=== PATIENT | female | born 1955 | race African-American/Black ===

== ENCOUNTER 2024-03-02 10:02 | Outpatient (CLI) | payer MEDICARE, SELFPAY ==
--- NOTE | 2024-03-02 11:03 | ECG_ITS ---
Test Date: 2024-03-02 11:17:52 Measurements Intervals [place] Rate: 59 P: 24 NM: 171 QRS: -28 QRSD: 90 T: 2 QT: 414 QTc: 411 Interpretive Statements SINUS BRADYCARDIA WITH SINUS ARRHYTHMIA LOW QRS VOLTAGE IN PRECORDIAL LEADS [QRS DEFLECTION < 1.0 mV IN CHEST LEADS] POSSIBLE ANTERIOR MYOCARDIAL INFARCTION [30 ms Q WAVE IN V3/V4, OR R < 0.2 mV IN V4], OF INDETERMINATE AGE LEFT AXIS DEVIATION No previous ECG available for comparison Electronically Signed On 03-02-2024 18:10:03 MRI SPECIALIST by Ana Dee M.D.
[2024-03-02 12:03] LABS: Eosinophils Absolute Auto 0.1 K/mm3 (0-0.3); Eosinophils Percent Auto 2.3 % (0-4.4); Hematocrit 36.6 % (37.0-47.0); Immature Granulocyte Absolute 0.01 K/mm3 (0.00-0.031); Immature Granulocyte Percent A 0.3 % (0-0.5); Lymphocytes Percent Auto 29.7 % (18.3-44.2); Mean Corpuscular HGB Conc 32.8 g/dl (32-36); Mean Corpuscular Hemoglobin 29.9 pg (26-34); Mean Platelet Volume 11.7 fl (7.4-10.4); Monocytes Absolute Auto 0.5 K/mm3 (0.1-0.6); Monocytes Percent Auto 16.5 % (2.6-8.5); Neutrophils Absolute Auto 1.5 K/mm3 (1.3-6.7); Neutrophils Percent Auto 50.2 % (45.5-73.1); Platelet Count Result 157 k/mm3 (150-375); Red Blood Count 4.02 M/mm3 (4.2-5.4); Red Cell Distribution Width 13.6 % (11.5-14.5)
[2024-03-02 12:14] LABS: Anion Gap 0 mmol/L (4-12); Blood Urea Nitrogen 25 mg/dL (7-17); Calcium 9.4 mg/dL (8.4-10.2); Carbon Dioxide 33 mmol/L (22-30); Chloride 103 mmol/L (98-107); Estimated Glomerular Filt Rate > 60; Glucose 75 mg/dL (65-110); Potassium 3.5 mmol/L (3.4-5.0); Sodium 136 mmol/L (137-145)
[2024-03-02 12:16] LABS: Urine Cotinine NEGATIVE
[2024-03-02 12:42] LABS: Hemoglobin A1C 5.3 % (<5.7)
[2024-03-02 13:08] LABS: MRSA (PCR) NOT DETECTED (NOT DETECTE)
== END 2024-03-02 10:03 | disposition home or self-care (01) ==
LOC: ANHSURGERY 10:07
PROVIDERS: Anesthesiology; PCP Family Medicine; Visit Provider Orthopaedic Surgery
DX: Z01.818 Encounter for other preprocedural examination (principal); M16.11 Unilateral primary osteoarthritis, right hip; I10 Essential (primary) hypertension; I44.4 Left anterior fascicular block; R00.1 Bradycardia, unspecified; I49.8 Other specified cardiac arrhythmias
CPT/HCPCS: 36415; 80048; 80307; 82040; 83036; 85025; 87641; 93005

== ENCOUNTER 2024-03-16 00:17 | Day surgery (SDC) | payer MEDICARE, SELFPAY ==
--- NOTE | 2024-03-02 09:58 | PC.NURSE ---
Report to the Outpatient Waiting Room, entrance under the green pavilion located off [facility], at time __6 am on date _03/16/24 . Planned Procedure Time: ___7:30 am .? Time changes happen often and if your time is changed the preop area will call you the afternoon before. - You and your visitor will be asked to self-screen and do not enter if you have any COVID symptoms. Please call surgeon if you need to reschedule. - A mask is optional within the hospital at this time. Patients may have clear liquids (water, carbonated beverages, clear teas, apple juice) until 3 hours prior to surgery ( 4:30 am)with a maximum of 20 ounces. - No food from midnight until time of surgery and no smoking. This includes no chewing gum, candy or mints. Take only the following medications with a SIP of water on the morning of surgery: _hydrocodone if needed for pain DO NOT STOP ANY OF YOUR OTHER PRESCRIPTION MEDICATIONS PRIOR TO SURGERY EXCEPT THE FOLLOWING Medications to discontinue per physician __hold all vitamins 3 days pre op _. last dose03/12/[address] yoon Please no make-up, nail croatian, hairspray, perfume, deodorant, or body powder the day of surgery.? No jewelry (including any body piercings) or valuables the day of surgery, leave them at home.? Please take a shower or bath the night before, or the morning of, surgery with an antibacterial soap.? Wear comfortable, loose fitting clothing.? Children are encouraged to wear pajamas. - Jewelry must be removed prior to entering the operating room.? Rings and piercings that are not removed may be cut off. - The hospital will not accept responsibility for valuables.? - Please leave all valuables, including medications, at home the day of surgery. If you are going home after surgery, a licensed boom truck driver must drive you home.? - NO public transportation without another adult if you receive anesthesia. - We recommend that an adult stay with you for 24 hours following discharge. - We also recommend that you do not drive, make important decision, drink alcoholic beverages, or take any drugs that were not prescribed by your health care provider for at least 24 hours after your discharge time. Follow any additional instructions given to you from your surgeon. VERBAL AND WRITTEN instructions given to _PATIENT and asked if any additional questions and then verbalized understanding. Patient advised to call surgeon office or pre surgery nurse liaison [phone] if any additional questions.
[2024-03-02 10:20] VITALS: BMI 32.3
[2024-03-02 11:03] VITALS: BP 132/76; PULSE 61; RESP 18; TEMP 36.9; O2SAT 99
--- NOTE | 2024-03-15 15:42 | PM.IMHP ---
H&P: HPI History of Present Illness Date/Time: 03/15/24 15:42 Chief Complaint: Patient has a painful Right hip with bone on bone arthritis. She is not responsive to conservative treatment at this time. She would like to proceed with a Total Hip Replacement. Review of Systems Musculoskeletal: Musculoskeletal: Reports arthralgias, Reports joint swelling and Reports stiffness Neurologic: Reports abnormal gait [facility] Past Medical History Medical History Hypertension GERD (gastroesophageal reflux disease) Surgical History Surgical History History of cholecystectomy H/O section Family History Family History Father Malignant neoplasm of prostate Mother Hypertension Sibling Breast cancer Thyroid cancer Grandparent Cerebrovascular accident Social History Social History Years smoked: 3 Smoking status: Former smoker Tobacco type: cigarettes Smoking end date: 03/04/89 Additional smoking assessment comments: DENIES ANY FORM OF TOBACCO USE Alcohol intake: current Drinks per week: 1 Alcohol use details: WHISKEY Substance use: never Do You Feel Safe in your Home?: Yes Lack of Transportation: No Lack of Food: Never True Current Housing: I Have Housing Concerned About Future Housing: No Difficulty Paying Gas/Electric Bills: No Difficulty Paying for Meds: No Currently Unemployed: No Education: Bachelor's Degree Difficulty w/ Childcare or Family Care: No Living arrangements: with family Spiritual care concerns: No Meds Home Medications and Allergies Home Medications ?Medication ?Instructions ?Recorded ?Confirmed ?Type celecoxib 200 mg capsule 200 mg PO DAILY 01/09/24 03/02/24 History hydrochlorothiazide 12.5 mg tablet 12.5 mg PO DAILY 01/09/24 03/02/24 History hydrocodone 5 mg-acetaminophen 325 1 tablet PO .Q12 hours PRN pain 01/09/24 03/02/24 History mg tablet losartan 50 mg tablet 50 mg PO DAILY 01/09/24 03/02/24 History omeprazole 40 mg capsule,delayed 40 mg PO DAILY 01/09/24 03/02/24 History release oxybutynin chloride 5 mg 5 mg PO DAILY 01/09/24 03/02/24 History tablet,extended release 24 hr cetirizine 10 mg tablet (Zyrtec) 10 mg PO DAILY 03/02/24 03/02/24 History fluticasone propionate 50 1 spray intranasal BID 03/02/24 03/02/24 History mcg/actuation nasal spray,suspension (Flonase Allergy Relief) glucosamine-chondroitin 500 mg-400 2 cap PO HS 03/02/24 03/02/24 History mg capsule multivitamin with minerals-folic 2 tablet PO DAILY 03/02/24 03/02/24 History acid 200 mcg chewable tablet (Women's Multivitamin Gummies) Allergies Allergy/AdvReac Type Severity Reaction Status Date / Time No Known Allergies Allergy Unverified 03/02/24 10:11 Exam Narrative: Patient has pain with motion of her hip. She has IR to 0, ER to 30. She has a positive Stinchfield test. She walks with an antalgic gait. NVI Eyes: General: appearance normal, both eyes and all related structures Neck: Neck: supple Resp: Effort & Inspection: normal respiratory effort Cardio: Rate: regular rate Rhythm: regular rhythm Assessment and Plan Assessment and plan (1) Osteoarthritis of right hip: Code(s): M16.11 - Unilateral primary osteoarthritis, right hip Status: Acute Assessment and Plan: Patient has osteoarthritis of her Right Hip. X-rays show bone on bone arthritis. She has failed conservative treatment and would like to proceed with a Total Hip Replacement. Discussed risks, benefits, limitations and alternatives in detail.
[2024-03-16] VITALS (14 sets, daily range): BP systolic 130–156; BP diastolic 65–87; PULSE 60–81; RESP 12–20; TEMP 35.9–36.9; O2SAT 95–100
--- NOTE | ~2024-03-16 | XR_ITS ---
EXAMINATION: XR surgery orthopedic DATE: 03/16/2024 09:12 INDICATION: Intraoperative evaluation during right total hip arthroplasty TECHNIQUE: Frontal view of the right hip was obtained. COMPARISON: None. FINDINGS: Intraoperative image during a right total hip arthroplasty demonstrate placement of an acetabular com ponent which is affixed with at least 2 screws and which appears in near anatomic alignment on the pr ovided frontal projections. A femoral broach is in place with the proximal tip centered over the acet abular component on the initial image. This been replaced with a noncemented femoral component on the subsequent image with the head of the femoral component projecting concentrically over the acetabula r component. Portions of the pelvis are obscured a bolster. No fractures in the visualized bones. IMPRESSION: 1. Expected appearance during right total hip arthroplasty. Reviewed, dictated and finalized at location B. [facility]
[2024-03-16] MEDS: LACTATED RINGERS 1,000 ML 30 ML IV CONT ×2 (06:30→09:40)
[2024-03-16] MEDS: ACETAMINOPHEN 500 MG TABLET 1000 MG PO (06:40)
[2024-03-16] MEDS: VANCOMYCIN 1,250 MG/NS 250 ML 1,250 MG/250 ML BAG 166.67 MG IVPB (06:40)
--- NOTE | 2024-03-16 06:56 | WPDHPUPDATE1 ---
History and Physical Update Update Date/Time: 03/16/24 06:56 History and Physical has been reviewed, including an updated exam of the patient. There are NO changes in the patient's condition. Risks, benefits, and alternatives have been discussed and questions answered. Patient agrees to proceed with procedure.
--- NOTE | 2024-03-16 06:58 | P.PNAN_ITS ---
Anes - Initial Pre Proc Eval Procedure: Operation Date: 03/16/24 07:30 Proposed Procedures p Right Total Hip Arthroplasty - Jaspreet Segura MD Date/Time: 03/16/24 06:58 Surgeon: Jaspreet Segura MD Pre Op Diagnosis: oa right hip Patient Data Age: 68 Gender: F Height: 1.68 m Weight: 90.8 kg Last Vital Signs Temp 98.5 F 03/02/24 11:03 Pulse 61 03/02/24 11:03 Resp 18 03/02/24 11:03 BP 132/76 03/02/24 11:03 Pulse Ox 99 03/02/24 11:03 O2 Del Method Room Air 03/02/24 11:03 Allergies Allergy/AdvReac Type Severity Reaction Status Date / Time No Known Allergies Allergy Unverified 03/02/24 10:11 Home Medications ?Medication ?Instructions ?Recorded ?Confirmed ?Type celecoxib 200 mg capsule 200 mg PO DAILY 01/09/24 03/02/24 History hydrochlorothiazide 12.5 mg tablet 12.5 mg PO DAILY 01/09/24 03/02/24 History hydrocodone 5 mg-acetaminophen 325 1 tablet PO .Q12 hours PRN pain 01/09/24 03/02/24 History mg tablet losartan 50 mg tablet 50 mg PO DAILY 01/09/24 03/02/24 History omeprazole 40 mg capsule,delayed 40 mg PO DAILY 01/09/24 03/02/24 History release oxybutynin chloride 5 mg 5 mg PO DAILY 01/09/24 03/02/24 History tablet,extended release 24 hr cetirizine 10 mg tablet (Zyrtec) 10 mg PO DAILY 03/02/24 03/02/24 History fluticasone propionate 50 1 spray intranasal BID 03/02/24 03/02/24 History mcg/actuation nasal spray,suspension (Flonase Allergy Relief) glucosamine-chondroitin 500 mg-400 2 cap PO HS 03/02/24 03/02/24 History mg capsule multivitamin with minerals-folic 2 tablet PO DAILY 03/02/24 03/02/24 History acid 200 mcg chewable tablet (Women's Multivitamin Gummies) Laboratory Tests 03/16/24 06:24 Blood Type Pending Antibody Screen Pending Patient hx anesthesia problems: none Family hx anesthesia problems: none Results Review: All pre-operative results and documents have been reviewed as part of the pre- operative evaluation. [facility] Past Medical History Medical History Hypertension GERD (gastroesophageal reflux disease) Surgical History Surgical History History of cholecystectomy H/O section Family History Family History Father Malignant neoplasm of prostate Mother Hypertension Sibling Breast cancer Thyroid cancer Grandparent Cerebrovascular accident Social History Social History Smoking status: Never smoker Tobacco type: cigarettes Alcohol intake: current Alcohol use details: Occasional Substance use: never Do You Feel Safe in your Home?: Yes Lack of Transportation: No Lack of Food: Never True Current Housing: I Have Housing Concerned About Future Housing: No Difficulty Paying Gas/Electric Bills: No Difficulty Paying for Meds: No Currently Unemployed: No Education: Bachelor's Degree Difficulty w/ Childcare or Family Care: No Anes - Eval Final PreProcedure Day of Procedure 03/16/24 06:58 Patient weight: obese Heart: regular rate and rhythm Lungs: clear to auscultation Airway: Mallampati scale class III Neurological: alert and oriented Last oral intake: >/= 8 hours ASA classification: II Emergent: no Anesthetic plan: proceed Anesthesia type and monitoring: general ETT and standard monitoring Results Review: All pre-operative results and documents have been reviewed as part of the pre- operative evaluation. HTN, pt can walk short distances, no cp or sob. Informed Consent: The patient's anesthetic plan and its attendant risks and benefits were discussed with the patient/family/POA. Questions were solicited and answers provided to the satisfaction of the patient/family/POA.
[2024-03-16] MEDS: TRANEXAMIC ACID 1,000MG/ISO100 1,000 MG/100 ML BAG 200 MG IVPB (07:00)
[2024-03-16] MEDS: ceFAZolin 2 GM/D5W 50 ML 2 GM/50 ML BAG IVPB ×3 (07:20→22:52)
[2024-03-16] MEDS: BUPIVACAINE/EPINEPHRINE 0.5% 30 ML VIAL INFILTRATE (07:50)
--- NOTE | 2024-03-16 09:05 | W.PM.PROC2 ---
Procedure Note - Detailed Date of Procedure 03/16/24 Pre-op Diagnosis Osteoarthritis right hip Post-op Diagnosis Same Procedure Performed RIGHT total hip arthroplasty Surgeon Jaspreet Segura MD Anesthesia General Indications Pain and Arthritis Description of Procedure Patient was brought to the operating room #7, and an anesthetic was administered. The patient was placed with the operative Hip up and sterilely prepped and draped in the usual manner. A longitudinal incision was performed. Dissection was carried down to the fascia. A Hardinge type approach was used and the femoral head was dislocated anteriorly. The Femoral head was removed a finger breath above the lesser trochanter. The acetabulum was serially reamed to accept a 52 component. This was impacted into place and secured with 2 25mm screws. A high wall liner was placed. The femur was reamed and broached to accept a #5 component which was impacted into place. A minus 3 head and neck were placed and the hip was put through full range of motion. The hip was noted to be stable. The wounds were then closed in a layered fashion using #5 ethibond, 2 vicryl, 2-0 vicryl and mazin. Patient left the operating room in satisfactory condition. Implants [employer] Taperlock Isabel Multihole cup Estimated Blood Loss 600 Drains No Packing No Pathology None sent Complications No immediate complications Condition Stable Disposition PACU [facility] Billing Surgery - Charge Forward: Surgery Billing ([id number] HUDSON)
[2024-03-16] MEDS: fentaNYL CITRATE INJ (*CRX) 100 MCG/2 ML VIAL 25 MCG IV PUSH ×6 (10:01→10:32)
--- NOTE | 2024-03-16 11:06 | ADMGEN ---
This patient, Julianna Brown, was admitted to 3 [facility] Room 319-01. Patient/family oriented to hospital policies and general routines including ID bracelet, bed and alarms, visiting hours, pain management, procedures, bathroom and other care routines, personal items, smoking policy, room service/diet, and visiting hours. Information on how to activate the Rapid Response Team has been discussed. Patient/Family are encouraged to report perceived risks to care and to ask questions if they do not understand what they are told or what they should do.
[2024-03-16] MEDS: HYDROmorphone HCL INJ (*CRX) 1 MG/ML SYR 0.5 MG IV PUSH (11:22)
--- NOTE | 2024-03-16 14:00 | P.CONIM_ITS ---
Assessment and Plan Assessment and plan (1) Osteoarthritis of right hip: Code(s): M16.11 - Unilateral primary osteoarthritis, right hip Status: Acute Assessment and Plan: Postoperative day 0 status post right total hip arthroplasty. Wound care, pain control, and DVT prophylaxis deferred to primary service. Check baseline labs in a.m. (2) Hypertension: Code(s): I10 - Essential (primary) hypertension Status: Acute Assessment and Plan: Blood pressures were reviewed and they have been in a bit elevated postoperatively, likely due to pain. Resume hydrochlorothiazide and lisinopril and continue to monitor daily. (3) Gastroesophageal reflux disease: Code(s): K21.9 - Gastro-esophageal reflux disease without esophagitis Status: Acute Assessment and Plan: Continue omeprazole. (4) Overactive bladder: Code(s): N32.81 - Overactive bladder Status: Acute Assessment and Plan: Continue oxybutynin. Plan Thank you for allowing us to participate in this patient's care. Please do not hesitate to contact us with any questions. HPI Date of Consult Consult date: 03/16/24 Requesting Physician: Jaspreet Segura MD Primary Care Provider: Marii Randle, Consult Narrative Reason for consult: medical managment Narrative: This is very pleasant a 68-year-old female with osteoarthritis, hypertension, gastroesophageal reflux disease, and overactive bladder whom the hospitalist service has been consulted for help managing her medical conditions postoperatively. She presented today for elective right total hip arthroplasty due to ongoing pain in that right hip despite conservative outpatient treatment. Her surgery was performed under general anesthesia with no immediate complications documented and an estimated blood loss of 600 mL. Pain is not currently well controlled (11/11). She is otherwise feeling okay and denies fever, chills, sweats, chest pain, shortness of breath, nausea, and vomiting. Regarding her chronic medical conditions, she believes they are well controlled on home medications. No personal or family history of venous thromboembolism. On discharge she will be going home with her spouse will help take care of her. Review of Systems Review of Systems: 12 systems were reviewed and are negativ e except for as per HPI. [facility], [facility] Past Medical History Medical History (Updated 03/16/24 @ 14:03 by Ailyn Morton PA-C) Osteoarthritis Overactive bladder Gastroesophageal reflux disease Hypertension Surgical History Surgical History (Updated 03/16/24 @ 14:02 by Ailyn Morton PA-C) History of hysterectomy History of total right hip arthroplasty (03/16/24) History of section History of cholecystectomy Family History Family History Father Malignant neoplasm of prostate Mother Hypertension Sibling Breast cancer Thyroid cancer Grandparent Cerebrovascular accident Social History Social History (Updated 03/16/24 @ 14:03 by Ailyn Morton PA-C) Social History: Surrogate medical decision maker: Dina Kevin, spouse. Code status: Full code. Years smoked: 3 Smoking status: Former smoker Tobacco type: cigarettes Smoking end date: 03/04/89 Alcohol intake: never Drinks per week: 1 Alcohol use details: Occasional Substance use: never Substance use type: does not use Do You Feel Safe in your Home?: Yes Lack of Transportation: No Lack of Food: Never True Current Housing: I Have Housing Concerned About Future Housing: No Difficulty Paying Gas/Electric Bills: No Difficulty Paying for Meds: No Currently Unemployed: No Education: Don't Know Difficulty w/ Childcare or Family Care: No Spiritual care concerns: No Meds Home Medications and Allergies Home Medications ?Medication ?Instructions ?Recorded ?Confirmed ?Type celecoxib 200 mg capsule 200 mg PO DAILY 01/09/24 03/16/24 History hydrochlorothiazide 12.5 mg tablet 12.5 mg PO DAILY 01/09/24 03/16/24 History hydrocodone 5 mg-acetaminophen 325 1 tablet PO .Q12 hours PRN pain 01/09/24 03/02/24 History mg tablet losartan 50 mg tablet 50 mg PO DAILY 01/09/24 03/16/24 History omeprazole 40 mg capsule,delayed 40 mg PO DAILY 01/09/24 03/16/24 History release oxybutynin chloride 5 mg 5 mg PO DAILY 01/09/24 03/16/24 History tablet,extended release 24 hr cetirizine 10 mg tablet (Zyrtec) 10 mg PO DAILY 03/02/24 03/16/24 History fluticasone propionate 50 1 spray intranasal BID 03/02/24 03/16/24 History mcg/actuation nasal spray,suspension (Flonase Allergy Relief) glucosamine-chondroitin 500 mg-400 2 cap PO HS 03/02/24 03/16/24 History mg capsule multivitamin with minerals-folic 2 tablet PO DAILY 03/02/24 03/16/24 History acid 200 mcg chewable tablet (Women's Multivitamin Gummies) Allergies Allergy/AdvReac Type Severity Reaction Status Date / Time No Known Allergies Allergy Verified 03/16/24 07:25 Vital Signs Vital Signs - 24 hr 03/16/24 06:15 03/16/24 09:40 03/16/24 09:55 Temperature 97.4 F L 97 F L Pulse Rate 63 73 66 Respiratory Rate 16 17 14 Blood Pressure 136/85 133/68 146/77 H Pulse Oximetry 99 100 100 Oxygen Delivery Room Air Simple Face Mask Simple Face Mask Oxygen Flow Rate 8 8 03/16/24 10:05 03/16/24 10:10 03/16/24 10:25 Temperature Pulse Rate 76 73 Respiratory Rate 18 12 Blood Pressure 149/80 H 142/83 H Pulse Oximetry 98 99 Oxygen Delivery Room Air Room Air Nasal Cannula Oxygen Flow Rate 2 03/16/24 10:40 03/16/24 10:45 03/16/24 11:10 Temperature 97.2 F L 96.7 F L Pulse Rate 60 63 73 Respiratory Rate 14 16 14 Blood Pressure 156/71 H 146/71 H 141/87 H Pulse Oximetry 100 100 95 Oxygen Delivery Nasal Cannula Nasal Cannula Oxygen Flow Rate 2 2 03/16/24 11:25 03/16/24 12:39 03/16/24 12:54 Temperature 96.9 F L 97.2 F L Pulse Rate 61 62 Respiratory Rate 14 14 Blood Pressure 149/65 H 155/73 H Pulse Oximetry 100 100 Oxygen Delivery Room Air Oxygen Flow Rate Exam Narrative: General: Well-developed, nontoxic-appearing female sitting up in bed in moderate pain weight: 80.1 kg. BMI: 31.3. HEENT: PERRL, EOMI. Sclera anicteric. Oral mucosa moist. Neck: Supple. Respiratory: Lungs are clear to auscultation bilaterally. Cardiovascular: Regular rate and rhythm with S1-S2. Gastrointestinal: Abdomen is soft, nontender, and nondistended with positive bowel sounds. Skin: Warm and dry. No rash or lesions on limited exam. Extremities: No cyanosis, clubbing, or edema. Radial and pedal pulses intact. Musculoskeletal: Right hip dressing is clean, dry, and intact. She is neurovascularly intact distal to the surgical site. Neurological: Alert. Cranial nerves 2-12 grossly intact. No gross focal deficits to casual conversation. Psychiatric: Pleasant and cooperative with normal mood and affect. Judgment and insight intact. Hospitalist MIPS Advance Care Plan I have confirmed that the patient's Advanced Care Plan is present, code status is documented, or surrogate decision maker is listed in patient medical record.: Yes Medication Reconciliation I have utilized all available resources to obtain, update and review the patients current medications (includes all prescriptions, OTC, herbals, cannabis, and nutritional supplements).: Yes
[2024-03-16] MEDS: HYDROcodone/acetaminophen (*CRX) 7.5-325 MG TABLET 1 TAB PO ×2 (14:35→19:33)
[2024-03-16] MEDS: SENNA/DOCUSATE SODIUM TABLET 2 TAB PO (16:10)
[2024-03-16] MEDS: RIVAROXABAN 10 MG TABLET PO (16:10)
[2024-03-16] MEDS: FLUTICASONE PROPIONATE 0.05% NA SPR 16 GM BTL (*BKC) 1 SPRAY NASAL (16:10)
[2024-03-16] MEDS: oxyBUTYnin CHLORIDE XL 5 MG TAB.ER.24 PO (19:32)
[2024-03-16] MEDS: LORATADINE 10 MG TABLET PO (19:32)
[2024-03-16] MEDS: PANTOPRAZOLE 40 MG TABLET PO (19:33)
[2024-03-16] MEDS: IBUPROFEN IV 800 MG/200 ML 800 MG/200 ML BAG 400 MG IVPB (19:34)
[2024-03-16] MEDS: HYDROmorphone HCL INJ (*CRX) 1 MG/ML SYR IV PUSH (21:32)
[2024-03-17 03:00] VITALS: BP 154/74; PULSE 71; RESP 18; TEMP 36.6; O2SAT 100
[2024-03-17 03:32] VITALS: BP 154/74; PULSE 71; RESP 18; TEMP 36.6; O2SAT 100
[2024-03-17] MEDS: IBUPROFEN IV 800 MG/200 ML 800 MG/200 ML BAG 400 MG IVPB (03:43)
[2024-03-17] MEDS: HYDROcodone/acetaminophen (*CRX) 7.5-325 MG TABLET 1 TAB PO ×2 (06:22→11:51)
[2024-03-17] MEDS: ceFAZolin 2 GM/D5W 50 ML 2 GM/50 ML BAG IVPB (06:22)
[2024-03-17 07:06] LABS: Basophils Percent Auto 0.5 % (0.2-1.2); Eosinophils Percent Auto 0.1 % (0-4.4); Hematocrit 32.8 % (37.0-47.0); Hemoglobin 10.6 g/dL (12.0-15.0); Immature Granulocyte Absolute 0.02 K/mm3 (0.00-0.031); Immature Granulocyte Percent A 0.3 % (0-0.5); Lymphocytes Absolute Auto 1.17 K/mm3 (0.9-3.2); Lymphocytes Percent Auto 15.4 % (18.3-44.2); Mean Corpuscular HGB Conc 32.3 g/dl (32-36); Mean Corpuscular Hemoglobin 28.8 pg (26-34); Mean Corpuscular Volume 89.1 fl (80-100); Monocytes Absolute Auto 0.8 K/mm3 (0.1-0.6); Monocytes Percent Auto 10.6 % (2.6-8.5); Neutrophils Absolute Auto 5.6 K/mm3 (1.3-6.7); Neutrophils Percent Auto 73.1 % (45.5-73.1); Platelet Count Result 148 k/mm3 (150-375); Red Blood Count 3.68 M/mm3 (4.2-5.4); Red Cell Distribution Width 13.6 % (11.5-14.5); White Blood Count 7.6 K/mm3 (4.5-10.0)
[2024-03-17 07:37] LABS: Magnesium 1.6 mg/dL (1.6-2.3)
[2024-03-17 07:39] LABS: Anion Gap 4 mmol/L (4-12); Blood Urea Nitrogen 15 mg/dL (7-17); Calcium 8.6 mg/dL (8.4-10.2); Carbon Dioxide 31 mmol/L (22-30); Chloride 99 mmol/L (98-107); Estimated CRCL calculation 85 ml/min; Estimated Glomerular Filt Rate > 60; Glucose 100 mg/dL (65-110); Potassium 3.4 mmol/L (3.4-5.0); Sodium 134 mmol/L (137-145)
--- NOTE | 2024-03-17 08:23 | P.PNOP_ITS ---
Progress Note: A&P Assessment and Plan (1) History of partial replacement of left hip joint using bipolar prosthesis: Code(s): Z96.642 - Presence of left artificial hip joint Status: Acute Assessment and Plan: Patient underwent total hip arthroplasty left. She is following a typical course. I think she can be dismissed today. If she has any changes or problems he is instructed call. Follow-up 10-14 days for sutures out. She should be touch weight-bearing on her hip. Subjective Subjective Date/Time Seen: 03/17/24 08:23 Post Op day: 1 Principal diagnosis: LEFT Total hip arthroplasty for left hip osteoarthritis. Review of Systems Review of Systems: 12 systems were reviewed and are negativ e except for as per HPI. Exam Narrative: On exam the neurologically she is intact. The dressing is intact and dry. She is up ambulating with a walker. Pain is tolerable. Objective Data Vital Signs Vital Signs: Vital Signs - 24 hr 03/16/24 09:40 03/16/24 09:55 03/16/24 10:05 Temperature 97 F L Pulse Rate 73 66 Respiratory Rate 17 14 Blood Pressure 133/68 146/77 H Pulse Oximetry 100 100 Oxygen Delivery Simple Face Mask Simple Face Mask Room Air Oxygen Flow Rate 8 8 03/16/24 10:10 03/16/24 10:25 03/16/24 10:40 Temperature Pulse Rate 76 73 60 Respiratory Rate 18 12 14 Blood Pressure 149/80 H 142/83 H 156/71 H Pulse Oximetry 98 99 100 Oxygen Delivery Room Air Nasal Cannula Nasal Cannula Oxygen Flow Rate 2 2 03/16/24 10:45 03/16/24 11:10 03/16/24 11:25 Temperature 97.2 F L 96.7 F L 96.9 F L Pulse Rate 63 73 61 Respiratory Rate 16 14 14 Blood Pressure 146/71 H 141/87 H 149/65 H Pulse Oximetry 100 95 100 Oxygen Delivery Nasal Cannula Oxygen Flow Rate 2 03/16/24 12:39 03/16/24 12:54 03/16/24 12:55 Temperature 97.2 F L 97.2 F L Pulse Rate 62 71 Respiratory Rate 14 16 Blood Pressure 155/73 H 130/69 Pulse Oximetry 100 99 Oxygen Delivery Room Air Oxygen Flow Rate 03/16/24 13:35 03/16/24 19:00 03/16/24 19:40 Temperature 98.5 F Pulse Rate 81 Respiratory Rate 20 Blood Pressure 151/83 H Pulse Oximetry 98 Oxygen Delivery Room Air Room Air Oxygen Flow Rate 03/16/24 20:36 03/16/24 23:00 03/17/24 03:00 Temperature 98.5 F 97.7 F 97.9 F Pulse Rate 81 68 71 Respiratory Rate 20 20 18 Blood Pressure 151/83 H 148/70 H 154/74 H Pulse Oximetry 98 96 100 Oxygen Delivery Oxygen Flow Rate 03/17/24 03:32 Temperature 97.9 F Pulse Rate 71 Respiratory Rate 18 Blood Pressure 154/74 H Pulse Oximetry 100 Oxygen Delivery Oxygen Flow Rate Intake/Output Intake/Output: Intake & Output 03/14/24 03/15/24 03/16/24 03/17/24 23:59 23:59 23:59 23:59 Intake Total 690 490 Balance 690 490 Meds/Results Medications: Active Medications Generic Name Dose Route Start Last Admin Trade Name Freq PRN Reason Stop Dose Admin Hydrocodone Bitart/Acetaminophen 1 tab 03/16/24 09:15 Hydrocodone/Acetaminophen (*Crx) 5-325 Mg Tablet PO Q4H PRN Pain Rated 4-6 Hydrocodone Bitart/Acetaminophen 1 tab 03/16/24 09:15 03/17/24 06:22 Hydrocodone/Acetaminophen (*Crx) 7.5-325 Mg Tablet PO 1 tab Q4H PRN Administration Pain Rated 7-10 Celecoxib 200 mg 03/17/24 09:00 Celecoxib 200 Mg Capsule PO DAILY KG Cyclobenzaprine HCl 10 mg 03/16/24 09:15 Cyclobenzaprine Hcl 10 Mg Tablet PO Q8H PRN Muscle Spasm Fentanyl Citrate 25 mcg 03/13/24 14:44 03/16/24 10:32 Fentanyl Citrate Inj (*Crx) 100 Mcg/2 Ml Vial IV PUSH 25 mcg Q2M PRN Administration Pain Fluticasone Propionate 1 spray 03/16/24 17:00 03/16/24 16:10 Fluticasone Propionate 0.05% Na Spr 16 Gm Btl (*Bkc) NASAL 1 spray BID KG Administration Hydrochlorothiazide 12.5 mg 03/17/24 21:00 Hydrochlorothiazide 12.5 Mg Capsule PO HS KG Hydromorphone HCl 1 mg 03/16/24 09:15 03/16/24 21:32 Hydromorphone Hcl Inj (*Crx) 1 Mg/Ml Syr IV PUSH 1 mg Q2H PRN Administration Breakthrough Pain Rated 7-10 or NPO Hydromorphone HCl 0.5 mg 03/16/24 09:15 03/16/24 11:22 Hydromorphone Hcl Inj (*Crx) 1 Mg/Ml Syr IV PUSH 0.5 mg Q2H PRN Administration Breakthrough Pain Rated 4-6 or NPO Ibuprofen 800 mg in 200 mls @ 400 mls/hr 03/16/24 09:15 03/17/24 04:13 Caldolor 800 Mg/200 Ml IVPB Infused Q6H PRN Infusion Breakthrough Pain Rated 1-3 or NPO Loratadine 10 mg 03/16/24 21:00 03/16/24 19:32 Loratadine 10 Mg Tablet PO 10 mg HS KG Administration Losartan Potassium 50 mg 03/17/24 21:00 Losartan Potassium 50 Mg Tablet PO HS KG Naloxone HCl 0.1 mg 03/16/24 09:15 Naloxone Hcl 0.4 Mg/Ml Vial IV PUSH Q2M PRN Opiate Reversal Ondansetron HCl 4 mg 03/13/24 14:44 Ondansetron Inj 4 Mg/2 Ml Vial IV PUSH ONCE PRN Nausea Ondansetron HCl 4 mg 03/16/24 09:15 Ondansetron Inj 4 Mg/2 Ml Vial IV PUSH Q4H PRN Nausea And Vomiting Oxybutynin Chloride 5 mg 03/16/24 21:00 03/16/24 19:32 Oxybutynin Chloride Xl 5 Mg Tab.Er.24 PO 5 mg HS KG Administration Pantoprazole Sodium 40 mg 03/16/24 21:00 03/16/24 19:33 Pantoprazole 40 Mg Tablet PO 40 mg HS KG Administration Polyethylene Glycol 17 gm 03/17/24 09:00 Polyethylene Glycol 3350 17 Gm Powd.Pack PO QAM KG Rivaroxaban 10 mg 03/16/24 17:00 03/16/24 16:10 Rivaroxaban 10 Mg Tablet PO 10 mg DAILY@1700 KG Administration Senna/Docusate Sodium 2 tab 03/16/24 17:00 03/16/24 16:10 Senna/Docusate Sodium Tablet PO 2 tab BID KG Administration Tramadol HCl 50 mg 03/16/24 09:15 Tramadol Hcl (*Crx) 50 Mg Tablet PO Q4H PRN Pain Rated 1-3 Radiology Results: ITS Impressions Intraoperative X-Ray 03/16/24 09:50 IMPRESSION: 1. Expected appearance during right total hip arthroplasty. Labs Labs: Laboratory Results - last 24 hr 03/17/24 06:51 WBC 7.6 RBC 3.68 L Hgb 10.6 L Hct 32.8 L MCV 89.1 MCH 28.8 MCHC 32.3 RDW 13.6 Plt Count 148 L MPV 11.0 H Immature Gran % (Auto) 0.3 Neut % (Auto) 73.1 Lymph % (Auto) 15.4 L [place] % (Auto) 10.6 H Eos % (Auto) 0.1 Baso % (Auto) 0.5 Lymph # (Auto) 1.17 [place] # (Auto) 0.8 H Eos # (Auto) 0.0 Baso # (Auto) 0.0 Abs Immat Gran (auto) 0.02 Absolute Neuts (auto) 5.6 Absolute Nucleated RBC 0.000 Nucleated RBC % 0.0 Sodium 134 L Potassium 3.4 Chloride 99 Carbon Dioxide 31 H Anion Gap 4 BUN 15 D Creatinine 0.63 L Estim Creat Clear Calc 85 Estimated GFR > 60 Glucose 100 Calcium 8.6 Magnesium 1.6
--- NOTE | 2024-03-17 08:25 | PM.DS ---
DS: Admitting Diagnosis Discharge Date 03/17/2024 Admitting Diagnosis Osteoarthritis RIGHT hip. DS: Discharge Diagnosis Discharge Diagnosis (1) History of partial replacement of right hip joint using bipolar prosthesis: Code(s): Z96.641 - Presence of right artificial hip joint Status: Acute Assessment and Plan: Patient underwent total hip arthroplasty and right for osteoarthritis. She has done well postoperatively and can be dismissed home. She should be touch weight-bearing. She has any changes or problems I have asked her to call. DS: Summary Hospital Course Hospital Course: Patient underwent total hip arthroplasty for osteoarthritis in the right hip. She has done well postoperatively and is dismissed home. Dismissal medications include Drums and Xarelto. She should be touch weight-bearing on her hip. She has any changes or problems she is instructed to call. Overall she is following a normal course. Status at Discharge Functional status at discharge: uses cane/walker Time Spent with Patient Time attestation: Total time spent providing and/or coordinating discharge services: Exam Narrative: Neurologically patient is intact. Incision is clean the dressing is dry. She is able to ambulate with a walker. DS: Data Data Completed and Pending Labs on day of discharge: Labs from last 24 hours 03/17/24 06:51 WBC 7.6 RBC 3.68 L Hgb 10.6 L Hct 32.8 L MCV 89.1 MCH 28.8 MCHC 32.3 RDW 13.6 Plt Count 148 L MPV 11.0 H Immature Gran % (Auto) 0.3 Neut % (Auto) 73.1 Lymph % (Auto) 15.4 L [place] % (Auto) 10.6 H Eos % (Auto) 0.1 Baso % (Auto) 0.5 Lymph # (Auto) 1.17 [place] # (Auto) 0.8 H Eos # (Auto) 0.0 Baso # (Auto) 0.0 Abs Immat Gran (auto) 0.02 Absolute Neuts (auto) 5.6 Absolute Nucleated RBC 0.000 Nucleated RBC % 0.0 Sodium 134 L Potassium 3.4 Chloride 99 Carbon Dioxide 31 H Anion Gap 4 BUN 15 D Creatinine 0.63 L Estim Creat Clear Calc 85 Estimated GFR > 60 Glucose 100 Calcium 8.6 Magnesium 1.6 Discharge Plan Discharge Patient Disposition: Home, Self-Care Discharge Instructions: Dr. Jaspreet Segura M.D [address] [place] [id number] POST-OPERATIVE DISCHARGE INSTRUCTIONS TOTAL HIP ARTHROPLASTY 1. Move toes/feet up and down every hour while awake. 2. Be up walking every hour while awake. 3. Use walker multimedia teacher if instructed to use walker multimedia teacher.When you are allowed to use the cane, use the cane in the opposite hand. 4. When resting, do not rest in the chair. Rather, lie on your back, with back flat, and the leg elevated above heart to minimize swelling. You may put a pillow under your head. Do not rest in a chair. Resting in the chair results in swelling in the leg. Significant swelling could indicate a blood clot and if this occurs, call the office (or go to the ER) to have a venous ultrasound performed. Its ok to sit in the chair to eat and use the toilet and to receive a guest but sitting in a chair will cause your leg to swell. so try to minimize sitting in a chair. 5. Wound Care: Apply a folded 4x4 sponge to incision and hold with crossing strips of 1 inch Transpore tape. 6. Follow weight bearing status as instructed: 7. May shower. Remove dressing before shower and reapply dressing after shower. Patient Language: Greek Stand Alone Forms: General Discharge Instructions Follow-up/Referrals: Jaspreet Segura MD [Physician] - Discharge Medications: New doxycycline hyclate 100 mg tablet 100 mg PO DAILY Qty: 10 0RF hydrocodone-acetaminophen 7.5-325 mg tablet 1 tablet PO Q4H PRN (Reason: pain) Qty: 40 0RF Xarelto 10 mg tablet 10 mg PO DAILY Qty: 20 0RF Rx Instructions: for 35 days Continued celecoxib 200 mg capsule 200 mg PO DAILY Patient Comments: takes at hs hydrochlorothiazide 12.5 mg tablet 12.5 mg PO DAILY Patient Comments: takes at hs losartan 50 mg tablet 50 mg PO DAILY Patient Comments: takes at hs omeprazole 40 mg capsule,delayed release(DR/EC) 40 mg PO DAILY Patient Comments: takes at hs oxybutynin chloride 5 mg tablet extended release 24hr 5 mg PO DAILY Patient Comments: takes at hs hydrocodone-acetaminophen 5-325 mg tablet 1 tablet PO .Q12 hours PRN (Reason: pain) multivit with min-folic acid [Women's Multivitamin Gummies] 200 mcg tablet,chewable 2 tablet PO DAILY cetirizine [Zyrtec] 10 mg tablet 10 mg PO DAILY Patient Comments: takes at hs fluticasone propionate [Flonase Allergy Relief] 50 mcg/actuation spray,suspension 1 spray intranasal BID Rx Instructions: administer into each nostril glucosamine-chondroitin 500-400 mg capsule 2 cap PO HS Rx Instructions: give with meal/snack
[2024-03-17] MEDS: SENNA/DOCUSATE SODIUM TABLET 2 TAB PO (09:07)
[2024-03-17] MEDS: CELECOXIB 200 MG CAPSULE PO (09:07)
[2024-03-17] MEDS: polyethylene glycoL 3350 17 GM POWD.PACK PO (09:07)
[2024-03-17 11:00] VITALS: BP 118/55; PULSE 70; RESP 16; TEMP 36.7; O2SAT 96
--- NOTE | 2024-03-17 12:32 | P.PNIM_ITS ---
Progress Note: A&P Assessment and Plan (1) Osteoarthritis of right hip: Code(s): M16.11 - Unilateral primary osteoarthritis, right hip Status: Acute Assessment and Plan: Postoperative day 1 status post right total hip arthroplasty. Wound care, pain control, and DVT prophylaxis deferred to primary service. On Xarelto Mild postoperative anemia noted. (2) Hypertension: Code(s): I10 - Essential (primary) hypertension Status: Acute Assessment and Plan: Blood pressure stable Resume hydrochlorothiazide and lisinopril and continue to monitor daily. (3) Gastroesophageal reflux disease: Code(s): K21.9 - Gastro-esophageal reflux disease without esophagitis Status: Acute Assessment and Plan: Continue omeprazole. (4) Overactive bladder: Code(s): N32.81 - Overactive bladder Status: Acute Assessment and Plan: Continue oxybutynin. Plan Okay to discharge from medical standpoint on her usual medications. Subjective Date/time seen: 03/17/24 12:32 Interval history: Working with therapy. Denies any chest pain Or shortness of breath. Pain Is controlled plan to discharge home today Review of Systems Review of Systems: All systems reviewed & are unremarkable except as noted in HPI and below Exam Narrative: General: Well-developed, nontoxic-appearing female sitting up in bed in moderate pain HEENT: PERRL, EOMI. Sclera anicteric. Oral mucosa moist. Neck: Supple. Respiratory: Lungs are clear to auscultation bilaterally. Cardiovascular: Regular rate and rhythm with S1-S2. Gastrointestinal: Abdomen is soft, nontender, and nondistended with positive bowel sounds. Skin: Warm and dry. No rash or lesions on limited exam. Extremities: No cyanosis, clubbing, or edema. Radial and pedal pulses intact. Musculoskeletal: Right hip dressing is clean, dry, and intact. She is neur ovascularly intact distal to the surgical site. Neurological: Alert. Cranial nerves 2-12 grossly intact. No gross focal deficits to casual conversation. Psychiatric: Pleasant and cooperative with normal mood and affect. Judgment and insight intact. Objective Data Vital Signs Vital Signs: Vital Signs - 24 hr 03/16/24 12:39 03/16/24 12:54 03/16/24 12:55 Temperature 97.2 F L 97.2 F L Pulse Rate 62 71 Respiratory Rate 14 16 Blood Pressure 155/73 H 130/69 Pulse Oximetry 100 99 Oxygen Delivery Room Air 03/16/24 13:35 03/16/24 19:00 03/16/24 19:40 Temperature 98.5 F Pulse Rate 81 Respiratory Rate 20 Blood Pressure 151/83 H Pulse Oximetry 98 Oxygen Delivery Room Air Room Air 03/16/24 20:36 03/16/24 23:00 03/17/24 03:00 Temperature 98.5 F 97.7 F 97.9 F Pulse Rate 81 68 71 Respiratory Rate 20 20 18 Blood Pressure 151/83 H 148/70 H 154/74 H Pulse Oximetry 98 96 100 Oxygen Delivery 03/17/24 03:32 03/17/24 09:15 03/17/24 11:00 Temperature 97.9 F 98.0 F Pulse Rate 71 70 Respiratory Rate 18 16 Blood Pressure 154/74 H 118/55 L Pulse Oximetry 100 96 Oxygen Delivery Room Air Intake/Output Intake/Output: Intake & Output 03/14/24 03/15/24 03/16/24 03/17/24 23:59 23:59 23:59 23:59 Intake Total 690 608 Balance 690 608 Meds/Results Medications: Active Medications Generic Name Dose Route Start Last Admin Trade Name Freq PRN Reason Stop Dose Admin Hydrocodone Bitart/Acetaminophen 1 tab 03/16/24 09:15 Hydrocodone/Acetaminophen (*Crx) 5-325 Mg Tablet PO Q4H PRN Pain Rated 4-6 Hydrocodone Bitart/Acetaminophen 1 tab 03/16/24 09:15 03/17/24 11:51 Hydrocodone/Acetaminophen (*Crx) 7.5-325 Mg Tablet PO 1 tab Q4H PRN Administration Pain Rated 7-10 Celecoxib 200 mg 03/17/24 09:00 03/17/24 09:07 Celecoxib 200 Mg Capsule PO 200 mg DAILY KG Administration Cyclobenzaprine HCl 10 mg 03/16/24 09:15 Cyclobenzaprine Hcl 10 Mg Tablet PO Q8H PRN Muscle Spasm Fentanyl Citrate 25 mcg 03/13/24 14:44 03/16/24 10:32 Fentanyl Citrate Inj (*Crx) 100 Mcg/2 Ml Vial IV PUSH 25 mcg Q2M PRN Administration Pain Fluticasone Propionate 1 spray 03/16/24 17:00 03/17/24 09:11 Fluticasone Propionate 0.05% Na Spr 16 Gm Btl (*Bkc) NASAL Not Given BID KG Hydrochlorothiazide 12.5 mg 03/17/24 21:00 Hydrochlorothiazide 12.5 Mg Capsule PO HS KG Hydromorphone HCl 1 mg 03/16/24 09:15 03/16/24 21:32 Hydromorphone Hcl Inj (*Crx) 1 Mg/Ml Syr IV PUSH 1 mg Q2H PRN Administration Breakthrough Pain Rated 7-10 or NPO Hydromorphone HCl 0.5 mg 03/16/24 09:15 03/16/24 11:22 Hydromorphone Hcl Inj (*Crx) 1 Mg/Ml Syr IV PUSH 0.5 mg Q2H PRN Administration Breakthrough Pain Rated 4-6 or NPO Ibuprofen 800 mg in 200 mls @ 400 mls/hr 03/16/24 09:15 03/17/24 04:13 Caldolor 800 Mg/200 Ml IVPB Infused Q6H PRN Infusion Breakthrough Pain Rated 1-3 or NPO Loratadine 10 mg 03/16/24 21:00 03/16/24 19:32 Loratadine 10 Mg Tablet PO 10 mg HS KG Administration Losartan Potassium 50 mg 03/17/24 21:00 Losartan Potassium 50 Mg Tablet PO HS KG Naloxone HCl 0.1 mg 03/16/24 09:15 Naloxone Hcl 0.4 Mg/Ml Vial IV PUSH Q2M PRN Opiate Reversal Ondansetron HCl 4 mg 03/13/24 14:44 Ondansetron Inj 4 Mg/2 Ml Vial IV PUSH ONCE PRN Nausea Ondansetron HCl 4 mg 03/16/24 09:15 Ondansetron Inj 4 Mg/2 Ml Vial IV PUSH Q4H PRN Nausea And Vomiting Oxybutynin Chloride 5 mg 03/16/24 21:00 03/16/24 19:32 Oxybutynin Chloride Xl 5 Mg Tab.Er.24 PO 5 mg HS KG Administration Pantoprazole Sodium 40 mg 03/16/24 21:00 03/16/24 19:33 Pantoprazole 40 Mg Tablet PO 40 mg HS KG Administration Polyethylene Glycol 17 gm 03/17/24 09:00 03/17/24 09:07 Polyethylene Glycol 3350 17 Gm Powd.Pack PO 17 gm QAM KG Administration Rivaroxaban 10 mg 03/16/24 17:00 03/16/24 16:10 Rivaroxaban 10 Mg Tablet PO 10 mg DAILY@1700 KG Administration Senna/Docusate Sodium 2 tab 03/16/24 17:00 03/17/24 09:07 Senna/Docusate Sodium Tablet PO 2 tab BID KG Administration Tramadol HCl 50 mg 03/16/24 09:15 Tramadol Hcl (*Crx) 50 Mg Tablet PO Q4H PRN Pain Rated 1-3 Radiology Results: ITS Impressions Intraoperative X-Ray 03/16/24 09:50 IMPRESSION: 1. Expected appearance during right total hip arthroplasty. Labs Labs: Laboratory Results - last 24 hr 03/17/24 06:51 WBC 7.6 RBC 3.68 L Hgb 10.6 L Hct 32.8 L MCV 89.1 MCH 28.8 MCHC 32.3 RDW 13.6 Plt Count 148 L MPV 11.0 H Immature Gran % (Auto) 0.3 Neut % (Auto) 73.1 Lymph % (Auto) 15.4 L [place] % (Auto) 10.6 H Eos % (Auto) 0.1 Baso % (Auto) 0.5 Lymph # (Auto) 1.17 [place] # (Auto) 0.8 H Eos # (Auto) 0.0 Baso # (Auto) 0.0 Abs Immat Gran (auto) 0.02 Absolute Neuts (auto) 5.6 Absolute Nucleated RBC 0.000 Nucleated RBC % 0.0 Sodium 134 L Potassium 3.4 Chloride 99 Carbon Dioxide 31 H Anion Gap 4 BUN 15 D Creatinine 0.63 L Estim Creat Clear Calc 85 Estimated GFR > 60 Glucose 100 Calcium 8.6 Magnesium 1.6
--- OUTSIDE RECORDS SUMMARY | 2024-03-23 01:31 | XMS_ITS | Referral Summary ---
Author Organization [facility] Address [address] [place] [address] Care Team Providers Care Roast Master Name Role Phone Unavailable Primary Care Provider Unavailabl e Source Comments [facility],non-owned Affiliates and Associated Physician Practices is amultiple site organization consisting of ambulatory clinics and hospital sitesin [place], [place], [place] and [place]. This disclosure is being madepursuant to the Care Everywhere program and may not contain all information available regarding this patient. Last updated 17.[facility] Encounters Date Type Department Care Team Description 01/08/2024 Transcribe Orders [facility] - Centralized Scheduling [address] [place] [address] Marii Randle MD Primary osteoarthritis of right hip from Last 3 Months Social History Tobacco Use Types Packs/Day Years Used Date Smoking Tobacco: Never Assessed Sex and Gender Information Value Date Recorded Sex Assigned at Not on file Gender Identity Not on file Sexual Orientation Not on file Plan of Treatment Not on file Julianna Brown Personal/Family Self 1955
--- OUTSIDE RECORDS SUMMARY | 2024-03-23 01:31 | XMS_ITS | Encounter Summary ---
Author Organization [facility] Address [address] [place] [address] Care Team Providers Care Teaching Dietitian Name Role Phone Unavailable Primary Care Provider Unavailabl e Reason for Referral * Consultation (Routine) - Closed Specialty Diagnoses / Procedures Referred By Herberth amor Referred To Contact Orthopedics Diagnoses Primary osteoarthritis of right hip Marii Randle MD [address] [address] [place] [address] [facility] [address] [address] Referral ID Status Reason Start Date Expiration Date V isits Requested Visits Authorized [id number] Closed Specialty Services Required 01/08/2024 01/07/2025 1 1 ARCHITECT Encounter Details Date Type Department Care Team (Latest Contact Info) Description 01/08/2024 Transcribe Orders [facility] - Centralized Scheduling [facility] [place] [id number] Marii Randle MD [address] [facility] [address] [place] [address] Primary osteoarthritis of right hip Social History Tobacco Use Types Packs/Day Years Used Date Smoking Tobacco: Never Assessed Sex and Gender Information Value Date Recorded Sex Assigned at Not on file Gender Identity Not on file Sexual Orientation Not on file documented as of this encounter Plan of Treatment Scheduled Referrals Name Type Priority Associated Diagnoses Orde r Schedule AMB REFERRAL TO ORTHOPEDICS Outpatient Referral Routine Primary osteoarthritis of right hip 1 Occurrences starting 01/08/2024 until 01/07/2025 documented as of this encounter Visit Diagnoses Diagnosis Primary osteoarthritis of right hip- Primary Primary localized osteoarthrosis, pelvic region and thigh documented in this encounter
--- OUTSIDE RECORDS SUMMARY | 2024-03-23 01:31 | XMS_ITS | Patient Health Summary ---
Author Organization [facility] Address [address] [place] [address] Care Team Providers Care Putaway Driver Name Role Phone Unavailable Primary Care Provider Unavailabl e Note from Formerly named [facility],non-owned Affiliates and Associated Physician Practices is amultiple site organization consisting of ambulatory clinics and hospital sitesin [place], [place], [place] and [place]. This disclosure is being madepursuant to the Care Everywhere program and may not contain all information available regarding this patient. Last updated 17.[facility] [place] Social History Tobacco Use Types Packs/Day Years Used Date Smoking Tobacco: Never Assessed Sex and Gender Information Value Date Recorded Sex Assigned at Not on file Gender Identity Not on file Sexual Orientation Not on file
--- OUTSIDE RECORDS SUMMARY | 2024-03-23 01:31 | XMS_ITS | Clinical Summary ---
Author Organization [facility] Address [address] [place] [address] Care Team Providers Care Department Chair Name Role Phone Unavailable Primary Care Provider Unavailabl e Source Comments [facility],non-owned Affiliates and Associated Physician Practices is amultiple site organization consisting of ambulatory clinics and hospital sitesin [place], [place], [place] and [place]. This disclosure is being madepursuant to the Care Everywhere program and may not contain all information available regarding this patient. Last updated 17.[facility] Encounters Date Type Department Care Team Description 01/08/2024 Transcribe Orders [facility] - Centralized Scheduling [address] [place] [address] Marii Randle MD Primary osteoarthritis of right hip from Last 3 Months Social History Tobacco Use Types Packs/Day Years Used Date Smoking Tobacco: Never Assessed Sex and Gender Information Value Date Recorded Sex Assigned at Not on file Gender Identity Not on file Sexual Orientation Not on file Plan of Treatment Health Maintenance Due Date Last Done Comments COLOGUARD (AGES 45-75) - COLON CA SCREENING [address] COLONOGRAPHY - COLON CA SCREENING 1955 FIT - COLON CA SCREENING 1955 FLEX SIG - COLON CA SCREENING 1955 LIPID TESTING 1955 HEPATITIS C SCREENING 04/29/1974 DTAP/TDAP/TD VACCINES (1 - Tdap) 05/04/1975 PNEUMOCOCCAL VACCINE 50+ (1 of 1 - PCV) 2006 ZOSTER VACCINE (1 of 2) 2006 COVID-19 VACCINE (3 - season) 2023 06/17/2021, 01/18/2021 DEPRESSION SCREENING 03/04/2024 MEDICARE AWV ? CALENDAR YEAR 2024 MAMMOGRAM 12/31/2025 01/01/2024, 01/01/2024 COLONOSCOPY - COLON CA SCREENING 07/13/2030 07/13/2020 Colorectal Cancer Screening 07/13/2030 Respiratory Syncytial Virus (RSV) Vaccine Pt: or over 60 yrs (1 - 1-dose 75+ series) 05/04/2031 BONE DENSITY TESTING Completed 05/09/2022 INFLUENZA VACCINE Completed 11/06/2023, , 02/10/2021, Additional history exists HEPATITIS B VACCINE Aged Out No longe r eligible based on patient's age to complete this topic HIB VACCINE Aged Out No longer eligi ble based on patient's age to complete this topic HPV VACCINE Aged Out No longer eligi ble based on patient's age to complete this topic MENINGOCOCCAL (Group B) VACCINE Aged Out No longer eligible based on patient's age to complete this topic MENINGOCOCCAL VACCINE Aged Out No jarrod sayra eligible based on patient's age to complete this topic Julianna Brown Personal/Family Self 1955
--- OUTSIDE RECORDS SUMMARY | 2024-03-23 01:32 | XMS_ITS | Encounter Summary ---
Author Organization [facility] Address [address] [place] [address]. [place], [place] [id number] [place] [address] Care Team Providers Care Technical Manager Name Role Phone Marii Espinal MD Primary Care Provider + [phone] Reason for Referral * Consultation (Routine) - Authorized Specialty Diagnoses / Procedures Referred By Herberth amor Referred To Contact ORTHOPAEDICS Diagnoses Primary osteoarthritis of right hip Procedures OFFICE/OUTPATIENT NEW LOW MDM 30-44 MINUTES OFFICE/OUTPT VISIT,NEW,LEVL IV OFFICE/OUTPT VISIT,NEW,LEVL V OFFICE/OUTPT VISIT,EST,LEVL III OFFICE/OUTPT VISIT,EST,LEVL IV OFFICE/OUTPT VISIT,EST,LEVL V Marii Espinal MD [facility] [address] [address] Phone: tel: fax: [facility] CENTRALIZED REFERRALS [facility] [place] [address] Phone: tel: fax: Referral ID Status Reason Start Date Expiration Date Visits Requested Visits Authorized [id number] Authorized Specialty Services 12/31/2024 99 99 Scheduling Instructions Patient would like to see if she can get into somewhere sooner for surgery. [facility] is telling her she would not have the surgery until 04/2024 Reason for Visit * Reason Comments Follow Up Discuss ortho appt a nd discuss pain medication. [facility] lab. Encounter Details Date Type Department Care Team (Late st Contact Info) Description 01/01/2024 1:40 PM CDT Office Visit [facility] - [place] [address] [place] [phone] Marii Espinal MD [address] [place] [phone] Follow Up (Discuss ortho appt and discuss pain medication. [facility] lab.) Social History Tobacco Use Types Packs/Day Years Used Date Smoking Tobacco: Never Passive Smoke Exposure: Past Smokeless Tobacco: Never Tobacco Cessation:Counseling Given: No Comments:na Alcohol Use Standard Drinks/Week Comments Yes 0 (1 standard drink = 0.6 oz pur e alcohol) 1 or 2 drinks per week PHQ-2 Answer Date Recorded Patient Health Questionnaire-2 Score 0 11/06/2023 Comments No Sex and Gender Information Value Date Recorded Sex Assigned at Not on file Legal Sex Female 6:40 PM CDT Gender Identity Not on file Sexual Orientation Not on file documented as of this encounter Last Filed Vital Signs Vital Sign Reading Time Taken Comments Blood Pressure 138/92 01/01/2024 2:14 PM CDT 2nd bp taken Pulse 67 01/01/2024 1:43 PM CDT Temperature 36.2 ??C (97.2 ??F) 01/01/2024 1 :43 PM CDT Respiratory Rate 16 01/01/2024 1:43 PM CDT Oxygen Saturation 98% 01/01/2024 1:4 3 PM CDT Inhaled Oxygen Concentration - - Weight 87.5 kg (192 lb 12.8 oz) 01/01/2024 1:43 PM CDT Height 167.6 cm (5' 6 ) 01/01/2024 1:43 PM CDT Body Mass Index 31.12 01/01/2024 1:43 PM CDT documented in this encounter Progress Notes * Marii Espinal MD - 01/01/2024 1:40 PM CDT Images from the original note were not included. OFFICE VISIT Encounter Date: 01/01/2024 Chief Complaint: 68-year-old female presents for Follow Up (Discuss ortho appt and discuss pain medication. [facility] lab.) . Assessment: Encounter Diagnose(s) ICD-10-CM SNOMED CT(R) 1. Primary osteoarthritis of right hip M16.11 OSTEOARTHRITIS OF RIGHT HIP JOINT HYDROcodone-acetaminophen (NORCO) 5-325 MG tablet Ambulatory referral to Orthopedics Plan: Osteoarthritis of right hip: Patient is needing a hip replacement, referral placed to see if we canget her somewhere sooner as it [facility] they will be able to do the surgery until about April 2024 Discussed pain management patient is already on Celebrex every day and she is taking up to her max dose of allowable Tylenol day which is about 4000 mg a day Patient has tried Cymbalta in the past without relief We did discuss gabapentin We did discuss opioids Discussed with patient that probably her best bet in pain management to help control her pain, we will not be able to take 100% of her pain away but the goal should be to use the medications and situations where it could help her quality of life Discussed the risk of opioids which can include but not limited to constipation, mental status change, drowsiness, addiction, dependency, nausea and vomiting Discussed benefits to include can help control pain for short-term use, discussed with patient thatthis would not be for chronic use has not been shown that chronic use of opioids are beneficial Patient does not have a history of addiction she does have a brother who did have a drug use disorder Discussed with patient that the way I would see using this medicine is to get her to her surgery, then her surgeon would manage her postop pain Did discuss hydrocodone/acetaminophen, patient is to decrease her dosing of Tylenol to stay within the 4000 mg a day CSA form completed Discussed with patient to keep this medication all medications locked up away from others especially in children Order Summary Normal Orders This Visit Ambulatory referral to Orthopedics [[email or web address] Custom] Order #: [id number] Orders Placed This Encounter Ambulatory referral to Orthopedics Referral Priority: Routine Referral Type: Consultation Referral Reason: Specialty Services Requested Specialty: ORTHOPAEDICS Number of Visits Requested: 1 Expiration Date: 12/31/2024 HYDROcodone-acetaminophen (NORCO) 5-325 MG tablet Sig: Take 1 tablet by mouth 2 (two) times daily. Indications: Chronic Pain Dispense: 30 tablet Refill: 0 Per [place] law, C-II Rx's must include written & numerical notation of quantity. Quantity (inwords) thirty Order Specific Question: Did you search for a pain agreement? Answer: Yes, found and incorporated Return in about 4 weeks (around 01/29/2024). HPI Julianna Brown is a 68-year-old female History Smoking Status Never Smokeless Tobacco Never No LMP recorded. Patient is postmenopausal. Patient is here to discuss pain management Patient has severe osteoarthritis of her right hip and she is awaiting right hip replacement Patient has been taking Tylenol and is on Celebrex and this is not helping her pain She is doing water aerobics for exercise and try to stay as physically active as possible, her condition is affecting her sleep at night she states even just having the covers over her hip hurts her Patient Active Problem List Diagnosis Allergic rhinitis Atherosclerosis of aorta (CMS/HCC) Hyperactivity of bladder Hypertension Chronic right-sided low back pain without sciatica NUD (nonulcer dyspepsia) Vaccination refused by patient History of vertebral compression fracture Hemorrhoidal skin tags Class 1 obesity due to excess calories with serious comorbidity and body mass index (BMI) of 32.0 to 32.9 in adult Hip pain Estrogen deficiency Lightheadedness Vitamin D insufficiency Weight gain Impacted cerumen of left ear Dysfunction of both eustachian tubes 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 Radicular pain of right lower extremity Gastroesophageal reflux disease, unspecified whether esophagitis present Primary osteoarthritis of right hip Past Medical History: Diagnosis Date Adhesive capsulitis of left shoulder GERD (gastroesophageal reflux disease) Hypertension Past Surgical History: Procedure Laterality Date BREAST SURGERY 1984 Clogged milk duct SECTION CHOLECYSTECTOMY LAPAROSCOPIC COLONOSCOPY N/A 07/13/2020 COLONOSCOPY performed by Scotty Ruiz MD at [facility] GI COLONOSCOPY STOMA DX INCLUDING COLLJ SPEC SPX 2010 WNL, 02/2012 POLYP, 02/2017 POLYP MOI HC LAP TOTAL HYSTERECTOMY REMOVAL BOTH TUBES AND OVARIES--BLEEDING HYSTERECTOMY Family History Problem Relation Name Age of Onset Breast Cancer Sister 63 Prostate Cancer Father Edgabo Marcus Cancer Father Edgabo Marcus Diabetes Other Osteoporosis Other Hypertension Mother Lupe Marcus Social History Tobacco Use Smoking status: Never Passive exposure: Past Smokeless tobacco: Never Tobacco comments: na Vaping Use Vaping status: Never Used Substance Use Topics Alcohol use: Yes Comment: 1 or 2 drinks per week Drug use: No Immunization History Administered Date(s) Administered Flublok (Quadrivalent) 02/10/2021 Fluzone High Dose (IIV, trivalent, 0.5mL) 11/06/2023 Fluzone High Dose - >Age 65 (Prefilled Syringe) 12/18/2021 Influenza Adult (Generic) 12/22/2019, 12/24/2022 PFIZER COVID-19 (12+) MRNA, LNP-S, PF, MADISON-SUCROSE, 30 MCG/0.3 ML (COMIRNATY) 12/24/2022, 11/13/2023 PFIZER COVID-19 (ZAMBRANO CAP), MRNA, LNP-S, PF, 30 MCG/0.3 ML MADISON-SUCROSE, IM 06/17/2021 PFIZER COVID-19 (ORIGINAL FORMULATION, PURPLE CAP) mRNA, LNP-S, PF, 30 MCG/0.3 ML DOSE 04/30/2020, 05/22/2020, 01/18/2021, 06/17/2021 PFIZER COVID-19 BIVALENT (12+) mRNA, LNP-S, PF, 30 MCG/0.3 ML DOSE 12/18/2021 Pneumococcal (Prevnar 20) 12/24/2022 Shingrix 12/22/2019, 08/23/2020 Tdap (Generic) 08/20/2017 Zoster (Zostavax) 63679 Unt/0.65Ml 12/22/2019 Outpatient Medications Marked as Taking for the 01/01/24 encounter (Office Visit) with Marii Espinal MD Medication Sig Dispense Refill acetaminophen CR (TYLENOL) 650 MG Tab CR 8 hr tablet celecoxib (CELEBREX) 200 MG capsule Take 1 capsule (200 mg total) by mouth daily. 90 capsule 0 cetirizine 10 MG chewable tablet Chew 1 tablet (10 mg total) by mouth daily. FLUTICASONE PROPIONATE 50 MCG/ACT nasal spray SPRAY 2 SPRAYS INTO EACH NOSTRIL EVERY DAY 48 mL 0 hydroCHLOROthiazide (MICROZIDE) 12.5 MG tablet take 1 tablet every day 90 tablet 1 HYDROcodone-acetaminophen (NORCO) 5-325 MG tablet Take 1 tablet by mouth 2 (two) times daily. Indications: Chronic Pain 30 tablet 0 losartan (COZAAR) 50 MG tablet take 1 tablet every day 90 tablet 1 omeprazole (PRILOSEC) 40 MG capsule TAKE 1 CAPSULE EVERY DAY 90 capsule 1 Review of patient's allergies indicates: No Known Allergies Objective: Filed Vitals: 01/01/24 1343 01/01/24 1414 BP: (!) 158/82 (!) 138/92 Pulse: 67 Resp: 16 Temp: 97.2 ??F (36.2 ??C) SpO2: 98% Weight: 87.5 kg (192 lb 12.8 oz) Height: 1.676 m (5' 6 ) Body mass index is 31.12 kg/m??. Physical Exam Vitals reviewed. Constitutional: General: She is not in acute distress. Appearance: Normal appearance. She is not ill-appearing. HENT: Head: Normocephalic. Eyes: Conjunctiva/sclera: Conjunctivae normal. Neck: Thyroid: No thyromegaly. Comments: No thyromegaly or thyroid nodules appreciated Cardiovascular: Rate and Rhythm: Normal rate and regular rhythm. Heart sounds: Normal heart sounds. No murmur heard. Pulmonary: Effort: Pulmonary effort is normal. No respiratory distress. Breath sounds: Normal breath sounds. Musculoskeletal: Cervical back: Normal range of motion and neck supple. Right lower leg: No edema. Left lower leg: No edema. Lymphadenopathy: Cervical: No cervical adenopathy. Psychiatric: Mood and Affect: Mood and affect normal. Behavior: Behavior normal. Thought Content: Thought content normal. Cognition and Memory: Memory normal. Judgment: Judgment normal. No results found for this or any previous visit (from the past 6 weeks). MARII ESPINAL MD Number and Complexity of Problems Addressed 1 acute, uncomplicated illness or injury 1 or more chronic illness with exacerbation, progression, or side effects of treatment Risk of Complications and/or Morbidity or Mortality of Patient Management Moderate Time I spent a total of 30 minutes on the day of the visit. I personally spent a total of 30 minutes on the day of the encounter. This includes chpr-ls-brpy and jwb-nnlw-xy-face time I provided on the day of the encounter & excludes time spent performing separately reportable services. This note was dictated with [employer] medical dictation software; occasional wrong word or sound-alike substitutions , misspellings, punctuation errors, omitted words or dictation variances may occur. Please read the chart carefully and recognize, using context, where the substitutions may have occurred. documented in this encounter Plan of Treatment Upcoming Encounters Date Type Department Care Team (Late st Contact Info) Description 05/01/2024 8:00 AM SR. MANAGER MARKETING Appointment [place] [address] [facility] [place] [address] Edgard Washington MD Three [facility] [address] [place] [address] 06/02/2024 10:15 AM CDT Office Visit [facility] THREE [facility], [address] [place] [address] Edgard Washington MD Three [facility] [address] [place] [address] Scheduled Referrals Name Type Priority Associated Diagnoses Orde r Schedule Ambulatory referral to Orthopedics Referral Routine Primary osteoarthritis of right hip Ordered: 01/01/2024 documented as of this encounter Visit Diagnoses Diagnosis Primary osteoarthritis of right hip- Primary Primary localized osteoarthrosis, pelvic region and thigh documented in this encounter Additional Health Concerns Assessment Noted Time PHQ-9 Depression Total Score: 0 11/06/19 9:30 AM CDT documented as of this encounter Care Teams Technical Manager Relationship Specialty Start Date End Date Marii Espinal MD [address] [facility] [address] [place] [address] PCP - General FAMILY PRACTICE 06/05/23 documented as of this encounter
--- OUTSIDE RECORDS SUMMARY | 2024-03-23 01:32 | XMS_ITS | Encounter Summary ---
Author Organization [facility] Address [address] [place] [address]. [place], [place] [address] [place] [address] Care Team Providers Care Radiology Equipment Servicer Name Role Phone Marii Randle MD Primary Care Provider + [phone] Encounter Details Date Type Department Care Team (Latest Contact Info) Description 06/08/2023 Travel Social History Tobacco Use Types Packs/Day Years Used Date Smoking Tobacco: Never Passive Smoke Exposure: Past Smokeless Tobacco: Never Alcohol Use Standard Drinks/Week Comments Yes 0 (1 standard drink = 0.6 oz pur e alcohol) 1 or 2 drinks per week PHQ-2 Answer Date Recorded Patient Health Questionnaire-2 Score 0 03/21/2022 Comments No Sex and Gender Information Value Date Recorded Sex Assigned at Not on file Legal Sex Female 6:40 PM CDT Gender Identity Not on file Sexual Orientation Not on file documented as of this encounter Plan of Treatment Upcoming Encounters Date Type Department Care Team (Late st Contact Info) Description 05/01/2024 8:00 AM SUPERVISOR FEED MILL Appointment [place] [address] [facility] [place], [place] [address] Edgard Washington MD Three [facility] [address] [place] [address] 06/02/2024 10:15 AM CDT Office Visit [facility] THREE [facility], [address] [place] [address] Edgard Washington MD Three [facility] [address] [place] [address] documented as of this encounter Visit Diagnoses Not on filedocumented in this encounter Additional Health Concerns Assessment Noted Time PHQ-9 Depression Total Score: 0 02/11/20 21 1:25 PM SUPERVISOR FEED MILL documented as of this encounter Care Teams Radiology Equipment Servicer Relationship Specialty Start Date End Date Marii Randle MD [address] [facility] [address] [place] [address] PCP - General FAMILY PRACTICE 06/05/23 documented as of this encounter
--- OUTSIDE RECORDS SUMMARY | 2024-03-23 01:32 | XMS_ITS | Encounter Summary ---
Author Organization [facility] Address [address] [place] [address]. [place], [place] [address] [place] [address] Care Team Providers Care Landfill Gas Plant Field Technician Name Role Phone Marii Randle MD Primary Care Provider [phone] Reason for Visit * Reason Onset Date Comments Question 10/28/2023 Encounter Details Date Type Department Care Team (Late st Contact Info) Description 10/28/2023 Telephone [facility] Family Medicine - [place] [address] [facility], [address] [place] [address] Mraii Randle MD [address] [facility] [address] [place] [phone] Question Social History Tobacco Use Types Packs/Day Years [...] on file documented as of this encounter Progress Notes * Teresa Phillips MA - 10/28/2023 12:29 PM CDT Called patient to discuss. Patient states she has had thigh pain for years and is now concerned it may be a hair line fracture or stress fracture. Patient denies any recent injury. Patient scheduled for appointment on 11/06/2023 @ 9:20 * Cheryle Thao Sandyjunaid - 10/28/2023 10:59 AM CDT Patient is calling to ask Dr. Randle if she has ever received an x-ray or MRI of her right thigh. She thinks she may need one. CB# is [phone] documented in this encounter Plan of Treatment Upcoming Encounters Date Type Department Care Team (Late st Contact Info) Description 05/01/2024 8:00 AM HERPETOLOGY TEACHER Appointment [facility] [place] [address] Edgard Washington MD Three [place] [place], [place] [address] 06/02/2024 10:15 AM CDT Office Visit [facility] THREE [facility], [facility] [address] [place] [address] Edgard Washington MD [address] [place] [place] [address] documented as of this encounter Visit Diagnoses Not on filedocumented in this encounter Additional Health Concerns Assessment Noted Time PHQ-9 Depression Total Score: 0 02/11/20 21 1:25 PM HERPETOLOGY TEACHER documented as of this encounter Care Teams Landfill [employer] Plant Field Technician Relationship Specialty Start Date End Date Marii Randle MD [address] [facility] [address] [place] [phone] PCP - General FAMILY PRACTICE 06/05/23 documented as of this encounter
--- OUTSIDE RECORDS SUMMARY | 2024-03-23 01:32 | XMS_ITS | Encounter Summary ---
Author Organization [facility] Address [address] [place] [address]. [place] [address] [place] [address] Care Team Providers Care Lean Engineer Name Role Phone Marii Randle MD Primary Care Provider + [phone] Reason for Visit * Reason Onset Date Comments Question 01/02/2024 Encounter Details Date Type Department Care Team (Late st Contact Info) Description 01/02/2024 Telephone [facility] Orthopedic & Sports Medicine - [place] [address] [place] [address] Renny Milian MD [address] [place] [address] Question Social History Tobacco Use Types Packs/Day Years Used Date Smoking Tobacco: Never Passive Smoke Exposure: Past Smokeless Tobacco: Never Comments:na Alcohol Use Standard Drinks/Week Comments Yes [...] as of this encounter Progress Notes * Celia Esquivel RN - 01/03/2024 2:03 PM CDT Spoke to patient. Explained that Dr Milian is scheduling out to Apr/May for surgeries with the option of adding more dates before then. Patient verbalized understanding. * Brittani Isabel - 01/02/2024 2:59 PM CDT Patient called in the office and she has a new patient appointment with Dr Milian and she was referred by Dr Larson and she is wanting to know where Dr Milian is scheduling his hip surgeries at, documented in this encounter Plan of Treatment Upcoming Encounters Date Type Department Care Team (Late st Contact Info) Description 05/01/2024 8:00 AM INDUSTRIAL MAINTENANCE TECH Appointment [facility] Non Invasive Cardiology ONE [facility] [place] [address] Edgard Washington MD Three [facility], [address] [place] [address] 06/02/2024 10:15 AM CDT Office Visit [facility] THREE [facility] [address] [place] [address] Edgard Washington MD Three [facility], [address] [place] [address] documented as of this encounter Visit Diagnoses Not on filedocumented in this encounter Additional Health Concerns Assessment Noted Time PHQ-9 Depression Total Score: 0 11/06/19 9:30 AM CDT documented as of this encounter Care Teams Lean Engineer Relationship Specialty Start Date End Date Marii Randle MD [address] [facility] [address] [place] [phone] PCP - General FAMILY PRACTICE 06/05/23 documented as of this encounter
--- OUTSIDE RECORDS SUMMARY | 2024-03-23 01:32 | XMS_ITS | Encounter Summary ---
Author Organization [facility] Address [address] [place] [address]. [place], [place] [address] [place] [address] Care Team Providers Care Animal Anatomist Name Role Phone Mariana Ruiz DO Primary Care Provider + [phone] Encounter Details Date Type Department Care Team (Latest Contact Info) Description 05/10/2023 Travel Social History Tobacco Use Types Packs/Day Years Used Date Smoking Tobacco: Never Smokeless Tobacco: Never Alcohol Use Standard Drinks/Week Comments Yes 0 (1 standard drink = 0.6 oz pur e alcohol) SOCIAL PHQ-2 Answer Date Recorded Patient Health Questionnaire-2 [...] st Contact Info) Description 05/01/2024 8:00 AM COMMUNITY LIVING COACH Appointment [place] [place] [place] [address] Edgard Washington MD Three [facility] [address] [place], [place] [id number] 06/02/2024 10:15 AM CDT Office Visit [facility] THREE [facility], [address] [place], [place] [address] Edgard Washington MD Three [facility], [address] [place] [address] documented as of this encounter Visit Diagnoses Not on filedocumented in this encounter Additional Health Concerns Assessment Noted Time PHQ-9 Depression Total Score: 0 02/11/20 21 1:25 PM COMMUNITY LIVING COACH documented as of this encounter Care Teams Animal Anatomist Relationship Specialty Start Date End Date Mariana Ruiz DO [address] [place] [address] PCP - General FAMILY PRACTICE 09/27/17 06/04/23 documented as of this encounter
--- OUTSIDE RECORDS SUMMARY | 2024-03-23 01:32 | XMS_ITS | Encounter Summary ---
Author Organization [facility] Address [address] [place] [address]. [place] [address] [place] [address] Care Team Providers Care Produce Runner Name Role Phone Fran Espinal MD Primary Care Provider + [phone] Reason for Referral * Consultation (Routine) - Authorized Specialty Diagnoses / Procedures Referred By Herberth amor Referred To Contact SPORTS MEDICINE / ORTHOPAEDICS Diagnoses Right thigh pain Procedures OFFICE/OUTPATIENT NEW LOW MDM 30-44 MINUTES OFFICE/OUTPT VISIT,NEW,LEVL IV OFFICE/OUTPT VISIT,NEW,LEVL V OFFICE/OUTPT VISIT,EST,LEVL III OFFICE/OUTPT VISIT,EST,LEVL IV OFFICE/OUTPT VISIT,[place] [address] [place] [phone] Phone: tel: fax: Gianfranco Larson MD [address] [place] [address] Phone: tel: fax: Referral ID Status Reason Start Date Expiration Date Visits Requested Visits Authorized [id number] Authorized Specialty Services 11/06/2023 12/06/2024 100 3 Reason for Visit * Reason Comments Follow Up Discuss right thigh pain for the past two years. [facility] lab. Encounter Details Date Type Department Care Team (Late st Contact Info) Description 11/06/2023 9:20 AM CDT Office Visit [facility] Family Medicine - [place] [address], [address] [place] [address] Fran Espinal MD [address] [place] [address] Follow Up (Discuss right thigh pain for the past two years. [facility] lab. ) Social History Tobacco Use Types Packs/Day Years Used Date Smoking Tobacco: Never Passive Smoke Exposure: Past Smokeless Tobacco: Never Tobacco Cessation:Counseling Given: No Alcohol Use Standard Drinks/Week Comments Yes 0 [...] Sign Reading Time Taken Comments Blood Pressure 158/98 11/06/2023 9:37 AM CDT 2nd bp Pulse 72 11/06/2023 9:28 AM CDT Temperature 36.1 ??C (97 ??F) 11/06/2023 9:28 AM CDT Respiratory Rate 16 11/06/2023 9:28 AM CDT Oxygen Saturation 99% 11/06/2023 9:28 AM CDT Inhaled Oxygen Concentration - - Weight 87.1 kg (192 lb) 11/06/2023 9:28 AM CDT Height 167.6 cm (5' 6 ) 11/06/2023 9:28 AM CDT Body Mass Index 30.99 11/06/2023 9:28 AM CDT documented in this encounter Progress Notes * Nita Yepez MA - 11/06/2023 9:20 AM CDT 1. Are you allergic to eggs, chicken or chicken feathers? No 2. Do you currently have an illness or fever? No 3. Have you ever had an allergic reaction to the influenza vaccine? No 4. Do you have Guillain-[place] Syndrome? No Flu vaccine administered in Left Deltoid. No flashback seen and no adverse reactions were observed while the patient was in the clinic. Pt left clinic in no acute distress. Verified by: PARRIS. * Fran Espinal MD - 11/06/2023 9:20 AM CDT Images from the original note were not included. OFFICE VISIT Encounter Date: 11/06/2023 Chief Complaint: 68-year-old female presents for Follow Up (Discuss right thigh pain for the past two years. [facility] lab. ) . 9:54 10:32 Assessment: Encounter Diagnose(s) ICD-10-CM SNOMED CT(R) 1. Right thigh pain M79.651 PAIN OF RIGHT THIGH XR PELVIS+RT HIP 2V XR FEMUR RT 2V Ambulatory Referral to Sports Medicine 2. Need for immunization against influenza Z23 NEEDS INFLUENZA IMMUNIZATION [56504] Flu Vaccine, Split Virus, High Dose 3. Arthritis/arthropathy of multiple joints M12.9 ARTHROPATHY OF MULTIPLE JOINTS BASIC METABOLIC PANEL RHEUMATOID FACTOR, QUANT CYCLIC CITRULLINATED PEPTIDE (CCP)ANTIBODY(IGG) SED RATE, ERYTHROCYTE (ESR) C-REACTIVE PROTEIN 4. Primary hypertension I10 ESSENTIAL HYPERTENSION Plan: Right thigh pain: I am really wondering if her right thigh pain is not referred pain from her righthip, x-ray last year showed mild arthritis worse on the right versus left side, her symptoms are very much aggravated with movement, she has seen neurosurgery who does not think that her symptoms aredue to her back and she has had pain management injections with her back and has not helped, she is also going through rounds of physical therapy in the last couple years for her symptoms Last year she saw orthopedics at [facility] and they did trochanter injection and some trigger point injections on the buttocks And I am wondering if that right hip needs to be looked at Arthritis: Patient has been on Celebrex in the past due to pain in her hands and what she calls just muscle aches, she feels like the Celebrex does help she restarted just a single 200 mg, her blood pressure is elevated today and I told her to start following that at home as nonsteroidals can elevate blood pressure they interfere with medications and can affect the kidneys, patient also understands the risk of GI ulcers her proton pump inhibitor can help protect her stomach but she still at risk for duodenal ulcers Just like with anything in medicines is about risk and benefit, she does see a benefit from Tylenolthough it does not take the pain away I do recommend that she not take 2 arthritis Tylenol's but switch to Exer strength which is 500 mg she can take at thousand those every 8 hours if needed along with the Celebrex Hypertension: Patient will follow blood pressures at home and let me know if they are still runninghigh Order Summary Normal Orders This Visit Ambulatory Referral to Sports Medicine [[id number] Custom] Order #: [id number] [[id number]] Flu Vaccine, Split Virus, High Dose [19716 CPT(R)] Order #: [id number] Future Labs/Procedures Expected by Expires BASIC METABOLIC PANEL [49666 CPT(R)] Order #: [id number] 11/06/2023 02/05/2024 C-REACTIVE PROTEIN [84564 CPT(R)] Order #: [id number] 11/06/2023 02/05/2024 CYCLIC CITRULLINATED PEPTIDE (CCP)ANTIBODY(IGG) [65578 CPT(R)] Order #: [id number] 11/06/2023 02/05/2024 RHEUMATOID FACTOR, QUANT [57697 CPT(R)] Order #: [id number] 11/06/2023 02/05/2024 SED RATE, ERYTHROCYTE (ESR) [03707 CPT(R)] Order #: [id number] 11/06/2023 02/05/2024 XR FEMUR RT 2V [36607 Custom] Order #: [id number] 11/06/2023 11/05/2024 XR PELVIS+RT HIP 2V [95496 Custom] Order #: [id number] 11/06/2023 11/05/2024 Orders Placed This Encounter XR PELVIS+RT HIP 2V Standing Status: Future Standing Expiration Date: 11/05/2024 Order Specific Question: Reason for Exam Answer: right inguinal pain Order Specific Question: Release to patient Answer: System release XR FEMUR RT 2V Standing Status: Future Standing Expiration Date: 11/05/2024 Order Specific Question: Reason for Exam Answer: right thigh pain Order Specific Question: Release to patient Answer: System release BASIC METABOLIC PANEL Standing Status: Future Standing Expiration Date: 02/05/2024 Order Specific Question: Release to patient Answer: System release RHEUMATOID FACTOR, QUANT Standing Status: Future Standing Expiration Date: 02/05/2024 Order Specific Question: Release to patient Answer: System release CYCLIC CITRULLINATED PEPTIDE (CCP)ANTIBODY(IGG) Standing Status: Future Standing Expiration Date: 02/05/2024 Order Specific Question: Release to patient Answer: System release SED RATE, ERYTHROCYTE (ESR) Standing Status: Future Standing Expiration Date: 02/05/2024 Order Specific Question: Release to patient Answer: System release C-REACTIVE PROTEIN Standing Status: Future Standing Expiration Date: 02/05/2024 Order Specific Question: Release to patient Answer: System release Ambulatory Referral to Sports Medicine Referral Priority: Routine Referral Type: Consultation Referral Reason: Specialty Services Requested Specialty: SPORTS MEDICINE Number of Visits Requested: 1 Expiration Date: 12/06/2024 [[id number]] Flu Vaccine, Split Virus, High Dose No follow-ups on file. HPI Julianna Brown is a 68-year-old female History Smoking Status Never Smokeless Tobacco Never No LMP recorded. Patient is postmenopausal. Patient is here to follow-up with her right thigh pain She has gone to physical therapy over the years she is seeing pain management she is seeing Ortho she is to see neurosurgery Latest she saw neurosurgery who does not think that her symptoms currently is from her back Patient points to right inguinal area and she states that it starts there and goes down her thigh, worse with going up stairs or just any movement in general Tylenol has helped she has been on Celebrex in the past because she is generalized arthritis pain, she states she has never been checked for rheumatoid arthritis though she does not complain of swollen joints or AM stiffness Neurosurgeon question PMR but patient again has not felt achy she denies any bilateral shoulder pain or bilateral hip pain Patient Active Problem List Diagnosis Allergic rhinitis [...] Gastroesophageal reflux disease, unspecified whether esophagitis present Past Medical History: Diagnosis Date Adhesive capsulitis of left shoulder GERD (gastroesophageal reflux disease) Hypertension Past Surgical History: Procedure Laterality Date BREAST SURGERY 1984 Clogged milk duct SECTION CHOLECYSTECTOMY LAPAROSCOPIC COLONOSCOPY N/A 07/13/2020 COLONOSCOPY performed by Scotty Ruiz MD at [facility] GI COLONOSCOPY STOMA DX INCLUDING COLLJ SPEC SPX 2010 WNL, 02/2012 POLYP, 02/2017 POLYP MOI HC LAP TOTAL HYSTERECTOMY REMOVAL BOTH TUBES AND OVARIES--BLEEDING HYSTERECTOMY Family History Problem Relation Name Age of Onset Breast Cancer Sister 63 Prostate Cancer Father Lewis Velazquez Cancer Father Lewis Velazquez Diabetes Other Osteoporosis Other Hypertension Mother Chenega Cole Social History Tobacco Use Smoking status: Never Passive exposure: Past Smokeless tobacco: Never Vaping Use Vaping status: Never Used Substance Use Topics Alcohol use: Yes Comment: 1 or 2 drinks per week Drug use: No Immunization History Administered Date(s) Administered Flublok (Quadrivalent) 02/10/2021 Fluzone High Dose (IIV, trivalent, 0.5mL) 11/06/2023 Fluzone High Dose - >Age 65 (Prefilled Syringe) 12/18/2021 Influenza Adult (Generic) 12/22/2019, 12/24/2022 PFIZER COVID-19 (12+) MRNA, LNP-S, PF, [place]-SUCROSE, 30 MCG/0.3 ML (COMIRNATY 2022) 12/24/2022 PFIZER COVID-19 (ZAMBRANO CAP), MRNA, LNP-S, PF, 30 MCG/0.3 ML [place]ADISON-SUCROSE, IM 06/17/2021 PFIZER COVID-19 (ORIGINAL FORMULATION, PURPLE CAP) mRNA, LNP-S, PF, 30 MCG/0.3 ML DOSE 04/30/2020, 05/22/2020, 01/18/2021, 06/17/2021 PFIZER COVID-19 BIVALENT (12+) mRNA, LNP-S, PF, 30 MCG/0.3 ML DOSE 12/18/2021 Pneumococcal (Prevnar 20) 12/24/2022 Shingrix 12/22/2019, 08/23/2020 Tdap (Generic) 08/20/2017 Zoster (Zostavax) 72061 Unt/0.65Ml 12/22/2019 Outpatient Medications Marked as Taking for the 11/06/23 encounter (Office Visit) with Fran Espinal MD Medication Sig Dispense Refill cetirizine 10 MG chewable tablet Chew 1 tablet (10 mg total) by mouth daily. FLUTICASONE PROPIONATE 50 MCG/ACT nasal spray SPRAY 2 SPRAYS INTO EACH NOSTRIL EVERY DAY 48 mL 0 hydroCHLOROthiazide (MICROZIDE) 12.5 MG tablet take 1 tablet every day 90 tablet 1 losartan (COZAAR) 50 MG tablet take 1 tablet every day 90 tablet 1 omeprazole (PRILOSEC) 40 MG capsule TAKE 1 CAPSULE EVERY DAY 90 capsule 1 oxybutynin XL (DITROPAN-XL) 10 MG 24 hr tablet Take 1 tablet (10 mg total) by mouth daily. 90 tablet 1 Review of patient's allergies indicates: No Known Allergies Objective: Filed Vitals: 11/06/23 0928 11/06/23 0937 BP: (!) 162/102 (!) 158/98 Pulse: 72 Resp: 16 Temp: 97 ??F (36.1 ??C) SpO2: 99% Weight: 87.1 kg (192 lb) Height: 1.676 m (5' 6 ) Body mass index is 30.99 kg/m??. Physical Exam Vitals reviewed. Constitutional: General: She is not in acute distress. Appearance: She is not ill-appearing. Pulmonary: Effort: Pulmonary effort is normal. No respiratory distress. Neurological: Mental Status: She is alert. Comments: awake Psychiatric: Mood and Affect: Mood and affect normal. Behavior: Behavior normal. Thought Content: Thought content normal. Cognition and Memory: Memory normal. Judgment: Judgment normal. No results found for this or any previous visit (from the past 1008 hour(s)). FRAN ESPINAL MD Number and Complexity of Problems Addressed 1 acute, uncomplicated illness or injury Amount and/or Complexity of Data to be Reviewed and Analyzed 3+ unique tests ordered Risk of Complications and/or Morbidity or Mortality of Patient Management Moderate Time I spent a total of 38 minutes on the day of the visit. I personally spent a total of 38 minutes on the day of the encounter. This includes vyhl-cx-phqj and lqf-wmbh-xi-face time I provided on the day of the encounter & excludes time spent performing separately reportable services. This note was dictated with [employer] medical dictation software; occasional wrong word or sound-alike substitutions , misspellings, punctuation errors, omitted words or dictation variances may occur. Please read the chart carefully and recognize, using context, where the substitutions may have occurred. documented in this encounter Plan of Treatment Upcoming Encounters Date Type Department Care Team (Late st Contact Info) Description 05/01/2024 8:00 AM PICKER MACHINE OPERATOR Appointment [facility] [place] [address] Edgard Washington MD Three [facility], [address] [facility] [place] [address] 06/02/2024 10:15 AM CDT Office Visit [facility] THREE [facility] [place] [address] [place] [address] Edgard Washington MD Three [facility], [address] [facility] [place] [address] Scheduled Referrals Name Type Priority Associated Diagnoses Orde r Schedule Ambulatory Referral to Sports Medicine Referral Routine Right thigh pain Ordered: 11/06/2023 documented as of this encounter Results * XR FEMUR RT 2V (11/06/2023 11:37 AM CDT) Anatomical Region Laterality Modality Femur Radiographic Breann ging 11/06/2023 5:15 PM CDT Impressions 11/06/2023 5:16 PM CDT =====IMPRESSION:===== No acute bony abnormalities or malalignment. Degenerative changes in the right hip and the right knee joint. Ordered By: FRAN ESPINAL Interpreted By: Al Freitas MD, 11/06/2023 5:15 PM Narrative 11/06/2023 5:16 PM CDT [place] [address] Examination: 2 views right femur Exam date/time: 11/06/2023 11:10 AM Reason For Exam: ??right thigh pain ? Comparison: No previous. Technique: AP and lateral radiographs of the right femur were obtained Findings: There is no malalignment. There are no acute bony abnormalities. There are degenerative changes of mild to moderate degree in the knee joint and the hip joint. Surrounding soft tissues are unremarkable. Please correlate clinically. If the symptoms still persist and further indicated cross-sectional imaging with MRI covering the area of interest can BE considered. Procedure Note Al Freitas MD - 11/06/2023 [place] [address] Examination: 2 views right femur Exam date/time: 11/06/2023 11:10 AM Reason For Exam: right thigh pain Comparison: No previous. Technique: AP and lateral radiographs of the right femur were obtained Findings: There is no malalignment. There are no acute bony abnormalities.There are degenerative changes of mild to moderate degree in the kneejoint and the hip joint. Surrounding soft tissues are unremarkable. Please correlate clinically. If the symptoms still persist and furtherindicated cross-sectional imaging with MRI covering the area of interestcan BE considered. =====IMPRESSION:===== No acute bony abnormalities or malalignment. Degenerative changes in the right hip and the right knee joint. Ordered By: FRAN ESPINAL Interpreted By: Al Freitas MD, 11/06/2023 5:15 PM us Fran Espinal MD GENERAL IMAGING Final Result * XR PELVIS+RT HIP 2V (11/06/2023 11:37 AM CDT) Anatomical Region Laterality Modality Hip, Pelvis Radiographic Breann ging 11/06/2023 5:16 PM CDT Impressions 11/06/2023 5:18 PM CDT =====IMPRESSION:===== No malalignment or acute bony abnormalities. Degenerative changes worse in the right hip of mecw-ae-sttdkjes degree which appear progressed than in 2021. Ordered By: FRAN ESPINAL Interpreted By: Al Freitas MD, 11/06/2023 5:16 PM Narrative 11/06/2023 5:18 PM CDT [place] [address] Examination: Right hip 2 views and pelvis Exam date/time: 11/06/2023 11:10 AM Reason For Exam: ??right inguinal pain ? Comparison: Prior radiographs right hip are from 2021. Technique: AP and frog views of the right hip and pelvis were obtained. Findings: Pelvic radiograph shows no malalignment. There are no acute bony abnormalities. Degenerative changes are noted of mild degree in the hip joints worse on the right. Mild progression of degenerative changes since 2021. Small pelvic phleboliths. Zcbz-ys-gwpuulqk degenerative changes in the lower lumbar levels. Procedure Note Al Freitas MD - 11/06/2023 [place] [id number] Examination: Right hip 2 views and pelvis Exam date/time: 11/06/2023 11:10 AM Reason For Exam: right inguinal pain Comparison: Prior radiographs right hip are from 2021. Technique: AP and frog views of the right hip and pelvis were obtained. Findings: Pelvic radiograph shows no malalignment. There are no acute bonyabnormalities. Degenerative changes are noted of mild degree in the hipjoints worse on the right. Mild progression of degenerative changes [id number]. Small pelvic phleboliths. Orum-fd-munatgme degenerative changes inthe lower lumbar levels. =====IMPRESSION:===== No malalignment or acute bony abnormalities. Degenerative changes worse in the right hip of kfqt-et-wrnhttmd degreewhich appear progressed than in 2021. Ordered By: FRAN ESPINAL Interpreted By: Al Freitas MD, 11/06/2023 5:16 PM Fran Espinal MD GENERAL IMAGING Final Result * C-REACTIVE PROTEIN (11/06/2023 11:06 AM CDT) C-REACTIVE PROTEIN <0.29 <0.29 mg/dL 11/06/2023 11:36 AM CDT [facility] 11/06/2023 11:0 6 AM CDT Fran Espinal MD LABORATORY Final Result [facility] [address] [place] [address], [place] [phone] * SED RATE, ERYTHROCYTE (ESR) (11/06/2023 11:06 AM CDT) ESR 6 <30 MM/HR 11/06/2023 12:27 PM CDT [facility] Comment:Testing performed on Bryanna iSED. 11/06/2023 11:0 6 AM CDT Fran Espinla MD LABORATORY Final Result Performing Organization Address City/[facility]/ZIP Co de Phone Number [facility] [address] [place] [address], [place] [phone] * CYCLIC CITRULLINATED PEPTIDE (CCP)ANTIBODY(IGG) (11/06/2023 11:06 AM CDT) CITRULLINE PEPTIDE ANTIBODY <16 <20 Units 11/10/2023 1:29 PM CDT [facility] Comment: Negative: ? <20 Weak Positive: ?20 - 39 Moderate Positive: ?40 - 59 Strong Positive: ?>59 Test Performed by [facility], [facility], [address] [place] [address] Jose Jim M.D., Ph.D., Director of Laboratories , [facility] [id number] 11/06/2023 11:0 6 AM CDT Fran Espinal MD LABORATORY Final Result [facility] [address] [place] [address], * RHEUMATOID FACTOR, QUANT (11/06/2023 11:06 AM CDT) RHEUMATOID FACTOR <10 <15 IU/ML 11/06/2023 11:36 AM CDT [facility] 11/06/2023 11:0 6 AM CDT us Fran Espinal MD LABORATORY Final Result [facility] [address] [place] [address], [place] [phone] * BASIC METABOLIC PANEL (11/06/2023 11:06 AM CDT) [facility] GLUCOSE 92 70 - 99 MG/DL 11/06/2023 11:36 AM CDT [facility] BUN 16 7 - 18 MG/DL 11/06/2023 11:36 AM CDT [facility] CREATININE S/P/B 0.73 0.55 - 1.02 MG/DL 11/06/2023 11:36 AM CDT [facility] SODIUM S/P/B 140 136 - 145 MMOL/L 11/06/2023 11:36 AM CDT [facility] POTASSIUM S/P/B 4.1 3.5 - 5.1 MMOL/L 11/06/2023 11:36 AM CDT [facility] CHLORIDE S/P/B 105 97 - 115 MMOL/L 11/06/2023 11:36 AM CDT [facility] CO2 30.9 21 - 32 MMOL/L 11/06/2023 11:36 AM CDT [facility] CALCIUM S/P/B 9.6 8.5 - 10.1 MG/DL 11/06/2023 11:36 AM CDT [facility] ANION GAP 4.1 2 - 10 MMOL/L 11/06/2023 11:36 AM CDT [facility] BUN CREATININE RATIO 22.0 6 - 26 11/06/2023 11:36 AM CDT [facility] GFR ESTIMATE >90 >90 ML/MIN/1.7 3 M2 11/06/2023 11:36 AM CDT [facility] Comment: NOTE: eGFR is not calculated for patients <18 years of age or gender unknown. This is an estimated GFR calculation using the new CKD EPI creatinine equation without race and so does not require a correction factor for race. This estimated GFR should not be used for calculating drug doses. 11/06/2023 11:0 6 AM CDT Fran Espinal MD LABORATORY Final Result [facility] [address] [place] [address], documented in this encounter Visit Diagnoses Diagnosis Right thigh pain- Primary Pain in limb Need for immunization against influenza Need for prophylactic vaccination and inoculation against influenza Arthritis/arthropathy of multiple joints Unspecified arthropathy, multiple sites Primary hypertension Unspecified essential hypertension Right thigh pain Pain in limb documented in this encounter Additional Health Concerns Assessment Noted Time PHQ-9 Depression Total Score: 0 11/06/19 24 9:30 AM CDT documented as of this encounter Care Teams Produce Runner Relationship Specialty Start Date End Date Fran Espinal MD [address] [facility] [address] [place] [phone] PCP - General FAMILY PRACTICE 06/05/23 documented as of this encounter
--- OUTSIDE RECORDS SUMMARY | 2024-03-23 01:32 | XMS_ITS | Encounter Summary ---
Author Organization [facility] Address [address] [place] [address]. [place] [address] [place] [address] Care Team Providers Care Radiator Tester Name Role Phone Mariana Ruiz DO Primary Care Provider [phone] Reason for Visit * Reason Onset Date Comments Pre-visit Gap Closure 05/29/2023 Encounter Details Date Type Department Care Team (Late st Contact Info) Description 05/29/2023 Patient Outreach [facility] Family Medicine - [place] [address] [facility] [place] [address] Marii Randle MD [address] [facility] [address] [place] [phone] Pre-visit Gap Closure Social History Tobacco Use Types Packs/Day Years [...] as of this encounter Progress Notes * Nori Aj - 05/29/2023 10:54 AM CDT I am a patient quality advocate calling this patient on behalf of the virtual [employer] work team to assess the below quality gaps. If you need to contact me directly- my number is [phone]. Preventive Screenings: Breast Cancer Screening: Up to Date Notes: 05/09/2022 Colorectal Cancer Screening: Up to Date Notes: 07/13/2020 Diabetic Eye Exam: N/A Notes: Falls Risk Screening: Needs Follow Up Notes: Tobacco Cessation: N/A Notes: Labs: BMP/CMP: N/A Notes: Hemoglobin A1c: N/A Notes: Lipid: N/A Notes: Urine Albumin-Creatinine Ratio: N/A Notes: Immunizations: Pneumococcal: Up to Date Notes: Shingles: Up to Date Notes: documented in this encounter Plan of Treatment Upcoming Encounters Date Type Department Care Team (Late st Contact Info) Description 05/01/2024 8:00 AM SACK LIFTER Appointment [facility] [place] [address] Edgard Washington MD Three [facility] [place] [address] 06/02/2024 10:15 AM CDT Office Visit [facility] THREE [facility], [address] [place] [address] Edgard Washington MD Three [facility] [address] [place] [address] documented as of this encounter Visit Diagnoses Not on filedocumented in this encounter Additional Health Concerns Assessment Noted Time PHQ-9 Depression Total Score: 0 02/11/20 21 1:25 PM SACK LIFTER documented as of this encounter Care Teams Radiator Tester Relationship Specialty Start Date End Date Mariana Ruiz DO [address] [place] [address] PCP - General FAMILY PRACTICE 09/27/17 06/04/23 documented as of this encounter
--- OUTSIDE RECORDS SUMMARY | 2024-03-23 01:32 | XMS_ITS | Encounter Summary ---
Author Organization [facility] Address [address] [place] [address]. [place], [place] [id number] [place] [address] Care Team Providers Care Civil Draftsman Name Role Phone Marii Randle MD Primary Care Provider + [phone] Encounter Details Date Type Department Care Team (Latest Contact Info) Description 06/05/2023 Travel Social History Tobacco Use Types Packs/Day [...] st Contact Info) Description 05/01/2024 8:00 AM ADOPTION AGENT Appointment [facility] [place] [address] Edgard Washington MD Three [facility] [address] [place] [address] 06/02/2024 10:15 AM CDT Office Visit Betsey Dimas-O'Charleeo n THREE [facility], [address] [place] [address] Edgard Washington MD Three [facility] [address] [place] [address] documented as of this encounter Visit Diagnoses Not on filedocumented in this encounter Additional Health Concerns Assessment Noted Time PHQ-9 Depression Total Score: 0 02/11/20 21 1:25 PM ADOPTION AGENT documented as of this encounter Care Teams Civil Draftsman Relationship Specialty Start Date End Date Marii Randle MD [address] [facility] [address] [place] [address] PCP - General FAMILY PRACTICE 06/05/23 documented as of this encounter
--- OUTSIDE RECORDS SUMMARY | 2024-03-23 01:32 | XMS_ITS | Encounter Summary ---
Author Organization [facility] Address [address] [place] [address]. [place], [place] [id number] [place] [address] Care Team Providers Care Water Fabricator Operator Name Role Phone Marii Randle MD Primary Care Provider + [phone] Encounter Details Date Type Department Care Team (Latest Contact Info) Description 10/18/2023 Travel Social History Tobacco Use Types Packs/Day [...] st Contact Info) Description 05/01/2024 8:00 AM STOVE FITTER Appointment [place] In[facility] ONE [facility] [place], [place] [address] Edgard Washington MD Three [facility] [address] [place] [address] 06/02/2024 10:15 AM CDT Office Visit Betsey Dmias-O'Charleeo n THREE [facility] [place] [address] [place] [address] Edgard Washington MD Three [facility] [address] [place] [address] documented as of this encounter Visit Diagnoses Not on filedocumented in this encounter Additional Health Concerns Assessment Noted Time PHQ-9 Depression Total Score: 0 02/11/20 21 1:25 PM STOVE FITTER documented as of this encounter Care Teams Water Fabricator Operator Relationship Specialty Start Date End Date Marii Radnle MD [address] [facility] [address] [place] [address] PCP - General FAMILY PRACTICE 06/05/23 documented as of this encounter
--- OUTSIDE RECORDS SUMMARY | 2024-03-23 01:32 | XMS_ITS | Encounter Summary ---
Author Organization [facility] Address [address] [place] [address]. [place], [place] [address] [place] [address] Care Team Providers Care Material Handling Technician Name Role Phone Marii Randle MD Primary Care Provider + [phone] Encounter Details Date Type Department Care Team (Latest Contact Info) Description 11/30/2023 Travel Social History Tobacco Use Types Packs/Day [...] st Contact Info) Description 05/01/2024 8:00 AM DERRICK CAR OPERATOR Appointment [place] ONE [facility] [place], [place] [address] Edgard Washington MD Three [facility] [address] [place] [address] 06/02/2024 10:15 AM CDT Office Visit Betsey Dimas-O'Charleeo n THREE [facility], ED [address] [place] [address] Edgard Washington MD Three [facility] [address] [place] [address] documented as of this encounter Visit Diagnoses Not on filedocumented in this encounter Additional Health Concerns Assessment Noted Time PHQ-9 Depression Total Score: 0 11/06/19 9:30 AM CDT documented as of this encounter Care Teams Material Handling Technician Relationship Specialty Start Date End Date Marii Randle MD [address] [facility] [address] [place] [address] PCP - General FAMILY PRACTICE 06/05/23 documented as of this encounter
--- OUTSIDE RECORDS SUMMARY | 2024-03-23 01:32 | XMS_ITS | Encounter Summary ---
Author Organization [facility] Address [address] [place] [address]. [place], [place] [phone] [place] [address] Care Team Providers Care Atg Java Developer Name Role Phone Marii Randle MD Primary Care Provider + [phone] Encounter Details Date Type Department Care Team (Latest Contact Info) Description 07/31/2023 Scan HEALTH INFO [facility] Scanned, Doc Med Group Social History Tobacco Use Types Packs/Day Years [...] st Contact Info) Description 05/01/2024 8:00 AM AGRISCIENCE TECHNOLOGY INSTRUCTOR Appointment [facility] [place] [place] [address] Edgard Washington MD Three [facility] [address] [place] [address] 06/02/2024 10:15 AM CDT Office Visit Betsey Dimas-O'Fallo n THREE [facility], [address] [place] [address] Edgard Washington MD Three [facility] [address] [place] [address] documented as of this encounter Visit Diagnoses Not on filedocumented in this encounter Additional Health Concerns Assessment Noted Time PHQ-9 Depression Total Score: 0 02/11/20 21 1:25 PM AGRISCIENCE TECHNOLOGY INSTRUCTOR documented as of this encounter Care Teams Atg Java Developer Relationship Specialty Start Date End Date Marii Randle MD [address] [facility] [address] [place] [address] PCP - General FAMILY PRACTICE 06/05/23 documented as of this encounter
--- OUTSIDE RECORDS SUMMARY | 2024-03-23 01:32 | XMS_ITS | Encounter Summary ---
Author Organization [facility] Address [address] [place] [address]. [place], [place] [address] [place] [address] Care Team Providers Care Chipper Feeder Name Role Phone Marii Randle MD Primary Care Provider + [phone] Encounter Details Date Type Department Care Team (Latest Contact Info) Description 03/10/2024 Travel Social History Tobacco Use Types Packs/Day [...] st Contact Info) Description 05/01/2024 8:00 AM ELECTRONICS INSTALLER Appointment [place] ONE [facility] [place], [place] [address] Edgard Washington MD Three [facility] [address] [place] [address] 06/02/2024 10:15 AM CDT Office Visit Betsey Dimas-O'Fallo n THREE [facility], ED [address] [place] [address] Edgard Washington MD [address] [place] [address] documented as of this encounter Visit Diagnoses Not on filedocumented in this encounter Additional Health Concerns Assessment Noted Time PHQ-9 Depression Total Score: 0 11/06/19 9:30 AM CDT documented as of this encounter Care Teams Chipper Feeder Relationship Specialty Start Date End Date Marii Randle MD [address] [facility] [address] [place] [id number] PCP - General FAMILY PRACTICE 06/05/23 documented as of this encounter
--- OUTSIDE RECORDS SUMMARY | 2024-03-23 01:32 | XMS_ITS | Clinical Summary ---
Author Organization [facility] Address Formerly [facility] [place] [address] [place] [address] Care Team Providers Care Industrial Electrical Technician Name Role Phone Fran Espinal MD Primary Care Provider [phone] Allergies No known active allergies Medications FLUTICASONE PROPIONATE 50 MCG/ACT nasal sprayIndications: Allergic rhinitis, unspecified seasonality, unspecified trigger SPRAY 2 SPRAYS INTO EACH NOSTRIL EVERY DAY 48 mL 0 Active cetirizine 10 MG chewable tablet Chew 1 tablet (10 mg total) by mouth daily. Active acetaminophen CR (TYLENOL) 650 MG Tab CR 8 hr tablet Active celecoxib (CELEBREX) 200 MG capsuleIndication s:History of vertebral compression fracture TAKE 1 CAPSULE BY MOUTH EVERY DAY 90 capsule 4 Active oxybutynin XL (DITROPAN-XL) 10 MG 24 hr tabletIndications :Hyperactivity of bladder TAKE 1 TABLET EVERY DAY 90 tablet 3 4 Active HYDROcodone-aceta minophen (NORCO) 5-325 MG tabletIndications :Chronic Pain Take 1 tablet by mouth 2 (two) times daily. Indications: Chronic Pain 60 tablet 4 Active losartan (COZAAR) 50 MG tabletIndications :Primary hypertension TAKE 1 TABLET EVERY DAY 90 tablet 3 4 Active omeprazole (PRILOSEC) 40 MG capsuleIndication s:Essential hypertension TAKE 1 CAPSULE EVERY DAY 90 capsule 3 4 Active hydroCHLOROthiazi de (MICROZIDE) 12.5 MG tabletIndications :Essential hypertension TAKE 1 TABLET EVERY DAY 90 tablet 3 Active Active Problems Problem Noted Date Diagnosed Date Primary osteoarthritis of right hip 12/30/2023 Radicular pain of right lower extremity 06/05/19 Gastroesophageal reflux dise ase, unspecified whether esophagitis present 06/05/2023 Impacted cerumen of left ear 02/28/2023 Dysfunction of both eustachian tubes 02/28/2023 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 02/28/2023 Estrogen deficiency 03/21/2022 Lightheadedness 03/21/2022 Vitamin D insufficiency 03/21/2022 Weight gain 03/21/2022 Class 1 obesity due to exces s calories with serious comorbidity and body mass index (BMI) of 32.0 to 32.9 in adult 09/28/2021 Hip pain 09/28/2021 Hemorrhoidal skin tags 01/23/2021 Chronic right-sided low back pain without sciati ca 03/17/2013 NUD (nonulcer dyspepsia) 06/05/2012 Allergic rhinitis 06/03/2012 Hyperactivity of bladder 06/03/2012 Hypertension 06/03/2012 Overview (09/15/2018): Description: diagnosed 2003 Resolved Problems Problem Noted Date Diagnosed Date Resolved Date Preventative health care 03/21/2022 Encounter for screening mamm ogram for malignant neoplasm of breast 02/10/2021 02/13/2021 Preventative health care 02/10/2021 Encounter for screening mamm ogram for malignant neoplasm of breast 01/20/2020 01/25/2020 Preventative health care 01/20/2020 History of vertebral compression fracture 09/18/2018 03/10/2024 Overview (09/18/2018): Thoracic spine Screening for breast cancer 09/18/2018 11/13/2019 Urinary tract infection 01/06/201809/01 Vaccination refused by patient 08/26/2017 03/10/2024 Atherosclerosis of aorta 08/20/201709/2024 Overview (09/15/2018): Description: CXR Compression fracture of thor acic vertebra (CMS/[facility]) 06/03/2012 09/18/2018 Encounter for preventive health examination 06/03/2012 11/13/2019 Encounters Date Type Department Care Team Description 03/11/2024 Telephone [facility] [address] [place] [address] Edgard Hinds MD Surgical Clearance 03/10/2024 11:15 AM SHEET METAL ASSEMBLER Office Visit [facility] [address] [place] [address] Edgard Hinds MD New Patient (New patient consult with repeat EKG from 03/02) 03/10/2024 Travel 03/03/2024 MyChart Message Enc [facility] [place] [address], [address] [place] [phone] Fran Espinal MD Urgent Need For Stress Test and Cardiology Read Before 03/16 Surgery 02/10/2024 MyChart Message Enc [facility] [place] [address], [address] [place] [address] Fran Espinal MD Hydrocodone Refill 02/07/2024 MyChart Message Enc [facility] [place] [address] [place] [address] [facility] cancelled appt 01/02/2024 Telephone [facility] [place] [address] [place] [address] Renny Castellon MD Question 01/02/2024 Telephone [facility] [place] [address], [address] [place] [phone] Fran Espinal MD Referral 01/01/2024 1:40 PM CDT Office Visit [facility] [place] [address], [address] [place] [phone] Fran Espinal MD Follow Up (Discuss ortho appt and discuss pain medication. [facility] lab.) 01/01/2024 8:09 AM CDT - 01/01/2024 11:59 PM CDT Hospital Encounter [facility] [address] [place] [address] Fran Espinal MD Discharge Disposition: Home or Self Care (Routine Discharge) 01/01/2024 Travel 12/30/2023 11:00 AM CDT Office Visit [facility] [address] [place] [address] Gianfranco Larson MD New Patient (Rt hip pain ) 12/30/2023 Travel from Last 3 Months Immunizations Name Administration Dates Next Due Flublok (Quadrivalent) 02/10/2021 Fluzone High Dose (IIV, trivalent, 0.5mL) 2023 Fluzone High Dose - >Age 65 (Prefilled Syringe) 12/18/2021 Influenza Adult (Generic) 12/24/2022,12/22/2019 PFIZER COVID-19 (ZAMBRANO CAP), MRNA, LNP-S, PF, 30 MCG/0.3 ML MADISON-SUCROSE, IM 06/17/2021 PFIZER COVID-19 (ORIGINAL FO RMULATION, PURPLE CAP) mRNA, LNP-S, PF, 30 MCG/0.3 ML DOSE 06/17/2021,01/18/2021 Pneumococcal (Prevnar 20) 12/24/2022 Shingrix 08/23/2020,12/22/2019 Tdap (Generic) 08/20/2017 Zoster (Zostavax) [id number] Unt/0.65Ml 12/22/2019 Family History Medical History Relation Comments Cancer Father Prostate Cancer Father Hypertension Mother Diabetes Other Osteoporosis Other Stroke Paternal Grandfather Breast Cancer Sister 1 Relation Status Comments Brother Alive Father (Age 91) Maternal Grandfather Maternal Grandmother Mother (Age 76) Other Paternal Grandfather Paternal Grandmother Sister 1 Alive Sister 2 Alive Social History Tobacco Use Types Packs/Day Years [...] on file Sexual Orientation Not on file Last Filed Vital Signs Vital Sign Reading Time Taken Comments Blood Pressure 142/78 03/10/2024 10:51 AM SHEET METAL ASSEMBLER Pulse 64 03/10/2024 10:51 AM SHEET METAL ASSEMBLER Temperature 36.2 ??C (97.2 ??F) 01/01/2024 1:43 PM CD T Respiratory Rate 16 01/01/2024 1:43 PM CDT Oxygen Saturation 98% 03/10/2024 10:51 AM SHEET METAL ASSEMBLER Inhaled Oxygen Concentration - - Weight 89.8 kg (198 lb) 03/10/2024 10:51 AM SHEET METAL ASSEMBLER Height 167.6 cm (5' 6 ) 03/10/2024 10:51 AM SHEET METAL ASSEMBLER Body Mass Index 31.96 03/10/2024 10:51 AM SHEET METAL ASSEMBLER Plan of Treatment Upcoming Encounters Date Type Department Care Team (Late st Contact Info) Description 05/01/2024 8:00 AM SHEET METAL ASSEMBLER Appointment [facility] [place] [id number] Edgard Hinds MD [facility], [address] [place], [place] [id number] 06/02/2024 10:15 AM CDT Office Visit [facility], ED [address] [place], [place] [phone] Edgard Hinds MD [facility], [address] [place] [address] Health Maintenance Due Date Last Done Comments Hepatitis C 1973 Annual Medicare Wellness Visit 2021 PHQ-2 (Physician [place]) 11/05/2024 11/06/2023 Colorectal Cancer Screening Colonoscopy (10 Years) 07/13/2025 07/13/2020, 07/13/2020, 02/01/2017 Mammogram Screening 12/31/2025 01/01/2024, 05/09/2022, 03/07/2021, Additional history exists DTaP, Tdap and Td Vaccines (2 - Td or Tdap) 08/21/2027 08/20/2017 RSV Immunization or 60+ Years (1 - 1-dose 75+ series) 05/04/2031 Zoster Vaccines Completed 08/23/2020, 12/03, 12/22/2019 Dexa Scan (General) Completed 05/09/2022 Pneumococcal Vaccine: 65+ Years Completed 12/24/2022 Influenza Adult Completed 11/06/2023, 12/03, 12/18/2021, Additional history exists COVID-19 Vaccine Completed 11/13/2023, , 12/18/2021, Additional history exists Meningococcal Vaccine Aged Out No jarrod sayra eligible based on patient's age to complete this topic RSV Immunizations Under 20 Months Aged Out No longer eligible based on patient's age to complete this topic Procedures Procedure Name Priority Date/Time Associated Diagnosis Comments ELECTROCARDIOGRAM (NON MIDMARK ACQUIRED) Routine 03/10/2024 11:02 AM SHEET METAL ASSEMBLER Abnormal EKG MG SCREENING W CHANO BRANDY DIGI Routine 01/01/2024 8:55 AM CDT Visit for screening mammogram BONE DENSITY/DEXA Routine 05/09/2022 9:2 7 AM SHEET METAL ASSEMBLER Estrogen deficiency COLONOSCOPY Routine 07/13/2020 10:01 AM CDT from Last 3 Months or Most Recently Relevant to Health Maintenance Results * ELECTROCARDIOGRAM (03/10/2024 11:02 AM SHEET METAL ASSEMBLER) 03/10/2024 11:0 2 AM SHEET METAL ASSEMBLER Narrative [facility] - 03/17/2024 7:44 PM SHEET METAL ASSEMBLER ?[facility]? [place] ? Test Date: ?2024-03-10 Pat Name: ? NANCY ZELAYABARD ? Department: ?? 112 ? Room: ? Gender: ? Female ? Medical Insurance Biller: ?? : ?1955 ? Requested By: EDGARD HINDS Order Number: [id number] ?Reading MD: ?? Mono Menard ? Measurements Intervals ?[place] ? Rate: ? 54 ? P: ?57 MD: ? 166 ?QRS: ?-23 QRSD: ? 80 ? T: ?29 QT: ? 404 ? QTc: ?386 ? Interpretive Statements SINUS BRADYCARDIA SEPTAL MYOCARDIAL INFARCTION, PROBABLY OLD T METAL ASSEMBLER Procedure Note Mono Menard MD - 03/17/2024 [facility]? [facility] Test Date: 2024-03-10 Pat Name: NANCY BROWN Department: 112 Room: Gender: Female Medical Insurance Biller: : 1955 Requested By: EDGARD HINDS Order Number: [id number] Sheila MD: Mono Menard Measurements Intervals [place] Rate: 54 P: 57 MD: 166 QRS: -23 QRSD: 80 T: 29 QT: 404 QTc: 386 Interpretive Statements SINUS BRADYCARDIA SEPTAL MYOCARDIAL INFARCTION, PROBABLY OLD T METAL ASSEMBLER us Edgard Hinds MD PROCEDURES-ORDERABLE NO C HARKIAN Final Result [facility] * MG SCREENING W CHANO BRANDY DIGI (01/01/2024 8:55 AM CDT) Anatomical Region Laterality Modality Breast Bilateral Mammography 01/01/2024 12:4 2 PM CDT Impressions 01/01/2024 12:46 PM CDT ===== IMPRESSION: ===== 1. ??Stable mammographic appearance with no new findings to suggest malignancy in either breast. Assessment: ACR BI-RADS 2 - BENIGN FINDING(S) Recommendation: 1:Routine Screening Bilateral Comments: Ordered By: FRAN ESPINAL Interpreted By: Russ Santana, 01/01/2024 12:42 PM Narrative 01/01/2024 12:46 PM CDT [facility] [address] [place] [address] EXAMINATION: Digital bilateral screening mammogram with 3-D tomosynthesis EXAM DATE/TIME: 01/01/2024 8:19 AM REASON FOR EXAM: ??YEARLY EXAM ? Benign left breast biopsy.. Breast carcinoma in sister at age 63 COMPARISON: 03/07/2021. 05/09/2022 Technique: Digital screening mammography of both breasts was performed in addition to 3-D Tomosynthesis technique. This study was read with the assistance of a computer-aided detection system. Tissue density: There are scattered areas of fibroglandular density. Findings: There is no new focal asymmetry, dominant mass lesion, area of skin thickening, or cluster of suspicious appearing calcifications in either breast to suggest malignancy. Patient with large keloid on her chest that visualizes along the medial aspects of both breasts. us Fran Espinal MD MAMMO Final Result * BONE DENSITY/DEXA (05/09/2022 9:27 AM SHEET METAL ASSEMBLER) Anatomical Region Laterality Modality Bone Mammography 05/09/2022 9:39 AM SHEET METAL ASSEMBLER Impressions 05/09/2022 9:41 AM SHEET METAL ASSEMBLER IMPRESSION: WHO Classification: Normal RECOMMENDATIONS: All patients should ensure an adequate intake of dietary calcium and vitamin D. The NOF recommend adults under the age of 50 need 1000 mg of calcium and 400-800 IU of vitamin D daily. Effective therapy for the prevention and treatment of osteoporosis include bisphosphonates. Follow-up: People with diagnosed cases of osteoporosis or at high risk for fracture should have regular bone mineral density test. For patients eligible for Medicare, routine testing is allowed once every 2 years. Testing frequency can be increased to one year for patients who have rapidly progressing disease, those who are receiving or discontinuing medical therapy to restore bone mass, or have additional risk factors. Referred By: YAMILET RUIZ Interpreted By: Teo Daugherty MD, 05/09/2022 9:39 AM Narrative 05/09/2022 9:41 AM SHEET METAL ASSEMBLER EXAMINATION: BONE DENSITY/DEXA INDICATIONS: estrogen deficiency; Postmenopausal COMPARISON: None TECHNIQUE: DEXA bone minimal density evaluation was performed in the AP projection over the lumbar spine and both hips utilizing standard imaging techniques. ASSESSMENT: The BMD measured at the AP spine L1-L4 is 1.170 g/cm? with a T-score of 1.1. ?? The BMD measured at the left femoral neck is 0.945 g/cm? with a T-score of 0.9. The BMD measured at the left hip is 1.269 g/cm? with a T-score of 2.7. ?? The BMD measured at the right femoral neck is 0.905 g/cm? with a T-score of 0.5. ?? The BMD measured at the right hip is 1.199 g/cm? with a T-score of 2.1. ?? FRAX 10-year fracture risk: Major Osteoporotic Fracture: 2.6% Hip Fracture: 0.1% Procedure Note Teo Daugherty MD - 05/09/2022 EXAMINATION: BONE DENSITY/DEXA INDICATIONS: estrogen deficiency; Postmenopausal COMPARISON: None TECHNIQUE: DEXA bone minimal density evaluation was performed in the APprojection over the lumbar spine and both hips utilizing standard imagingtechniques. ASSESSMENT: The BMD measured at the AP spine L1-L4 is 1.170 g/cm? with a T-score of1.1. The BMD measured at the left femoral neck is 0.945 g/cm? with a T-score of0.9. The BMD measured at the left hip is 1.269 g/cm? with a T-score of 2.7. The BMD measured at the right femoral neck is 0.905 g/cm? with a T-scoreof 0.5. The BMD measured at the right hip is 1.199 g/cm? with a T-score of 2.1. FRAX 10-year fracture risk: Major Osteoporotic Fracture: 2.6% Hip Fracture: 0.1% IMPRESSION: WHO Classification: Normal RECOMMENDATIONS: All patients should ensure an adequate intake of dietary calcium andvitamin D. The NOF recommend adults under the age of 50 need 1000 mg ofcalcium and 400-800 IU of vitamin D daily. Effective therapy for theprevention and treatment of osteoporosis include bisphosphonates. Follow-up: People with diagnosed cases of osteoporosis or at high risk for fractureshould have regular bone mineral density test. For patients eligible forMedicare, routine testing is allowed once every 2 years. Testing frequencycan be increased to one year for patients who have rapidly progressingdisease, those who are receiving or discontinuing medical therapy torestore bone mass, or have additional risk factors. Referred By: YAMILET RUIZ Interpreted By: Teo Daugherty MD, 05/09/2022 9:39 AM Yamilet Ruiz DO DEXA Final Result * Colonoscopy (07/13/2020 10:01 AM CDT) Narrative Virginia Ruiz MD - 07/13/2020 10:01 AM CDT Virginia Ruiz MD ? 07/13/2020 10:24 AM VIRGINIA RUIZ MD, FACG, FACP COLONOSCOPY 07/13/2020 This is a ??65-year-old female with history of GERD, HTN, OA, CCx, Hysterectomy and CSx x 2 who now presents for colonoscopy for personal history of adenomatous colon polyps. ?? GI review of systems is otherwise negative. No endocarditis risk factors. No Known Allergies Medications: see list. Family history: negative for colon cancer. VITALS: Stable. LUNGS: Clear. HEART: RRR. S1/S2 normal. ABDOMEN: NABS/NT. The procedure of colonoscopy, ??its indications, ??alternatives of barium studies and risks including perforation, bleeding, infection, reaction to medication as well as the possible need for blood or surgery were discussed with the patient prior to the procedure. The patient voices understanding, agrees to proceed and provides informed consent. COLONOSCOPY INDICATION: Personal history of colon polyps. ?? POST-OP: Normal. SEDATION: Per Anesthesia PREP: Good. With the patient in the left lateral decubitus position, the Olympus [id number] ??colonoscope was introduced into the rectum and advanced easily to the Terminal Ileum. Careful inspection of the mucosa was made upon insertion and withdrawal of the endoscope. FINDINGS: Terminal ileum: distal 5 cm normal. Cecum, Ascending colon, Transverse colon, Descending colon, Sigmoid colon and Rectum including retroflexion normal. No masses, polyps, AVMs or colitis ??seen. No complications, blood loss or implants. ASSESSMENT AND PLAN: Personal history of colon polyps: - Colonoscopy 02-21-2017 with 2 cm SC adenoma - Colonoscopy 07-13-2020 normal - Due to high risk findings in 2017 repeat colonoscopy in five years Thank you for allowing me to care for your patient. She will follow-up with Dr. Mikael Ruiz as needed. Virginia Ruiz M.D. Cc: Dr. Mikael Ruiz Virginia Ruiz MD GI PROCEDURE ORDERABLES Fin al Result from Last 3 Months or Most Recently Relevant to Health Maintenance Insurance [facility] [employer] Care Teams Industrial Electrical Technician Relationship Specialty Start Date End Date Fran Espinal MD [address] [facility] [address] [place] [address] PCP - General FAMILY PRACTICE 06/05/23
--- OUTSIDE RECORDS SUMMARY | 2024-03-23 01:32 | XMS_ITS | Encounter Summary ---
Author Organization [facility] Address [address] [place] [address]. [place], [place] [address] [place] [address] Care Team Providers Care Financial Planning Analyst Name Role Phone Marii Espinal MD Primary Care Provider [phone] Reason for Referral * Imaging (Routine) - Closed Specialty Diagnoses / Procedures Referred By Herberth amor Referred To Contact RADIOLOGY Diagnoses Right hip pain Procedures MRI HIP RT WO CON Marii Espinal MD [address] [address] Phone: tel: fax: Referral ID Status Reason Start Date Expiration Date Visits Re quested Visits Authorized [id number] Closed 11/13/2023 12/12/2024 1 1 Reason for Visit * Reason Onset Date Comments Information 11/07/2023 Encounter Details Date Type Department Care Team (Late st Contact Info) Description 11/07/2023 MyChart Message Enc [facility] Medical Group Family Medicine - [place] [address] [facility], [address] [place], [place] [phone] Marii Espinal MD [address] [facility] ED [address] [place] [address] X-Ray Results Social History Tobacco Use Types Packs/Day Years [...] as of this encounter Progress Notes * Nita Yepez MA - 11/14/2023 9:08 AM CDT Calling patient to advise of the information below. She stated she was given the medication at painmanagement after she was referred by neurosurgeon to discuss pain. She has tried spinal injections that did not work with PM and then they suggested spinal stimuation, they told her it required a oneweek psych evaluation which she completed, but has not heard back from them nor has she followed upsince this was completed last month. She is sure they have the results back from the evaluation andwants to pursue her pain in her thigh first before addressing this. She advised that the duloxetinedid nothing for her and she will reach out to the pharmacy to let them know to stop requesting the m edication. She honestly wants to know what pcp thinks she should do moving forward and has scheduled her MRI already. She honestly wants to put that off for now. I explained to her I would let Dr. Espinal know and get back to her once I hear back from her on next steps. * Marii Espinal MD - 11/13/2023 4:23 PM CDT MRI of right hip ordered. Please let the patient know that we have not had any record of her being on duloxetine. Can she please tell me how long she has been on the medication please confirm the dosage and why she was placed on the medication. documented in this encounter Plan of Treatment Upcoming Encounters Date Type Department Care Team (Late st Contact Info) Description 05/01/2024 8:00 AM BRANCH OPERATIONS COORDINATOR Appointment [facility] Non Invasive Cardiology [address] [facility] [place] [address] Edgard [place] MD Three [facility] [address] [place] [address] 06/02/2024 10:15 AM CDT Office Visit [facility] THREE [facility], [address] [place] [address] Edgard [place] MD Three [facility], [address] [place] [address] documented as of this encounter Results * MRI HIP RT WO CON (11/30/2023 4:22 PM CDT) Anatomical Region Laterality Modality Hip Magnetic Resonan ce 12/01/2023 8:34 PM CDT Impressions 12/01/2023 8:39 PM CDT IMPRESSION: 1. ?? The dominant finding is asymmetric severe right hip osteoarthritis. ??Given the degree of subcortical cyst formation, CPPD deposition arthropathy is a consideration as well. 2. ??Posterior labral tear suspected. 3. ??No evidence of fracture or suspicious bone lesion. 4. ??Mild right hip effusion. 5. ??Mild gluteus medius and minimus atrophy. Referred By: MARII ESPINAL Interpreted By: Sanju Lombardi MD, 12/01/2023 8:34 PM Narrative 12/01/2023 8:39 PM CDT [facility] [address] [place], [place] [address] EXAMINATION: MRI RIGHT HIP WITHOUT CONTRAST EXAM DATE: 11/30/2023 3:53 PM REASON FOR EXAM: ??right hip pain ?? COMPARISON: None TECHNIQUE: Multiplanar multisequence imaging of the hip without intravenous contrast. FINDINGS: Limited evaluation of the lower lumbar spine demonstrates degenerative disease. ??Limited evaluation of the sacroiliac joints demonstrates osteoarthritis. Hamstring origins within normal limits. Evaluation with a straw demonstrates no abnormal fluid collection or mass. Limited imaging of the left hip demonstrates early osteoarthritis. Dedicated images of the right hip: Mild gluteus medius and minimus atrophy. Mild joint effusion. Severe osteoarthritis of the subchondral cyst formation superior femoral head and acetabular roof. ??Posterior labral tear is suspected. No evidence of avascular necrosis or fracture. Gluteus medius and minimus insertions intact. ??No suspicious bone lesion. Procedure Note Sanju Lombardi MD - 12/01/[address] [address] EXAMINATION: MRI RIGHT HIP WITHOUT CONTRAST EXAM DATE: 11/30/2023 3:53 PM REASON FOR EXAM: right hip pain COMPARISON: None TECHNIQUE: Multiplanar multisequence imaging of the hip withoutintravenous contrast. FINDINGS: Limited evaluation of the lower lumbar spine demonstrates degenerativedisease. Limited evaluation of the sacroiliac joints demonstratesosteoarthritis. Hamstring origins within normal limits. Evaluation with a straw demonstrates no abnormal fluid collection ormass. Limited imaging of the left hip demonstrates early osteoarthritis. Dedicated images of the right hip: Mild gluteus medius and minimus atrophy. Mild joint effusion. Severe osteoarthritis of the subchondral cyst formation superior femoralhead and acetabular roof. Posterior labral tear is suspected. No evidence of avascular necrosis or fracture. Gluteus medius and minimus insertions intact. No suspicious bonelesion. IMPRESSION: 1. The dominant finding is asymmetric severe right hip osteoarthritis.Given the degree of subcortical cyst formation, CPPD depositionarthropathy is a consideration as well. 2. Posterior labral tear suspected. 3. No evidence of fracture or suspicious bone lesion. 4. Mild right hip effusion. 5. Mild gluteus medius and minimus atrophy. Referred By: MAIRI ESPINAL Interpreted By: Sanju Lombardi MD, 12/01/2023 8:34 PM us Marii Espinal MD MRI Final Result documented in this encounter Visit Diagnoses Diagnosis Right hip pain- Primary Pain in joint, pelvic region and thigh Right hip pain Pain in joint, pelvic region and thigh documented in this encounter Additional Health Concerns Assessment Noted Time PHQ-9 Depression Total Score: 0 11/06/19 9:30 AM CDT documented as of this encounter Care Teams Financial Planning Analyst Relationship Specialty Start Date End Date Marii Espinal MD [address] [facility] [address] [place] [address] PCP - General FAMILY PRACTICE 06/05/23 documented as of this encounter
--- OUTSIDE RECORDS SUMMARY | 2024-03-23 01:32 | XMS_ITS | Encounter Summary ---
Author Organization [facility] Address [address] [place] [address]. [place] [address] [place] [address] Care Team Providers Care Block Greaser Name Role Phone Marii Randle MD Primary Care Provider [phone] Reason for Visit * Reason Comments EMG Testing BLE*RADICULAR PAIN O F RT LOWER EXTREMITIES * Procedure (Routine) - Closed Specialty Diagnoses / Procedures Referred By Herberth amor Referred To Contact Diagnoses Radicular pain of right lower extremity Procedures NCVS\EMG (Hosp Performed) Marii Randle MD [address] [facility] [address] [place] [address] Phone: tel: fax: Felipe Schreiber MD [address] [place] [address] Phone: tel: fax: Referral ID Status Reason Start Date Expiration Date V isits Requested Visits Authorized [id number] Closed Office Procedure 06/05/2023 06/04/2024 1 1 Encounter Details Date Type Department Care Team (Latest Contact Info) Description 07/09/2023 9:00 AM CDT Office Visit [facility] Medical Group Multispecialty Care - [facility] [address] [facility], [address] [place] [address] Marii Randle MD [address] [facility] [address] [place] [address] Felipe Schreiber MD [address] [place] [address] EMG Testing (BLE*RADICULAR PAIN OF RT LOWER EXTREMITIES) Social History Tobacco Use Types Packs/Day Years [...] as of this encounter Progress Notes * Felipe Schreiber MD - 07/09/2023 9:00 AM CDT EMG * Marii Randle MD - 07/09/2023 9:00 AM CDT The nerve conduction study reads as her thigh pain is coming from her back. Has she seen neurosurgery or have an upcoming apt. This study just helps confirm her symptoms are from her back and not herhip documented in this encounter Procedure Notes * Felipe Schreiber MD - 07/09/2023 9:00 AM CDTAssociated Order(s): EMG For sensory nerve conduction studies, the amplitude is measured [id number], the latency reported is the distal peak latency, and the conduction velocity, if measured, is determined from onset latencies and is over the limb. For motor nerve conduction studies, the amplitude is measured [id number], the latency reported is the distal onset latency, the conduction velocity is calculated over the limb , and the F wave latency is the minimum latency. Unless otherwise noted, the limb temperature was monitored continuously and remained between 32??C and 36??C during the performance of the NCSs.The study was performed with a concentric needle electrode. Fibrillation and fasciculation activity is graded from none (0) to continuous (4+). The configuration and recruitment pattern of motor unit action potentials under voluntary control, if not normal, are described below. Abbreviations: NCS= nerve conduction study SNAP= sensory nerve action potential CMAP= compound muscle action potential MUP= motor unit potential EMG= electromyogram F IBS= fibrillations PS W's= positive sharp waves Summary of findings Bilateral peroneal motor NCS is absent Left tibial motor NCS shows small CMAP amplitude Right tibial motor NCS is absent Bilateral sural and superficial peroneal sensory NCS is absent Needle EMG of the right lower limb shows chronic neurogenic motor unit potentials in the illiopsoasand vastus medialis Conclusion This study shows evidence of a chronic L4 radiculopathy on the right. 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 documented in this encounter Plan of Treatment Upcoming Encounters Date Type Department Care Team (Late st Contact Info) Description 05/01/2024 8:00 AM W[address] TESTER Appoint[address] [facility] [place] [address] Edgard [place] MD Three [facility], [address] [place] [address] 06/02/2024 10:15 AM CDT Office Visit [facility] THREE [facility], [address] [place] [address] Edgard [place] MD Three [facility], [address] [place] [address] Scheduled Orders Name Type Priority Associated Diagnoses Orde r Schedule NERVE CONDUCTION, STUDIES 7-8 Procedures Routine Radicular pain of right lower extremity Ordered: 07/09/2023 COMPLETE FIVE OR MORE MUSCLES STUDIED INNERVATED Procedures Routine Radicular pain of right lower extremity Ordered: 07/09/2023 documented as of this encounter Procedures Procedure Name Priority Date/Time Associated Diagnosis Comments EMG Routine 07/09/2023 9:00 AM CDT Radicular pain of right lower extremity documented in this encounter Results * NCVS\EMG (Hosp Performed) (07/09/2023 9:00 AM CDT) Narrative Felipe Schreiber MD - 07/09/2023 9:00 AM CDT Felipe Schreiber MD ? 07/09/2023 11:15 AM For sensory nerve conduction studies, the amplitude is measured [id number], the latency reported is the distal peak latency, and the conduction velocity, if measured, is determined from onset latencies and is over the limb. For motor nerve conduction studies, the amplitude is measured plssuqzr-jx-hmom, the latency reported is the distal onset latency, the conduction velocity is calculated over the limb , and the F wave latency is the minimum latency. Unless otherwise noted, the limb temperature was monitored continuously and remained between 32??C and 36??C during the performance of the NCSs.The study was performed with a concentric needle electrode. Fibrillation and fasciculation activity is graded from none (0) to continuous (4+). The configuration and recruitment pattern of motor unit action potentials under voluntary control, if not normal, are described below. Abbreviations: NCS= nerve conduction study SNAP= sensory nerve action potential CMAP= compound muscle action potential MUP= motor unit potential EMG= electromyogram F IBS= fibrillations PS W's= positive sharp waves Summary of findings Bilateral peroneal motor NCS is absent Left tibial motor NCS shows small CMAP amplitude Right tibial motor NCS is absent Bilateral sural and superficial peroneal sensory NCS is absent Needle EMG of the right lower limb shows chronic neurogenic motor unit potentials in the illiopsoas and vastus medialis Conclusion This study shows evidence of a chronic L4 radiculopathy on the right. 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 us Marii Randle MD NEUROLOGY ORDERABLES Final R esult documented in this encounter Visit Diagnoses Diagnosis Radicular pain of right lower extremity Thoracic or lumbosacral neuritis or radiculitis, unspecified documented in this encounter Additional Health Concerns Assessment Noted Time PHQ-9 Depression Total Score: 0 02/11/20 21 1:25 PM WATER TESTER documented as of this encounter Care Teams Block Greaser Relationship Specialty Start Date End Date Marii Randle MD [address] [facility] [address] [place] [phone] PCP - General FAMILY PRACTICE 06/05/23 documented as of this encounter
--- OUTSIDE RECORDS SUMMARY | 2024-03-23 01:32 | XMS_ITS | Encounter Summary ---
Author Organization [facility] Address [address] [place] [address]. [place] [address] [place] [address] Care Team Providers Care Cloth Printer Helper Name Role Phone Marii Espinal MD Primary Care Provider Encounter Details Date Type Department Care Team (Latest Contact Info) Description 11/06/2023 10:45 AM CDT - 11/06/2023 10:56 AM CDT Hospital Encounter [facility] [address] [facility] [address] [place], [place] [id number] Marii Espinal MD [facility] [address] [place] [address] Discharge Disposition: Home or Self Care (Routine Discharge) Social History Tobacco Use Types Packs/Day Years [...] on file documented as of this encounter Medications at Time of Discharge cetirizine 10 MG chewable tablet Chew 1 tablet (10 mg total) by mouth daily. FLUTICASONE PROPIONATE 50 MCG/ACT nasal sprayIndications:A llergic rhinitis, unspecified seasonality, unspecified trigger SPRAY 2 SPRAYS INTO EACH NOSTRIL EVERY DAY 48 mL 01/05/2020 hydroCHLOROthiazid e (MICROZIDE) 12.5 MG tabletIndications: Essential hypertension take 1 tablet every day 90 tablet 1 09/23/2023 4 losartan (COZAAR) 50 MG tabletIndications: Primary hypertension take 1 tablet every day 90 tablet 1 09/23/2023 4 omeprazole (PRILOSEC) 40 MG capsuleIndications :Essential hypertension TAKE 1 CAPSULE EVERY DAY 90 capsule 1 09/23/2023 4 oxybutynin XL (DITROPAN-XL) 10 MG 24 hr tabletIndications: Hyperactivity of bladder Take 1 tablet (10 mg total) by mouth daily. 90 tablet 1 07/11/2023 4 documented as of this encounter Plan of Treatment Upcoming Encounters Date Type Department Care Team (Late st Contact Info) Description 05/01/2024 8:00 AM AIRPLANE INSPECTOR Appointment [facility] [place] [address] Edgard [place] MD [facility], [address] [place] [address] 06/02/2024 10:15 AM CDT Office Visit [facility] THREE [facility], [address] [place] [address] Edgard [place] MD Three [facility], [address] [place] [address] documented as of this encounter Procedures Procedure Name Priority Date/Time Associated Diagnosis Comments XR FEMUR RT 2V Routine 11/06/2023 11:37 AM CDT Right thigh pain XR PELVIS+RT HIP 2V Routine 11/06/2023 1 1:37 AM CDT Right thigh pain documented in this encounter Results * XR FEMUR RT 2V (11/06/2023 11:37 AM CDT) Anatomical Region Laterality Modality Femur Radiographic Berann ging 11/06/2023 5:15 PM CDT Impressions 11/06/2023 5:16 PM CDT =====IMPRESSION:===== No acute bony abnormalities or malalignment. Degenerative changes in the right hip and the right knee joint. Ordered By: MARII ESPINAL Interpreted By: Al Freitas MD, 11/06/2023 5:15 PM Narrative 11/06/2023 5:16 PM CDT [place] [address] Examination: 2 views right femur Exam date/time: [...] Procedure Note Al Freitas MD - 11/06/2023 [place] [address] Examination: 2 views right femur Exam date/time: [...] and the right knee joint. Ordered By: MARII ESPINAL Interpreted By: Al Freitas MD, 11/06/2023 5:15 PM us Marii Espinal MD GENERAL IMAGING Final Result * XR PELVIS+RT HIP 2V (11/06/2023 11:37 AM CDT) Anatomical Region Laterality Modality Hip, Pelvis Radiographic Breann ging 11/06/2023 5:16 PM CDT Impressions 11/06/2023 5:18 PM CDT =====IMPRESSION:===== No malalignment or acute bony abnormalities. Degenerative changes worse in the right hip of [id number] degree which appear progressed than in 2021. Ordered By: MARII ESPINAL Interpreted By: Al Freitas MD, 11/06/2023 5:16 PM Narrative 11/06/2023 5:18 PM CDT [address] [address] Examination: Right hip 2 views and pelvis [...] degenerative changes since 2021. Small pelvic phleboliths. Yzlb-ts-[id number] degenerative changes in the lower lumbar levels. Procedure Note Al Freitas MD - 11/06/[address] [address] Examination: Right hip 2 views and pelvis [...] the right. Mild progression of degenerative changes [id number]. Small pelvic phleboliths. Emkc-wj-lwdfysuw degenerative changes inthe lower lumbar levels. =====IMPRESSION:===== No malalignment or acute bony abnormalities. Degenerative changes worse in the right hip of [id number] degreewhich appear progressed than in 2021. Ordered By: MARII ESPINAL Interpreted By: Al Freitas MD, 11/06/2023 5:16 PM us Marii Espinal MD GENERAL IMAGING Final Result documented in this encounter Visit Diagnoses Diagnosis Right thigh pain Pain in limb documented in this encounter Additional Health Concerns Assessment Noted Time PHQ-9 Depression Total Score: 0 11/06/19 24 9:30 AM CDT documented as of this encounter Care Teams Cloth Printer Helper Relationship Specialty Start Date End Date Marii Espinal MD [address] [facility] [address] [place] [address] PCP - General FAMILY PRACTICE 06/05/23 documented as of this encounter
--- OUTSIDE RECORDS SUMMARY | 2024-03-23 01:32 | XMS_ITS | Encounter Summary ---
Author Organization [facility] Address [address] [place] [address]. [place], [place] [address] [place] [address] Care Team Providers Care Realtime Court Reporter Name Role Phone Marii Espinal MD Primary Care Provider [phone] Reason for Visit * Reason Onset Date Comments Medication Request 02/10/2024 Encounter Details Date Type Department Care Team (Late st Contact Info) Description 02/10/2024 MyChart Message Enc [facility] Medical Group Family Medicine - [place] [address] [facility], [address] [place] [address] Marii Espinal MD [address] [facility] [address] [place] [phone] Hydrocodone Refill Social History Tobacco Use Types Packs/Day Years [...] Progress Notes * Nita Yepez MA - 02/11/2024 11:15 AM CST Last office visit at this office: Last visit with MARII ESPINAL in FAMILY PRACTICE was on: 01/01/2024 in [facility] Future appointment scheduled: No future appointments. TH AND GARLAND MAKER HAND documented in this encounter Plan of Treatment Upcoming Encounters Date Type Department Care Team (Late st Contact Info) Description 05/01/2024 8:00 AM WREATH AND GARLAND MAKER HAND Appointment [facility] Invasive Cardiology [address] [place] [address] Edgard [place] MD Three [facility] [address] [place] [address] 06/02/2024 10:15 AM CDT Office Visit [facility] [address], [address] [place] [address] Edgard [place] MD Three [facility] [address] [place] [address] documented as of this encounter Visit Diagnoses Diagnosis Primary osteoarthritis of right hip Primary localized osteoarthrosis, pelvic region and thigh documented in this encounter Additional Health Concerns Assessment Noted Time PHQ-9 Depression Total Score: 0 11/06/19 9:30 AM CDT documented as of this encounter Care Teams Realtime Court Reporter Relationship Specialty Start Date End Date Marii Espinal MD [address] [facility] [address] [place] [address] PCP - General FAMILY PRACTICE 06/05/23 documented as of this encounter
--- OUTSIDE RECORDS SUMMARY | 2024-03-23 01:32 | XMS_ITS | Encounter Summary ---
Author Organization [facility] Address [address] [place] [address]. [place], [place] [address] [place] [address] Care Team Providers Care Marketing Services Coordinator Name Role Phone Marii Randle MD Primary Care Provider [phone] Reason for Referral * Consultation (Urgent) - Authorized Specialty Diagnoses / Procedures Referred By Contact Referred To Contact CARDIOLOGY / Cardiology Diagnoses Abnormal EKG Preoperative clearance Procedures OFFICE/OUTPATIENT NEW LOW MDM 30-44 MINUTES OFFICE/OUTPT VISIT,NEW,LEVL IV OFFICE/OUTPT VISIT,NEW,LEVL V OFFICE/OUTPT VISIT,EST,LEVL III OFFICE/OUTPT VISIT,EST,LEVL IV OFFICE/OUTPT VISIT,EST,LEVL V Marii Randle MD [facility] [facility] [address] [place] [address] Phone: tel: fax: [facility] [address] [place] [address] Phone: tel: fax: Referral ID Status Reason Start Date Expiration Date Visits Requested Visits Authorized [id number] Authorized Specialty Services 03/06/2024 04/06/2025 99 99 Scheduling Instructions Eval & Treat DULE PLANNING MANAGER Reason for Visit * Reason Onset Date Comments Lab Order 03/03/2024 Problem 03/03/2024 Encounter Details Date Type Department Care Team (Late st Contact Info) Description 03/03/2024 MyChart Message Enc [facility] - [place] [address], [address] [place] [address] Marii Randle MD [address] [place] [address] Urgent Need For Stress Test and Cardiology Read Before 03/16 Surgery Social History Tobacco Use Types Packs/Day Years [...] as of this encounter Progress Notes * Marii Randle MD - 03/06/2024 5:42 PM CST Please change referral to KAMI DULE PLANNING MANAGER * Nita Yepez MA - 03/05/2024 1:21 PM CST Spoke to pcp and was advised to place a urgent referral to single fold machine operator use dx- abnormal EKG and preoperative clearance. Called Dr. Segura's office to advise them of the next steps. I was able to speak with Melina who advised she will let Dr. Segura's team know. Calling pt to advise and update her on next steps. She vu and asked if I can send her the phone number to [facility]. I advised I will send her a [employer] message with the phone number. Mychart message sent. DULE PLANNING MANAGER * Griselda Wooten MA - 03/05/2024 11:06 AM CST Doctor's office returning call regarding a referral to Dr. Segura. He is no longer at that practice. Dr. Segura's new phone number is [phone] - re: appt stress test. DULE PLANNING MANAGER * Ntia Yepez MA - 03/05/2024 10:10 AM CST Calling pt to discuss stress test request for pre surgical clearance. Pt stated that she was told to contact us to order a stress test due to a abnormal EKG pre-surgical clearance requirement. She stated that she was told that this needs to be ordered by pcp and a single fold machine operator needs to review this and clear her for surgery. She stated she does not have a single fold machine operator. She would prefer this be done before the 13. I explained to her I am not sure what I am to order and she asked if I can reach out to Dr. Segura's office to find out what is needed. I advised I would contact their office and get back in touch with her. Called over to Dr. Jaspreet Segura's office and was unable to reach anyone by phone. I left a m for someone to contact me back. I will update patient once I hear back from Dr. Segura's office. DULE PLANNING MANAGER documented in this encounter Plan of Treatment Upcoming Encounters Date Type Department Care Team (Late st Contact Info) Description 05/01/2024 8:00 AM SCHEDULE PLANNING MANAGER Appointment [facility] ONE [facility] [place] [address] Edgard Washington MD Three [facility] [address] [place] [address] 06/02/2024 10:15 AM CDT Office Visit [facility] THREE [facility], ED [address] [place] [address] Edgard Washington MD Three [facility], [address] [place] [address] Scheduled Referrals Name Type Priority Associated Diagnoses Orde r Schedule Ambulatory referral to Cardiology, Adult ([facility] [place]) Referral Routine Abnormal EKG Preoperative clearance Ordered: 03/05/2024 documented as of this encounter Visit Diagnoses Diagnosis Abnormal EKG- Primary Nonspecific abnormal electrocardiogram (ECG) (EKG) Preoperative clearance Preoperative examination, unspecified documented in this encounter Additional Health Concerns Assessment Noted Time PHQ-9 Depression Total Score: 0 11/06/19 24 9:30 AM CDT documented as of this encounter Care Teams Marketing Services Coordinator Relationship Specialty Start Date End Date Marii Randle MD [address] [place] [phone] PCP - General FAMILY PRACTICE 06/05/23 documented as of this encounter
--- OUTSIDE RECORDS SUMMARY | 2024-03-23 01:32 | XMS_ITS | Encounter Summary ---
Author Organization [facility] Address [address] [place] [address]. [place], [place] [address] [place] [address] Care Team Providers Care Electric Meter Tester Shop Name Role Phone Marii Espinal MD Primary Care Provider [phone] Reason for Referral * Imaging (Routine) - Closed Specialty Diagnoses / Procedures Referred By Herberth amor Referred To Contact RADIOLOGY Diagnoses Right hip pain Procedures MRI HIP RT WO CON Marii Espinal MD [address] [address] Phone: tel: fax: Referral ID Status Reason Start Date Expiration Date Visits Re quested Visits Authorized [id number] Closed 11/13/2023 12/12/2024 1 1 Reason for Visit * Imaging (Routine) - Closed Specialty Diagnoses / Procedures Referred By Herberth amor Referred To Contact RADIOLOGY Diagnoses Right hip pain Procedures MRI HIP RT WO CON Marii Espinal MD [address] [facility] [address] [place] [address] Phone: tel: fax: Referral ID Status Reason Start Date Expiration Date Visits Re quested Visits Authorized [id number] Closed 11/13/2023 12/12/2024 1 1 Encounter Details Date Type Department Care Team (Latest Contact Info) Description 11/30/2023 3:30 PM CDT - 11/30/2023 11:59 PM CDT Hospital Encounter [facility] [address] [place] [address] Marii Espinal MD [address] [facility] ED [address] [place] [address] Discharge Disposition: Home or Self [...] EACH NOSTRIL EVERY DAY 48 mL 01/05/2020 celecoxib (CELEBREX) 200 MG capsuleIndications :History of vertebral compression fracture Take 1 capsule (200 mg total) by mouth daily. 90 capsule 11/06/2023 4 hydroCHLOROthiazid e (MICROZIDE) 12.5 MG tabletIndications: Essential [...] by mouth daily. 90 tablet 1 07/11/2023 documented as of this encounter Progress Notes * Marii Espinal MD - 11/30/2023 3:30 PM CDT Please let the patient know she has severe arthritis and possible labrum tear ( which surrounds thejoint). I think her arthritis is causing her symptoms. She has apt with ortho end of the month documented in this encounter Plan of Treatment Upcoming Encounters Date Type Department Care Team (Late st Contact Info) Description 05/01/2024 8:00 AM FRENCH WEAVER Appointment [facility] [place] [address] Edgard Washington MD Three [facility], [address] [place] [address] 06/02/2024 10:15 AM CDT Office Visit [facility] THREE [facility], [place] [address] [place] [address] Edgard Washington MD Three [facility], [place] [address] [place] [address] documented as of this encounter Procedures Procedure Name Priority Date/Time Associated Diagnosis Comments MRI HIP RT WO CON Routine 11/30/2023 4:2 2 PM CDT Right hip pain documented in this encounter Results * MRI HIP RT [...] 8:34 PM Narrative 12/01/2023 8:39 PM CDT [place] [address] EXAMINATION: MRI RIGHT HIP WITHOUT CONTRAST EXAM [...] Procedure Note Sanju Lombardi MD - 12/01/[address] [address] EXAMINATION: MRI RIGHT HIP WITHOUT CONTRAST EXAM [...] this encounter Visit Diagnoses Diagnosis Right hip pain Pain in joint, pelvic region and thigh documented in this encounter Additional Health Concerns Assessment Noted Time PHQ-9 Depression Total Score: 0 11/06/19 9:30 AM CDT documented as of this encounter Care Teams Electric Meter Tester Shop Relationship Specialty Start Date End Date Marii Espinal MD [address] [facility] [address] [place] [phone] PCP - General FAMILY PRACTICE 06/05/23 documented as of this encounter
--- OUTSIDE RECORDS SUMMARY | 2024-03-23 01:32 | XMS_ITS | Encounter Summary ---
Author Organization [facility] Address [address] [place] [address]. [place] [address] [place] [address] Care Team Providers Care Meat Press Operator Name Role Phone Marii Randle MD Primary Care Provider + [phone] Reason for Visit * Reason Onset Date Comments Surgical Clearance 03/11/2024 Encounter Details Date Type Department Care Team (Late st Contact Info) Description 03/11/2024 Telephone [facility], ED [address] [place] [id number] Edgard Douglass MD [facility]., [address] [place], [place] [phone] Surgical Clearance Social History Tobacco Use Types Packs/Day Years [...] as of this encounter Progress Notes * Shi Montiel RN - 03/11/2024 1:16 PM CST Patients surgeons team called in looking to get a stress test. Confirmed with dr douglass that the patient does NOT need a stress test prior to surgery. Shi RN OMER SUPPORT ANALYST documented in this encounter Plan of Treatment Upcoming Encounters Date Type Department Care Team (Late st Contact Info) Description 05/01/2024 8:00 AM CUSTOMER SUPPORT ANALYST Appointment [facility] [place] [address] Edgard Douglass MD [address] [place] [address] 06/02/2024 10:15 AM CDT Office Visit [facility] [address] [place] [address] Edgard Douglass MD [address] [place] [address] documented as of this encounter Visit Diagnoses Not on filedocumented in this encounter Additional Health Concerns Assessment Noted Time PHQ-9 Depression Total Score: 0 11/06/19 9:30 AM CDT documented as of this encounter Care Teams Meat Press Operator Relationship Specialty Start Date End Date Marii Randle MD [address] [facility] [address] [place] [phone] PCP - General FAMILY PRACTICE 06/05/23 documented as of this encounter
--- OUTSIDE RECORDS SUMMARY | 2024-03-23 01:32 | XMS_ITS | Encounter Summary ---
Author Organization [facility] Address [address] [place] [address]. [place], [place] [address] [place] [address] Care Team Providers Care Economic Development Specialist Name Role Phone Marii Randle MD Primary Care Provider [phone] Reason for Visit * Reason Onset Date Comments Lab Results 12/05/2023 Encounter Details Date Type Department Care Team (Late st Contact Info) Description 12/05/2023 Telephone [facility] Family Medicine - [place] [address] [facility], [address] [place] [address] Marii Randle MD [address] [facility] ED [address] [place] [phone] Lab Results Social History Tobacco Use Types Packs/Day [...] Progress Notes * Nita Yepez MA - 12/06/2023 2:07 PM CDT Called patient to advise per Dr. Randle: Besides [id number] Tylenol and her Celebrex that she is on the neck step would be to discuss opioid medication which I could prescribe it on a short term basis. But it would really require an appointment to discuss the risk of these medicines. Pt stated she would like to wait until after her visit with ortho and would like to see what is said and discussed at that visit. Patient was scheduled for 01/01/24 @ 140pm. She had no other concerns at this time. * Nita Yepez MA - 12/05/2023 8:05 AM CDT ----- Message from Dr. Marii Randle sent at 12/03/2023 3:46 PM CDT ----- Please let the patient know she has severe arthritis and possible labrum tear ( which surrounds thejoint). I think her arthritis is causing her symptoms. She has apt with ortho end of the month Calling patient to advise of the above. She vu and stated she wanted to know if there is anything that can be done to help with some relief. I explained that ortho may have something they can do as I am not sure what all can be done, but I can send pcp a message to ask if there is anything that can be done until she gets to see ortho and get back to her on that. She had no other concerns at this time. documented in this encounter Plan of Treatment Upcoming Encounters Date Type Department Care Team (Late st Contact Info) Description 05/01/2024 8:00 AM RECREATION ENGINEER Appointment [facility] [place] [address] Edgard Washington MD Three [facility]., [address] [place] [address] 06/02/2024 10:15 AM CDT Office Visit [facility] THREE [facility], ED [address] [place] [address] Edgard Washington MD Three [facility] [address] [place], [place] [phone] documented as of this encounter Visit Diagnoses Not on filedocumented in this encounter Additional Health Concerns Assessment Noted Time PHQ-9 Depression Total Score: 0 11/06/19 9:30 AM CDT documented as of this encounter Care Teams Economic Development Specialist Relationship Specialty Start Date End Date Marii Randle MD [address] [facility] [address] [place] [phone] PCP - General FAMILY PRACTICE 06/05/23 documented as of this encounter
--- OUTSIDE RECORDS SUMMARY | 2024-03-23 01:32 | XMS_ITS | Encounter Summary ---
Author Organization [facility] Address [address] [place] [address]. [place], [place] [address] [place] [address] Care Team Providers Care Echo Vascular Tech Name Role Phone Marii Randle MD Primary Care Provider + [phone] Encounter Details Date Type Department Care Team (Latest Contact Info) Description 10/29/2023 Scan HEALTH INFO SRVCS Scanned, Doc Med [...] st Contact Info) Description 05/01/2024 8:00 AM ASSOCIATE PROFESSOR OF MEDIA ARTS Appointment [facility] [place] [address] Edgard Washington MD Three [facility]., [address] [place] [address] 06/02/2024 10:15 AM CDT Office Visit [facility] THREE [facility], [address] [place] [address] Edgard Washington MD Three [facility] [address] [place] [address] documented as of this encounter Visit Diagnoses Not on filedocumented in this encounter Additional Health Concerns Assessment Noted Time PHQ-9 Depression Total Score: 0 02/11/20 21 1:25 PM ASSOCIATE PROFESSOR OF MEDIA ARTS documented as of this encounter Care Teams Echo Vascular Tech Relationship Specialty Start Date End Date Marii Randle MD [address] [facility] [address] [place] [address] PCP - General FAMILY PRACTICE 06/05/23 documented as of this encounter
--- OUTSIDE RECORDS SUMMARY | 2024-03-23 01:32 | XMS_ITS | Encounter Summary ---
Author Organization [facility] Address [address] [place] [address]. [place], [place] [address] [place] [address] Care Team Providers Care Genetic Coordinator Name Role Phone Marii Espinal MD Primary Care Provider [phone] Reason for Visit * Reason Onset Date Comments Refill Request 07/11/2023 Results 07/11/2023 Encounter Details Date Type Department Care Team (Late st Contact Info) Description 07/11/2023 Telephone [facility] Family Medicine - [place] [address] [facility], [address] [place] [address] Marii Espinal MD [address] [facility] ED [address] [place] [phone] Refill Request; Results Social History Tobacco Use Types Packs/Day [...] as of this encounter Progress Notes * Carol Day - 07/11/2023 12:59 PM CDT Pt would also like a call back with Nerve Conduction Study results. Medication and strength: Losartan Hydrochlorothiazide Oxybutynin XL Omeprazole 40 mg Pharmacy: [facility] Call back #: [phone] Last office visit at this office: Last visit with MARII ESPINAL in FAMILY PRACTICE was on: 06/05/2023 in [facility] Future appointment scheduled: No future appointments. documented in this encounter Plan of Treatment Upcoming Encounters Date Type Department Care Team (Late st Contact Info) Description 05/01/2024 8:00 AM AIRLINE MANAGER Appointment [facility] ONE [facility] [place] [address] Edgard Washington MD Three [facility] [address] [place] [address] 06/02/2024 10:15 AM CDT Office [facility] THREE [facility], ED [address] [place] [address] Edgard Washington MD Three [facility] [address] [place] [address] documented as of this encounter Visit Diagnoses Diagnosis Primary hypertension Unspecified essential hypertension Essential hypertension Unspecified essential hypertension Hyperactivity of bladder Hypertonicity of bladder documented in this encounter Additional Health Concerns Assessment Noted Time PHQ-9 Depression Total Score: 0 02/11/20 21 1:25 PM AIRLINE MANAGER documented as of this encounter Care Teams Genetic Coordinator Relationship Specialty Start Date End Date Marii Espinal MD [address] [facility] [address] [place] [phone] PCP - General FAMILY PRACTICE 06/05/23 documented as of this encounter
--- OUTSIDE RECORDS SUMMARY | 2024-03-23 01:32 | XMS_ITS | Encounter Summary ---
Author Organization [facility] Address [address] [place] [address]. [place] [address] [place] [address] Care Team Providers Care Desk Monitor Name Role Phone Marii Randle MD Primary Care Provider + [phone] Encounter Details Date Type Department Care Team (Late Contact Info) Description 07/17/2023 MyChart Message Enc [facility] Family Medicine - [place] [address] [facility], [address] [place] [address] Marii Randle MD [address] [facility] ED [address] [place] [phone] Chronic Pain Altering Daily Activities Social History Tobacco Use Types Packs/Day Years [...] Encounters Date Type Department Care Team (Late Contact Info) Description 05/01/2024 8:00 AM MERRY GO ROUND OPERATOR Appointment [facility] [place] [place] [address] Edgard Washington MD Three [facility] [address] [place] [address] 06/02/2024 10:15 AM CDT Office Visit [facility] THREE [facility] [address] [place] [address] Edgard Washington MD Three [facility] [address] [place] [address] documented as of this encounter Visit Diagnoses Not on filedocumented in this encounter Additional Health Concerns Assessment Noted Time PHQ-9 Depression Total Score: 0 02/11/20 21 1:25 PM MERRY GO ROUND OPERATOR documented as of this encounter Care Teams Desk Monitor Relationship Specialty Start Date End Date Marii Randle MD [address] [facility] [address] [place] [phone] PCP - General FAMILY PRACTICE 06/05/23 documented as of this encounter
--- OUTSIDE RECORDS SUMMARY | 2024-03-23 01:32 | XMS_ITS | Encounter Summary ---
Author Organization [facility] Address [address] [place] [address]. [place], [place] [id number] [place] [id number] Care Team Providers Care Seasonal Package Handler Name Role Phone Fran Espinal MD Primary Care Provider + [phone] Reason for Referral * Imaging (Routine) - New Request Specialty Diagnoses / Procedures Referred By Herberth amor Referred To Contact RADIOLOGY Diagnoses Abnormal EKG Procedures USE ECHOCARDIOGRAM Edgard Hinds MD [facility], [address] [place] [address] Phone: tel: fax: Referral ID Status Reason Start Date Expiration Date V isits Requested Visits Authorized [id number] New Request 03/10/2024 04/10/2025 1 1 ERY HANGER Reason for Visit * Reason Comments New Patient New patient consult with repeat EKG from 03/02 * Consultation (Urgent) - Authorized Specialty Diagnoses / Procedures Referred By Contact Referred To Contact CARDIOLOGY / Cardiology Diagnoses Abnormal EKG Preoperative clearance Procedures OFFICE/OUTPATIENT NEW LOW MDM 30-44 MINUTES OFFICE/OUTPT VISIT,NEW,LEVL IV OFFICE/OUTPT VISIT,NEW,LEVL V OFFICE/OUTPT VISIT,EST,LEVL III OFFICE/OUTPT VISIT,EST,LEVL IV OFFICE/OUTPT VISIT,EST,LEVL V Fran Espinal MD [address] [place] [address] [address] [place] [address] Phone: tel: fax: [facility] [place] [address] Phone: tel: fax: Referral ID Status Reason Start Date Expiration Date Visits Requested Visits Authorized [id number] Authorized Specialty Services 03/06/2024 04/06/2025 99 99 Encounter Details Date Type Department Care Team (Late st Contact Info) Description 03/10/2024 11:15 AM DRAPERY HANGER Office Visit [facility], [address] [place] [address] Edgard Hinds MD Three [facility] [address] [place] [address] New Patient (New patient consult with repeat EKG from 03/02) Social History Tobacco Use Types Packs/Day Years [...] Comments Blood Pressure 142/78 03/10/2024 10:51 AM DRAPERY HANGER Pulse 64 03/10/2024 10:51 AM DRAPERY HANGER Temperature - - Respiratory Rate - - Oxygen Saturation 98% 03/10/2024 10:51 AM DRAPERY HANGER Inhaled Oxygen Concentration - - Weight 89.8 kg (198 lb) 03/10/2024 10:51 AM DRAPERY HANGER Height 167.6 cm (5' 6 ) 03/10/2024 10:51 AM DRAPERY HANGER Body Mass Index 31.96 03/10/2024 10:51 AM DRAPERY HANGER documented in this encounter Progress Notes * Edgard Hinds MD - 03/10/2024 11:15 AM CST Reason for Visit: New Patient (New patient consult with repeat EKG from 03/02) History of Present Illness: Ms. Salgado is a 68 year old female with a PMH significant for HTN, obesity class I, GERD who presents for an initial visit. She is scheduled to have a right hip replacement on Saturday. She was noted to have an abnormal ECG, advised to see cardiology. She does water aerobics 3-4 times/week. She can go up a flight of stairs 3-4 times/day, albeit slowly. She denies any chest discomfort, dyspnea on exertion. No edema, orthopnea or PND. No family history of early CAD or stroke. Recommendations and Plan: Abnormal ECG 03/10/23 with normal sinus, septal infarct, age undetermined. She denies chest discomfort or shortness of breath, check an echo (can bed done after surgery) for structural assessment. We reviewed that should she have any concerning symptoms, would get a stress test for risk stratification. Preoperative cardiovascular risk stratification: She can achieve > 4 METs about 3-4 times/day, can proceed with the upcoming right hip surgery. HTN: HCTZ 12.5mg qd and losartan 50mg qd, goal <130/80, continue lifestyle modification. She watches her salt intake. Obesity class I: Continue lifestyle modification. Follow up in 2 months. Medications: Current Outpatient Medications: acetaminophen CR (TYLENOL) 650 MG Tab CR 8 hr tablet, , Disp: , Rfl: celecoxib (CELEBREX) 200 MG capsule, TAKE 1 CAPSULE BY MOUTH EVERY DAY, Disp: 90 capsule, Rfl: 0 cetirizine 10 MG chewable tablet, Chew 1 tablet (10 mg total) by mouth daily., Disp: , Rfl: FLUTICASONE PROPIONATE 50 MCG/ACT nasal spray, SPRAY 2 SPRAYS INTO EACH NOSTRIL EVERY DAY, Disp: 48mL, Rfl: 0 hydroCHLOROthiazide (MICROZIDE) 12.5 MG tablet, TAKE 1 TABLET EVERY DAY, Disp: 90 tablet, Rfl: 3 HYDROcodone-acetaminophen (NORCO) 5-325 MG tablet, Take 1 tablet by mouth 2 (two) times daily. Indications: Chronic Pain, Disp: 60 tablet, Rfl: 0 losartan (COZAAR) 50 MG tablet, TAKE 1 TABLET EVERY DAY, Disp: 90 tablet, Rfl: 3 omeprazole (PRILOSEC) 40 MG capsule, TAKE 1 CAPSULE EVERY DAY, Disp: 90 capsule, Rfl: 3 oxybutynin XL (DITROPAN-XL) 10 MG 24 hr tablet, TAKE 1 TABLET EVERY DAY, Disp: 90 tablet, Rfl: 3 Review of patient's allergies indicates: No Known Allergies Past Medical History: Diagnosis Date Adhesive capsulitis of left shoulder GERD (gastroesophageal reflux disease) Hypertension Past Surgical History: Procedure Laterality Date BREAST SURGERY 1984 Clogged milk duct SECTION CHOLECYSTECTOMY LAPAROSCOPIC COLONOSCOPY N/A 07/13/2020 COLONOSCOPY performed by Scotty Ruiz MD at [facility] GI COLONOSCOPY FLX DX W/COLLJ SPEC WHEN PFRMD 2010 WNL, 02/2012 POLYP, 02/2017 POLYP MOI HC LAP TOTAL HYSTERECTOMY REMOVAL BOTH TUBES AND OVARIES--BLEEDING HYSTERECTOMY Social History Tobacco Use Smoking status: Never Passive exposure: Past Smokeless tobacco: Never Tobacco comments: na Vaping Use Vaping status: Never Used Substance Use Topics Alcohol use: Yes Comment: 1 or 2 drinks per week Drug use: No Family History Problem Relation Name Age of Onset Breast Cancer Sister 63 Prostate Cancer Father Lewis Velazquez Cancer Father Lewis Velazquez Diabetes Other Osteoporosis Other Hypertension Mother Lupe Velazquez Family Status Relation Name Status Sister (Not Specified) Father Lewis Velazquez (Not Specified) Other (Not Specified) Mother Lupe Velazquez (Not Specified) No partnership data on file Review of Systems Constitutional: Negative for recent unintentional weight gain, recent unintentional weight loss andnew or significant fatigue. HENT: Negative for new or significant hearing loss. Eyes: Negative for blurred vision and double vision. Respiratory: Negative for cough, new or significant shortness of breath and snoring. Cardiovascular: See HPI. Negative for chest pain, palpitations, leg swelling and PND. Gastrointestinal: Negative for heartburn, nausea, vomiting, blood in stool and melena. Genitourinary: Negative for dysuria. Musculoskeletal: Positive for myalgias and joint stiffness/pain. Skin: Negative for rash. Neurological: Negative for tingling/numbness and focal weakness. Endo/Heme/Allergies: Negative for new or significant bruising/bleeding and polydipsia. Psychiatric/Behavioral: Negative for depression and new or significant memory loss. Vitals: 03/10/24 1051 BP: (!) 142/78 Pulse: 64 Weight: 89.8 kg (198 lb) Height: 1.676 m (5' 6 ) Body mass index is 31.96 kg/m??. Cardiac Exam Rate/Rhythm: Normal rate and regular rhythm. PMI: PMI is not displaced. Pulses: Carotid pulses are 2+ on the right side and 2+ on the left side. Radial pulses are 2+ on the right side and 2+ on the left side. Dorsalis pedis pulses are 2+ on the right side and 2+ on the left side. Posterior tibial pulses are 2+ on the right side and 2+ on the left side. Heart Sounds: Normal heart sounds. Normal S1 sounds. Normal S2 sounds. No gallop present. No S3. NoS4. Murmurs: No murmur present Negative for edema. Physical Exam Constitutional: No distress. Healthy Appearance. HENT: Oropharynx clear. Eyes: Conjunctivae normal. Neck: Neck supple. No JVD. Abdomen: Abdomen soft. Bowel sounds normal. No tenderness. No mass. Pulmonary: Effort normal. Breath sounds normal. No wheezes. Skin: Warm. No rash. No cyanosis. No clubbing. No xanthoma. Musculoskeletal: No kyphosis. Normal ROM. Neurological: Alert. Oriented x 3. Appropriate mood and affect. Normal motor skills. Normal gait. Comments: Diagnoses/Impression: 1. Abnormal EKG ELECTROCARDIOGRAM USE ECHOCARDIOGRAM 2. Preoperative cardiovascular examination 3. Primary hypertension 4. Obesity, Class I, BMI 30-34.9 Referring Provider: Fran Espinal MD PCP: FRAN ESPINAL MD ERY HANGER documented in this encounter Plan of Treatment Upcoming Encounters Date Type Department Care Team (Late st Contact Info) Description 05/01/2024 8:00 AM DRAPERY HANGER Appointment [facility] [place] [address] Edgard Hinds MD Three [facility]., [address] [place] [address] 06/02/2024 10:15 AM CDT Office Visit [facility], [address] [place] [address] Edgard Hinds MD Three [facility] [address] [place] [address] Scheduled Orders Name Type Priority Associated Diagnoses Orde r Schedule USE ECHOCARDIOGRAM ECHO Routine Abnormal EKG Expected: 03/10/2024 (Approximate), Expires: 03/10/2025 documented as of this encounter Procedures Procedure Name Priority Date/Time Associated Diagnosis Comments ELECTROCARDIOGRAM (NON MIDMARK ACQUIRED) Routine 03/10/2024 11:02 AM DRAPERY HANGER Abnormal EKG documented in this encounter Results * ELECTROCARDIOGRAM (03/10/2024 11:02 AM DRAPERY HANGER) 03/10/2024 11:0 2 AM DRAPERY HANGER Narrative [facility] - 03/17/2024 7:44 PM DRAPERY HANGER ?[facility], O? [facility] ? Test Date: ?2024-03-10 Pat Name: ? NANCY ZELAYABARD ? Department: ?? 112 ? Room: ? Gender: ? Female ? Undercoat Sprayer: ?? : ?1955 ? Requested By: EDGARD HINDS Order Number: [id number] ?Reading MD: ?? Mono Menard ? Measurements Intervals ?[place] ? Rate: ? 54 ? P: ?57 CO: ? 166 ?QRS: ?-23 QRSD: ? 80 ? T: ?29 QT: ? 404 ? QTc: ?386 ? Interpretive Statements SINUS BRADYCARDIA SEPTAL MYOCARDIAL INFARCTION, PROBABLY OLD ERY HANGER Procedure Note Mono Menard MD - 03/17/2024 [facility], O? [facility] Test Date: 2024-03-10 Pat Name: NANCY GREGORYD Department: 112 Room: Gender: Female Undercoat Sprayer: : 1955 Requested By: EDGARD HINDS Order Number: [id number] Reading MD: Mono Menard Measurements Intervals [place] Rate: 54 P: 57 CO: 166 QRS: -23 QRSD: 80 T: 29 QT: 404 QTc: 386 Interpretive Statements SINUS BRADYCARDIA SEPTAL MYOCARDIAL INFARCTION, PROBABLY OLD ERY HANGER us Edgard Hinds MD PROCEDURES-ORDERABLE NO C HARGE Final Result [facility] documented in this encounter Visit Diagnoses Diagnosis Abnormal EKG- Primary Nonspecific abnormal electrocardiogram (ECG) (EKG) Preoperative cardiovascular examination Pre-operative cardiovascular examination Primary hypertension Unspecified essential hypertension Obesity, Class I, BMI 30-34.9 Obesity, unspecified documented in this encounter Additional Health Concerns Assessment Noted Time PHQ-9 Depression Total Score: 0 11/06/19 24 9:30 AM CDT documented as of this encounter Care Teams Seasonal Package Handler Relationship Specialty Start Date End Date Fran Espinal MD [address] [facility] [address] [place] [address] PCP - General FAMILY PRACTICE 06/05/23 documented as of this encounter
--- OUTSIDE RECORDS SUMMARY | 2024-03-23 01:32 | XMS_ITS | Encounter Summary ---
Author Organization [facility] Address [address] [place] [address]. [place] [address] [place] [address] Care Team Providers Care Crimping Machine Operator For Metal Name Role Phone Marii Randle MD Primary Care Provider + [phone] Encounter Details Date Type Department Care Team (Late st Contact Info) Description 02/07/2024 [employer] Message Enc [facility] [address] [id number] [employer], [facility] Provider cancelled appt Social History Tobacco Use Types Packs/Day Years [...] (Late Contact Info) Description 05/01/2024 8:00 AM LOGISTICS VICE PRESIDENT Appointment [facility] [address] [place], [place] [phone] Edgard Washington MD Three [facility]., [address] [place] [address] 06/02/2024 10:15 AM CDT Office Visit [facility], [address] [place] [address] Edgard Washington MD Three [facility] [address] [place] [address] documented as of this encounter Visit Diagnoses Not on filedocumented in this encounter Additional Health Concerns Assessment Noted Time PHQ-9 Depression Total Score: 0 11/06/19 9:30 AM CDT documented as of this encounter Care Teams Crimping Machine Operator For Metal Relationship Specialty Start Date End Date Marii Randle MD [address] [facility] [address] [place] [phone] PCP - General FAMILY PRACTICE 06/05/23 documented as of this encounter
--- OUTSIDE RECORDS SUMMARY | 2024-03-23 01:32 | XMS_ITS | Encounter Summary ---
Author Organization [facility] Address [address] [place] [address]. [place], [place] [address] [place] [address] Care Team Providers Care Insurance Healthcare Representative Name Role Phone Marii Randle MD Primary Care Provider + [phone] Encounter Details Date Type Department Care Team (Latest Contact Info) Description 12/30/2023 Travel Social History Tobacco Use Types Packs/Day [...] st Contact Info) Description 05/01/2024 8:00 AM PUBLICITY DIRECTOR Appointment [facility] [place], [place] [address] Edgard Washington MD Three [facility] [address] [place] [address] 06/02/2024 10:15 AM CDT Office Visit [facility], [address] [place] [address] Edgard Washington MD [address] [place] [address] documented as of this encounter Visit Diagnoses Not on filedocumented in this encounter Additional Health Concerns Assessment Noted Time PHQ-9 Depression Total Score: 0 11/06/19 9:30 AM CDT documented as of this encounter Care Teams Insurance Healthcare Representative Relationship Specialty Start Date End Date Marii Randle MD [address] [facility] [address] [place] [phone] PCP - General FAMILY PRACTICE 06/05/23 documented as of this encounter
--- OUTSIDE RECORDS SUMMARY | 2024-03-23 01:32 | XMS_ITS | Encounter Summary ---
Author Organization [facility] Address [address] [place] [address]. [place], [place] [id number] [place] [address] Care Team Providers Care Business Development Representative Name Role Phone Marii Espinal MD Primary Care Provider [phone] Reason for Referral * Procedure (Routine) - Closed Specialty Diagnoses / Procedures Referred By Herberth amor Referred To Contact Diagnoses Radicular pain of right lower extremity Procedures NCVS\EMG (Hosp Performed) Marii Espinal MD [facility] [address] Phone: tel: fax: Felipe Schreiber MD [address] [place] [address] Phone: tel: fax: Referral ID Status Reason Start Date Expiration Date V isits Requested Visits Authorized [id number] Closed Office Procedure 06/05/2023 06/04/2024 1 1 * Surgical (Routine) - Authorized Specialty Diagnoses / Procedures Referred By Herberth amor Referred To Contact NEUROLOGICAL SURGERY Diagnoses Chronic right-sided low back pain without sciatica Procedures OFFICE/OUTPATIENT NEW LOW MDM 30-44 MINUTES OFFICE/OUTPT VISIT,NEW,LEVL IV OFFICE/OUTPT VISIT,NEW,LEVL V OFFICE/OUTPT VISIT,EST,LEVL III OFFICE/OUTPT VISIT,EST,LEVL IV OFFICE/OUTPT VISIT,EST,LEVL V Marii Espinal MD [address] [address] Phone: tel: fax: Daniel Bravo MD [id number] [place] [address] Phone: tel: fax: Referral ID Status Reason Start Date Expiration Date Visits Requested Visits Authorized [id number] Authorized Specialty Services 06/05/2023 06/04/2024 99 99 Scheduling Instructions With Neurosurgery [facility] Reason for Visit * Reason Comments Physical Establish care. [facility] lab. Encounter Details Date Type Department Care Team (Late st Contact Info) Description 06/05/2023 10:20 AM CDT Office Visit [facility] - [place] [address] [facility], [address] [phone] Marii Espinal MD [address] [phone] Physical (Establish care. [facility] lab. ) Social History Tobacco Use Types [...] Sign Reading Time Taken Comments Blood Pressure 136/84 06/05/2023 10:25 AM CDT Pulse 77 06/05/2023 10:25 AM CDT Temperature 36.6 ??C (97.8 ??F) 06/05/2023 10:25 AM C DT Respiratory Rate 16 06/05/2023 10:25 AM CDT Oxygen Saturation 100% 06/05/2023 10:25 AM CDT Inhaled Oxygen Concentration - - Weight 90.7 kg (200 lb) 06/05/2023 10:25 AM CDT Height 167.6 cm (5' 6 ) 06/05/2023 10:25 AM CDT Body Mass Index 32.28 06/05/2023 10:25 AM CDT documented in this encounter Patient Instructions * Patient Instructions* Marii Espinal MD - 06/05/2023 10:20 AM CDT can try #2 500 mg Tylenol/acetaminophen every 8 hours for symptoms Start with 2 tabs twice a day documented in this encounter Progress Notes * Nita Carrera MA - 06/05/2023 10:20 AM CDT Right leg possible injury she might have gotten at the gym. She wants you to take a look at it. Shereports no pain to the area. * Marii Espinal MD - 06/05/2023 10:20 AM CDT Images from the original note were not included. OFFICE VISIT Encounter Date: 06/05/2023 Chief Complaint: 68-year-old female presents for Physical (Establish care. [facility] lab. ) . 10:38 11:28 Assessment: Encounter Diagnose(s) ICD-10-CM SNOMED CT(R) 1. Chronic right-sided low back pain without sciatica M54.50 CHRONIC LOW BACK PAIN Ambulatory referral to Neurosurgery (OTHER) G89.29 2. Radicular pain of right lower extremity M54.10 RADICULAR PAIN NCVS\EMG (Hosp Performed) 3. Allergic rhinitis, unspecified seasonality, unspecified trigger J30.9 ALLERGIC RHINITIS 4. Hyperactivity of bladder N31.8 OVERACTIVE URINARY BLADDER 5. Primary hypertension I10 ESSENTIAL HYPERTENSION COMPREHENSIVE METABOLIC PANEL CBC W/DIFF AUTOMATED 6. Screening cholesterol level Z13.220 PATIENT ENCOUNTER STATUS LIPID PANEL 7. Therapeutic drug monitoring Z51.81 PATIENT ENCOUNTER STATUS CBC W/DIFF AUTOMATED 8. Elevated TSH R79.89 THYROID STIMULATING HORMONE LEVEL ABOVE REFERENCE RANGE 9. History of vertebral compression fracture Z87.81 H/O: VERTEBRAL FRACTURE celecoxib (CELEBREX) 200 MG capsule 10. Gastroesophageal reflux disease, unspecified whether esophagitis present K21.9 GASTROESOPHAGEALREFLUX DISEASE Plan: Chronic low back pain: Patient has been seeing pain management for injections and was told that shemay need to see neurosurgery for evaluation, I went ahead and put in a referral, patient does have an up-to-date MRI available in the chart Radicular pain in the right lower extremity: This is on her thigh, which would be suggestive of L4 nerve root, will also order nerve conduction studies, also consider possibility that this is coming from her right hip but she does have osteoarthritis in that hip from an x-ray done in 2021 Allergic rhinitis: Continue allergy medications Hyperactive bladder: Patient states oxybutynin works well for her, consider pelvic floor physical therapy Hypertension: Chronic, goal blood pressure less than 140/90, discussed with patient that her chronic nonsteroidal use can cause kidney disease and can affect how her medications are working to lower her blood pressure Screening for cholesterol Therapeutic drug monitoring: CBC ordered, patient has noticed easier bruising likely due to Celebrex, discussed that chronic nonsteroidal use can cause chronic kidney disease and also peptic ulcer disease, recommend she decrease her Celebrex from 400 to 200-day, add Tylenol 500 mg 2 tabs twice a day, can delay decreasing the Celebrex after 1 week being on the Tylenol also Patient is aware now that she cannot take any other medications on top of the Celebrex besides Tylenol Previous physician prescribe the Celebrex under the history of vertebral compression fracture, thisshould not be causing her pain she states she uses the Celebrex more for just general arthritis pain she does have arthritis in her right hip based on x-ray from 2021 GERD patient has tried to stop the omeprazole without success, her symptoms returned within a day,,omeprazole can protect her stomach from ulcers from the nonsteroidals but not her small intestine she is still at risk for ulceration there Obesity: Congratulations on 40 pound weight loss over the last year, patient has been going to the gym and working really hard Order Summary Normal Orders This Visit Ambulatory referral to Neurosurgery (OTHER) [REF40 Custom] Order #: [id number] Future Labs/Procedures Expected by Expires CBC W/DIFF AUTOMATED [71808 CPT(R)] Order #: [id number] 06/05/2023 09/04/2023 COMPREHENSIVE METABOLIC PANEL [95876 CPT(R)] Order #: [id number] 06/05/2023 09/04/2023 LIPID PANEL [30683 CPT(R)] Order #: [id number] 06/05/2023 09/04/2023 NCVS\EMG (Hosp Performed) [19505 CPT(R)] Order #: [id number] 06/05/2023 06/04/2024 Orders Placed This Encounter COMPREHENSIVE METABOLIC PANEL Standing Status: Future Standing Expiration Date: 09/04/2023 Order Specific Question: Release to patient Answer: System release LIPID PANEL Standing Status: Future Standing Expiration Date: 09/04/2023 Order Specific Question: Release to patient Answer: System release CBC W/DIFF AUTOMATED Standing Status: Future Standing Expiration Date: 09/04/2023 Order Specific Question: Release to patient Answer: System release Ambulatory referral to Neurosurgery (OTHER) Referral Priority: Routine Referral Type: Surgical Referral Reason: Specialty Services Requested Specialty: NEUROSURGERY Number of Visits Requested: 1 Expiration Date: 06/04/2024 NCVS\EMG (Hosp Performed) Standing Status: Future Standing Expiration Date: 06/04/2024 Order Specific Question: What Hospital Division or Clinic will the patient go to for their test Answer: [facility] Order Specific Question: EXTREMITY OR EXTREMITIES TO BE TESTED Answer: Unilateral Lower Right with Contralateral side if indicated Order Specific Question: Release to patient Answer: System release celecoxib (CELEBREX) 200 MG capsule Sig: Take 1 capsule (200 mg total) by mouth daily. Dispense: 90 capsule Refill: 0 Return in about 6 months (around 12/05/2023). HPI Julianna Brown is a 68-year-old female History Smoking Status Never Smokeless Tobacco Never No LMP recorded. Patient is postmenopausal. Patient is here to get established as Dr. Ruiz has retired Below note was reviewed with patient, she is due for mammogram she will get this scheduled Medications were reconciled Patient has had long standing issues of chronic back pain has been seen pain management without results from injections and will was recommend she see neurosurgery, had MRI done recently Patient has been on high-dose nonsteroidals plus she has been taking added ibuprofen this past weekfor her right leg pain that she describes as sharp on the anterior aspect of her right thigh, patient does have arthritis in the right hip ROS Patient Active Problem List Diagnosis Allergic rhinitis [...] Clogged milk duct SECTION CHOLECYSTECTOMY LAPAROSCOPIC COLONOSCOPY 2010 WNL, 02/2012 POLYP, 02/2017 POLYP MOI COLONOSCOPY N/A 07/13/2020 COLONOSCOPY performed by Scotty Ruiz MD at [facility] LAP TOTAL HYSTERECTOMY REMOVAL BOTH TUBES AND OVARIES--BLEEDING HYSTERECTOMY Family History Problem Relation Name Age of Onset Breast Cancer Sister 63 Prostate Cancer Father Lewis Marcus Cancer Father Lewis Velazquez Diabetes Other Osteoporosis Other Hypertension Mother Gilberton Marcus Social History Tobacco Use Smoking status: Never Passive exposure: Past Smokeless tobacco: Never Vaping Use Vaping Use: Never used Substance Use Topics Alcohol use: Yes Comment: 1 or 2 drinks per week Drug use: No Immunization History Administered Date(s) Administered Flublok (Quadrivalent) 02/10/2021 Fluzone High Dose - >Age 65 (Prefilled [...] 12/22/2019, 08/23/2020 Tdap (Generic) 08/20/2017 Zoster (Zostavax) 36762 Unt/0.65Ml 12/22/2019 Outpatient Medications Marked as Taking for the 06/05/23 encounter (Office Visit) with Marii Espinal MD Medication Sig Dispense Refill celecoxib (CELEBREX) 200 MG capsule Take 1 capsule (200 mg total) by mouth daily. 90 capsule 0 cetirizine 10 MG chewable tablet Chew 1 tablet (10 mg total) by mouth daily. FLUTICASONE PROPIONATE 50 MCG/ACT nasal spray SPRAY 2 SPRAYS INTO EACH NOSTRIL EVERY DAY 48 mL 0 hydroCHLOROthiazide (MICROZIDE) 12.5 MG tablet TAKE 1 TABLET EVERY DAY 90 tablet 0 losartan (COZAAR) 50 MG tablet Take 1 tablet (50 mg total) by mouth daily. 90 tablet 0 omeprazole (PRILOSEC) 40 MG capsule TAKE 1 CAPSULE EVERY DAY 90 capsule 0 oxybutynin XL (DITROPAN-XL) 10 MG 24 hr tablet TAKE 1 TABLET EVERY DAY 90 tablet 1 Review of patient's allergies indicates: No Known Allergies Objective: Filed Vitals: 06/05/23 1025 BP: 136/84 Pulse: 77 Resp: 16 Temp: 97.8 ??F (36.6 ??C) SpO2: 100% Weight: 90.7 kg (200 lb) Height: 1.676 m (5' 6 ) Body mass index is 32.28 kg/m??. Physical Exam Vitals reviewed. Constitutional: Appearance: Normal appearance. She is not ill-appearing. HENT: Head: Normocephalic. Eyes: Conjunctiva/sclera: Conjunctivae normal. Pupils: Pupils are equal, round, and reactive to light. Neck: Thyroid: No thyromegaly. Cardiovascular: Rate and Rhythm: Normal rate and regular rhythm. Heart sounds: Normal heart sounds. No murmur heard. Pulmonary: Effort: Pulmonary effort is normal. No respiratory distress. Breath sounds: Normal breath sounds. Abdominal: General: Bowel sounds are normal. There is no distension. Palpations: Abdomen is soft. There is no mass. Tenderness: There is no abdominal tenderness. There is no guarding. Musculoskeletal: General: Normal range of motion. Cervical back: Normal range of motion and neck supple. Right lower leg: No edema. Left lower leg: No edema. Lymphadenopathy: Cervical: No cervical adenopathy. Neurological: Mental Status: She is alert. Psychiatric: Mood and Affect: Mood and affect normal. Behavior: Behavior normal. Thought Content: Thought content normal. Cognition and Memory: Memory normal. Judgment: Judgment normal. No results found for this or any previous visit (from the past 1008 hour(s)). MARII ESPINAL MD Number and Complexity of Problems Addressed 2 or more stable chronic illnesses 1 acute, uncomplicated illness or injury Amount and/or Complexity of Data to be Reviewed and Analyzed 3+ unique tests ordered Risk of Complications and/or Morbidity or Mortality of Patient Management Moderate Time I spent a total of 50 minutes on the day of the visit. I personally spent a total of 50 minutes on the day of the encounter. This includes wydj-kw-igid and pky-tmlk-fl-face time I provided on the day of the encounter & excludes time spent performing separately reportable services. This note was dictated with [employer] medical dictation software; occasional wrong word or sound-alike substitutions , misspellings, punctuation errors, omitted words or dictation variances may occur. Please read the chart carefully and recognize, using context, where the substitutions may have occurred. documented in this encounter Plan of Treatment Upcoming Encounters Date Type Department Care Team (Late st Contact Info) Description 05/01/2024 8:[address] [facility] [place] [address] Edgard Washington MD [facility] [place] [address] 06/02/2024 10:15 AM CDT Office Visit [facility], ED [address] [place] [address] Edgard Washington MD [facility] [place] [address] Scheduled Referrals Name Type Priority Associated Diagnoses Orde r Schedule Ambulatory referral to Neurosurgery (OTHER) Referral Routine Chronic right-sided low back pain without sciatica Ordered: 06/05/2023 documented as of this encounter Results * NCVS\EMG (Hosp Performed) (07/09/2023 9:00 AM CDT) Narrative Felipe Schreiber MD - 07/09/2023 9:00 AM CDT Felipe Schreiber MD ? 07/09/2023 11:15 AM For sensory nerve conduction studies, the amplitude is measured [id number], the latency reported is the distal peak latency, and the conduction velocity, if measured, is determined from onset latencies and is over the limb. For motor nerve conduction studies, the amplitude is measured [id number], the latency reported is the distal onset [...] a underlying sensorimotor axonal polyneuropathy. us Marii Espinal MD NEUROLOGY ORDERABLES Final R esult * (ABNORMAL) CBC W/DIFF AUTOMATED (06/08/2023 12:05 PM CDT) Pathologist [facility] WBC 4.50 4.5 - 11.0 x10'3/uL 06/08/2023 12:27 PM CDT [facility] RBC 4.40 4.20 - 5.40 x10'6/uL 06/08/2023 12:27 PM CDT [facility] HGB 13.1 12.0 - 16.0 G/DL 06/08/2023 12:27 PM CDT [facility] HCT 40.5 38.0 - 48.0 % 06/08/2023 12:27 PM CDT [facility] MCV 92.0 81.0 - 99.0 FL 06/08/2023 12:27 PM CDT [facility] MCH 29.8 27.0 - 31.0 PG 06/08/2023 12:27 PM CDT [facility] MCHC 32.3 32.0 - 36.0 G/DL 06/08/2023 12:27 PM CDT [facility] RDW 14.7(H) 11.5 - 14.5 % 06/08/2023 12:27 PM CDT [facility] PLT 209 130 - 400 x10'3/uL 06/08/2023 12:27 PM CDT [facility] MPV 10.3 9.3 - 12.2 FL 06/08/2023 12:27 PM CDT [facility] DIFFERENTIAL TYPE AUTOMATED DIFFERENTIAL 06/08/2023 12:27 PM CDT [facility] NEUTROPHILS % 57.4 % 06/08/2023 12:27 PM CDT [facility] LYMPHOCYTES % 22.0 % 06/08/2023 12:27 PM CDT [facility] MONOCYTES % 17.3 % 06/08/2023 12:27 PM CDT [facility] EOSINOPHILS 1.8 % 06/08/2023 12:27 PM CDT [facility] BASOPHILS 1.3 % 06/08/2023 12:27 PM CDT [facility] IMMATURE GRANS % 0.2 % 06/08/19 12:27 PM CDT [facility] ABS. NEUTROPHILS 2.58 1.80 - 7.70 x10'3/uL 06/08/2023 12:27 PM CDT [facility] ABS. LYMPHOCYTES 0.99(L) 1.00 - 4.80 x10'3/uL 06/08/2023 12:27 PM CDT [facility] ABS. MONOCYTES 0.78 0.24 - 0.86 x10'3/uL 06/08/2023 12:27 PM CDT [facility] ABS. EOSINOPHILS 0.08 0.04 - 0.36 x10'3/uL 06/08/2023 12:27 PM CDT [facility] ABS. BASOPHILS 0.06 0.01 - 0.08 x10'3/uL 06/08/2023 12:27 PM CDT [facility] ABS. IMMATURE GRANULOCYTES 0.01 0.00 - 0.49 x10'3/uL 06/08/2023 12:27 PM CDT [facility] 06/08/2023 12:0 5 PM CDT Marii Espinal MD LABORATORY Final Result [facility] [address] [place] [address], * (ABNORMAL) LIPID PANEL (06/08/2023 12:05 PM CDT) CHOLESTEROL 191 <200 MG/DL 06/08/2023 12:49 PM CDT [facility] TRIGLYCERIDES 22 <150 MG/DL 06/08/2023 12:49 PM CDT [facility] HDL 114 >40.0 MG/DL 06/08/2023 12:49 PM CDT [facility] LDL (CALCULATED) 73 <100 MG/DL 06/08/19 12:49 PM CDT [facility] NON HDL CHOLESTEROL 77 <130 MG/DL 06/07 12:49 PM CDT [facility] CHOL/HDL RATIO 1.7 0.0 - 4.5 06/08/2023 12:49 PM CDT [facility] VLDL CALCULATION 4(L) 5 - 55 MG/DL 06/08/2023 12:49 PM CDT [facility] LIPID INTERPRETATION 06/08/2023 12:49 PM CDT [facility] Comment: NIH CONCENSUS REPORT RECOMMENDATIONS: ?ADULT ?CHILD ??LOW RISK: ?CHOLESTEROL ? <200 ? <170 ?TRIGLYCERIDE ?<150 ?--- ?HDL ? >=60 ?--- ?LDL ? <100 ? <110 ??BORDERLINE: ?CHOLESTEROL ? 200-239 ?? 170-199 ?TRIGLYCERIDE ?150-199 ? --- ?HDL ?40-59 ?--- ?LDL ? 100-159 ?? 110-129 ??HIGH RISK: ?CHOLESTEROL ? >=240 ?>=200 ?TRIGLYCERIDE ?>=200 ? --- ?HDL ?<40 ?--- ?LDL ? >=160 ?>=130 06/08/2023 12:0 5 PM CDT us Marii Espinal MD LABORATORY Final Result [facility] [address] [place] [address], * (ABNORMAL) COMPREHENSIVE METABOLIC PANEL (06/08/2023 12:05 PM CDT) GLUCOSE 83 70 - 99 MG/DL 06/08/2023 12:49 PM CDT [facility] BUN 17 7 - 18 MG/DL 06/08/2023 12:49 PM CDT [facility] CREATININE S/P/B 0.89 0.55 - 1.02 MG/DL 06/08/2023 12:49 PM CDT [facility] SODIUM S/P/B 139 136 - 145 MMOL/L 06/08/2023 12:49 PM CDT [facility] POTASSIUM S/P/B 3.8 3.5 - 5.1 MMOL/L 06/08/2023 12:49 PM CDT [facility] CHLORIDE S/P/B 105 100 - 108 MMOL/L 06/08/2023 12:49 PM CDT [facility] CO2 30.2 21 - 32 MMOL/L 06/08/2023 12:49 PM CDT [facility] CALCIUM S/P/B 9.6 8.5 - 10.1 MG/DL 06/08/2023 12:49 PM CDT [facility] BILIRUBIN TOTAL S/P/B 0.7 0.2 - 1.2 MG/DL 06/08/2023 12:49 PM T [facility] Comment: THIS ASSAY IS NOT RECOMMENDED FOR PATIENTS UNDERGOING TREATMENT WITH ELTROMBOPAG DUE TO THE POTENTIAL FOR FALSELY ELEVATED RESULTS. TOTAL PROTEIN S/P/B 7.0 6.4 - 8.2 G/DL 06/08/2023 12:49 PM T [facility] ALBUMIN S/P/B 3.4 3.4 - 5.0 G/DL 06/08/2023 12:49 PM CDT [facility] AST 23 15 - 37 U/L 06/08/2023 12:49 PM CDT [facility] ALT 23 14 - 55 U/L 06/08/2023 12:49 PM CDT [facility] ALKALINE PHOSPHATASE S/P/B 45(L) 50 - 136 U/L 06/08/2023 12:49 PM CDT [facility] ANION GAP 3.8(L) 5 - 15 MMOL/L 06/08/2023 12:49 PM CDT [facility] BUN CREATININE RATIO 19.1 6 - 26 06/08/2023 12:49 PM CDT [facility] A/G RATIO 0.9(L) 1.0 - 2.0 RATIO 06/08/2023 12:49 PM CDT [facility] GFR ESTIMATE 71(L) >90 ML/MIN/1.7 3 M2 06/08/2023 12:49 PM CDT [facility] Comment: NOTE: eGFR is not calculated for patients <18 years of age. This is an estimated GFR calculation using the new CKD EPI creatinine equation without race and so does not require a correction factor for race. This estimated GFR should not be used for calculating drug doses. 06/08/2023 12:0 5 PM CDT us Marii Espinal MD LABORATORY Final Result [facility] [address] [place] [address], [place] [phone] documented in this encounter Visit Diagnoses Diagnosis Chronic right-sided low back pain without sciatica- Primary Radicular pain of right lower extremity Thoracic or lumbosacral neuritis or radiculitis, unspecified Allergic rhinitis, unspecified seasonality, unspecified trigger Hyperactivity of bladder Hypertonicity of bladder Primary hypertension Unspecified essential hypertension Screening cholesterol level Screening for lipoid disorders Therapeutic drug monitoring Encounter for therapeutic drug monitoring History of vertebral compression fracture Gastroesophageal reflux disease, unspecified whether esophagitis present Class 1 obesity due to excess calories with serious comorbidity and body mass index (BMI) of 32.0 to 32.9 in adult Radicular pain of right lower extremity Thoracic or lumbosacral neuritis or radiculitis, unspecified documented in this encounter Additional Health Concerns Assessment Noted Time PHQ-9 Depression Total Score: 0 12/10/20 21 1:25 PM CLAMPER documented as of this encounter Care Teams Business Development Representative Relationship Specialty Start Date End Date Marii Espinal MD [address] [facility] [address] [place] [phone] PCP - General FAMILY PRACTICE 06/05/23 documented as of this encounter
--- OUTSIDE RECORDS SUMMARY | 2024-03-23 01:32 | XMS_ITS | Encounter Summary ---
Author Organization [facility] Address [address] [place] [address]. [place], [place] [id number] [place] [address] Care Team Providers Care Airplane Patrol Pilot Name Role Phone Marii Randle MD Primary Care Provider + [phone] Encounter Details Date Type Department Care Team (Latest Contact Info) Description 01/01/2024 Travel Social History Tobacco Use Types Packs/Day [...] Contact Info) Description 05/01/2024 8:00 AM COMMUNITY OUTREACH MANAGER Appointment [facility] [place], [place] [address] Edgard Washington MD [facility] [address] [place] [address] 06/02/2024 10:15 AM CDT Office Visit [facility], [address] [place] [address] Edgard Washington MD [address] [place] [address] documented as of this encounter Visit Diagnoses Not on filedocumented in this encounter Additional Health Concerns Assessment Noted Time PHQ-9 Depression Total Score: 0 11/06/19 9:30 AM CDT documented as of this encounter Care Teams Airplane Patrol Pilot Relationship Specialty Start Date End Date Marii Randle MD [address] [facility] [address] [place] [phone] PCP - General FAMILY PRACTICE 06/05/23 documented as of this encounter
--- OUTSIDE RECORDS SUMMARY | 2024-03-23 01:32 | XMS_ITS | Encounter Summary ---
Author Organization [facility] Address [address] [place] [address]. [place], [place] [id number] [place] [address] Care Team Providers Care Corporate Accounting Manager Name Role Phone Marii Randle MD Primary Care Provider + [phone] Encounter Details Date Type Department Care Team (Latest Contact Info) Description 11/06/2023 Travel Social History Tobacco Use Types Packs/Day [...] st Contact Info) Description 05/01/2024 8:00 AM ELECTRICAL ELECTRONICS TECHNICIAN Appointment [facility] [place], [place] [address] Edgard Washington MD [facility] [address] [place] [address] 06/02/2024 10:15 AM CDT Office Visit [facility] THREE [facility], ED [address] [place] [address] Edgard Washington MD [facility] [address] [place] [address] documented as of this encounter Visit Diagnoses Not on filedocumented in this encounter Additional Health Concerns Assessment Noted Time PHQ-9 Depression Total Score: 0 11/06/19 9:30 AM CDT documented as of this encounter Care Teams Corporate Accounting Manager Relationship Specialty Start Date End Date Marii Randle MD [address] [facility] [address] [place] [address] PCP - General FAMILY PRACTICE 06/05/23 documented as of this encounter
--- OUTSIDE RECORDS SUMMARY | 2024-03-23 01:32 | XMS_ITS | Encounter Summary ---
Author Organization [facility] Address [address] [place] [address]. [place], [place] [address] [place] [address] Care Team Providers Care Newspaper Distributor Supervisor Name Role Phone Marii Espinal MD Primary Care Provider [phone] Reason for Visit * Reason Onset Date Comments Referral 01/02/2024 Encounter Details Date Type Department Care Team (Late st Contact Info) Description 01/02/2024 Telephone [facility] Family [facility] - [place] [address] [facility], [address] [place] [address] Marii Espinal MD [address] [facility] ED [address] [place] [phone] Referral Social History Tobacco Use Types Packs/Day Years [...] Progress Notes * Marii Espinal MD - 01/16/2024 9:47 AM CSTAddended by: MARII ESPINAL on: 01/16/2024 09:47 AM Modules accepted: Orders NOLOGY ASSISTANT * Marii Espinal MD - 01/16/2024 9:46 AM CST Script sent in ,glaadriel she has surgery scheduled NOLOGY ASSISTANT * Nita Yepez MA - 01/09/2024 12:15 PM CST Called over to referrals to find out if they needed to re-route the referral to Dr. Segura. Trudyadvised she will add the appt and the information was already sent to the correct place. No auth was needed. I will update pcp and patient. NOLOGY ASSISTANT * Nita Yepez MA - 01/02/2024 2:21 PM CDT Sending pt a AdverseEvents message to advise per pcp: I believe it is Dr. Segura * Carol Day - 01/02/2024 11:54 AM CDT Pt is calling, she scheduled an appt with bebe Rawls but she was hoping to get in sooner. Dr Espinal talked to her about a dr in [place] that could possible get her in sooner. She is wanting to know the name of that dr. Cb# [phone] documented in this encounter Plan of Treatment Upcoming Encounters Date Type Department Care Team (Late st Contact Info) Description 05/01/2024 8:00 AM TECHNOLOGY ASSISTANT Appointment [facility] [place] [address] Edgard Washington MD [facility], [address] [place] [address] 06/02/2024 10:15 AM CDT Office Visit [facility] THREE [facility] [address] [place] [address] Edgard Washington MD [facility], [address] [place] [address] documented as of this encounter Visit Diagnoses Diagnosis Primary osteoarthritis of right hip Primary localized osteoarthrosis, pelvic region and thigh documented in this encounter Additional Health Concerns Assessment Noted Time PHQ-9 Depression Total Score: 0 11/06/19 9:30 AM CDT documented as of this encounter Care Teams Newspaper Distributor Supervisor Relationship Specialty Start Date End Date Marii Espinal MD [address] [facility] [address] [place] [phone] PCP - General FAMILY PRACTICE 06/05/23 documented as of this encounter
--- OUTSIDE RECORDS SUMMARY | 2024-03-23 01:32 | XMS_ITS | Encounter Summary ---
Author Organization [facility] Address [address] [place] [address]. [place] [address] [place] [address] Care Team Providers Care Pet Resort Concierge Name Role Phone Marii Randle MD Primary Care Provider [phone] Encounter Details Date Type Department Care Team (Latest Contact Info) Description 06/08/2023 10:47 AM CDT - 06/08/2023 11:59 PM CDT Hospital Encounter [facility] [place], [place] [id number] Marii Randle MD [facility] [address] [place] [address] Discharge Disposition: Home or Self [...] mg total) by mouth daily. 90 capsule 06/05/2023 4 hydroCHLOROthiazid e (MICROZIDE) 12.5 MG tabletIndications: Essential hypertension TAKE 1 TABLET EVERY DAY 90 tablet 12/03/2022 4 losartan (COZAAR) 50 MG tabletIndications: Primary hypertension Take 1 tablet (50 mg total) by mouth daily. 90 tablet 05/08/2023 4 omeprazole (PRILOSEC) 40 MG capsuleIndications :Essential hypertension TAKE 1 CAPSULE EVERY DAY 90 capsule 12/03/2022 4 oxybutynin XL (DITROPAN-XL) 10 MG 24 hr tabletIndications: Hyperactivity of bladder TAKE 1 TABLET EVERY DAY 90 tablet 1 08/14/2022 4 documented as of this encounter Progress Notes * Marii Randle MD - 06/08/2023 10:50 AM CDT Your labs are all OK documented in this encounter Plan of Treatment Upcoming Encounters Date Type Department Care Team (Late st Contact Info) Description 05/01/2024 8:00 AM BULB SORTER Appointment [facility] [place] [address] Edgard Washington MD Three [facility] [address] [place] [address] 06/02/2024 10:15 AM CDT Office Visit [facility] THREE [facility], ED [address] [place] [address] Edgard Washington MD Three [facility], [address] [place] [address] documented as of this encounter Procedures Procedure Name Priority Date/Time Associated Diagnosis Comments COMPREHENSIVE METABOLIC PANEL Routine 06/08/2023 12:05 PM CDT Primary hypertension LIPID PANEL Routine 06/08/2023 12:05 PM CDT Screening cholesterol level CBC W/DIFF AUTOMATED Routine 06/08/2023 12:05 PM CDT Primary hypertension Therapeutic drug monitoring documented in this encounter Results * (ABNORMAL) CBC W/DIFF AUTOMATED (06/08/2023 12:05 PM CDT) WBC 4.50 4.5 - 11.0 x10'3/uL 06/08/2023 12:27 PM CDT [facility] RBC 4.40 4.20 - 5.40 x10'6/uL 06/08/2023 12:27 PM CDT [facility] HGB 13.1 12.0 - 16.0 G/DL 06/08/2023 12:27 PM CDT [facility] HCT 40.5 38.0 - 48.0 % 06/08/2023 12:27 PM CDT [facility] MCV 92.0 81.0 - 99.0 FL 06/08/2023 12:27 PM CDT [facility] MCH 29.8 27.0 - 31.0 PG 06/08/2023 12:27 PM CDT [facility] MCHC 32.3 32.0 - 36.0 G/DL 06/08/2023 12:27 PM CDT [facility] RDW 14.7(H) 11.5 - 14.5 % 06/08/2023 12:27 PM CDT [facility] PLT 209 130 - 400 x10'3/uL 06/08/2023 12:27 PM CDT [facility] MPV 10.3 9.3 - 12.2 FL 06/08/2023 12:27 PM CDT [facility] DIFFERENTIAL TYPE AUTOMATED DIFFERENTIAL 06/08/2023 12:27 PM CDT [facility] NEUTROPHILS % 57.4 % 06/08/2023 12:27 PM CDT [facility] LYMPHOCYTES % 22.0 % 06/08/2023 12:27 PM CDT [facility] MONOCYTES % 17.3 % 06/08/2023 12:27 PM CDT [facility] EOSINOPHILS 1.8 % 06/08/2023 12:27 PM CDT [facility] BASOPHILS 1.3 % 06/08/2023 12:27 PM CDT [facility] IMMATURE GRANS % 0.2 % 06/08/19 12:27 PM CDT [facility] ABS. NEUTROPHILS 2.58 1.80 - 7.70 x10'3/uL 06/08/2023 12:27 PM CDT [facility] ABS. LYMPHOCYTES 0.99(L) 1.00 - 4.80 x10'3/uL 06/08/2023 12:27 PM CDT [facility] ABS. MONOCYTES 0.78 0.24 - 0.86 x10'3/uL 06/08/2023 12:27 PM CDT [facility] ABS. EOSINOPHILS 0.08 0.04 - 0.36 x10'3/uL 06/08/2023 12:27 PM CDT [facility] ABS. BASOPHILS 0.06 0.01 - 0.08 x10'3/uL 06/08/2023 12:27 PM CDT [facility] ABS. IMMATURE GRANULOCYTES 0.01 0.00 - 0.49 x10'3/uL 06/08/2023 12:27 PM CDT [facility] 06/08/2023 12:0 5 PM CDT Marii Randle MD LABORATORY Final Result [facility] [address] [place] [address], * (ABNORMAL) LIPID PANEL (06/08/2023 12:05 PM CDT) CHOLESTEROL 191 <200 MG/DL 06/08/2023 12:49 PM CDT [facility] TRIGLYCERIDES 22 <150 MG/DL 06/08/2023 12:49 PM CDT [facility] HDL 114 >40.0 MG/DL 06/08/2023 12:49 PM CDT [facility] LDL (CALCULATED) 73 <100 MG/DL 06/08/19 12:49 PM CDT [facility] NON HDL CHOLESTEROL 77 <130 MG/DL 06/07 12:49 PM CDT [facility] CHOL/HDL RATIO 1.7 0.0 - 4.5 06/08/2023 12:49 PM CDT [facility] VLDL CALCULATION 4(L) 5 - 55 MG/DL 06/08/2023 12:49 PM CDT [facility] LIPID INTERPRETATION 06/08/2023 12:49 PM CDT [facility] Comment: NIH CONCENSUS REPORT [...] 06/08/2023 12:0 5 PM CDT us Marii Randle MD LABORATORY Final Result [facility] [address] [place] [address], [place] [phone] * (ABNORMAL) COMPREHENSIVE METABOLIC PANEL (06/08/2023 12:05 PM CDT) GLUCOSE 83 70 - 99 MG/DL 06/08/2023 12:49 PM CDT [facility] BUN 17 7 - 18 MG/DL 06/08/2023 12:49 PM CDT [facility] CREATININE S/P/B 0.89 0.55 - 1.02 MG/DL 06/08/2023 12:49 PM CDT [facility] SODIUM S/P/B 139 136 - 145 MMOL/L 06/08/2023 12:49 PM CDT [facility] POTASSIUM S/P/B 3.8 3.5 - 5.1 MMOL/L 06/08/2023 12:49 PM CDT [facility] CHLORIDE S/P/B 105 100 - 108 MMOL/L 06/08/2023 12:49 PM CDT [facility] CO2 30.2 21 - 32 MMOL/L 06/08/2023 12:49 PM CDT [facility] CALCIUM S/P/B 9.6 8.5 - 10.1 MG/DL 06/08/2023 12:49 PM CDT [facility] BILIRUBIN TOTAL S/P/B 0.7 0.2 - 1.2 MG/DL 06/08/2023 12:49 PM CDT [facility] Comment: THIS ASSAY IS NOT RECOMMENDED FOR PATIENTS UNDERGOING TREATMENT WITH ELTROMBOPAG DUE TO THE POTENTIAL FOR FALSELY ELEVATED RESULTS. TOTAL PROTEIN S/P/B 7.0 6.4 - 8.2 G/DL 06/08/2023 12:49 PM CDT [facility] ALBUMIN S/P/B 3.4 3.4 - 5.0 G/DL 06/08/2023 12:49 PM CDT [facility] AST 23 15 - 37 U/L 06/08/2023 12:49 PM CDT [facility] ALT 23 14 - 55 U/L 06/08/2023 12:49 PM CDT [facility] ALKALINE PHOSPHATASE S/P/B 45(L) 50 - 136 U/L 06/08/2023 12:49 PM CDT [facility] ANION GAP 3.8(L) 5 - 15 MMOL/L 06/08/2023 12:49 PM CDT [facility] BUN CREATININE RATIO 19.1 6 - 26 06/08/2023 12:49 PM CDT [facility] A/G RATIO 0.9(L) 1.0 - 2.0 RATIO 06/08/2023 12:49 PM CDT [facility] GFR ESTIMATE 71(L) >90 ML/MIN/1.7 3 M2 06/08/2023 12:49 PM CDT [facility] Comment: NOTE: eGFR is not calculated for patients <18 years of age. This is an estimated GFR calculation using the new CKD EPI creatinine equation without race and so does not require a correction factor for race. This estimated GFR should not be used for calculating drug doses. 06/08/2023 12:0 5 PM CDT us Marii Randle MD LABORATORY Final Result [facility] [address] [place] [address], documented in this encounter Visit Diagnoses Diagnosis Primary hypertension Unspecified essential hypertension Screening cholesterol level Screening for lipoid disorders Therapeutic drug monitoring Encounter for therapeutic drug monitoring documented in this encounter Additional Health Concerns Assessment Noted Time PHQ-9 Depression Total Score: 0 02/11/20 21 1:25 PM BULB SORTER documented as of this encounter Care Teams Pet Resort Concierge Relationship Specialty Start Date End Date Marii Randle MD [address] [facility] [address] [place] [address] PCP - General FAMILY PRACTICE 06/05/23 documented as of this encounter
--- OUTSIDE RECORDS SUMMARY | 2024-03-23 01:32 | XMS_ITS | Encounter Summary ---
Author Organization [facility] Address [address] [place] [address]. [place] [address] [place] [address] Care Team Providers Care Doctor Naturopathic Name Role Phone Marii Randle MD Primary Care Provider [phone] Encounter Details Date Type Department Care Team (Latest Contact Info) Description 11/06/2023 10:57 AM CDT - 11/06/2023 11:59 PM CDT Hospital Encounter [facility] Laboratory [facility] [place], [place] [id number] Marii Randle MD [facility] [address] [place] [address] Discharge Disposition: Home or Self [...] 07/11/2023 4 documented as of this encounter Progress Notes * Marii Randle MD - 11/06/2023 11:40 AM CDT Ursula Levine, so far your labs are all negative. There is no inflammatory markers. I am really suspicious your symptoms are from your right hip. Awaiting 1 more test results but likely it is going to be negative also. documented in this encounter Plan of Treatment Upcoming Encounters Date Type Department Care Team (Late st Contact Info) Description 05/01/2024 8:00 AM DIVISION TOLL WIRE CHIEF Appointment [facility] [place] [address] Edgard Washington MD Three [facility]., [address] [place] [address] 06/02/2024 10:15 AM CDT Office Visit [facility] THREE [facility], ED [address] [place] [address] Edgard Washington MD Three [facility] [address] [place] [address] documented as of this encounter Procedures Procedure Name Priority Date/Time Associated Diagnosis Comments RHEUMATOID FACTOR, QUANT Routine 11/06/2023 11:06 AM CDT Arthritis/arthropa thy of multiple joints CYCLIC CITRULLINATED PEPTIDE (CCP)ANTIBODY(IGG) Routine 11/06/2023 11:06 AM CDT Arthritis/arthropa thy of multiple joints SED RATE, ERYTHROCYTE (ESR) Routine 11/06/2023 11:06 AM CDT Arthritis/arthropa thy of multiple joints BASIC METABOLIC PANEL Routine 11/06/2023 11:06 AM CDT Arthritis/arthropa thy of multiple joints C-REACTIVE PROTEIN Routine 11/06/2023 11 :06 AM CDT Arthritis/arthropa thy of multiple joints documented in this encounter Results * C-REACTIVE PROTEIN (11/06/2023 11:06 AM CDT) C-REACTIVE PROTEIN <0.29 <0.29 mg/dL 11/06/2023 11:36 AM CDT [facility] 11/06/2023 11:0 6 AM CDT us Marii Randle MD LABORATORY Final Result [facility] 3 [facility] [place] [address], [place] [phone] * SED RATE, ERYTHROCYTE (ESR) (11/06/2023 11:06 AM CDT) ESR 6 <30 MM/HR 11/06/2023 12:27 PM CDT [facility] Comment:Testing performed on [employer] iSED. 11/06/2023 11:0 6 AM CDT Marii Randle MD LABORATORY Final Result [facility] [address] [place] [address], [place] [phone] * CYCLIC CITRULLINATED PEPTIDE (CCP)ANTIBODY(IGG) (11/06/2023 11:06 AM CDT) Pathologist [facility] CITRULLINE PEPTIDE ANTIBODY <16 <20 Units 11/10/2023 1:29 PM CDT [facility] Comment: Negative: ? <20 Weak Positive: ?20 - 39 Moderate Positive: ?40 - 59 Strong Positive: ?>59 Test Performed by Martina Bacon, Immunetics Tim [facility], [address] [place] [address] Jose Jim M.D., Ph.D., Director of Laboratories , [facility] [id number] 11/06/2023 11:0 6 AM CDT Marii Randle MD LABORATORY Final Result [employer] [facility] LILLIAMMARTINA [address] [place] [id number], [place] [phone] * RHEUMATOID FACTOR, QUANT (11/06/2023 11:06 AM CDT) Pathologist [facility] RHEUMATOID FACTOR <10 <15 IU/ML 11/06/2023 11:36 AM CDT [facility] 11/06/2023 11:0 6 AM CDT us Marii Randle MD LABORATORY Final Result [facility] [address] [place] [address], * BASIC METABOLIC PANEL (11/06/2023 11:06 AM CDT) GLUCOSE 92 70 - 99 MG/DL 11/06/2023 11:36 AM CDT [facility] BUN 16 7 - 18 MG/DL 11/06/2023 11:36 AM CDT [facility] CREATININE S/P/B 0.73 0.55 - 1.02 MG/DL 11/06/2023 11:36 AM CDT [facility] SODIUM S/P/B 140 136 - 145 MMOL/L 11/06/2023 11:36 AM CDT [facility] POTASSIUM S/P/B 4.1 3.5 - 5.1 MMOL/L 11/06/2023 11:36 AM CDT [facility] CHLORIDE S/P/B 105 97 - 115 MMOL/L 11/06/2023 11:36 AM CDT [facility] CO2 30.9 21 - 32 MMOL/L 11/06/2023 11:36 AM CDT [facility] CALCIUM S/P/B 9.6 8.5 - 10.1 MG/DL 11/06/2023 11:36 AM CDT [facility] ANION GAP 4.1 2 - 10 MMOL/L 11/06/2023 11:36 AM CDT [facility] BUN CREATININE RATIO 22.0 6 - 26 11/06/2023 11:36 AM CDT [facility] GFR ESTIMATE >90 >90 ML/MIN/1.7 3 M2 11/06/2023 11:36 AM CDT [facility] Comment: NOTE: eGFR is not calculated for patients <18 years of age or gender unknown. This is an estimated GFR calculation using the new CKD EPI creatinine equation without race and so does not require a correction factor for race. This estimated GFR should not be used for calculating drug doses. 11/06/2023 11:0 6 AM CDT us Marii Randle MD LABORATORY Final Result [facility] [address] [place] [address], documented in this encounter Visit Diagnoses Diagnosis Arthritis/arthropathy of multiple joints Unspecified arthropathy, multiple sites documented in this encounter Additional Health Concerns Assessment Noted Time PHQ-9 Depression Total Score: 0 11/06/19 9:30 AM CDT documented as of this encounter Care Teams Doctor Naturopathic Relationship Specialty Start Date End Date Marii Randle MD [address] [facility] [address] [place] [address] PCP - General FAMILY PRACTICE 06/05/23 documented as of this encounter
--- OUTSIDE RECORDS SUMMARY | 2024-03-23 01:32 | XMS_ITS | Encounter Summary ---
Author Organization [facility] Address [facility] [place] [address] [place] [address] Care Team Providers Care Wire Wrapping Machine Operator Name Role Phone Marii Randle MD Primary Care Provider [phone] Reason for Referral * Imaging (Routine) - Closed Specialty Diagnoses / Procedures Referred By Herberth amor Referred To Contact RADIOLOGY Diagnoses Lumbar radiculopathy Procedures MRI THOR SPINE WO Samara Corrales MD [facility] [address] [place] [address] Phone: tel: fax: Referral ID Status Reason Start Date Expiration Date Visits Re quested Visits Authorized [id number] Closed MRI 09/26/2023 11/25/2023 1 1 Reason for Visit * Imaging (Routine) - Closed Specialty Diagnoses / Procedures Referred By Herberth amor Referred To Contact RADIOLOGY Diagnoses Lumbar radiculopathy Procedures MRI THOR SPINE WO Samara Corrales MD [facility] [address] [place] [address] Phone: tel: fax: Referral ID Status Reason Start Date Expiration Date Visits Re quested Visits Authorized [id number] Closed MRI 09/26/2023 11/25/2023 1 1 Encounter Details Date Type Department Care Team (Latest Contact Info) Description 10/18/2023 2:47 PM CDT - 10/18/2023 11:59 PM CDT Hospital Encounter [facility] [address] [place] [address] Samara Anna MD [facility] [address] [address] Discharge Disposition: Home or Self Care (Routine [...] 1 07/11/2023 documented as of this encounter Plan of Treatment Upcoming Encounters Date Type Department Care Team (Late st Contact Info) Description 05/01/2024 8:00 AM BOILER OPERATORS SUPERVISOR Appointment [facility] Non Invasive Cardiology ONE [facility] [place] [address] Edgard [place] MD Three [facility] [address] [place] [address] 06/02/2024 10:15 AM CDT Office Visit [facility] THREE [facility], [address] [place] [address] Edgard [place] MD Three [facility] [address] [place] [address] documented as of this encounter Procedures Procedure Name Priority Date/Time Associated Diagnosis Comments MRI THOR SPINE WO CON Routine 10/18/2023 3:43 PM CDT Lumbar radiculopathy documented in this encounter Results * MRI THOR SPINE WO CON (10/18/2023 3:43 PM CDT) Anatomical Region Laterality Modality Spine Magnetic Resonan ce 10/22/2023 2:36 PM CDT Impressions 10/22/2023 2:43 PM CDT IMPRESSION:===== 1. No thoracic spine acute or chronic compression fracture. Normal alignment. 2. Diffuse abnormal patchy marrow signal throughout the vertebral bodies of uncertain etiology. This may represent a marrow replacement, infiltrative process with few residual islands of fatty marrow hemangiomas. No definite concerning focal finding within noncontrast limits. 3. Multilevel moderate disc degenerative desiccation narrowing with tiny circumferential disc bulges without spinal or foraminal stenosis at any level. 4. No spinal canal abnormality. Ordered By: SAMARA ANNA Interpreted By: Alex Brar MD, 10/22/2023 2:36 PM Narrative 10/22/2023 2:43 PM CDT Examination: MR thoracic spine without contrast Exam date/time: 10/18/2023 3:05 PM ?? Reason For Exam: ??68 female. Chronic two-year history of pain in the right thigh. Low back pain Comparison: Reference MR lumbar spine 05/10/2023 Technique: MR imaging of the thoracic spine performed without contrast Findings: Slight exaggeration of normal thoracic kyphosis. Otherwise normal thoracic vertebral body alignment and curvature. There is no listhesis. Medial body heights are normal. No acute or chronic compression deformity identified. Diffusely heterogeneous patchy partly replaced marrow signal throughout the imaged vertebral body. Images of residual marrow fat and/or small hemangiomas may be present. No definitive focal finding. Normal course caliber and signal of the thoracic spinal cord. There is no cord expansion, edema or atrophy. No spinal canal lesion identified. Multilevel degenerative spondylosis. There is multilevel moderate disc degeneration primarily with desiccation narrowing and the small circumferential disc bulges throughout the thoracic spine indenting the ventral thecal sac without spinal canal or foraminal stenosis. Paraspinal paravertebral soft tissues are grossly unremarkable. Imaged lung corona are clear. Procedure Note Alex Brar MD - 10/22/2023 Examination: MR thoracic spine without contrast Exam date/time: 10/18/2023 3:05 PM Reason For Exam: 68 female. Chronic two-year history of pain in the rightthigh. Low back pain Comparison: Reference MR lumbar spine 05/10/2023 Technique: MR imaging of the thoracic spine performed without contrast Findings: Slight exaggeration of normal thoracic kyphosis. Otherwise normal thoracicvertebral body alignment and curvature. There is no listhesis. Medial body heights are normal. No acute or chronic compression deformityidentified. Diffusely heterogeneous patchy partly replaced marrow signal throughoutthe imaged vertebral body. Images of residual marrow fat and/or smallhemangiomas may be present. No definitive focal finding. Normal course caliber and signal of the thoracic spinal cord. There is nocord expansion, edema or atrophy. No spinal canal lesion identified. Multilevel degenerative spondylosis. There is multilevel moderate discdegeneration primarily with desiccation narrowing and the smallcircumferential disc bulges throughout the thoracic spine indenting theventral thecal sac without spinal canal or foraminal stenosis. Paraspinal paravertebral soft tissues are grossly unremarkable. Imaged lung corona are clear. IMPRESSION:===== 1. No thoracic spine acute or chronic compression fracture. Normalalignment. 2. Diffuse abnormal patchy marrow signal throughout the vertebral bodiesof uncertain etiology. This may represent a marrow replacement,infiltrative process with few residual islands of fatty marrowhemangiomas. No definite concerning focal finding within noncontrastlimits. 3. Multilevel moderate disc degenerative desiccation narrowing with tinycircumferential disc bulges without spinal or foraminal stenosis at anylevel. 4. No spinal canal abnormality. Ordered By: SAMARA ANNA Interpreted By: Alex Brar MD, 10/22/2023 2:36 PM us Samara Anna MD MRI Final Resul t documented in this encounter Visit Diagnoses Diagnosis Lumbar radiculopathy Thoracic or lumbosacral neuritis or radiculitis, unspecified documented in this encounter Additional Health Concerns Assessment Noted Time PHQ-9 Depression Total Score: 0 02/11/20 21 1:25 PM BOILER OPERATORS SUPERVISOR documented as of this encounter Care Teams Wire Wrapping Machine Operator Relationship Specialty Start Date End Date Marii Randle MD [address] [phone] PCP - General FAMILY PRACTICE 06/05/23 documented as of this encounter
--- OUTSIDE RECORDS SUMMARY | 2024-03-23 01:32 | XMS_ITS | Encounter Summary ---
Author Organization [facility] Address [address] [place] [address]. [place], [place] [address] [place] [address] Care Team Providers Care Transmission Worker Name Role Phone Marii Espinal MD Primary Care Provider [phone] Reason for Referral * - New Request Specialty Diagnoses / Procedures Referred By Herberth amor Referred To Contact Diagnoses Visit for screening mammogram Procedures MG SCREENING W Marii Mckeon MD [address] [address] Phone: tel: fax: Referral ID Status Reason Start Date Expiration Date V isits Requested Visits Authorized [id number] New Request 12/23/2023 1 1 Reason for Visit * - New Request Specialty Diagnoses / Procedures Referred By Herberth amor Referred To Contact Diagnoses Visit for screening mammogram Procedures MG SCREENING W Marii Mckeon MD [address] [address] Phone: tel: fax: Referral ID Status Reason Start Date Expiration Date V isits Requested Visits Authorized [id number] New Request 12/23/2023 1 1 Encounter Details Date Type Department Care Team (Latest Contact Info) Description 01/01/2024 8:09 AM CDT - 01/01/2024 11:59 PM CDT Hospital Encounter [facility] [place] [address] Marii Espinal MD [address] [facility] [address] [place] [address] Discharge Disposition: Home or Self [...] this encounter Medications at Time of Discharge acetaminophen CR (TYLENOL) 650 MG Tab CR 8 hr tablet cetirizine 10 MG chewable tablet Chew 1 [...] every day 90 tablet 1 09/23/2023 4 HYDROcodone-acetam inophen (NORCO) 5-325 MG tabletIndications: Chronic Pain Take 1 tablet by mouth 2 (two) times daily. 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 [place] [address] Edgard [place] MD Three [facility] [address] [place] [address] 06/02/2024 10:15 AM CDT Office Visit [facility] THREE [facility], [address] [place] [address] Edgard [place] MD Three [facility] [address] [place] [address] documented as of this encounter Procedures Procedure Name Priority Date/Time Associated Diagnosis Comments MG SCREENING W CHANO BRANDY DIGI Routine 01/01/2024 8:55 AM CDT Visit for screening mammogram documented in this encounter Results * MG SCREENING W CHANO BRANDY DIGI (01/01/2024 8:55 AM CDT) Anatomical Region Laterality Modality Breast Bilateral Mammography 01/01/2024 12:4 2 PM CDT Impressions 01/01/2024 12:46 PM CDT ===== IMPRESSION: ===== 1. ??Stable mammographic appearance with no new findings to suggest malignancy in either breast. Assessment: ACR BI-RADS 2 - BENIGN FINDING(S) Recommendation: 1:Routine Screening Bilateral Comments: Ordered By: MARII ESPINAL Interpreted By: Russ Santana, 01/01/2024 12:42 PM Narrative 01/01/2024 12:46 PM CDT [facility] [address] [place] [address] EXAMINATION: Digital bilateral screening mammogram with 3-D [...] the medial aspects of both breasts. us Marii Espinal MD MAMMO Final Result documented in this encounter Visit Diagnoses Diagnosis Visit for screening mammogram Other screening mammogram documented in this encounter Additional Health Concerns Assessment Noted Time PHQ-9 Depression Total Score: 0 11/06/19 9:30 AM CDT documented as of this encounter Care Teams Transmission Worker Relationship Specialty Start Date End Date Marii Espinal MD [address] [phone] PCP - General FAMILY PRACTICE 06/05/23 documented as of this encounter
--- OUTSIDE RECORDS SUMMARY | 2024-03-23 01:32 | XMS_ITS | Encounter Summary ---
Author Organization [facility] Address [address] [place] [address]. [place], [place] [address] [place] [address] Care Team Providers Care Column Precaster Name Role Phone Marii Espinal MD Primary Care Provider [phone] Reason for Visit * Reason Onset Date Comments Refill Request 11/13/2023 Encounter Details Date Type Department Care Team (Late st Contact Info) Description 11/13/2023 Telephone [facility] - [place] [address] [facility], [address] [place] [address] Marii Espinal MD [address] [facility] [address] [place] [phone] Refill Request Social History Tobacco Use Types Packs/Day Years [...] Notes * Nita Yepez MA - 11/14/2023 10:00 AM CDT Patient declined medicine see encounter documented on 11/07/23 * Carol Day - 11/13/2023 10:26 AM CDT Medication and strength: Duloxetine 30 me Pharmacy: [facility] [place] Call back #: [phone] Last office visit at this office: Last visit with MARII ESPINAL in FAMILY PRACTICE was on: 11/06/2023 in [facility] Future appointment scheduled: Future Appointments Date Time Provider Department Center 12/30/2023 11:00 AM MD JANUARY [facility] documented in this encounter Plan of Treatment Upcoming Encounters Date Type Department Care Team (Late st Contact Info) Description 05/01/2024 8:00 AM WRAPPER SHEETER Appointment [facility] [place] [address] Edgard [place] MD Three [facility] [address] [place] [id number] 06/02/2024 10:15 AM CDT Office Visit [facility] THREE [facility] [address] [place], [place] [address] Edgard [place] MD Three [facility] [address] [place] [address] documented as of this encounter Visit Diagnoses Not on filedocumented in this encounter Additional Health Concerns Assessment Noted Time PHQ-9 Depression Total Score: 0 11/06/19 9:30 AM CDT documented as of this encounter Care Teams Column Precaster Relationship Specialty Start Date End Date Marii Espinal MD [address] [facility] [address] [place] [address] PCP - General FAMILY PRACTICE 06/05/23 documented as of this encounter
--- OUTSIDE RECORDS SUMMARY | 2024-03-23 01:32 | XMS_ITS | Encounter Summary ---
Author Organization [facility] Address [address] [place] [address]. [place] [address] [place] [address] Care Team Providers Care Hide Examiner Name Role Phone Fran Espinal MD Primary Care Provider + [phone] Reason for Visit * Reason Comments New Patient Rt hip pain * Consultation (Routine) - Authorized Specialty Diagnoses / Procedures Referred By Herberth amor Referred To Contact SPORTS MEDICINE / ORTHOPAEDICS Diagnoses Right thigh pain Procedures OFFICE/OUTPATIENT NEW LOW MDM 30-44 MINUTES OFFICE/OUTPT VISIT,NEW,LEVL IV OFFICE/OUTPT VISIT,NEW,LEVL V OFFICE/OUTPT VISIT,EST,LEVL III OFFICE/OUTPT VISIT,EST,LEVL IV OFFICE/OUTPT VISIT,EST,LEVL V Fran Espinal MD [address] [address] Phone: tel: fax: Gianfranco Knowles MD [address] [place] [address] Phone: tel: fax: Referral ID Status Reason Start Date Expiration Date Visits Requested Visits Authorized [id number] Authorized Specialty Services 11/06/2023 12/06/2024 100 3 Encounter Details Date Type Department Care Team (Late st Contact Info) Description 12/30/2023 11:00 AM CDT Office Visit [facility] Orthopedic & Sports Medicine - [place] [address] [place] [address] Gianfranco Knowles MD [address] [place] [address] New Patient (Rt hip pain ) Social History Tobacco Use Types Packs/Day [...] Sign Reading Time Taken Comments Blood Pressure 111/63 12/30/2023 10:48 AM CDT Pulse 68 12/30/2023 10:48 AM CDT Temperature - - Respiratory Rate - - Oxygen Saturation - - Inhaled Oxygen Concentration - - Weight 88 kg (194 lb) 12/30/2023 10:48 AM CDT Height 167.6 cm (5' 6 ) 12/30/2023 10:48 AM CDT Body Mass Index 31.31 12/30/2023 10:48 AM CDT documented in this encounter Progress Notes * Gianfranco Knowles MD - 12/30/2023 11:00 AM CDT Office Progress Note Reason for Visit: New Patient (Rt hip pain ) History of Present Illness: Patient referred for evaluation of right anterior hip groin pain symptoms that been present for thelast 2 years. Pain symptoms radiate down the anterior thigh. Worse with weightbearing walking turning activities. Bothersome both with activity and at rest. Currently on Celebrex medication and taking Tylenol help with pain symptoms. Has been seeing an alternate clinics for management of pain symptoms over the last 2 years. Patient reports seeing chiropractor and alternate pain management clinic.Has received injections to the lateral trochanteric region and lumbar spine region per her report Steven not have the other clinic notes for review. Has not received an intra-articular hip injection that she knows of. Recently visited with her primary care physician. X-ray of the hip and pelvis and MRI obtained. X-ray and MRI confirmed severe hip osteoarthritis with subchondral cyst formation/marrow edema both in the femoral head and acetabulum. Patient most interested in treatment options to address her hip/groin pain symptoms to include surgery if needed. Patient has been more active in the last few years with exercise activities in the gym to include water aerobics walking and some resistance work activities. Patient has achieved some good weight loss over the last few years but pain symptoms in the hip have accelerated. Patient denies previous significant injury to the hip no prior history of surgery in the hip. She does not have diabetes does not smoke. ROS: Musculoskeletal: See HPI. Constitutional: Negative. Skin: Negative. Neurological: Negative. Respiratory: Negative. Cardiovascular: Negative Endo/Heme/Allergies: Negative. Medications: Current Outpatient Medications: acetaminophen CR (TYLENOL) 650 MG Tab CR 8 hr tablet, , Disp: , Rfl: celecoxib (CELEBREX) 200 MG capsule, Take 1 capsule (200 mg total) by mouth daily., Disp: 90 capsule, Rfl: 0 cetirizine 10 MG chewable tablet, Chew 1 tablet (10 mg total) by mouth daily., Disp: , Rfl: FLUTICASONE PROPIONATE 50 MCG/ACT nasal spray, SPRAY 2 SPRAYS INTO EACH NOSTRIL EVERY DAY, Disp: 48mL, Rfl: 0 hydroCHLOROthiazide (MICROZIDE) 12.5 MG tablet, take 1 tablet every day, Disp: 90 tablet, Rfl: 1 losartan (COZAAR) 50 MG tablet, take 1 tablet every day, Disp: 90 tablet, Rfl: 1 omeprazole (PRILOSEC) 40 MG capsule, TAKE 1 CAPSULE EVERY DAY, Disp: 90 capsule, Rfl: 1 oxybutynin XL (DITROPAN-XL) 10 MG 24 hr tablet, Take 1 tablet (10 mg total) by mouth daily., Disp: 90 tablet, Rfl: 1 Allergies: Review of patient's allergies indicates: No Known Allergies Medical History: Past Medical History: Diagnosis Date Adhesive capsulitis of left shoulder GERD (gastroesophageal reflux disease) Hypertension Surgical History: Past Surgical History: Procedure Laterality Date BREAST SURGERY 1984 Clogged milk duct SECTION CHOLECYSTECTOMY LAPAROSCOPIC COLONOSCOPY N/A 07/13/2020 COLONOSCOPY performed by Scotty Ruiz MD at [facility] GI COLONOSCOPY STOMA DX INCLUDING COLLJ SPEC SPX 2010 WNL, 02/2012 POLYP, 02/2017 POLYP MOI HC LAP TOTAL HYSTERECTOMY REMOVAL BOTH TUBES AND OVARIES--BLEEDING HYSTERECTOMY Social History: Social History Socioeconomic History Marital status: Number of children: 2 Tobacco Use Smoking status: Never Passive exposure: Past Smokeless tobacco: Never Tobacco comments: na Vaping Use Vaping status: Never Used Substance and Sexual Activity Alcohol use: Yes Comment: 1 or 2 drinks per week Drug use: No Sexual activity: Not Currently control/protection: Post-menopausal Family History: Family History Problem Relation Name Age of Onset Breast Cancer Sister 63 Prostate Cancer Father Lewis Velazquez Cancer Father Lewis Velazquez Diabetes Other Osteoporosis Other Hypertension Mother Lupe Velazquez VITALS: Filed Vitals: 12/30/23 1048 BP: 111/63 Pulse: 68 Weight: 88 kg (194 lb) Height: 1.676 m (5' 6 ) PE: Physical exam: General: Patient's appearance is normal, well-nourished, well-developed, no apparent distress Neuro psych: Alert and oriented x4, normal voice/speech/tone, normal judgment and mood Skin: No significant rash or erythematous eruption, swelling or evidence of skin infection Neuromuscular: General strength and tone throughout normal gait is antalgic Musculoskeletal: Right hip/pelvis: Mild tenderness to palpation lateral trochanteric region. No mid gluteal tenderness. Anterior hip tender to palpation. Mild over the AIIS. Range of motion flexion to 90 with pain symptoms to the groin external rotation 40-50 pain symptoms to the groin. Internal rotation 5-10. Abduction 45. Hip thrust mildly positive logroll mildly positive. FADIR positive. Normal strength. Left hip: Range of motion 110 degrees flexion external rotation 70-80 internal rotation 20 abduction 50-60. Negative logroll negative hip thrust. Negative FADIR. Procedures MRI HIP RT WO CON Result Date: 12/01/[address] [address] EXAMINATION: MRI RIGHT HIP WITHOUT CONTRAST EXAM DATE: 11/30/2023 3:53 PM REASON FOR EXAM: right hip pain COMPARISON: None TECHNIQUE: Multiplanar multisequence imaging of the hip without intravenous contrast. FINDINGS: Limited evaluation of the lower lumbar spine demonstrates degenerative disease. Limited evaluation of the sacroiliac joints demonstrates osteoarthritis. Hamstring origins within normal limits. Evaluation with a straw demonstrates no abnormal fluid collection or mass. Limited imaging of the left hip demonstrates early osteoarthritis. Dedicated images of the right hip: Mild gluteus medius and minimus atrophy. Mild joint effusion. Severe osteoarthritis of the subchondral cyst formation superior femoral head and acetabular roof. Posterior labral tear is suspected.No evidence of avascular necrosis or fracture. Gluteus medius and minimus insertions intact. No susp icious bone lesion. IMPRESSION: 1. The dominant finding is asymmetric severe right hip osteoarthritis. Given the degreeof subcortical cyst formation, CPPD deposition arthropathy is a consideration as well. 2. Posteriorlabral tear suspected. 3. No evidence of fracture or suspicious bone lesion. 4. Mild right hip effusion. 5. Mild gluteus medius and minimus atrophy. Referred By: FRAN ESPINAL Interpreted By: Sanju Lombardi MD, 12/01/2023 8:34 PM Diagnoses/Impression: 1. Primary osteoarthritis of right hip Recommendations and Plan: Right hip osteoarthritis: Reviewed underlying diagnosis with patient today. This is in all likelihood the cause of her anterior hip groin pain symptoms going down the thigh into the knee. Continue with conservative treatment with medication activity modification to avoid excessive impact exercise activities manipulation of the hip. May consider cortisone injection treatment for management of painsymptoms but this may accelerate her arthritis even further. Certainly would qualify for primary hip replacement as well for management of pain symptoms. Patient where she did in definitive treatment/hip replacement. Will refer her over to Dr. Castellon for discussion of this and hopefully surgery in the new year. All questions answered patient agrees with plan routine postinjection precautions. Handouts provided to patient regarding condition and treatment options I personally spent _30____ minutes spent total on patient encounter today. This includes [id number] and non ryrw-tu-fiia time with review of chart and studies, interval history and physical exam, decision making process, ordering of diagnositic/therapeutic tests or procedures, educational and prevention counseling and excludes time spent performing separately reportable services I personally spent additional ____ minutes during encounter today performing therapeutic or diagnostic procedure(s). GIANFRANCO KNOWLES MD 12/30/2023 Portions of this note were dictated using AppTap speech recognition software. Occasional wrong wordor sound-alike substitutions may have occurred due to the inherent limitations of voice recognition software. Please read the chart carefully and recognize, using context, where the substitutions may have occurred. documented in this encounter Plan of Treatment Upcoming Encounters Date Type Department Care Team (Late st Contact Info) Description 05/01/2024 8:00 AM PRINCIPAL JAVA SOFTWARE ENGINEER Appointment [facility] ONE [facility] [place] [address] Edgard Washington MD Three [facility] [address] [place] [address] 06/02/2024 10:15 AM CDT Office Visit [facility] THREE [facility], [address] [place] [address] Edgard Washington MD Three [facility] [address] [place] [address] documented as of this encounter Visit Diagnoses Diagnosis Primary osteoarthritis of right hip- Primary Primary localized osteoarthrosis, pelvic region and thigh documented in this encounter Additional Health Concerns Assessment Noted Time PHQ-9 Depression Total Score: 0 11/06/19 9:30 AM CDT documented as of this encounter Care Teams Hide Examiner Relationship Specialty Start Date End Date Fran Espinal MD [address] [facility] [address] [place] [phone] PCP - General FAMILY PRACTICE 06/05/23 documented as of this encounter
--- OUTSIDE RECORDS SUMMARY | 2024-03-23 01:32 | XMS_ITS | Encounter Summary ---
Author Organization [facility] Address [address] [place] [address]. 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/NAVIGATOR Appointment [facility] ONE [facility] [place], [place] [address] Edgard Washington MD Three [facility] [address] [place] [address] 06/02/2024 10:15 AM CDT Office Visit [facility] THREE [facility], ED [address] [place] [address] Edgard Washington MD Three [facility] [address] [place] [address] documented as of this encounter Visit Diagnoses Not on filedocumented in this encounter Additional Health Concerns Assessment Noted Time PHQ-9 Depression Total Score: 0 02/11/20 21 1:25 PM LCAC RADAR OPERATOR/NAVIGATOR documented as of this encounter Care Teams Technical Services Analyst Relationship Specialty Start Date End Date Marii Randle MD [address] [facility] [address] [place] [address] PCP - General FAMILY PRACTICE 06/05/23 documented as of this encounter
--- OUTSIDE RECORDS SUMMARY | 2024-03-23 01:32 | XMS_ITS | Encounter Summary ---
Author Organization [facility] Address [address] [place] [address]. [place], [place] [address] [place] [address] Care Team Providers Care Rail Layer Name Role Phone Marii Randle MD Primary Care Provider [phone] Reason for Visit * Reason Onset Date Comments Results 07/09/2023 NCS/EMG Encounter Details Date Type Department Care Team (Late st Contact Info) Description 07/09/2023 Telephone [facility] Family Medicine - [place] [address] [facility], [address] [place] [address] Marii Randle MD [address] [facility] ED [address] [place] [phone] Results (NCS/EMG) Social History Tobacco Use Types Packs/Day Years [...] as of this encounter Progress Notes * Selina Marks RN - 07/09/2023 2:52 PM CDT Spoke with patient and informed her of her NCVS/EMG results and recommendations as noted per Dr. Randle. Patient verbalized understanding of results and agrees to recommendations. She states she recalls being contacted by referrals with info but no further contact to schedule the appt. Patient requests the information to be sent to her via message and she will contact their office for an appt. Opportunity given for all questions to be answered, no further needs voiced at this time. * Selina Marks RN - 07/09/2023 2:48 PM CDT ----- Message from Marii Randle MD sent at 07/09/2023 2:45 PM CDT ----- The nerve conduction study reads as her thigh pain is coming from her back. Has she seen neurosurgery or have an upcoming apt. 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 Appointment [facility] [place] [address] Edgard Washington MD Three [facility], [address] [place] [address] 06/02/2024 10:15 AM CDT Office Visit [facility] THREE [facility], ED [address] [place] [address] Edgard Washington MD Three [facility], [address] [place] [address] documented as of this encounter Visit Diagnoses Not on filedocumented in this encounter Additional Health Concerns Assessment Noted Time PHQ-9 Depression Total Score: 0 02/11/20 21 1:25 PM FURNITURE SHAMPOOER documented as of this encounter Care Teams Rail Layer Relationship Specialty Start Date End Date Marii Randle MD [address] [facility] [address] [place] [phone] PCP - General FAMILY PRACTICE 06/05/23 documented as of this encounter
--- OUTSIDE RECORDS SUMMARY | 2024-03-23 01:33 | XMS_ITS | Encounter Summary ---
Author Organization [facility] Address [address] [place] [address]. [place] [address] [place] [address] Care Team Providers Care Wire Wrapper Machine Operator Name Role Phone Mariana Ruiz DO Primary Care Provider Reason for Visit * Reason Onset Date Comments Medication 01/22/2023 Encounter Details Date Type Department Care Team (Late st Contact Info) Description 01/22/2023 Telephone [facility] [address] [facility] [address] [place] [address] Mariana Ruiz DO [address] [place] [address] Medication Social History Tobacco Use Types Packs/Day Years [...] as of this encounter Progress Notes * China Reyes - 01/22/2023 4:46 PM CST Pt aware. Rx sent AL MOBILITY SPECIALIST * Mariana Ruiz DO - 01/22/2023 3:11 PM CST Ok to change [id number] to bid #[phone] AL MOBILITY SPECIALIST * Milagros Husain CMA - 01/22/2023 2:58 PM CST Pt asking if she can increase her Celebrex from 200 mg daily to 400 mg daily for pain. She had a steroid injection to her back and hip. She was referred to someone by her chiropractor. AL MOBILITY SPECIALIST documented in this encounter Plan of Treatment Upcoming Encounters Date Type Department Care Team (Late st Contact Info) Description 05/01/2024 8:00 AM GLOBAL MOBILITY SPECIALIST Appointment [facility] [place] [address] Edgard Washington MD Three [facility], [address] [place] [address] 06/02/2024 10:15 AM CDT Office Visit [facility] THREE [facility], ED [address] [place] [address] Edgard Washington MD Three [facility], [address] [place] [address] documented as of this encounter Visit Diagnoses Diagnosis History of vertebral compression fracture documented in this encounter Additional Health Concerns Assessment Noted Time PHQ-9 Depression Total Score: 0 02/11/20 21 1:25 PM GLOBAL MOBILITY SPECIALIST documented as of this encounter Care Teams Wire Wrapper Machine Operator Relationship Specialty Start Date End Date Mariana Ruiz DO [address] [place] [address] PCP - General FAMILY PRACTICE 09/27/17 06/04/23 documented as of this encounter
--- OUTSIDE RECORDS SUMMARY | 2024-03-23 01:33 | XMS_ITS | Encounter Summary ---
Author Organization [facility] Address [address] [place] [address]. [place] [address] [place] [address] Care Team Providers Care Drawer In Dobby Loom Name Role Phone Mariana Ruiz Primary Care Provider [phone] Encounter Details Date Type Department Care Team (Latest Contact Info) Description 07/11/2020 12:40 PM CDT - 07/11/2020 11:59 PM CDT Hospital Encounter [facility] [place] [address] Scotty Ruiz MD [address] [address] Discharge Disposition: Home or Self Care (Routine Discharge) Social History Tobacco Use Types Packs/Day Years Used Date Smoking Tobacco: Never Smokeless Tobacco: Never Alcohol Use Standard Drinks/Week Comments Yes 0 (1 standard drink = 0.6 oz pur e alcohol) SOCIAL PHQ-2 Answer Date Recorded PHQ-2 Score - If the patient scores above 3, please move on to questions 3-9 0 01/20/2020 Comments Unknown Sex and Gender Information Value Date Recorded Sex Assigned at Not on file Legal Sex Female 6:40 PM CDT Gender Identity Not on file Sexual Orientation Not on file COVID-19 Exposure Response Date Recorded In the last month, have you been in contact with someone who was confirmed or suspected to have Coronavirus / COVID-19? No / Unsure 07/08/2020 9:59 AM CDT documented as of this encounter Medications at Time of Discharge cetirizine 10 MG chewable tablet Chew 1 tablet (10 mg total) by mouth daily. FLUTICASONE PROPIONATE 50 MCG/ACT nasal sprayIndications:A llergic rhinitis, unspecified seasonality, unspecified trigger SPRAY 2 SPRAYS INTO EACH NOSTRIL EVERY DAY 48 mL 01/05/2020 aspirin EC 81 MG tablet Take 1 tablet by mouth daily. 2 CELECOXIB 200 MG capsuleIndications :History of vertebral compression fracture TAKE 1 CAPSULE BY MOUTH EVERY DAY 90 capsule 2 04/05/2020 1 HYDROCHLOROTHIAZID E 12.5 MG tabletIndications: Essential hypertension TAKE 1 TABLET BY MOUTH EVERY DAY 90 tablet 2 04/05/2020 1 LOSARTAN 100 MG tabletIndications: Essential hypertension TAKE 1/2 TABLET BY MOUTH EVERY DAY 45 tablet 2 04/05/2020 1 OMEPRAZOLE 40 MG capsuleIndications :Essential hypertension TAKE 1 CAPSULE BY MOUTH EVERY DAY 90 capsule 2 04/05/2020 1 OXYBUTYNIN XL 5 MG 24 hr tabletIndications: Hyperactivity of bladder TAKE 1 TABLET BY MOUTH EVERY DAY 90 tablet 2 04/05/2020 1 vitamin C 500 MG tablet Take 1 tablet by mouth 2 (two) times daily. 3 vitamin D3, cholecalciferol, 10 MCG (400 UNIT) tablet Take 400 Units by mouth daily. 3 documented as of this encounter Plan of Treatment Upcoming Encounters Date Type Department Care Team (Late st Contact Info) Description 05/01/2024 8:00 AM SEARCH ENGINE OPTIMIZATION SPECIALIST Appointment [facility] [place] [address] Edgard Washington MD Three [facility] [address] [place] [address] 06/02/2024 10:15 AM CDT Office Visit [facility] THREE [facility], [address] [place] [address] Edgard Washington MD Three [facility] [address] [place] [address] documented as of this encounter Procedures Procedure Name Priority Date/Time Associated Diagnosis Comments CORONAVIRUS (COVID 19) PCR Routine 07/11/2020 11:20 AM CDT documented in this encounter Results * CORONAVIRUS (COVID 19) PCR (07/11/2020 11:20 AM CDT) CORONAVIRUS SARS COV 2 PCR (RESP) NEGATIVE NEGATIVE 07/11/2020 8:50 PM CDT [facility] Comment: NEGATIVE RESULTS DO NOT PRECLUDE SARS-CoV-2 INFECTION AND SHOULD NOT BE USED THE SOLE BASIS FOR PATIENT MANAGEMENT DECISIONS. NEGATIVE RESULTS MUST BE COMBINED WITH CLINICAL OBSERVATIONS, PATIENT HISTORY, AND EPIDEMIOLOGICAL INFORMATION. THE SARS-CoV-2 TEST HAS BEEN AUTHORIZED BY THE FDA UNDER AN EUA FOR USE BY AUTHORIZED LABORATORIES. FIRST TEST =FASTING UNKNOWN 07/11/2020 1:09 PM CDT [facility] EMPLOYED IN HEALTHCARE =FASTING UNKNOWN 07/11/2020 1:09 PM CDT [facility] SYMPTOMATIC DEFINED BY CDC =FASTING UNKNOWN 07/11/2020 1:09 PM CDT [facility] HOSPITALIZATION STATUS =FASTING UNKNOWN 07/11/2020 1:09 PM CDT [facility] PATIENT IN ICU =FASTING UNKNOWN 07/11/2020 1:09 PM CDT [facility] RESIDENT OF [facility] =FASTING UNKNOWN 07/11/2020 1:09 PM CDT [facility] 07/11/2020 11:2 0 AM CDT Scotty Ruiz MD MICROBIOLOGY - GENERAL IGLESIA TOBAR Final Result [facility] [address] [place] [address], [facility] [address] [place] [address], [id number] documented in this encounter Visit Diagnoses Diagnosis History of colon polyps Personal history of colonic polyps documented in this encounter Additional Health Concerns Infection Onset Date Last Indicated Resolved Time COVID-19 Rule Out 07/11/2020 07/11/2020 07/11/2020 8:50 PM CDT documented as of this encounter Care Teams Drawer In Dobby Loom Relationship Specialty Start Date End Date Mariana Ruiz DO [address] [place] [address] PCP - General FAMILY PRACTICE 09/27/17 06/04/23 documented as of this encounter
--- OUTSIDE RECORDS SUMMARY | 2024-03-23 01:33 | XMS_ITS | Encounter Summary ---
Author Organization [facility] Address [address] [place] [address]. [place], [place] [id number] [place] [address] Care Team Providers Care Striper Machine Name Role Phone Mariana Ruiz DO Primary Care Provider + [phone] Encounter Details Date Type Department Care Team (Latest Contact Info) Description 05/09/2022 Travel Social History Tobacco Use Types Packs/Day [...] Exposure Response Date Recorded In the last 10 days, have yo u been in contact with someone who was confirmed or suspected to have Coronavirus/COVID-19? No / Unsure 05/09/2022 8:45 AM PHARMACY INTAKE COORDINATOR documented as of this encounter Plan of Treatment Upcoming Encounters Date Type Department Care Team (Late st Contact Info) Description 05/01/2024 8:00 AM PHARMACY INTAKE COORDINATOR Appointment [facility] [place] [address] Edgard Washington MD Three [facility] [address] [place], [place] [id number] 06/02/2024 10:15 AM CDT Office Visit [facility] THREE [facility], [address] [place] [address] Edgard Washington MD Three [facility] [address] [place] [address] documented as of this encounter Visit Diagnoses Not on filedocumented in this encounter Additional Health Concerns Assessment Noted Time PHQ-9 Depression Total Score: 0 02/11/20 21 1:25 PM PHARMACY INTAKE COORDINATOR documented as of this encounter Care Teams Striper Machine Relationship Specialty Start Date End Date Mariana Ruiz DO [address] [place] [address] PCP - General FAMILY PRACTICE 09/27/17 06/04/23 documented as of this encounter
--- OUTSIDE RECORDS SUMMARY | 2024-03-23 01:33 | XMS_ITS | Encounter Summary ---
Author Organization [facility] Address [address] [place] [address]. [place], [place] [id number] [place] [address] Care Team Providers Care Pest Control Service Sales Agent Name Role Phone Mariana Ruiz Primary Care Provider [phone] Encounter Details Date Type Department Care Team (Late st Contact Info) Description 02/10/2021 1:50 PM CASE PACKER Laboratory Only [facility] [address] [facility] [address] [place] [phone] Social History Tobacco Use Types Packs/Day Years Used Date Smoking Tobacco: Never Smokeless Tobacco: Never Alcohol Use Standard Drinks/Week Comments Yes 0 (1 standard drink = 0.6 oz pur e alcohol) SOCIAL PHQ-2 Answer Date Recorded PHQ-2 Score - If the patient scores above 3, please move on to questions 3-9 0 02/10/2021 Comments No Sex and Gender Information Value Date Recorded Sex Assigned at Not on file Legal Sex Female 6:40 PM CDT Gender Identity Not on file Sexual Orientation Not on file documented as of this encounter Plan of Treatment Upcoming Encounters Date Type Department Care Team (Late st Contact Info) Description 05/01/2024 8:00 AM CASE PACKER Appointment [facility] [place] [place] [address] Edgard Washington MD Three [facility] [address] [place] [address] 06/02/2024 10:15 AM CDT Office Visit [facility] THREE [facility], [address] [place], [place] [address] Edgard Washington MD Three [facility] [address] [place], [place] [id number] Scheduled Orders Name Type Priority Associated Diagnoses Orde r Schedule SPECIMEN HANDLING, OFF->LAB Procedures Routine Urgency of urination Ordered: 02/10/2021 documented as of this encounter Procedures Procedure Name Priority Date/Time Associated Diagnosis Comments URINE BACTERIA CULTURE Routine 02/10/2021 1:57 PM CASE PACKER Urgency of urination documented in this encounter Results * (ABNORMAL) CULTURE URINE (02/10/2021 1:57 PM CASE PACKER) COMMENT (U) SEE RESULTS BELOW(A) [employer] [facility] Comment: ?? TEST: ? CULTURE: URINE ? SPECIMEN SOURCE: ?URINE - CLEAN CATCH ? SPECIMEN TYPE: ?URINE ? SPECIMEN DATE: ?02/10/2021 ??1:57 PM ? RESULT DATE: ?02/13/2021 ??6:32 AM ? RESULT STATUS: ?FINAL RESULT ? ABNORMAL: ? YES ? RESULTING LAB: ?[facility] ? [address] [place] [address] ? [place] [address] ? TEL: [phone] ? CULTURE ? >100,000 CFU/ML KLEBSIELLA PNEUMONIAE (ABNORMAL) ? SUSCEPTIBILITY ? KLEBSIELLA PNEUMONIAE ? METHOD ?FADIA ? AMIKACIN ?<=16 UG/ML ??SUSCEPTIBLE ? AMPICILLIN ?>16 UG/ML ?? RESISTANT ? AMPICILLIN/SULBACTAM ?<=8 UG/ML ?? SUSCEPTIBLE ? AZTREONAM ? <=4 UG/ML ?? SUSCEPTIBLE ? CEFAZOLIN ? <=8 UG/ML ?? SUSCEPTIBLE ? CEFEPIME ?<=4 UG/ML ?? SUSCEPTIBLE ? CEFOXITIN ? <=8 UG/ML ?? SUSCEPTIBLE ? CEFTAZIDIME ? <=1 UG/ML ?? SUSCEPTIBLE ? CEFTRIAXONE ? <=1 UG/ML ?? SUSCEPTIBLE ? CIPROFLOXACIN ? <=1 UG/ML ?? SUSCEPTIBLE ? GENTAMICIN ?<=4 UG/ML ?? SUSCEPTIBLE ? LEVOFLOXACIN ?<=2 UG/ML ?? SUSCEPTIBLE ? MEROPENEM ? <=1 UG/ML ?? SUSCEPTIBLE ? NITROFURANTOIN ?<=32 UG/ML ??SUSCEPTIBLE ? PIPERACILLIN/TAZOBACTAM ? <=16 UG/ML ??SUSCEPTIBLE ? TOBRAMYCIN ?<=4 UG/ML ?? SUSCEPTIBLE ? TRIMETHOPRIM/SULFAMETHOXAZOLE ?? <=2 UG/ML ?? SUSCEPTIBLE ? SUSCEPTIBILITY COMMENTS ? KLEBSIELLA PNEUMONIAE ? 02/13/2021 6:32 AM: P INDICATES RESULT IS SUBJECT TO ?CHANGE DEPENDING UPON ? FURTHER TESTING. ? 02/13/2021 6:32 AM: THIS RESULT HAS BEEN FINAL ?VERIFIED. NO ADDITIONAL OR ?CHANGED RESULTS ARE EXPECTED. ?? URINE SPECIMEN OBTAINED BY CLEAN CATCH PROCEDURE / Unknown 02/10/2021 1:57 PM CASE PACKER 02/11/2021 5:07 AM CASE PACKER us Mariana Ruiz DO MICROBIOLOGY - GENERAL ORDER WILLIAM Final Result [employer] [address] [place] [address], documented in this encounter Visit Diagnoses Diagnosis Urgency of urination- Primary documented in this encounter Additional Health Concerns Assessment Noted Time PHQ-9 Depression Total Score: 0 02/11/20 21 1:25 PM CASE PACKER documented as of this encounter Care Teams Pest Control Service Sales Agent Relationship Specialty Start Date End Date Mariana Ruiz DO [address] [place] [address] PCP - General FAMILY PRACTICE 09/27/17 06/04/23 documented as of this encounter
--- OUTSIDE RECORDS SUMMARY | 2024-03-23 01:33 | XMS_ITS | Encounter Summary ---
Author Organization [facility] Address [address] [place] [address]. [place] [address] [place] [address] Care Team Providers Care Rip Sawyer Name Role Phone Mariana Ruiz DO Primary Care Provider [phone] Reason for Visit * Reason Onset Date Comments Follow Up Call 02/10/2021 Encounter Details Date Type Department Care Team (Late st Contact Info) Description 02/10/2021 Telephone [facility] [address] [facility] [address] [place] [address] Mariana Ruiz DO [address] [place] [address] Follow Up Call Social History Tobacco Use Types Packs/Day Years [...] as of this encounter Progress Notes * Lázaro Carson RN - 02/10/2021 2:51 PM CST Pt called again, it was phenazopyridine and macrobid not cipro. T CRIER * Lázaro Carson RN - 02/10/2021 2:26 PM CST Pt called back and said the 2 previous meds for UTI were cipro and macrobid? Ncb: pt if further instructions T CRIER documented in this encounter Plan of Treatment Upcoming Encounters Date Type Department Care Team (Late st Contact Info) Description 05/01/2024 8:[address] CRIER Appointment [place] [facility] ONE [facility] [place] [address] Edgard Washington MD Three [facility] [address] [place] [address] 06/02/2024 10:15 AM CDT Office Visit [facility] THREE [facility], [address] [place] [address] Edgard Washington MD Three [facility] [address] [place] [address] documented as of this encounter Visit Diagnoses Not on filedocumented in this encounter Additional Health Concerns Assessment Noted Time PHQ-9 Depression Total Score: 0 02/11/20 21 1:[address] CRIER documented as of this encounter Care Teams Rip Sawyer Relationship Specialty Start Date End Date Mariana Ruiz DO [address] [place], [place] [address] PCP - General FAMILY PRACTICE 09/27/17 06/04/23 documented as of this encounter
--- OUTSIDE RECORDS SUMMARY | 2024-03-23 01:33 | XMS_ITS | Encounter Summary ---
Author Organization [facility] Address [address] [place] [address]. [place] [address] [place] [address] Care Team Providers Care Fire Boss Name Role Phone Yamilet Mckeon DO Primary Care Provider [phone] Reason for Visit * Reason Comments Acute Note Rash on arms & breas t Encounter Details Date Type Department Care Team (Late st Contact Info) Description 08/23/2021 2:15 PM CDT [facility] [address] [place] [address] Yamilet Mckeon DO [address] [place], [place] [address] Acute Note (Rash on arms & breast) Social History Tobacco Use Types Packs/Day Years [...] Sign Reading Time Taken Comments Blood Pressure 144/88 08/23/2021 2:00 PM CDT Pulse - - Temperature - - Respiratory Rate - - Oxygen Saturation - - Inhaled Oxygen Concentration - - Weight 99.3 kg (219 lb) 08/23/2021 2:00 PM CDT Height - - Body Mass Index 35.35 02/10/2021 12:59 PM STAGE DIRECTOR documented in this encounter Progress Notes * Yamilet Mckeon, DO - 08/23/2021 2:15 PM CDT Reason for Visit: Acute Note (Rash on arms & breast) History of Present Illness: Here with rash both forearms and left breast, has had about 2wks and terrible itching, has had someweeping but that stopped No longer spreading, does work out in her yard a lot Using cortisone cream and takes zyrtec daily Did have covid over last mth but over all of that ROS: Review of Systems Constitutional: As per HPI Medications: Current Outpatient Medications: ??? celecoxib 200 MG capsule, Take 1 capsule (200 mg total) by mouth daily., Disp: 90 capsule, Rfl:1 ??? cetirizine 10 MG chewable tablet, Chew 10 mg by mouth daily., Disp: , Rfl: ??? FLUTICASONE PROPIONATE 50 MCG/ACT nasal spray, SPRAY 2 SPRAYS INTO EACH NOSTRIL EVERY DAY, Disp: 48 mL, Rfl: 0 ??? HYDROCHLOROTHIAZIDE 12.5 MG tablet, TAKE 1 TABLET BY MOUTH EVERY DAY, Disp: 90 tablet, Rfl: 0 ??? losartan 100 MG tablet, Take 0.5 tablets (50 mg total) by mouth daily., Disp: 45 tablet, Rfl: 1 ??? OMEPRAZOLE 40 MG capsule, TAKE 1 CAPSULE BY MOUTH EVERY DAY, Disp: 90 capsule, Rfl: 0 ??? oxybutynin XL 5 MG 24 hr tablet, Take 1 tablet (5 mg total) by mouth daily., Disp: 90 tablet, Rfl: 1 ??? polyethylene glycol packet, Take 17 g by mouth daily. Dissolve powder in 240 mL water, Disp: , Rfl: ??? predniSONE 20 MG tablet, Take 1 tablet (20 mg total) by mouth 2 (two) times daily for 10 days.,Disp: 20 tablet, Rfl: 0 ??? vitamin C 500 MG tablet, Take 1 tablet by mouth 2 (two) times daily., Disp: , Rfl: ??? vitamin D3, cholecalciferol, 10 MCG (400 UNIT) tablet, Take 400 Units by mouth daily., Disp: , Rfl: ??? Zinc 50 MG Tab, , Disp: , Rfl: No Known Allergies Past Medical History: Diagnosis Date ??? Adhesive capsulitis of left shoulder ??? GERD (gastroesophageal reflux disease) ??? Hypertension Past Surgical History: Procedure Laterality Date ??? SECTION ??? CHOLECYSTECTOMY LAPAROSCOPIC ??? COLONOSCOPY 2010 WNL, 02/2012 POLYP, 02/2017 POLYP MOI ??? COLONOSCOPY N/A 07/13/2020 COLONOSCOPY performed by Scotty Ruiz MD at [facility] ??? HC LAP TOTAL HYSTERECTOMY REMOVAL BOTH TUBES AND OVARIES--BLEEDING ??? HYSTERECTOMY Social History Socioeconomic History ??? Marital status: ??? Number of children: 2 Tobacco Use ??? Smoking status: Never Smoker ??? Smokeless tobacco: Never Used Substance and Sexual Activity ??? Alcohol use: Yes Comment: SOCIAL ??? Drug use: No Family History Problem Relation Name Age of Onset ??? Breast Cancer Sister 63 ??? Prostate Cancer Father ??? Diabetes Other ??? Osteoporosis Other Family Status Relation Name Status ??? Sister (Not Specified) ??? Father (Not Specified) ??? Other (Not Specified) Physical Exam Vitals and nursing note reviewed. Constitutional: General: She is not in acute distress. Appearance: She is not ill-appearing. Skin: Findings: Rash (both forearms have healing rash down by wrists and in antecubital area, confluent erythema and papules, no weeping, same type rash over left breast) present. Filed Vitals: 08/23/21 1400 BP: (!) 144/88 Weight: 99.3 kg (219 lb) Diagnoses/Impression: 1. Contact dermatitis, unspecified contact dermatitis type, unspecified trigger predniSONE 20 MG tablet Recommendations and Plan: prednsione Cont zyrtec Avoid getting too hot Orders Placed This Encounter ??? predniSONE 20 MG tablet No LOS data to display YAMILET MCKEON DO Referring Provider: No ref. provider found PCP: YAMILET MCKEON DO documented in this encounter Plan of Treatment Upcoming Encounters Date Type Department Care Team (Late st Contact Info) Description 05/01/2024 8:00 AM STAGE DIRECTOR Appointment [facility] [address] [facility] [place] [address] Edgard Washington MD Three [facility] [address] [place] [address] 06/02/2024 10:15 AM CDT Office Visit [facility] THREE [facility], [address] [place] [address] Edgard Washington MD Three [facility], [address] [place] [address] documented as of this encounter Visit Diagnoses Diagnosis Contact dermatitis, unspecified contact dermatitis type, unspecified trigger- Primary documented in this encounter Additional Health Concerns Assessment Noted Time PHQ-9 Depression Total Score: 0 02/11/20 21 1:25 PM STAGE DIRECTOR documented as of this encounter Care Teams Fire Boss Relationship Specialty Start Date End Date Yamilet Mckeon DO [address] [place] [address] PCP - General FAMILY PRACTICE 09/27/17 06/04/23 documented as of this encounter
--- OUTSIDE RECORDS SUMMARY | 2024-03-23 01:33 | XMS_ITS | Encounter Summary ---
Author Organization [facility] Address [address] [place] [address]. [place], [place] [address] [place] [address] Care Team Providers Care Cafe Or Restaurant Manager Name Role Phone Yamilet Mckeon DO Primary Care Provider [phone] Reason for Visit * Reason Comments Physical annual;wwe Encounter Details Date Type Department Care Team (Late st Contact Info) Description 02/10/2021 1:00 PM CLOTH SPONGER Office Visit [facility] [address] [place] [id number] Yamilet Mckeon DO [address] [place], [place] [id number] Physical (annual;wwe) Social History Tobacco Use Types Packs/Day Years [...] Sign Reading Time Taken Comments Blood Pressure 128/80 02/10/2021 12:59 PM CLOTH SPONGER Pulse 68 02/10/2021 12:59 PM CLOTH SPONGER Temperature - - Respiratory Rate - - Oxygen Saturation - - Inhaled Oxygen Concentration - - Weight 108 kg (238 lb) 02/10/2021 12:59 PM CLOTH SPONGER Height 167.6 cm (5' 6 ) 02/10/2021 12:59 PM CLOTH SPONGER Body Mass Index 38.41 02/10/2021 12:59 PM CLOTH SPONGER documented in this encounter Progress Notes * Sixto Amos - 02/10/2021 1:00 PM CSTAddended by: SIXTO AMOS on: 02/10/2021 01:44 PM Modules accepted: Orders H SPONGER * Yamilet Mckeon DO - 02/10/2021 1:00 PM CSTAddended by: YAMILET MCKEON on: 02/10/2021 01:58 PM Modules accepted: Orders H SPONGER * Yamilet Mckeon DO - 02/10/2021 1:00 PM CST Reason for Visit: Physical (annual;wwe) History of Present Illness: Here for annual Doing fairly well Has had a couple of episodes when she skips a meal where she gets lightheaded and then will feel better after a while Never has passed out Also had UTI about a mth ago in [place], needs urine rechecked, sometimes urgency ROS: Review of Systems Constitutional: Negative. Respiratory: Negative. Cardiovascular: Negative. Gastrointestinal: Negative. Genitourinary: Positive for urgency. Musculoskeletal: Negative. Psychiatric/Behavioral: Negative. Medications: Current Outpatient Medications: ??? aspirin EC 81 MG tablet, Take 1 tablet by mouth daily., Disp: , Rfl: ??? CELECOXIB 200 MG capsule, TAKE 1 CAPSULE BY MOUTH EVERY DAY, Disp: 90 capsule, Rfl: 0 ??? cetirizine 10 MG chewable tablet, Chew 10 mg by mouth daily., Disp: , Rfl: ??? FLUTICASONE PROPIONATE 50 MCG/ACT nasal spray, SPRAY 2 SPRAYS INTO EACH NOSTRIL EVERY DAY, Disp: 48 mL, Rfl: 0 ??? HYDROCHLOROTHIAZIDE 12.5 MG tablet, TAKE 1 TABLET BY MOUTH EVERY DAY, Disp: 90 tablet, Rfl: 0 ??? LOSARTAN 100 MG tablet, TAKE 1/2 TABLET BY MOUTH EVERY DAY, Disp: 45 tablet, Rfl: 0 ??? OMEPRAZOLE 40 MG capsule, TAKE 1 CAPSULE BY MOUTH EVERY DAY, Disp: 90 capsule, Rfl: 0 ??? OXYBUTYNIN XL 5 MG 24 hr tablet, TAKE 1 TABLET BY MOUTH EVERY DAY, Disp: 90 tablet, Rfl: 0 ??? polyethylene glycol packet, Take 17 g by mouth daily. Dissolve powder in 240 mL water, Disp: , Rfl: ??? vitamin C 500 MG tablet, Take 1 tablet by mouth 2 (two) times daily., Disp: , Rfl: ??? vitamin D3, cholecalciferol, (CHOLECALCIFEROL) 10 MCG (400 UNIT) tablet, Take 400 [...] COLONOSCOPY performed by Scotty Ruiz MD at [facility] ??? HC LAP TOTAL HYSTERECTOMY REMOVAL BOTH TUBES AND OVARIES--BLEEDING ??? HYSTERECTOMY Social History Tobacco Use ??? Smoking status: Never Smoker ??? Smokeless tobacco: Never Used Substance Use Topics ??? Alcohol use: Yes Comment: SOCIAL Social History Socioeconomic History ??? Marital status: Spouse name: Not on file ??? Number of children: 2 ??? Years of education: Not on file ??? Highest education level: Not on file Physical Exam Constitutional: She is oriented to person, place, and time. She appears well- developed. No distress. HENT: Right Ear: Tympanic membrane and external ear normal. Left Ear: Tympanic membrane and external ear normal. Nose: Nose normal. Mouth/Throat: Mucous membranes are moist. Oropharynx is clear. Eyes: Conjunctivae are normal. Neck: Neck supple. No thyromegaly present. Cardiovascular: Normal rate and regular rhythm. Pulmonary/Chest: Effort normal and breath sounds normal. Right breast exhibits no mass, no nipple discharge and no tenderness. Left breast exhibits no mass, no nipple discharge and no tenderness. Abdominal: Soft. Bowel sounds are normal. She exhibits no mass. There is no tenderness. No hernia. Genitourinary: Genitourinary Comments: S/p hyst Musculoskeletal: Normal range of motion. She exhibits no tenderness. Right lower leg: She exhibits no edema. Left lower leg: She exhibits no edema. Lymphadenopathy: She has no cervical adenopathy. Neurological: She is alert and oriented to person, place, and time. Skin: Skin is warm and dry. Psychiatric: Mood normal. Nursing note and vitals reviewed. Filed Vitals: 02/10/21 1259 BP: 128/80 Pulse: 68 Weight: 108 kg (238 lb) Height: 5' 6 (1.676 m) Diagnoses/Impression: 1. Preventative health care 2. Encounter for screening mammogram for malignant neoplasm of breast MG SCREENING BRANDY DIGI 3. Weight gain THYROID STIM HORMONE, TSH 4. Lightheadedness COMPREHENSIVE METABOLIC PANEL CBC, AUTO, NO DIFF THYROID STIM HORMONE, TSH 5. Atherosclerosis of aorta (CMS/HCC) LIPID PANEL COMPREHENSIVE METABOLIC PANEL 6. Primary hypertension LIPID PANEL COMPREHENSIVE METABOLIC PANEL 7. Obesity without serious comorbidity, unspecified classification, unspecified obesity type LIPID PANEL COMPREHENSIVE METABOLIC PANEL 8. NUD (nonulcer dyspepsia) 9. Hyperactivity of bladder 10. History of vertebral compression fracture 11. Allergic rhinitis, unspecified seasonality, unspecified trigger Recommendations and Plan: Remain active, exercise, healthy diet, eye exam when due, flu shot Repeat CCUA Don't skip meals, increase water intake Mamm Labs when fasting UA pos, send for culture cipro for 5d Repeat ccua 2wks Reviewed and updated this visit by provider: Tobacco Allergies Meds Problems Med Hx Surg Hx Fam Hx Orders Placed This Encounter ??? LIPID PANEL ??? COMPREHENSIVE METABOLIC PANEL ??? CBC, AUTO, NO DIFF ??? THYROID STIM HORMONE, TSH ??? MG SCREENING BRANDY DIGI YAMILET MCKEON DO Referring Provider: No ref. provider found PCP: YAMILET MCKEON DO H SPONGER H SPONGER documented in this encounter Plan of Treatment Upcoming Encounters Date Type Department Care Team (Late st Contact Info) Description 05/01/2024 8:00 AM CLOTH SPONGER Appointment [facility] [address] [facility] [place] [address] Edgard Washington MD [address] [place] [address] 06/02/2024 10:15 AM CDT Office Visit [facility] [address] [facility] [place] [address] Edgard Washington MD [address] [facility] [place] [address] documented as of this encounter Procedures Procedure Name Priority Date/Time Associated Diagnosis Comments URINALYSIS AUTO DIP Routine 02/10/2021 Urgency of urination documented in this encounter Results * THYROID STIM HORMONE, TSH (10/04/2021 10:46 AM CDT) TSH 4.16 0.30 - 5.33 UIU/ML [facility] 10/04/2021 10:4 6 AM CDT 10/05/2021 4:49 AM CDT us Yamilet Mckeon DO LABORATORY Final [facility] [place] [address] [place] [address], * CBC, AUTO, NO DIFF (10/04/2021 10:46 AM CDT) WBC 4.8 3.6 - 10.2 10'3/UL [facility] RBC 4.60 BASED ON DOCUMENTED LEGAL SEX 10'6/UL [facility] HGB 13.3 BASED ON DOCUMENTED LEGAL SEX G/DL [facility] HCT 41.3 BASED ON DOCUMENTED LEGAL SEX % [facility] MCV 89.0 82.0 - 99.0 FL [facility] MCH 29.0 27.0 - 33.0 PG [facility] MCHC 32.0 32.0 - 36.0 G/DL [facility] RDW CALCULATED 15.0 11.0 - 15.0 % [facility] PLT 245 150 - 450 10'3/UL [facility] MPV 12.6 9.8 - 12.7 FL [facility] NRBC 0.00 0 % [facility] ABS. NUCLEATED RBC'S 0.0 0 10'3/UL [facility] Comment: 10/05/2021 5:29 AM: P INDICATES PARTIAL RESULTS ON A PANEL HAVE BEEN RELEASED. ADDITIONAL RESULTS WILL FOLLOW. 10/05/2021 5:29 AM: THIS RESULT HAS BEEN FINAL VERIFIED. NO ADDITIONAL OR CHANGED RESULTS ARE EXPECTED. 10/04/2021 10:4 6 AM CDT 10/05/2021 4:49 AM CDT us Yamilet Mckeon DO LABORATORY Final Result [facility] [address] [place] [address], * COMPREHENSIVE METABOLIC PANEL (10/04/2021 10:46 AM CDT) SODIUM S/P/B 141 133 - 146 MMOL/L [facility] POTASSIUM S/P/B 3.7 3.5 - 5.1 MMOL/L [facility] CHLORIDE S/P/B 104 98 - 107 MMOL/L [facility] CO2 30 21 - 31 MMOL/L [facility] ANION GAP 7 4 - 13 MMOL/L [facility] BUN 17 7 - 25 MG/DL [facility] CREATININE S/P/B 0.79 0.60 - 1.30 MG/DL [facility] EGFR NON-AFR. AMER. 83 >=60 ML/MIN/1.7 3 M2 [facility] CALCIUM S/P/B 9.7 8.3 - 10.5 MG/DL [facility] GLUCOSE 86 70 - 100 MG/DL [facility] TOTAL PROTEIN S/P/B 6.6 6.4 - 8.3 G/DL [facility] ALBUMIN S/P/B 4.1 3.5 - 5.0 G/DL [facility] ALT 14 9 - 43 UNITS/L [facility] ALKALINE PHOSPHATASE S/P/B 55 34 - 104 UNITS/L [facility] AST 17 13 - 39 UNITS/L [facility] BILIRUBIN TOTAL S/P/B 0.6 0.2 - 1.2 MG/DL [facility] Comment:IS PATIENT FASTING?- >YES 10/04/2021 10:4 6 AM CDT 10/05/2021 4:49 AM CDT Yamilet Eyal Joseph DO LABORATORY Final Result [facility] [address] [place] [address], * (ABNORMAL) LIPID PANEL (10/04/2021 10:46 AM CDT) CHOLESTEROL 217(H) 0 - 199 MG/DL [facility] TRIGLYCERIDES 65 0.00 - 150.00 MG/DL [facility] Comment: NCEP REFERENCE VALUES FOR TRIGLYCERIDES: NORMAL: ? <150 MG/DL BORDERLINE HIGH: ?150 - 199 MG/DL HIGH: ? 200 - 499 MG/DL VERY HIGH: ?>/= 500 MG/DL HDL 90 >40 MG/DL [facility] LDL (CALCULATED) 114(H) 0 - 99 MG/DL [facility] Comment: CUTOFF VALUES RECOMMENDED BY THE NATIONAL CHOLESTEROL EDUCATION PROGRAM: DESIRABLE: ?CHOLESTEROL <200 MG/DL ? LDL <100 MG/DL BORDERLINE: ?? CHOLESTEROL 200-239 MG/DL ?LDL 101-159 MG/DL HIGHER RISK: ??CHOLESTEROL >240 MG/DL ? LDL >160 MG/DL, HDL <40 MG/DL NON HDL CHOLESTEROL 127 NO REFERENCE RANGE MG/DL [facility] Comment: A REASONABLE GOAL FOR NON-HDL CHOLESTEROL IS ONE THAT IS 30 MG/DL HIGHER THAN THE LDL CHOLESTEROL GOAL. CHOL/HDL RATIO 2.4 0.0 - 5.0 . [facility] Comment:IS PATIENT FASTING?- >YES 10/04/2021 10:4 6 AM CDT 10/05/2021 4:49 AM CDT us Yamilet Mckeon DO LABORATORY Final Result [facility] [address] [place] [address], * URINALYSIS AUTO DIP (02/10/2021) COLOR (U) YELLOW YELLOW [facility] TRANSPARENCY CLEAR CLEAR [facility] GLUCOSE (U) NEGATIVE NEGATIVE MG/DL [facility] BILIRUBIN (U) NEGATIVE NEGATIVE [facility] KETONES MG/DL (U) NEGATIVE NEGATIVE MG/DL [facility] SPECIFIC GRAVITY (U) >=1.030 1.001 - 1.035 [facility] BLOOD (U) NEGATIVE NEGATIVE [facility] U PH 7.0 5.0 - 9.0 [facility] PROTEIN (U) 1+ (30) NEGATIVE mg/dL [facility] UROBILINOGEN 1.0 0.2 - 1.0 EU/dL = mg/dL [facility] NITRITES NEGATIVE NEGATIVE MG/DL [facility] LEUKOCYTES (U) 1+ (SMALL) NEGATIVE [facility] MICRO WBC-2-5; RBC-0 [facility] BACTERIA (U) 1+ NONE SEEN [facility] URINE SPECIMEN OBTAINED BY CLEAN CATCH PROCEDURE / Unknown 02/10/2021 Yamilet Mckeon DO URINE ORDERABLES Final Resul t [facility] [address] [place] [address], documented in this encounter Visit Diagnoses Diagnosis Preventative health care- Primary Routine general medical examination at a health care facility Encounter for screening mammogram for malignant neoplasm of breast Other screening mammogram Weight gain Abnormal weight gain Lightheadedness Dizziness and giddiness Atherosclerosis of aorta (CMS/HCC) Atherosclerosis of aorta Primary hypertension Unspecified essential hypertension Obesity without serious comorbidity, unspecified classification, unspecified obesity type NUD (nonulcer dyspepsia) Dyspepsia and other specified disorders of function of stomach Hyperactivity of bladder Hypertonicity of bladder History of vertebral compression fracture Allergic rhinitis, unspecified seasonality, unspecified trigger Need for prophylactic vaccination and inoculation against influenza Urgency of urination Essential hypertension Unspecified essential hypertension Urinary tract infection without hematuria, site unspecified documented in this encounter Additional Health Concerns Assessment Noted Time PHQ-9 Depression Total Score: 0 02/11/20 21 1:25 PM CLOTH SPONGER documented as of this encounter Care Teams Cafe Or Restaurant Manager Relationship Specialty Start Date End Date Yamilet Mckeon DO [address] [place] [address] PCP - General FAMILY PRACTICE 09/27/17 06/04/23 documented as of this encounter
--- OUTSIDE RECORDS SUMMARY | 2024-03-23 01:33 | XMS_ITS | Encounter Summary ---
Author Organization [facility] Address [address] [place] [address]. 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 [place] [address] Phone: tel: Referral ID Status Reason Start Date Expiration Date Visits Re quested Visits Authorized [id number] Closed MRI 02/28/2023 02/29/2024 1 1 Encounter Details Date Type Department Care Team (Latest Contact Info) Description 05/10/2023 7:22 AM NAPHTHA WASHING SYSTEM OPERATOR - 05/10/2023 11:59 PM NAPHTHA WASHING SYSTEM OPERATOR Hospital Encounter [facility] [place] [place] [address] Yamilet Mckeon, DO [address] [place], [place] [address] Discharge Disposition: Home or Self Care (Routine [...] 1 capsule (200 mg total) by mouth 2 (two) times daily. 180 capsule 01/22/2023 4 hydroCHLOROthiazid e (MICROZIDE) 12.5 MG tabletIndications: [...] EVERY DAY 90 tablet 1 08/14/2022 4 semaglutide (OZEMPIC, 0.25 OR 0.5 MG/DOSE,) 2 MG/3ML injection (PEN)Indications:W eight Loss Inject 0.5 mg into the skin every 7 days. Indications: Weight Loss 3 mL 10/17/2022 4 documented as of this encounter Plan of Treatment Upcoming Encounters Date Type Department Care Team (Late st Contact Info) Description 05/01/2024 8:00 AM NAPHTHA WASHING SYSTEM OPERATOR Appointment [facility] [place] [address] Edgard Washington MD [address] [facility] [facility] [place] [address] 06/02/2024 10:15 AM CDT Office Visit [facility] [address] [facility] [place] [address] Edgard Washington MD Three [facility] [facility] [place] [address] documented as of this encounter Procedures Procedure Name Priority Date/Time Associated Diagnosis Comments MRI LUMB SPINE WO CON Routine 05/10/2023 8:27 AM NAPHTHA WASHING SYSTEM OPERATOR 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 ??Mild to moderate bilateral foraminal stenosis at L5/S1 due to disc space narrowing and small bilateral foraminal disc/osteophyte complexes. ??Mild neural foraminal stenosis on the left L3/L4 and L4/L5 and on the right at L4/L5. 2. ??No significant lumbar central canal stenosis 3. ??Nonspecific heterogeneous decreased T1 signal noted diffusely throughout the bone marrow marrow may reflect normal variation, osteopenia, red marrow hyperplasia or any marrow replacement process. ??No acute osseous abnormality or suspicious focal bony lesion. Referred By: YAMILET MCKEON Interpreted By: Brian Bergman MD, 05/13/2023 8:15 AM Narrative 05/13/2023 8:24 AM CDT EXAMINATION:MRI of the lumbar spine without contrast 05/10/2023 INDICATION:Lower back pain TECHNIQUE: Multiplanar multisequence MR imaging of the lumbar spine was performed without intravenous contrast. COMPARISON: Lumbar radiographs 11/30/2011 FINDINGS:The last fully formed disc space is presumed represent L5/S1. ??Lumbar spine is in anatomic alignment. ??Heterogeneous decreased T1 signal is noted diffusely throughout the bone marrow. ??Modic type II degenerative changes at L5/S1. ??No acute fracture or dislocation The conus terminates at the T12/L1 level and is unremarkable in contour and signal. ??No paraspinal mass or fluid collection. ??The visualized abdominal aorta is unremarkable in contour. ??The upper sacroiliac joint spaces are unremarkable. ??No ligamentous discontinuity or signal abnormality T11/T12: Disc space narrowing disc bulging causing slight effacement of ventral thecal sac T12/L1: Negative L1/L2: Negative L2/L3: Negative L3/L4: Disc space narrowing disc bulging and facet arthropathy causing mild left neural foraminal stenosis L4/L5: Disc space narrowing with the 3 mm of anterolisthesis disc bulging and facet arthropathy causing mild bilateral neural foraminal stenosis L5/S1: Disc space narrowing with posterior disc/osteophyte complex and bilateral foraminal disc/osteophyte complexes causing slight effacement of ventral thecal sac and mild to moderate bilateral foraminal stenosis. Procedure Note Brian Bergman MD - 05/13/2023 EXAMINATION:MRI of the lumbar spine without contrast 05/10/2023 INDICATION:Lower back pain TECHNIQUE: Multiplanar multisequence MR imaging of the lumbar spine wasperformed without intravenous contrast. COMPARISON: Lumbar radiographs 11/30/2011 FINDINGS:The last fully formed disc space is presumed represent L5/S1.Lumbar spine is in anatomic alignment. Heterogeneous decreased T1 signalis noted diffusely throughout the bone marrow. Modic type II degenerativechanges at L5/S1. No acute fracture or dislocation The conus terminates at the T12/L1 level and is unremarkable in contourand signal. No paraspinal mass or fluid collection. The visualizedabdominal aorta is unremarkable in contour. The upper sacroiliac jointspaces are unremarkable. No ligamentous discontinuity or signalabnormality T11/T12: Disc space narrowing disc bulging causing slight effacement ofventral thecal sac T12/L1: Negative L1/L2: Negative L2/L3: Negative L3/L4: Disc space narrowing disc bulging and facet arthropathy causingmild left neural foraminal stenosis L4/L5: Disc space narrowing with the 3 mm of anterolisthesis disc bulgingand facet arthropathy causing mild bilateral neural foraminal stenosis L5/S1: Disc space narrowing with posterior disc/osteophyte complex andbilateral foraminal disc/osteophyte complexes causing slight effacement ofventral thecal sac and mild to moderate bilateral foraminal stenosis. IMPRESSION: 1. Mild to moderate bilateral foraminal stenosis at L5/S1 due to discspace narrowing and small bilateral foraminal disc/osteophyte complexes.Mild neural foraminal stenosis on the left L3/L4 and L4/L5 and on theright at L4/L5. 2. No significant lumbar central canal stenosis 3. Nonspecific heterogeneous decreased T1 signal noted diffuselythroughout the bone marrow marrow may reflect normal variation,osteopenia, red marrow hyperplasia or any marrow replacement process. Noacute osseous abnormality or suspicious focal bony lesion. 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
--- OUTSIDE RECORDS SUMMARY | 2024-03-23 01:33 | XMS_ITS | Encounter Summary ---
Author Organization [facility] Address [address] [place] [address]. [place], [place] [id number] [place] [address] Care Team Providers Care Cardiac Cath Rn Name Role Phone Yamilet Mckeon DO Primary Care Provider [phone] Reason for Visit * Reason Comments Follow Up 6 mo f/u Encounter Details Date Type Department Care Team (Late st Contact Info) Description 09/28/2021 1:30 PM CDT Office Visit [facility] [address] [facility] [address] [place] [phone] Yamilet Mckeon DO [address] [place] [address] Follow Up (6 mo f/u) Social History Tobacco Use Types Packs/Day Years Used Date Smoking Tobacco: Never Smokeless Tobacco: Never Alcohol Use Standard Drinks/Week Comments Yes 0 (1 standard drink = 0.6 oz pur e alcohol) SOCIAL PHQ-2 Answer Date Recorded PHQ-2 Score - If the patient scores above 3, please move on to questions 3-9 0 09/28/2021 Comments No Sex and Gender Information Value Date Recorded Sex Assigned at Not on file Legal Sex Female 6:40 PM CDT Gender Identity Not on file Sexual Orientation Not on file COVID-19 Exposure Response Date Recorded In the last 10 days, have yo u been in contact with someone who was confirmed or suspected to have Coronavirus/COVID-19? No / Unsure 09/28/2021 1:54 PM CDT documented as of this encounter Last Filed Vital Signs Vital Sign Reading Time Taken Comments Blood Pressure 138/78 09/28/2021 1:19 PM CDT Pulse - - Temperature - - Respiratory Rate - - Oxygen Saturation - - Inhaled Oxygen Concentration - - Weight 103.4 kg (228 lb) 09/28/2021 1:19 PM CDT Height - - Body Mass Index 36.8 02/10/2021 12:59 PM PUMP TECHNICIAN documented in this encounter Progress Notes * Yamilet Mckeon, DO - 09/28/2021 1:30 PM CDT Reason for Visit: Follow Up (6 mo f/u) History of Present Illness: Here for 6mth f/u Never had labs done Is c/o right hip/groin pain, especially when she walks for a while No injury No falls Not depressed Her overactive bladder is worse, having to go more often and more urgency ROS: Review of Systems Constitutional: Negative. Respiratory: Negative. Cardiovascular: Negative. Gastrointestinal: Stable on PPI Genitourinary: As per HPI Musculoskeletal: Right hip pain Psychiatric/Behavioral: Negative. Medications: Current Outpatient Medications: ??? celecoxib 200 [...] 90 capsule, Rfl: 0 ??? oxybutynin XL (DITROPAN-XL) 10 MG 24 hr [...] COLONOSCOPY performed by Scotty Ruiz MD at [facility] ??? HC LAP TOTAL HYSTERECTOMY REMOVAL BOTH TUBES AND OVARIES--BLEEDING ??? HYSTERECTOMY Social History Tobacco Use ??? Smoking status: Never Smoker ??? Smokeless tobacco: Never Used Substance Use Topics ??? Alcohol use: Yes Comment: SOCIAL Social History Socioeconomic History ??? Marital status: ??? Number of children: 2 Physical Exam Constitutional: She is oriented to person, place, and time. She appears well- developed. No distress. Morbidly obese comorbidities affected by wt HENT: Right Ear: Tympanic membrane and external ear normal. Left Ear: Tympanic membrane and external ear normal. Nose: Nose normal. Mouth/Throat: Oropharynx is clear and moist. Mucous membranes are moist. Oropharynx is clear. Eyes: Conjunctivae are normal. Neck: Neck supple. No thyromegaly present. Cardiovascular: Normal rate and regular rhythm. Pulmonary/Chest: Effort normal and breath sounds normal. Abdominal: Soft. Bowel sounds are normal. She exhibits no mass. There is no tenderness. No hernia. Musculoskeletal: Normal range of motion. She exhibits no tenderness, deformity or signs of injury. Right lower leg: She exhibits no edema. Left lower leg: She exhibits no edema. Lymphadenopathy: She has no cervical adenopathy. Neurological: She is alert and oriented to person, place, and time. Skin: Skin is warm and dry. Psychiatric: Mood normal. Nursing note and vitals reviewed. Filed Vitals: 09/28/21 1319 BP: 138/78 Weight: 103.4 kg (228 lb) Diagnoses/Impression: 1. Hip pain XR HIP RT 2V 2. Hyperactivity of bladder oxybutynin XL (DITROPAN-XL) 10 MG 24 hr tablet 3. Atherosclerosis of aorta (CMS/HCC) CXR 4. Primary hypertension 5. Morbidly obese (CMS/HCC) has comorbidities affected by her wt 6. Allergic rhinitis, unspecified seasonality, unspecified trigger 7. NUD (nonulcer dyspepsia) Recommendations and Plan: Remain active, exercise, healthy diet, eye exam when due, flu shot each Fall Get labs done Check hip xray prevnar 20 at pharm Annual in 6mths Reviewed and updated this visit by provider: Tobacco Allergies Meds Problems Med Hx Surg Hx Fam Hx Orders Placed This Encounter ??? XR HIP RT 2V ??? oxybutynin XL (DITROPAN-XL) 10 MG 24 hr tablet YAMILET MCKEON DO Referring Provider: No ref. provider found PCP: YAMILET MCKEON DO documented in this encounter Plan of Treatment Upcoming Encounters Date Type Department Care Team (Late st Contact Info) Description 05/01/2024 8:00 AM PUMP TECHNICIAN Appointment [facility] [place] [address] Edgard Washington MD [address] [facility], [address] [place] [address] 06/02/2024 10:15 AM CDT Office Visit [facility], [address] [place] [address] Edgard Washington MD [address] [facility], [address] [place] [address] documented as of this encounter Results * XR HIP RT 2V (09/28/2021 2:10 PM CDT) Anatomical Region Laterality Modality Hip Radiographic Breann ging 09/28/2021 2:35 PM CDT Impressions 09/28/2021 2:36 PM CDT =====IMPRESSION:===== 1. Mild chronic changes of degenerative osteoarthritis. No acute osseous abnormality. Ordered By: YAMILET MCKEON Interpreted By: Brayden Dobbins MD, 09/28/2021 2:35 PM Narrative 09/28/2021 2:36 PM CDT Examination: Right hip 2 views Exam date/time: 09/28/2021 2:02 PM Reason For Exam: ??hip pain ? Comparison: None Technique: AP and frog views of the right hip were obtained. Findings: No soft tissue abnormality. No evidence of acute fracture or dislocation. No focal lytic bone destructive lesion. No evidence of femoral head AVN. Mild chronic changes of degenerative osteoarthritis. Procedure Note Brayden Dobbins MD - 09/28/2021 Examination: Right hip 2 views Exam date/time: 09/28/2021 2:02 PM Reason For Exam: hip pain Comparison: None Technique: AP and frog views of the right hip were obtained. Findings: No soft tissue abnormality. No evidence of acute fracture ordislocation. No focal lytic bone destructive lesion. No evidence offemoral head AVN. Mild chronic changes of degenerative osteoarthritis. =====IMPRESSION:===== 1. Mild chronic changes of degenerative osteoarthritis. No acute osseousabnormality. Ordered By: YAMILET MCKEON Interpreted By: Brayden Dobbins MD, 09/28/2021 2:35 PM Yamilet Mckeon DO GENERAL IMAGING Final Result documented in this encounter Visit Diagnoses Diagnosis Hip pain- Primary Pain in joint, pelvic region and thigh Hyperactivity of bladder Hypertonicity of bladder Atherosclerosis of aorta (CMS/HCC) Atherosclerosis of aorta Primary hypertension Unspecified essential hypertension Morbidly obese (CMS/HCC HHS/HCC) Morbid obesity Allergic rhinitis, unspecified seasonality, unspecified trigger NUD (nonulcer dyspepsia) Dyspepsia and other specified disorders of function of stomach Hip pain Pain in joint, pelvic region and thigh documented in this encounter Additional Health Concerns Assessment Noted Time PHQ-9 Depression Total Score: 0 02/11/20 21 1:25 PM PUMP TECHNICIAN documented as of this encounter Care Teams Cardiac Cath Rn Relationship Specialty Start Date End Date Yamilet Mckeon DO [address] [place] [address] PCP - General FAMILY PRACTICE 09/27/17 06/04/23 documented as of this encounter
--- OUTSIDE RECORDS SUMMARY | 2024-03-23 01:33 | XMS_ITS | Encounter Summary ---
Author Organization [facility] Address [address] [place] [address]. [place], [place] [address] [place] [address] Care Team Providers Care Cook Box Filler Name Role Phone Mariana Ruiz DO Primary Care Provider [phone] Encounter Details Date Type Department Care Team (Late st Contact Info) Description 07/04/2022 [facility] [address] [place] [phone] Mariana Ruiz DO [address] [place] [address] Social History Tobacco Use Types Packs/Day Years [...] st Contact Info) Description 05/01/2024 8:00 AM REAL ESTATE ADMINISTRATIVE ASSISTANT Appointment [facility] [place] [address] Edgard Washington MD Three [facility] [address] [place] [address] 06/02/2024 10:15 AM CDT Office Visit [facility] [address] [facility], [address] [place] [address] Edgard Washington MD Three [facility] [address] [place] [address] documented as of this encounter Visit Diagnoses Not on filedocumented in this encounter Additional Health Concerns Assessment Noted Time PHQ-9 Depression Total Score: 0 02/11/20 21 1:25 PM REAL ESTATE ADMINISTRATIVE ASSISTANT documented as of this encounter Care Teams Cook Box Filler Relationship Specialty Start Date End Date Mariana Ruiz DO [address] [place] [address] PCP - General FAMILY PRACTICE 09/27/17 06/04/23 documented as of this encounter
--- OUTSIDE RECORDS SUMMARY | 2024-03-23 01:33 | XMS_ITS | Encounter Summary ---
Author Organization [facility] Address [address] [place] [address]. [place], [place] [address] [place] [address] Care Team Providers Care Pharmacist In Charge Name Role Phone Mariana Ruiz Primary Care Provider [phone] Reason for Visit * Reason Comments Acute Note hemorrhoid pain/swel ling Encounter Details Date Type Department Care Team (Late st Contact Info) Description 01/23/2021 11:15 AM PROMOTIONS EXECUTIVE Office Visit [facility] [address] [facility] [address] [place] [phone] Renuka Hanna MD Acute Note (hemorrhoid pain/swelling) Social History Tobacco Use Types Packs/Day Years Used Date Smoking Tobacco: Never Smokeless Tobacco: Never Alcohol Use Standard Drinks/Week Comments Yes 0 (1 standard drink = 0.6 oz pur e alcohol) SOCIAL PHQ-2 Answer Date Recorded PHQ-2 Score - If the patient scores above 3, please move on to questions 3-9 0 01/20/2020 Comments No Sex and Gender Information Value Date Recorded Sex Assigned at Not on file Legal Sex Female 6:40 PM CDT Gender Identity Not on file Sexual Orientation Not on file documented as of this encounter Last Filed Vital Signs Vital Sign Reading Time Taken Comments Blood Pressure 128/86 01/23/2021 11:24 AM PROMOTIONS EXECUTIVE Pulse - - Temperature - - Respiratory Rate - - Oxygen Saturation - - Inhaled Oxygen Concentration - - Weight 105.2 kg (232 lb) 01/23/2021 11:24 AM PROMOTIONS EXECUTIVE Height - - Body Mass Index 36.34 07/08/2020 9:58 AM CDT documented in this encounter Progress Notes * Renuka Hanna MD - 01/23/2021 11:15 AM CST Reason for Visit: Julianna Brown is a 65-year-old female presents today for Acute Note (hemorrhoid pain/swelling) History of Present Illness: Patient was down in [place] for the last several months helping to take care of her grandchild. While there she developed painful external hemorrhoids. She did [id number] treatment and in the last several days the pain and bleeding have resolved. Patient just wanted to be checked. Patient had colonoscopy in July of this year and it was normal. Patient eats a diet with fruits and vegetables and also takes MiraLAX every night. ROS: Review of Systems Constitutional: Negative for chills, fever and weight loss. Gastrointestinal: Negative for abdominal pain, blood in stool, constipation, diarrhea, nausea and vomiting. Medications: Current Outpatient Medications: ??? aspirin EC [...] COLONOSCOPY performed by Scotty Ruiz MD at [facility] ??? HC LAP TOTAL HYSTERECTOMY REMOVAL BOTH TUBES AND OVARIES--BLEEDING ??? HYSTERECTOMY Social History Socioeconomic History ??? Marital status: Spouse name: Not on file ??? Number of children: 2 ??? Years of education: Not on file ??? Highest education level: Not on file Occupational History ??? Not on file Tobacco Use ??? Smoking status: Never Smoker ??? Smokeless tobacco: Never Used Substance and Sexual Activity ??? Alcohol use: Yes Comment: SOCIAL ??? Drug use: No ??? Sexual activity: Not on file Other Topics Concern ??? Not on file Social History Narrative ??? Not on file Social Determinants of Health Financial Resource Strain: Not on file Food Insecurity: Not on file Transportation Needs: Not on file Physical Activity: Not on file Stress: Not on file Social Connections: Not on file Intimate Partner Violence: Not on file Family History Problem Relation Name Age of Onset ??? Breast Cancer Sister 63 ??? Prostate Cancer Father ??? Diabetes Other ??? Osteoporosis Other Family Status Relation Name Status ??? Sister (Not Specified) ??? Father (Not Specified) ??? Other (Not Specified) Physical Exam: Filed Vitals: 01/23/21 1124 BP: 128/86 Weight: 105.2 kg (232 lb) Body mass index is 36.34 kg/m??. Physical Exam Constitutional: She does not appear ill. No distress. Abdominal: Soft. She exhibits no distension and no mass. There is no tenderness. Genitourinary: Rectum normal. Genitourinary Comments: Patient has nontender hemorrhoidal tags but nothing acutely swollen or tender or bleeding. Assessment: 1. Hemorrhoidal skin tags Patient will continue diet rich in fiber fruits and vegetables and continue MiraLAX and may use sitz bath and Preparation H as needed for flare Recommendations/Plan: Return if symptoms worsen or fail to improve. Reviewed and updated this visit by provider: Tobacco Allergies Meds Problems Med Hx Surg Hx Fam Hx - Comply with suggestions for healthy lifestyle Orders Placed This Encounter ??? Zinc 50 MG Tab ??? polyethylene glycol packet Sig: Take 17 g by mouth daily. Dissolve powder in 240 mL water RENUKA HANNA MD OTIONS EXECUTIVE documented in this encounter Plan of Treatment Upcoming Encounters Date Type Department Care Team (Late st Contact Info) Description 05/01/2024 8:00 AM PROMOTIONS EXECUTIVE Appointment [facility] Non [place]vasive [place] [address] Edgard Washington MD Three [facility] [place], [place] [address] 06/02/2024 10:15 AM CDT Office Visit [facility] [address] [facility], [address] [place], [place] [address] Edgard Washington MD Three [facility] [address] [place], [place] [address] documented as of this encounter Visit Diagnoses Diagnosis Hemorrhoidal skin tags- Primary Residual hemorrhoidal skin tags documented in this encounter Care Teams Pharmacist In Charge Relationship Specialty Start Date End Date Mariana Ruiz DO [address] [place], [place] [address] PCP - General FAMILY PRACTICE 09/27/17 06/04/23 documented as of this encounter
--- OUTSIDE RECORDS SUMMARY | 2024-03-23 01:33 | XMS_ITS | Encounter Summary ---
Author Organization [facility] Address [address] [place] [address]. [place], [place] [address] [place] [address] Care Team Providers Care Computer Numerical Control Machinist Name Role Phone Mariana Ruiz Primary Care Provider [phone] Encounter Details Date Type Department Care Team (Late st Contact Info) Description 06/29/2022 Scan [facility] [address] [facility] [address] [place] [address] Scanned, Doc Bfma Social History Tobacco Use Types Packs/Day Years [...] st Contact Info) Description 05/01/2024 8:00 AM PRINTER'S DEVIL Appointment [facility] [place], [place] [phone] Edgard Washington MD Three [facility] [address] [place] [address] 06/02/2024 10:15 AM CDT Office Visit [facility], [address] [place] [address] Edgard Washington MD [address] [facility] [address] [place] [address] documented as of this encounter Visit Diagnoses Not on filedocumented in this encounter Additional Health Concerns Assessment Noted Time PHQ-9 Depression Total Score: 0 02/11/20 21 1:25 PM PRINTER'S DEVIL documented as of this encounter Care Teams Computer Numerical Control Machinist Relationship Specialty Start Date End Date Mariana Ruiz DO [address] [place] [address] PCP - General FAMILY PRACTICE 09/27/17 06/04/23 documented as of this encounter
--- OUTSIDE RECORDS SUMMARY | 2024-03-23 01:33 | XMS_ITS | Encounter Summary ---
Author Organization [facility] Address [address] [place] [address]. [place], [place] [phone] [place] [address] Care Team Providers Care Dealer Card Room Name Role Phone Mariana Ruiz DO Primary Care Provider [phone] Reason for Referral * Consultation/Treatment (Routine) - Closed Specialty Diagnoses / Procedures Referred By Herberth amor Referred To Contact CHIROPRACTIC Diagnoses Bilateral hip pain Procedures OFFICE/OUTPT VISIT,NEW,LEVL III OFFICE/OUTPT VISIT,NEW,LEVL IV OFFICE/OUTPT VISIT,NEW,LEVL V Mariana Ruiz DO [address] [place] [address] Phone: tel: fax: Kike Alonso[address] [address] Phone: tel: fax: Referral ID Status Reason Start Date Expiration Date V isits Requested Visits Authorized [id number] Closed Specialty Services 06/27/2022 07/28/2023 1 1 Reason for Visit * Reason Onset Date Comments Referral 06/27/2022 Encounter Details Date Type Department Care Team ([facility] st Contact Info) Description 06/27/2022 Telephone [facility] [address] [facility] [address] [place] [address] Mariana Ruiz DO [address] [place] [address] Referral Social History Tobacco Use Types Packs/Day [...] as of this encounter Progress Notes * Milagros Husain CMA - 06/27/2022 12:13 PM CDT Pt will contact Dr. Alonso for appt. Order faxed. * Mariana Ruiz DO - 06/27/2022 9:34 AM CDT Ok 8 visits * Milagros Husain CMA - 06/27/2022 8:27 AM CDT Pt would like referral to a chiropractor. She continues to have hip pain. She has had PT in the past. documented in this encounter Plan of Treatment Upcoming Encounters Date Type Department Care Team (Late st Contact Info) Description 05/01/2024 8:00 AM JUNIOR ORACLE DBA Appointment [facility] [place] [address] Edgard Washington MD Three [facility] [address] [place], [place] [id number] 06/02/2024 10:15 AM CDT Office Visit [facility], [address] [place] [address] Edgard Washington MD Three [facility] [address] [place] [address] Scheduled Referrals Name Type Priority Associated Diagnoses Orde r Schedule Ambulatory referral to Chiropractic Referral Routine Bilateral hip pain Ordered: 06/27/2022 documented as of this encounter Visit Diagnoses Diagnosis Bilateral hip pain- Primary Pain in joint, pelvic region and thigh documented in this encounter Additional Health Concerns Assessment Noted Time PHQ-9 Depression Total Score: 0 02/11/20 21 1:25 PM JUNIOR ORACLE DBA documented as of this encounter Care Teams Dealer Card Room Relationship Specialty Start Date End Date Mariana Ruiz DO [address] [place] [address] PCP - General FAMILY PRACTICE 09/27/17 06/04/23 documented as of this encounter
--- OUTSIDE RECORDS SUMMARY | 2024-03-23 01:33 | XMS_ITS | Encounter Summary ---
Author Organization [facility] Address [address] [place] [address]. [place] [address] [place] [address] Care Team Providers Care Senior Drupal Developer Name Role Phone Mariana Ruiz Primary Care Provider + [phone] Encounter Details Date Type Department Care Team (Latest Contact Info) Description 03/06/2021 Travel Social History Tobacco Use Types Packs/Day [...] have Coronavirus / COVID-19? No / Unsure 03/06/2021 3:45 PM ATTORNEY LAW CLERK documented as of this encounter Plan of Treatment Upcoming Encounters Date Type Department Care Team (Late st Contact Info) Description 05/01/2024 8:00 AM ATTORNEY LAW CLERK Appointment [facility] Non [place] [address] Edgard Washington MD Three [facility] [place] [address] 06/02/2024 10:15 AM CDT Office Visit [facility], [address] [place] [address] Edgard Washington MD Three [facility] [address] [place] [address] documented as of this encounter Visit Diagnoses Not on filedocumented in this encounter Additional Health Concerns Assessment Noted Time PHQ-9 Depression Total Score: 0 02/11/20 21 1:25 PM ATTORNEY LAW CLERK documented as of this encounter Care Teams Senior Drupal Developer Relationship Specialty Start Date End Date Mariana Ruiz DO [address] [facility] [address] [place] [address] PCP - General FAMILY PRACTICE 09/27/17 06/04/23 documented as of this encounter
--- OUTSIDE RECORDS SUMMARY | 2024-03-23 01:33 | XMS_ITS | Encounter Summary ---
Author Organization [facility] Address [address] [place] [address]. [place] [address] [place] [address] Care Team Providers Care Redrawer Name Role Phone Mariana Ruiz DO Primary Care Provider + [phone] Encounter Details Date Type Department Care Team (Latest Contact Info) Description 09/28/2021 Travel Social History Tobacco Use Types Packs/Day [...] PM CDT documented as of this encounter Plan of Treatment Upcoming Encounters Date Type Department Care Team (Late st Contact Info) Description 05/01/2024 8:00 AM TRANSCRIBING OPERATORS SUPERVISOR Appointment [facility] [place] [address] Edgard Washington MD Three [facility] [address] [place] [address] 06/02/2024 10:15 AM CDT Office Visit [facility], [address] [place] [address] Edgard Washington MD Three [facility] [address] [place] [address] documented as of this encounter Visit Diagnoses Not on filedocumented in this encounter Additional Health Concerns Assessment Noted Time PHQ-9 Depression Total Score: 0 02/11/20 21 1:25 PM TRANSCRIBING OPERATORS SUPERVISOR documented as of this encounter Care Teams Redrawer Relationship Specialty Start Date End Date Mariana Ruiz DO [address] [place] [address] PCP - General FAMILY PRACTICE 09/27/17 06/04/23 documented as of this encounter
--- OUTSIDE RECORDS SUMMARY | 2024-03-23 01:33 | XMS_ITS | Encounter Summary ---
Author Organization [facility] Address [address] [place] [address]. 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 Encounter Details Date Type Department Care Team ([facility] st Contact Info) Description 02/28/2023 9:15 AM CLASSICS TEACHER Office Visit [facility] [address] [place] [id number] Yamilet Mckeon DO [address] [place] [address] Acute Note (Ear issues- clean out; rt leg pain- MRI?) Social History Tobacco Use Types Packs/Day Years [...] Sign Reading Time Taken Comments Blood Pressure 136/88 02/28/2023 9:19 AM CLASSICS TEACHER Pulse - - Temperature - - Respiratory Rate - - Oxygen Saturation - - Inhaled Oxygen Concentration - - Weight 92.5 kg (204 lb) 02/28/2023 9:19 AM CLASSICS TEACHER Height - - Body Mass Index 32.93 03/21/2022 8:54 AM CLASSICS TEACHER documented in this encounter Progress Notes * Yamilet Mckeon, DO - 02/28/2023 9:15 AM CST Reason for Visit: Acute Note (Ear issues- clean out; rt leg pain- MRI?) History of Present Illness: Here c/o of both ears being stopped up, she has flown in last week and that is when it started Has not been sick Also, c/o ongoing right leg pain for past 1 1/2yrs Had hip xray initially and it only showed mild OA Went to chiropractor for therapy and then was sent to ortho, had trigger point injections there andtrochanteric bursa injection which pt said did not help, really no back pain but back xray shows severe DDD No numbness just the shooting pain down leg ROS: Review of Systems Constitutional: As per HPI Medications: Current Outpatient Medications: celecoxib (CELEBREX) 200 MG capsule, Take 1 capsule (200 mg total) by mouth 2 (two) times daily., Disp: 180 capsule, Rfl: 0 cetirizine 10 MG chewable tablet, Chew 10 mg by mouth daily., Disp: , Rfl: FLUTICASONE PROPIONATE 50 MCG/ACT nasal spray, SPRAY 2 SPRAYS INTO EACH NOSTRIL EVERY DAY, Disp: 48mL, Rfl: 0 hydroCHLOROthiazide (MICROZIDE) 12.5 MG tablet, TAKE 1 TABLET EVERY DAY, Disp: 90 tablet, Rfl: 0 losartan (COZAAR) 100 MG tablet, TAKE 1/2 TABLET EVERY DAY, Disp: 45 tablet, Rfl: 2 omeprazole (PRILOSEC) 40 MG capsule, TAKE 1 CAPSULE EVERY DAY, Disp: 90 capsule, Rfl: 0 oxybutynin XL (DITROPAN-XL) 10 MG 24 hr tablet, TAKE 1 TABLET EVERY DAY, Disp: 90 tablet, Rfl: 1 semaglutide (OZEMPIC, 0.25 OR 0.5 MG/DOSE,) 2 MG/3ML injection (PEN), Inject 0.5 mg into the skin every 7 days. Indications: Weight Loss, Disp: 3 mL, Rfl: 0 No Known Allergies Past Medical History: Diagnosis Date Adhesive capsulitis of left shoulder GERD (gastroesophageal reflux disease) Hypertension Past Surgical History: Procedure Laterality Date SECTION CHOLECYSTECTOMY LAPAROSCOPIC COLONOSCOPY 2010 WNL, 02/2012 POLYP, 02/2017 POLYP MOI COLONOSCOPY N/A 07/13/2020 COLONOSCOPY performed by Scotty Ruiz MD at [facility] TOTAL HYSTERECTOMY REMOVAL BOTH TUBES AND OVARIES--BLEEDING HYSTERECTOMY Social History Socioeconomic History Marital status: Number of children: 2 Tobacco Use Smoking status: Never Smokeless tobacco: Never Substance and Sexual Activity Alcohol use: Yes Comment: SOCIAL Drug use: No Family History Problem Relation Name Age of Onset Breast Cancer Sister 63 Prostate Cancer Father Diabetes Other Osteoporosis Other Family Status Relation Name Status Sister (Not Specified) Father (Not Specified) Other (Not Specified) Physical Exam Vitals and nursing note reviewed. Constitutional: General: She is not in acute distress. HENT: Right Ear: Tympanic membrane normal. Left Ear: Tympanic membrane normal. Patient is experiencing impacted cerumen left (removed with irrigation and TM clear). Musculoskeletal: Comments: Gait normal Good ROM Moves well Pain is deeper than to touch Filed Vitals: 02/28/23 0919 BP: 136/88 Weight: 92.5 kg (204 lb) Diagnoses/Impression: 1. Impacted cerumen of left ear 2. Dysfunction of both eustachian tubes 3. 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 provider found PCP: YAMILET MCKEON DO SICS TEACHER documented in this encounter Plan of Treatment Upcoming Encounters Date Type Department Care Team (Late st Contact Info) Description 05/01/2024 8:00 AM CLASSICS TEACHER Appointment [facility] [address] [place] [address] Edgard Washington MD [address] [place] [address] 06/02/2024 10:15 AM CDT Office Visit [facility] [address] [place] [address] Edgard Washington MD [address] [place] [address] documented as of this encounter Results * MRI LUMB SPINE WO CON (05/10/2023 8:27 AM CLASSICS TEACHER) Anatomical Region Laterality Modality Spine Magnetic Resonan [...] or suspicious focal bony lesion. 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
--- OUTSIDE RECORDS SUMMARY | 2024-03-23 01:33 | XMS_ITS | Encounter Summary ---
Author Organization [facility] Address [address] [place] [address]. [place] [address] [place] [address] Care Team Providers Care Nuclear Engineer Name Role Phone Mariana Ruiz Primary Care Provider [phone] Encounter Details Date Type Department Care Team (Late st Contact Info) Description 10/27/2021 Scan [facility] [address] [facility] [address] [place] [address] Scanned, Documents Social History Tobacco Use Types Packs/Day Years [...] st Contact Info) Description 05/01/2024 8:[address] [facility] [place] [place] [address] Edgard Washington MD Three [facility], [address] [place] [address] 06/02/2024 10:15 AM CDT Office Visit [facility] [address] [facility], [address] [place] [address] Edgard Washington MD Three [facility], [address] [place] [address] documented as of this encounter Visit Diagnoses Not on filedocumented in this encounter Additional Health Concerns Assessment Noted Time PHQ-9 Depression Total Score: 0 02/11/20 21 1:25 PM DUMPMAN documented as of this encounter Care Teams Nuclear Engineer Relationship Specialty Start Date End Date Mariana Ruiz DO [address] [place] [address] PCP - General FAMILY PRACTICE 09/27/17 06/04/23 documented as of this encounter
--- OUTSIDE RECORDS SUMMARY | 2024-03-23 01:33 | XMS_ITS | Encounter Summary ---
Author Organization [facility] Address [address] [place] [address]. [place] [address] [place] [address] Care Team Providers Care Fire Extinguisher Inspector Name Role Phone Mariana Ruiz DO Primary Care Provider [phone] Reason for Visit * Reason Onset Date Comments Question 03/11/2023 Encounter Details Date Type Department Care Team (Late st Contact Info) Description 03/11/2023 Telephone [facility] [address] [facility] [address] [place] [phone] Mariana Ruiz DO [address] [place] [address] Question Social History Tobacco Use Types Packs/Day [...] as of this encounter Progress Notes * Natalia Molina RN - 03/11/2023 12:36 PM CSTSummary: FYI Daughter (who is a Family Physician in [place]) called and expressed concern because her mother told her she was having a MRI of her LS spine but she has no back pain. Daughter states her mother's pain is mainly in her anterior thigh. She was asking if you might consider an U/S to r/o DVT? I told her that we would be happy to see her mother and reevaluate but you felt that her pain was related toher DDD and that is why you ordered the MRI. She said she will call her mother, relay our conversation and ask if her mother would like to come back into the office to have the thigh pain assessed. ROLLING MACHINE SETTER documented in this encounter Plan of Treatment Upcoming Encounters Date Type Department Care Team (Late st Contact Info) Description 05/01/2024 8:00 AM COLD ROLLING MACHINE SETTER Appointment [facility] [address] [facility] [place] [address] Edgard Washington MD Three [facility] [address] [place] [address] 06/02/2024 10:15 AM CDT Office Visit [facility] THREE [facility], [address] [place] [address] Edgard Washington MD [address] [facility] [address] [place] [address] documented as of this encounter Visit Diagnoses Not on filedocumented in this encounter Additional Health Concerns Assessment Noted Time PHQ-9 Depression Total Score: 0 02/11/20 21 1:25 PM COLD ROLLING MACHINE SETTER documented as of this encounter Care Teams Fire Extinguisher Inspector Relationship Specialty Start Date End Date Mariana Ruiz DO [address] [place] [address] PCP - General FAMILY PRACTICE 09/27/17 06/04/23 documented as of this encounter
--- OUTSIDE RECORDS SUMMARY | 2024-03-23 01:33 | XMS_ITS | Encounter Summary ---
Author Organization [facility] Address [address] [place] [address]. [place] [address] [place] [address] Care Team Providers Care Certified Hearing Instrument Dispenser Name Role Phone Mariana Ruiz Primary Care Provider [phone] Encounter Details Date Type Department Care Team (Latest Contact Info) Description 07/13/2020 Travel Social History Tobacco Use Types Packs/Day [...] have Coronavirus / COVID-19? No / Unsure 07/13/2020 8:16 AM CDT documented as of this encounter Plan of Treatment Upcoming Encounters Date Type Department Care Team (Late st Contact Info) Description 05/01/2024 8:00 AM FOLDER MACHINE OPERATOR Appointment [facility] [place] [place] [address] Edgard Washington MD Three [facility] [address] [place] [address] 06/02/2024 10:15 AM CDT Office Visit [facility] THREE [facility], [address] [place] [address] Edgard Washington MD Three [facility] [address] [place], [place] [id number] documented as of this encounter Visit Diagnoses Not on filedocumented in this encounter Care Teams Certified Hearing Instrument Dispenser Relationship Specialty Start Date End Date Mariana Ruiz DO [address] [place] [address] PCP - General FAMILY PRACTICE 09/27/17 06/04/23 documented as of this encounter
--- OUTSIDE RECORDS SUMMARY | 2024-03-23 01:33 | XMS_ITS | Encounter Summary ---
Author Organization [facility] Address [address] [place] [address]. [place], [place] [phone] [place] [address] Care Team Providers Care Pumper Brewery Name Role Phone Mariana Ruiz DO Primary Care Provider [phone] Encounter Details Date Type Department Care Team (Late st Contact Info) Description 03/21/2022 9:45 AM VETERINARY POULTRY INSPECTOR Laboratory Only [facility] [address] [facility] [address] [place] [phone] Mariana Ruiz DO [address] [place] [address] Social History Tobacco Use Types [...] st Contact Info) Description 05/01/2024 8:00 AM VETERINARY POULTRY INSPECTOR Appointment [facility] Non Invasive Cardiology ONE [facility] [place] [address] Edgard Washington MD Three [facility] [address] [place] [address] 06/02/2024 10:15 AM CDT Office Visit [facility] THREE [facility], [address] [place] [address] Edgard Washington MD Three [facility] [address] [place] [address] Scheduled Orders Name Type Priority Associated Diagnoses Orde r Schedule SPECIMEN HANDLING,DR OFF->LAB Procedures Routine Vitamin D insufficiency Atherosclerosis of aorta Primary hypertension Morbidly obese ([facility] HHS/HCC) Weight gain Lightheadedness Ordered: 03/21/2022 documented as of this encounter Procedures Procedure Name Priority Date/Time Associated Diagnosis Comments COLLECTION VENOUS BLOOD VENIPUNCTURE Routine 03/21/2022 9:53 AM VETERINARY POULTRY INSPECTOR Vitamin D insufficiency Atherosclerosis of aorta Primary hypertension Morbidly obese ([facility] HHS/HCC) Weight gain Lightheadedness COMPREHENSIVE METABOLIC PANEL Routine 03/21/2022 9:53 AM VETERINARY POULTRY INSPECTOR Atherosclerosis of aorta Primary hypertension Morbidly obese ([facility] HHS/HCC) LIPID PANEL Routine 03/21/2022 9:53 AM VETERINARY POULTRY INSPECTOR Atherosclerosis of aorta Primary hypertension Morbidly obese ([facility] HHS/HCC) CBC, AUTO, NO DIFF Routine 03/21/2022 9: 53 AM VETERINARY POULTRY INSPECTOR Lightheadedness THYROID STIM HORMONE TSH Routine 03/21/2022 9:53 AM VETERINARY POULTRY INSPECTOR Weight gain VITAMIN D, 25 OH TOTAL Routine 03/21/2022 9:52 AM VETERINARY POULTRY INSPECTOR Vitamin D insufficiency documented in this encounter Results * VENIPUNC ARM DRAW (03/21/2022 9:53 AM VETERINARY POULTRY INSPECTOR) 03/21/2022 9:53 AM VETERINARY POULTRY INSPECTOR 03/22/2022 5:55 AM VETERINARY POULTRY INSPECTOR us Mariana Ruiz DO PROCEDURES Final Result [facility] LAB ORDERS INTERFACE US * COMPREHENSIVE METABOLIC PANEL (03/21/2022 9:53 AM VETERINARY POULTRY INSPECTOR) SODIUM S/P/B 141 133 - 146 MMOL/L [facility] POTASSIUM S/P/B 4.3 3.5 - 5.1 MMOL/L [facility] CHLORIDE S/P/B 103 98 - 107 MMOL/L [facility] CO2 31 21 - 31 MMOL/L [facility] ANION GAP 7 4 - 13 MMOL/L [facility] BUN 22 7 - 25 MG/DL [facility] CREATININE S/P/B 0.75 0.60 - 1.30 MG/DL [facility] EGFR NON-AFR. AMER. 88 >=60 ML/MIN/1.7 3 M2 [facility] CALCIUM S/P/B 9.4 8.3 - 10.5 MG/DL [facility] GLUCOSE 89 70 - 100 MG/DL [facility] TOTAL PROTEIN S/P/B 6.5 6.4 - 8.3 G/DL [facility] ALBUMIN S/P/B 4.2 3.5 - 5.0 G/DL [facility] ALT 11 9 - 43 UNITS/L [facility] ALKALINE PHOSPHATASE S/P/B 56 34 - 104 UNITS/L [facility] AST 16 13 - 39 UNITS/L [facility] BILIRUBIN TOTAL S/P/B 0.6 0.2 - 1.2 MG/DL [facility] Comment:IS PATIENT FASTING?- >YES 03/21/2022 9:53 AM VETERINARY POULTRY INSPECTOR 03/22/2022 5:55 AM VETERINARY POULTRY INSPECTOR Mariana Ruiz DO LABORATORY Final Result [facility] [address] [place] [address], * CBC, AUTO, NO DIFF (03/21/2022 9:53 AM VETERINARY POULTRY INSPECTOR) WBC 4.3 3.6 - 10.2 10'3/UL [facility] RBC 4.49 BASED ON DOCUMENTED LEGAL SEX 10'6/UL [facility] HGB 13.0 BASED ON DOCUMENTED LEGAL SEX G/DL [facility] HCT 39.7 BASED ON DOCUMENTED LEGAL SEX % [facility] MCV 88.4 82.0 - 99.0 FL [facility] MCH 29.0 27.0 - 33.0 PG [facility] MCHC 32.7 32.0 - 36.0 G/DL [facility] RDW CALCULATED 14.6 11.0 - 15.0 % [facility] PLT 213 150 - 450 10'3/UL [facility] MPV 12.3 9.8 - 12.7 FL [facility] NRBC 0.0 0 % [facility] ABS. NUCLEATED RBC'S 0.0 0 10'3/UL [facility] Comment: 03/22/2022 6:32 AM: P INDICATES PARTIAL RESULTS ON A PANEL HAVE BEEN RELEASED. ADDITIONAL RESULTS WILL FOLLOW. 03/22/2022 6:32 AM: THIS RESULT HAS BEEN FINAL VERIFIED. NO ADDITIONAL OR CHANGED RESULTS ARE EXPECTED. 03/21/2022 9:53 AM VETERINARY POULTRY INSPECTOR 03/22/2022 5:55 AM VETERINARY POULTRY INSPECTOR us Mariana Ruiz DO LABORATORY Final Result Performing Organization Address [facility] [place] [address], * THYROID STIM HORMONE, TSH (03/21/2022 9:53 AM VETERINARY POULTRY INSPECTOR) TSH 4.04 0.30 - 5.33 UIU/ML [facility] 03/21/2022 9:53 AM VETERINARY POULTRY INSPECTOR 03/22/2022 5:55 AM VETERINARY POULTRY INSPECTOR us Mariana Ruiz DO LABORATORY Final Result Performing Organization Address [facility] [place] [address], * LIPID PANEL (03/21/2022 9:53 AM VETERINARY POULTRY INSPECTOR) CHOLESTEROL 189 0 - 199 MG/DL [facility] TRIGLYCERIDES 41 0.00 - 150.00 MG/DL [facility] Comment: NCEP REFERENCE VALUES FOR TRIGLYCERIDES: NORMAL: ? <150 MG/DL BORDERLINE HIGH: ?150 - 199 MG/DL HIGH: ? 200 - 499 MG/DL VERY HIGH: ?>/= 500 MG/DL HDL 85 >40 MG/DL [facility] LDL (CALCULATED) 96 0 - 99 MG/DL [facility] Comment: CUTOFF VALUES RECOMMENDED BY THE NATIONAL CHOLESTEROL EDUCATION PROGRAM: DESIRABLE: ?CHOLESTEROL <200 MG/DL ? LDL <100 MG/DL BORDERLINE: ?? CHOLESTEROL 200-239 MG/DL ?LDL 101-159 MG/DL HIGHER RISK: ??CHOLESTEROL >240 MG/DL ? LDL >160 MG/DL, HDL <40 MG/DL NON HDL CHOLESTEROL 104 NO REFERENCE RANGE MG/DL [facility] Comment: A REASONABLE GOAL FOR NON-HDL CHOLESTEROL IS ONE THAT IS 30 MG/DL HIGHER THAN THE LDL CHOLESTEROL GOAL. CHOL/HDL RATIO 2.2 0.0 - 5.0 . [facility] Comment:IS PATIENT FASTING?- >YES 03/21/2022 9:53 AM VETERINARY POULTRY INSPECTOR 03/22/2022 5:55 AM VETERINARY POULTRY INSPECTOR us Mariana Ruiz DO LABORATORY Final Result Performing Organization Address [facility] de Phone Number [facility] [address] [place] [address], * VITAMIN D, 25 OH TOTAL (03/21/2022 9:52 AM VETERINARY POULTRY INSPECTOR) Pathologist [facility] VITAMIN D 25 HYDROXY S/P/B 49.9 30.0 - 100.0 NG/ML [facility] Comment: SUGGESTIVE OF DEFICIENCY: ?<20 NG/ML SUGGESTIVE OF INSUFFICIENCY: ?? 20-29 NG/ML SUGGESTIVE OF SUFFICIENCY: ?30-100 NG/ML SUGGESTIVE OF TOXICITY: ? >150 NG/ML ? 03/21/2022 9:52 AM VETERINARY POULTRY INSPECTOR 03/22/2022 5:55 AM VETERINARY POULTRY INSPECTOR us Mariana Ruiz DO LABORATORY Final Result [facility] [address] [place] [address], documented in this encounter Visit Diagnoses Diagnosis Vitamin D insufficiency Unspecified vitamin D deficiency Atherosclerosis of aorta (CMS/HCC) Atherosclerosis of aorta Primary hypertension Unspecified essential hypertension Morbidly obese (CMS/HCC HHS/HCC) Morbid obesity Weight gain Abnormal weight gain Lightheadedness Dizziness and giddiness documented in this encounter Additional Health Concerns Assessment Noted Time PHQ-9 Depression Total Score: 0 02/11/20 21 1:25 PM VETERINARY POULTRY INSPECTOR documented as of this encounter Care Teams Pumper Brewery Relationship Specialty Start Date End Date Mariana Ruiz DO [address] [place] [address] PCP - General FAMILY PRACTICE 09/27/17 06/04/23 documented as of this encounter
--- OUTSIDE RECORDS SUMMARY | 2024-03-23 01:33 | XMS_ITS | Encounter Summary ---
Author Organization [facility] Address [address] [place] [address]. [place] [address] [place] [address] Care Team Providers Care Physicist Cryogenics Name Role Phone Joseph Marianaroland Birch DO Primary Care Provider + [phone] Marii Randle MD Primary Care Provider + [phone] Encounter Details Date Type Department Care Team (Late st Contact Info) Description 07/11/2020 Prep for Procedure [facility] [place], [place] [phone] Scotty Ruiz MD [address] [id number] Social History Tobacco Use Types Packs/Day Years [...] st Contact Info) Description 05/01/2024 8:00 AM WATERWORKS CHIEF ENGINEER Appointment [facility] [address] Edgard Washington MD [address] [place] [address] 06/02/2024 10:15 AM CDT Office Visit [facility] [address] [facility] [address] [place] [address] Edgard Washington MD [address] [place] [address] documented as of this encounter Visit Diagnoses Diagnosis History of colon polyps- Primary Personal history of colonic polyps documented in this encounter Additional Health Concerns Infection Onset Date Last Indicated Resolved Time COVID-19 Rule Out 07/11/2020 07/11/2020 07/11/2020 8:50 PM CDT documented as of this encounter Care Teams Physicist Cryogenics Relationship Specialty Start Date End Date Mariana Ruiz DO [address] [place] [address] PCP - General FAMILY PRACTICE 09/27/17 06/04/23 Marii Randle MD [address] [facility] [address] [place] [phone] PCP - General FAMILY PRACTICE 06/05/23 documented as of this encounter
--- OUTSIDE RECORDS SUMMARY | 2024-03-23 01:33 | XMS_ITS | Encounter Summary ---
Author Organization [facility] Address [address] [place] [address]. [place], [place] [address] [place] [address] Care Team Providers Care Life Enrichment Director Name Role Phone Yamilet Mckeon DO Primary Care Provider [phone] Reason for Referral * Imaging (Routine) - Closed Specialty Diagnoses / Procedures Referred By Herberth amor Referred To Contact RADIOLOGY Diagnoses Estrogen deficiency Procedures BONE DENSITY/DEXA DXA BONE DENSITY STUDY 1+ SITS AXIAL SKEL Yamilet Mckeon DO [address] [place] [address] Phone: tel: fax: Referral ID Status Reason Start Date Expiration Date Visits Re quested Visits Authorized [id number] Closed 03/21/2022 04/21/2023 1 1 TING MACHINE OPERATOR Reason for Visit * Reason Comments Physical Annual, fasting Encounter Details Date Type Department Care Team (Late st Contact Info) Description 03/21/2022 9:00 AM TWISTING MACHINE OPERATOR Office Visit [facility] [address] [place] [id number] Yamilet Mckeon DO [address] [place] [address] Physical (Annual, fasting) Social History Tobacco Use Types Packs/Day Years [...] Sign Reading Time Taken Comments Blood Pressure 130/82 03/21/2022 8:54 AM TWISTING MACHINE OPERATOR Pulse 68 03/21/2022 8:54 AM TWISTING MACHINE OPERATOR Temperature - - Respiratory Rate - - Oxygen Saturation - - Inhaled Oxygen Concentration - - Weight 103.9 kg (229 lb) 03/21/2022 8:54 AM TWISTING MACHINE OPERATOR Height 167.6 cm (5' 6 ) 03/21/2022 8:54 AM TWISTING MACHINE OPERATOR Body Mass Index 36.96 03/21/2022 8:54 AM TWISTING MACHINE OPERATOR documented in this encounter Progress Notes * Yamilet Mckeon, DO - 03/21/2022 9:00 AM CST Reason for Visit: Physical (Annual, fasting) History of Present Illness: Here for annual Doing well Went back to gym and trying to watch diet, has gained wt No falls Not depressed No urinary complaints occas hemorrhoids bother, tries to keep stools soft, up to date on cscope Will get lightheaded and sweaty sometimes and feel like she might faint and then it resolves, may just have every few mths, tries not to skip meals ROS: Review of Systems Constitutional: Negative. Respiratory: Negative. Cardiovascular: Negative. Gastrointestinal: As per HPI Genitourinary: Negative. Musculoskeletal: Occas pain in right leg Psychiatric/Behavioral: Negative. Medications: Current Outpatient Medications: ??? celecoxib (CELEBREX) 200 MG capsule, TAKE 1 CAPSULE EVERY DAY, Disp: 100 capsule, Rfl: 0 ??? cetirizine 10 MG chewable tablet, Chew 10 mg by mouth daily., Disp: , Rfl: ??? FLUTICASONE PROPIONATE 50 MCG/ACT nasal spray, SPRAY 2 SPRAYS INTO EACH NOSTRIL EVERY DAY, Disp: 48 mL, Rfl: 0 ??? hydroCHLOROthiazide (MICROZIDE) 12.5 MG tablet, TAKE 1 TABLET EVERY DAY, Disp: 90 tablet, Rfl: 0 ??? losartan (COZAAR) 100 MG tablet, TAKE 1/2 TABLET EVERY DAY, Disp: 45 tablet, Rfl: 0 ??? omeprazole (PRILOSEC) 40 MG capsule, TAKE 1 [...] COLONOSCOPY performed by Scotty Ruiz MD at [facility] ??? HC LAP TOTAL HYSTERECTOMY REMOVAL BOTH TUBES AND OVARIES--BLEEDING ??? HYSTERECTOMY Social History Tobacco Use ??? Smoking status: Never ??? Smokeless tobacco: Never Substance Use Topics ??? Alcohol use: Yes Comment: SOCIAL Social History Socioeconomic History ??? Marital status: ??? Number of children: 2 Physical Exam Constitutional: She is oriented to person, place, and time. She appears well- developed. No distress. Morbidly obese with comorbidities affected by wt HENT: Right Ear: [...] Nursing note and vitals reviewed. Filed Vitals: 03/21/22 0854 BP: 130/82 Pulse: 68 Weight: 103.9 kg (229 lb) Height: 5' 6 (1.676 m) Diagnoses/Impression: 1. Preventative health care 2. Encounter for screening mammogram for malignant neoplasm of breast MG SCREENING BRANDY DIGI 3. Estrogen deficiency BONE DENSITY/DEXA 4. Atherosclerosis of aorta (CMS/HCC) COMPREHENSIVE METABOLIC PANEL LIPID PANEL 5. Primary hypertension COMPREHENSIVE METABOLIC PANEL LIPID PANEL 6. Morbidly obese (CMS/HCC) COMPREHENSIVE METABOLIC PANEL LIPID PANEL comorbidities affected by wt 7. Lightheadedness CBC, AUTO, NO DIFF 8. Vitamin D insufficiency VITAMIN D, 25 OH TOTAL 9. Weight gain THYROID STIM HORMONE, TSH 10. History of vertebral compression fracture 11. Hyperactivity of bladder 12. NUD (nonulcer dyspepsia) 13. Allergic rhinitis, unspecified seasonality, unspecified trigger above stable Recommendations and Plan: Remain active, exercise, healthy diet, eye exam when due, prevnar 20 at pharm Mamm and DEXA Work on wt loss Reviewed and updated this visit by provider: Tobacco Allergies Meds Problems Med Hx Surg Hx Fam Hx Orders Placed This Encounter ??? COMPREHENSIVE METABOLIC PANEL ??? CBC, AUTO, NO DIFF ??? THYROID STIM HORMONE, TSH ??? LIPID PANEL ??? VITAMIN D, 25 OH TOTAL ??? MG SCREENING BRANDY DIGI ??? BONE DENSITY/DEXA YAMILET MCKEON DO Referring Provider: No ref. provider found PCP: YAMILET MCKEON DO TING MACHINE OPERATOR documented in this encounter Plan of Treatment Upcoming Encounters Date Type Department Care Team (Late st Contact Info) Description 05/01/2024 8:00 AM TWISTING MACHINE OPERATOR Appointment [facility] [place] [address] Edgard Washington MD Three [facility], [address] [place] [address] 06/02/2024 10:15 AM CDT Office Visit [facility] THREE [facility], [address] [place] [address] Edgard Washington MD Three [facility], [address] [place] [address] documented as of this encounter Procedures Procedure Name Priority Date/Time Associated Diagnosis Comments BONE DENSITY/DEXA Routine 05/09/2022 9:2 7 AM TWISTING MACHINE OPERATOR Estrogen deficiency documented in this encounter Results * BONE DENSITY/DEXA (05/09/2022 9:27 AM TWISTING MACHINE OPERATOR) Anatomical Region Laterality Modality Bone Mammography 05/09/2022 9:39 AM TWISTING MACHINE OPERATOR Impressions 05/09/2022 9:41 AM TWISTING MACHINE OPERATOR IMPRESSION: WHO Classification: Normal RECOMMENDATIONS: All patients [...] have additional risk factors. Referred By: YAMILET MCKEON Interpreted By: Teo Daugherty MD, 05/09/2022 9:39 AM Narrative 05/09/2022 9:41 AM TWISTING MACHINE OPERATOR EXAMINATION: BONE DENSITY/DEXA INDICATIONS: estrogen deficiency; Postmenopausal [...] have additional risk factors. Referred By: YAMILET MCKEON Interpreted By: Teo Daugherty MD, 05/09/2022 9:39 AM Yamilet Mckeon DO DEXA Final Result * LIPID PANEL (03/21/2022 9:53 AM TWISTING MACHINE OPERATOR) Pathologist [facility] CHOLESTEROL 189 0 - 199 MG/DL [facility] TRIGLYCERIDES 41 0.00 - 150.00 MG/DL [facility] Comment: NCEP REFERENCE VALUES FOR TRIGLYCERIDES: NORMAL: ? <150 MG/DL BORDERLINE HIGH: ?150 - 199 MG/DL HIGH: ? 200 - 499 MG/DL VERY HIGH: ?>/= 500 MG/DL HDL 85 >40 MG/DL [facility] LDL (CALCULATED) 96 0 - 99 MG/DL [facility] Comment: CUTOFF VALUES RECOMMENDED BY THE NATIONAL CHOLESTEROL EDUCATION PROGRAM: DESIRABLE: ?CHOLESTEROL <200 MG/DL ? LDL <100 MG/DL BORDERLINE: ?? CHOLESTEROL 200-239 MG/DL ?LDL 101-159 MG/DL HIGHER RISK: ??CHOLESTEROL >240 MG/DL ? LDL >160 MG/DL, HDL <40 MG/DL NON HDL CHOLESTEROL 104 NO REFERENCE RANGE MG/DL [facility] Comment: A REASONABLE GOAL FOR NON-HDL CHOLESTEROL IS ONE THAT IS 30 MG/DL HIGHER THAN THE LDL CHOLESTEROL GOAL. CHOL/HDL RATIO 2.2 0.0 - 5.0 . [facility] Comment:IS PATIENT FASTING?- >YES 03/21/2022 9:53 AM TWISTING MACHINE OPERATOR 03/22/2022 5:55 AM TWISTING MACHINE OPERATOR Yamilet Mckeon DO LABORATORY Final Result Performing Organization Address [facility] Co de Phone Number [facility] [address] [place] [address], * THYROID STIM HORMONE, TSH (03/21/2022 9:53 AM TWISTING MACHINE OPERATOR) TSH 4.04 0.30 - 5.33 UIU/ML [facility] 03/21/2022 9:53 AM TWISTING MACHINE OPERATOR 03/22/2022 5:55 AM TWISTING MACHINE OPERATOR us Yamilet Mckeon DO LABORATORY Final Result Performing Organization Address [facility] de Phone Number [facility] [address] [place] [address], * CBC, AUTO, NO DIFF (03/21/2022 9:53 AM TWISTING MACHINE OPERATOR) WBC 4.3 3.6 - 10.2 10'3/UL [facility] RBC 4.49 BASED ON DOCUMENTED LEGAL SEX 10'6/UL [facility] HGB 13.0 BASED ON DOCUMENTED LEGAL SEX G/DL [facility] HCT 39.7 BASED ON DOCUMENTED LEGAL SEX % [facility] MCV 88.4 82.0 - 99.0 FL [facility] MCH 29.0 27.0 - 33.0 PG [facility] MCHC 32.7 32.0 - 36.0 G/DL [facility] RDW CALCULATED 14.6 11.0 - 15.0 % [facility] PLT 213 150 - 450 10'3/UL [facility] MPV 12.3 9.8 - 12.7 FL [facility] NRBC 0.0 0 % [facility] ABS. NUCLEATED RBC'S 0.0 0 10'3/UL [facility] Comment: 03/22/2022 6:32 AM: P INDICATES PARTIAL RESULTS ON A PANEL HAVE BEEN RELEASED. ADDITIONAL RESULTS WILL FOLLOW. 03/22/2022 6:32 AM: THIS RESULT HAS BEEN FINAL VERIFIED. NO ADDITIONAL OR CHANGED RESULTS ARE EXPECTED. 03/21/2022 9:53 AM TWISTING MACHINE OPERATOR 03/22/2022 5:55 AM TWISTING MACHINE OPERATOR us Yamilet Mckeon DO LABORATORY Final Result Performing Organization Address City/[facility]/ZIP Co de Phone Number [facility] [address] [place] [address], * COMPREHENSIVE METABOLIC PANEL (03/21/2022 9:53 AM TWISTING MACHINE OPERATOR) SODIUM S/P/B 141 133 - 146 MMOL/L [facility] POTASSIUM S/P/B 4.3 3.5 - 5.1 MMOL/L [facility] CHLORIDE S/P/B 103 98 - 107 MMOL/L [facility] CO2 31 21 - 31 MMOL/L [facility] ANION GAP 7 4 - 13 MMOL/L [facility] BUN 22 7 - 25 MG/DL [facility] CREATININE S/P/B 0.75 0.60 - 1.30 MG/DL [facility] EGFR NON-AFR. AMER. 88 >=60 ML/MIN/1.7 3 M2 [facility] CALCIUM S/P/B 9.4 8.3 - 10.5 MG/DL [facility] GLUCOSE 89 70 - 100 MG/DL [facility] TOTAL PROTEIN S/P/B 6.5 6.4 - 8.3 G/DL [facility] ALBUMIN S/P/B 4.2 3.5 - 5.0 G/DL [facility] ALT 11 9 - 43 UNITS/L [facility] ALKALINE PHOSPHATASE S/P/B 56 34 - 104 UNITS/L [facility] AST 16 13 - 39 UNITS/L [facility] BILIRUBIN TOTAL S/P/B 0.6 0.2 - 1.2 MG/DL [facility] Comment:IS PATIENT FASTING?- >YES 03/21/2022 9:53 AM TWISTING MACHINE OPERATOR 03/22/2022 5:55 AM TWISTING MACHINE OPERATOR Yamilet Mckeon DO LABORATORY Final Result [facility] [address] [place] [address], * VITAMIN D, 25 OH TOTAL (03/21/2022 9:52 AM TWISTING MACHINE OPERATOR) VITAMIN D 25 HYDROXY S/P/B 49.9 30.0 - 100.0 NG/ML [facility] Comment: SUGGESTIVE OF DEFICIENCY: ?<20 NG/ML SUGGESTIVE OF INSUFFICIENCY: ?? 20-29 NG/ML SUGGESTIVE OF SUFFICIENCY: ?30-100 NG/ML SUGGESTIVE OF TOXICITY: ? >150 NG/ML ? 03/21/2022 9:52 AM TWISTING MACHINE OPERATOR 03/22/2022 5:55 AM TWISTING MACHINE OPERATOR Yamilet Mckeon DO LABORATORY Final Result Performing Organization Address City/State/[facility] Co de Phone Number [email or web address] [address] [place] [address], documented in this encounter Visit Diagnoses Diagnosis Preventative health care- Primary Routine general medical examination at a health care facility Encounter for screening mammogram for malignant neoplasm of breast Other screening mammogram Estrogen deficiency Other ovarian failure Atherosclerosis of aorta (CMS/HCC) Atherosclerosis of aorta Primary hypertension Unspecified essential hypertension Morbidly obese (CMS/HCC HHS/HCC) Morbid obesity Lightheadedness Dizziness and giddiness Vitamin D insufficiency Unspecified vitamin D deficiency Weight gain Abnormal weight gain History of vertebral compression fracture Hyperactivity of bladder Hypertonicity of bladder NUD (nonulcer dyspepsia) Dyspepsia and other specified disorders of function of stomach Allergic rhinitis, unspecified seasonality, unspecified trigger documented in this encounter Additional Health Concerns Assessment Noted Time PHQ-9 Depression Total Score: 0 02/11/20 21 1:25 PM TWISTING MACHINE OPERATOR documented as of this encounter Care Teams Life Enrichment Director Relationship Specialty Start Date End Date Yamilet Mckeon DO [address] [place] [address] PCP - General FAMILY PRACTICE 09/27/17 06/04/23 documented as of this encounter
--- OUTSIDE RECORDS SUMMARY | 2024-03-23 01:33 | XMS_ITS | Encounter Summary ---
Author Organization [facility] Address [address] [place] [address]. [place], [place] [address] [place] [address] Care Team Providers Care Chef German Name Role Phone Yamilet Mckeon DO Primary Care Provider [phone] Reason for Visit * Imaging (Routine) - Closed Specialty Diagnoses / Procedures Referred By Herberth amor Referred To Contact RADIOLOGY Diagnoses Encounter for screening mammogram for malignant neoplasm of breast Procedures MG SCREENING W CHANO BRANDY DIGI Yamilet Mckeon DO [address] [place] [address] Phone: tel: fax: Referral ID Status Reason Start Date Expiration Date Visits Re quested Visits Authorized [id number] Closed 02/23/2021 03/26/2022 1 1 Encounter Details Date Type Department Care Team (Latest Contact Info) Description 03/07/2021 2:58 PM CHILDREN'S MINISTRY DIRECTOR - 03/07/2021 11:59 PM CHILDREN'S MINISTRY DIRECTOR Hospital Encounter [facility] [address] [place] [address] Yamilet Mckeon DO [address] [place] [address] Discharge Disposition: Home or Self Care (Routine [...] COVID-19? No / Unsure 03/06/2021 3:45 PM CHILDREN'S MINISTRY DIRECTOR documented as of this encounter Medications at Time of Discharge cetirizine 10 MG chewable tablet Chew 1 tablet (10 mg total) by mouth daily. FLUTICASONE PROPIONATE 50 MCG/ACT nasal sprayIndications:A llergic rhinitis, unspecified seasonality, unspecified trigger SPRAY 2 SPRAYS INTO EACH NOSTRIL EVERY DAY 48 mL 01/05/2020 aspirin EC 81 MG tablet Take 1 tablet by mouth daily. 2 celecoxib 200 MG capsuleIndications :History of vertebral compression fracture Take 1 capsule (200 mg total) by mouth daily. 90 capsule 3 02/10/2021 2 HYDROCHLOROTHIAZID E 12.5 MG tabletIndications: Essential hypertension TAKE 1 TABLET BY MOUTH EVERY DAY 90 tablet 12/29/2020 2 losartan 100 MG tabletIndications: Essential hypertension Take 0.5 tablets (50 mg total) by mouth daily. 45 tablet 3 02/10/2021 2 OMEPRAZOLE 40 MG capsuleIndications :Essential hypertension TAKE 1 CAPSULE BY MOUTH EVERY DAY 90 capsule 12/29/2020 2 OXYBUTYNIN XL 5 MG 24 hr tabletIndications: Hyperactivity of bladder TAKE 1 TABLET BY MOUTH EVERY DAY 90 tablet 12/29/2020 2 polyethylene glycol packet Take 17 g by mouth daily. Dissolve powder in 240 mL water 3 vitamin C 500 MG tablet Take 1 tablet by mouth 2 (two) times daily. 3 vitamin D3, cholecalciferol, 10 MCG (400 UNIT) tablet Take 400 Units by mouth daily. 3 Zinc 50 MG Tab 3 documented as of this encounter Plan of Treatment Upcoming Encounters Date Type Department Care Team (Late st Contact Info) Description 05/01/2024 8:00 AM CHILDREN'S MINISTRY DIRECTOR Appointment [facility] [address] [facility] [place] [address] Edgard Washington MD [address] [place] [address] 06/02/2024 10:15 AM CDT Office Visit [facility], [address] [place] [address] Edgard Washington [facility] [address] [place] [address] documented as of this encounter Procedures Procedure Name Priority Date/Time Associated Diagnosis Comments MG SCREENING W CHANO BRANDY DIGI Routine 03/07/2021 3:17 PM CHILDREN'S MINISTRY DIRECTOR Encounter for screening mammogram for malignant neoplasm of breast documented in this encounter Results * MG SCREENING W CHANO BRANDY DIGI (03/07/2021 3:17 PM CHILDREN'S MINISTRY DIRECTOR) Anatomical Region Laterality Modality Breast Bilateral Mammography 03/07/2021 4:16 PM CHILDREN'S MINISTRY DIRECTOR Impressions 03/07/2021 4:19 PM CHILDREN'S MINISTRY DIRECTOR IMPRESSION: No suspicious mammographic findings. Recommendation: 1. Routine Screening, Bilateral Assessment: ACR BI-RADS 2 - BENIGN FINDING(S) Comments: A negative or benign mammography report should not delay follow-up or biopsy of a clinically significant finding or palpable abnormality. Regions of dense breast tissue may obscure findings on mammogram. Ordered By: YAMILET MCKEON Interpreted By: Humphrey Montejo MD, 03/07/2021 4:16 PM Narrative 03/07/2021 4:19 PM CHILDREN'S MINISTRY DIRECTOR Examination: Screening bilateral mammogram with 3-D tomosynthesis Clinical history: Positive family history of breast cancer. ??Benign excisional biopsy. No present breast related complaints. Bilateral keloids. Comparison: 01/21/2020, 10/17/2018, 09/30/2017 Technique: Digital screening mammography of both breasts was performed. 3-D tomosynthesis technique was also performed. This study was read with the assistance of computer-aided detection system. Tissue density: There are scattered areas of fibroglandular density. Findings: No suspicious masses, malignant appearing calcifications, skin thickening or other abnormalities are present. ??No significant change from the prior exam. Skin lesions are consistent with history of keloids,.. Yamilet Mckeon DO MAMMO Final Result documented in this encounter Visit Diagnoses Not on filedocumented in this encounter Additional Health Concerns Assessment Noted Time PHQ-9 Depression Total Score: 0 02/11/20 21 1:25 PM CHILDREN'S MINISTRY DIRECTOR documented as of this encounter Care Teams Chef German Relationship Specialty Start Date End Date Yamilet Mckeon DO [address] [place] [address] PCP - General FAMILY PRACTICE 09/27/17 06/04/23 documented as of this encounter
--- OUTSIDE RECORDS SUMMARY | 2024-03-23 01:33 | XMS_ITS | Encounter Summary ---
Author Organization [facility] Address [address] [place] [address]. [place], [place] [address] [place] [address] Care Team Providers Care Claim Processing Specialist Name Role Phone Mariana Ruiz DO Primary Care Provider [phone] Reason for Referral * Physical Medicine (Routine) - Closed Specialty Diagnoses / Procedures Referred By Herberth amor Referred To Contact PHYSICAL THERAPY Diagnoses Osteoarthritis of right hip, unspecified osteoarthritis type Procedures OFFICE/OUTPT VISIT,NEW,LEVL III OFFICE/OUTPT VISIT,NEW,LEVL IV OFFICE/OUTPT VISIT,NEW,LEVL V Mariana Ruiz DO [address] [place] [address] Phone: tel: fax: Referral ID Status Reason Start Date Expiration Date V isits Requested Visits Authorized [id number] Closed Physical Therapy 09/29/2021 10/30/2022 1 1 Encounter Details Date Type Department Care Team (Late st Contact Info) Description 09/29/2021 Orders Only [facility] [address] [facility] [address] [place] [address] Mariana Ruiz DO [address] [place] [address] Social History Tobacco Use Types Packs/Day Years [...] st Contact Info) Description 05/01/2024 8:00 AM CLAIM PROCESSING SPECIALIST Appointment [facility] [place] [address] Edgard Washington MD [facility], [address] [place] [address] 06/02/2024 10:15 AM CDT Office Visit [facility] THREE [facility], [address] [address] Edgard Washington MD [facility], [address] [address] Scheduled Referrals Name Type Priority Associated Diagnoses Orde r Schedule Ambulatory referral to Physical Therapy Referral Routine Osteoarthritis of right hip, unspecified osteoarthritis type Ordered: 09/29/2021 documented as of this encounter Visit Diagnoses Diagnosis Osteoarthritis- Primary Osteoarthrosis, unspecified whether generalized or localized, unspecified site Osteoarthritis of right hip, unspecified osteoarthritis type documented in this encounter Additional Health Concerns Assessment Noted Time PHQ-9 Depression Total Score: 0 02/11/20 21 1:25 PM CLAIM PROCESSING SPECIALIST documented as of this encounter Care Teams Claim Processing Specialist Relationship Specialty Start Date End Date Mariana Ruiz DO [address] [place] [address] PCP - General FAMILY PRACTICE 09/27/17 06/04/23 documented as of this encounter
--- OUTSIDE RECORDS SUMMARY | 2024-03-23 01:33 | XMS_ITS | Encounter Summary ---
Author Organization [facility] Address [address] [place] [address]. [place] [address] [place] [address] Care Team Providers Care Supervisor Receiving And Processing Name Role Phone Mariana Ruiz DO Primary Care Provider [phone] Reason for Visit * Reason Onset Date Comments Medication Request 06/29/2022 Encounter Details Date Type Department Care Team (Late st Contact Info) Description 06/29/2022 Telephone [facility] [address] [facility] [address] [place] [address] Mariana Ruiz DO [address] [place] [address] Medication Request Social History Tobacco Use Types Packs/Day [...] as of this encounter Progress Notes * Rufino Carson RN - 10/16/2022 9:42 AM CDT Pt aware, med rxd. Asked about samples, informed her we do not get them often but she could check back at another time as we only have one right now that is spoken for. * Rufino Carson RN - 10/16/2022 9:42 AM CDTAddended by: RUFINO CARSON on: 10/16/2022 09:42 AM Modules accepted: Orders * Mariana Ruiz DO - 10/16/2022 6:57 AM CDT Ok to Rx but we will NOT be doing any PAs * Johanne Gross RN - 10/10/2022 3:46 PM CDT Pt calling stating she has been buying out of pocket for ozempic. Has completed up to the highest dose and has seen great results. Asking if you will rx again to see if insurance will cover it now that she's tried it and had results? Not sure if this is how this works Ncb pt * China Reyes - 06/29/2022 1:41 PM CDT Pt wanted us to go ahead and send over prescription. Rx sent * China Reyes - 06/29/2022 1:18 PM CDT Pt aware. Pt will think about it and let us know * Mariana Ruiz DO - 06/29/2022 1:14 PM CDT It will not be covered by insurance and we will not be doing a PA Ok to rx if pt willing to pay for it * China Reyes - 06/29/2022 1:09 PM CDT Pt called asking you will prescribe wegovy since she is considered in the obese category. Looks like in March she was trying to diet and exercise. Ok tor rx or Does pt need appt to discuss? NCB:pt documented in this encounter Plan of Treatment Upcoming Encounters Date Type Department Care Team (Late st Contact Info) Description 05/01/2024 8:00 AM FINISHING SUPERVISOR PLASTIC SHEETS Appointment [facility] [place] [address] Edgard Washington MD Three [facility] [address] [facility] [place] [address] 06/02/2024 10:15 AM CDT Office Visit [facility] THREE [facility], ED [address] [place] [address] Edgard Washington MD Three [facility]., [address] [facility] [place] [address] documented as of this encounter Visit Diagnoses Diagnosis Morbidly obese ([facility]/HCC [facility])- Primary Morbid obesity Primary hypertension Unspecified essential hypertension documented in this encounter Additional Health Concerns Assessment Noted Time PHQ-9 Depression Total Score: 0 02/11/20 21 1:25 PM FINISHING SUPERVISOR PLASTIC SHEETS documented as of this encounter Care Teams Supervisor Receiving And Processing Relationship Specialty Start Date End Date Mariana Ruiz DO [address] [place] [address] PCP - General FAMILY PRACTICE 09/27/17 06/04/23 documented as of this encounter
--- OUTSIDE RECORDS SUMMARY | 2024-03-23 01:33 | XMS_ITS | Encounter Summary ---
Author Organization [facility] Address [address] [place] [address]. [place], [place] [id number] [place] [address] Care Team Providers Care Technician Name Role Phone Mariana Ruiz DO Primary Care Provider [phone] Encounter Details Date Type Department Care Team (Late st Contact Info) Description 06/29/2022 Orders Only [facility] [address] [place] [phone] Mariana Ruiz DO [address] [place], [place] [phone] Social History Tobacco Use Types Packs/Day Years [...] st Contact Info) Description 05/01/2024 8:00 AM DATA MIGRATION CONSULTANT Appointment [facility] [place] [address] Edgard Washington MD [facility] [address] [place] [address] 06/02/2024 10:15 AM CDT Office Visit [facility], [address] [place] [address] Edgard Washington MD [facility] [address] [place] [address] documented as of this encounter Visit Diagnoses Diagnosis Obesity without serious comorbidity, unspecified classification, unspecified obesity type- Primary Weight gain Abnormal weight gain Morbidly obese ([facility]/HCC [facility]/HCC) Morbid obesity documented in this encounter Additional Health Concerns Assessment Noted Time PHQ-9 Depression Total Score: 0 02/11/20 21 1:25 PM DATA MIGRATION CONSULTANT documented as of this encounter Care Teams Technician Relationship Specialty Start Date End Date Mariana Ruiz DO [address] [place] [address] PCP - General FAMILY PRACTICE 09/27/17 06/04/23 documented as of this encounter
--- OUTSIDE RECORDS SUMMARY | 2024-03-23 01:33 | XMS_ITS | Encounter Summary ---
Author Organization [facility] Address [address] [place] [address]. [place] [address] [place] [address] Care Team Providers Care Shipfitter Name Role Phone Yamilet Mckeon DO Primary Care Provider Encounter Details Date Type Department Care Team (Latest Contact Info) Description 09/28/2021 2:00 PM CDT - 09/28/2021 11:59 PM CDT Hospital Encounter [facility] [address] [place] [id number] Yamilet Mckeon DO [address] [place], [place] [address] Discharge Disposition: Home or Self Care (Routine [...] PM CDT documented as of this encounter Medications at Time of Discharge cetirizine 10 MG chewable tablet Chew 1 tablet (10 mg total) by mouth daily. FLUTICASONE PROPIONATE 50 MCG/ACT nasal sprayIndications:A llergic rhinitis, unspecified seasonality, unspecified trigger SPRAY 2 SPRAYS INTO EACH NOSTRIL EVERY DAY 48 mL 01/05/2020 celecoxib 200 MG capsuleIndications :History of vertebral compression fracture Take 1 capsule (200 mg total) by mouth daily. 90 capsule 1 07/05/2021 2 HYDROCHLOROTHIAZID E 12.5 MG tabletIndications: Essential hypertension TAKE 1 TABLET BY MOUTH EVERY DAY 90 tablet 07/13/2021 2 losartan 100 MG tabletIndications: Essential hypertension Take 0.5 tablets (50 mg total) by mouth daily. 45 tablet 1 07/05/2021 2 OMEPRAZOLE 40 MG capsuleIndications :Essential hypertension TAKE 1 CAPSULE BY MOUTH EVERY DAY 90 capsule 07/13/2021 2 oxybutynin XL (DITROPAN-XL) 10 MG 24 hr tabletIndications: Hyperactivity of bladder Take 1 tablet (10 mg total) by mouth daily. 90 tablet 1 09/28/2021 3 polyethylene glycol packet Take 17 g by [...] st Contact Info) Description 05/01/2024 8:00 AM QUARTZ CUTTER Appointment [facility] [place] [address] Edgard Washington MD [facility] [address] [place] [address] 06/02/2024 10:15 AM CDT Office Visit [facility], ED [address] [place] [address] Edgard Washington MD [facility] [address] [place] [address] documented as of this encounter Procedures Procedure Name Priority Date/Time Associated Diagnosis Comments XR HIP RT 2V Routine 09/28/2021 2:10 PM CDT Hip pain documented in this encounter Results * XR HIP RT [...] in this encounter Visit Diagnoses Diagnosis Hip pain Pain in joint, pelvic region and thigh documented in this encounter Additional Health Concerns Assessment Noted Time PHQ-9 Depression Total Score: 0 02/11/20 21 1:25 PM QUARTZ CUTTER documented as of this encounter Care Teams Shipfitter Relationship Specialty Start Date End Date Yamilet Mckeon DO [address] [place] [address] PCP - General FAMILY PRACTICE 09/27/17 06/04/23 documented as of this encounter
--- OUTSIDE RECORDS SUMMARY | 2024-03-23 01:33 | XMS_ITS | Encounter Summary ---
Author Organization [facility] Address [address] [place] [address]. [place], [place] [phone] [place] [address] Care Team Providers Care Sound Designer Name Role Phone Mariana Ruiz DO Primary Care Provider [phone] Encounter Details Date Type Department Care Team (Late st Contact Info) Description 12/13/2021 [facility] [address] [place] [phone] Mariana Ruiz DO [address] [place] [address] Social History Tobacco Use Types [...] st Contact Info) Description 05/01/2024 8:00 AM INPATIENT SERVICES DIRECTOR Appointment [facility] Non Invasive Cardiology [facility] [place] [address] Edgard Washington MD Three [facility] [address] [place] [address] 06/02/2024 10:15 AM CDT Office Visit [facility], [address] [place] [address] Edgard Washington MD Three [facility], [address] [place] [address] documented as of this encounter Visit Diagnoses Not on filedocumented in this encounter Additional Health Concerns Assessment Noted Time PHQ-9 Depression Total Score: 0 02/11/20 21 1:25 PM INPATIENT SERVICES DIRECTOR documented as of this encounter Care Teams Sound Designer Relationship Specialty Start Date End Date Mariana Ruiz DO [address] [place] [address] PCP - General FAMILY PRACTICE 09/27/17 06/04/23 documented as of this encounter
--- OUTSIDE RECORDS SUMMARY | 2024-03-23 01:33 | XMS_ITS | Encounter Summary ---
Author Organization [facility] Address [address] [place] [address]. [place] [address] [place] [address] Care Team Providers Care Surgical Aide Name Role Phone Mariana Ruiz DO Primary Care Provider Reason for Visit * Reason Onset Date Comments Medication 05/06/2023 Encounter Details Date Type Department Care Team (Late st Contact Info) Description 05/06/2023 Telephone [facility] [address] [facility] [address] [place] [phone] Mariana Ruiz DO [address] [place] [address] Medication Social History Tobacco Use [...] as of this encounter Progress Notes * Delisa Parra MA - 05/08/2023 7:54 AM CSTAddended by: DELISA PARRA on: 05/08/2023 07:54 AM Modules accepted: Orders E SUPERINTENDENT * Delisa Parra MA - 05/07/2023 4:02 PM CSTAddended by: DELISA PARRA on: 05/07/2023 04:02 PM Modules accepted: Orders E SUPERINTENDENT * Cheryle Elliott - 05/07/2023 2:37 PM CST Patient is calling to say that she is completely out of the medication, Losartan. Prescription was sent to the [facility]. She is wanting to know if Dr. Randle can send in 2 weeks worth of medication to [facility] in [facility] in [place]. E SUPERINTENDENT * Marii Randle MD - 05/06/2023 5:03 PM CST Script for losartan 50 mg sent in to mail order pharmacy E SUPERINTENDENT * Nemesio Hernadez - 05/06/2023 2:45 PM CST Julianna called in wanting to know if her Losartan could be refilled. She advised it's supposed to be 50 MG tablet CB# [phone] E SUPERINTENDENT documented in this encounter Plan of Treatment Upcoming Encounters Date Type Department Care Team (Late st Contact Info) Description 05/01/2024 8:00 AM LEVEE SUPERINTENDENT Appointment [facility] [place], [place] [phone] Edgard Washington MD Three [facility] [address] [place] [address] 06/02/2024 10:15 AM CDT Office Visit [facility], ED [address] [place] [address] Edgard Washington MD [address] [place] [address] documented as of this encounter Visit Diagnoses Diagnosis Primary hypertension- Primary Unspecified essential hypertension documented in this encounter Additional Health Concerns Assessment Noted Time PHQ-9 Depression Total Score: 0 02/11/20 21 1:25 PM LEVEE SUPERINTENDENT documented as of this encounter Care Teams Surgical Aide Relationship Specialty Start Date End Date Mariana Ruiz DO [address] [place] [address] PCP - General FAMILY PRACTICE 09/27/17 06/04/23 documented as of this encounter
--- OUTSIDE RECORDS SUMMARY | 2024-03-23 01:33 | XMS_ITS | Encounter Summary ---
Author Organization [facility] Address [address] [place] [address]. [place] [address] [place] [address] Care Team Providers Care Vice President For Philanthropy Name Role Phone JosephYamilet Primary Care Provider [phone] Reason for Visit * Auth/Cert Specialty Diagnoses / Procedures Referred By Herberth amor Referred To Contact Diagnoses HISTORY OF COLON POLYPS Procedures COLONOSCOPY Referral ID Status Reason Start Date Expiration Date Visits Re quested Visits Authorized [id number] 1 1 Encounter Details Date Type Department Care Team (Late st Contact Info) Description 07/13/2020 9:00 AM CDT - 07/13/2020 9:30 AM CDT Surgery [facility] Endo/[place] [address] Virginia Ruiz MD [address] [phone] COLONOSCOPY Surgery Details Date/Time Status Location OR Service Patient Class Case Class Case Type Trauma Case? 07/13/2020 9:00 AM Posted [facility] 2 Gastroenterology Short Stay/Outp atient Surgery E - Elective No Panel 1 Procedure LRB Anes Op Region Wound Class Comments COLONOSCOPY N/A General Clean Contaminated normal Surgeon Surgeon Role Service Panel Virginia Ruiz MD Primary Gastroenterology 1 documented in this encounter Social History Tobacco Use Types Packs/Day Years [...] AM CDT documented as of this encounter Last Filed Vital Signs Vital Sign Reading Time Taken Comments Blood Pressure 127/98 07/13/2020 8:29 AM CDT Pulse 84 07/13/2020 8:29 AM CDT Temperature 36.1 ??C (96.9 ??F) 07/13/2020 8:29 AM CD T Respiratory Rate 20 07/13/2020 8:29 AM CDT Oxygen Saturation 100% 07/13/2020 8:29 AM CDT Inhaled Oxygen Concentration - - Weight 105.2 kg (232 lb) 07/08/2020 9:58 AM CDT Height 170.2 cm (5' 7 ) 07/08/2020 9:58 AM CDT Body Mass Index 36.34 07/08/2020 9:58 AM CDT documented in this encounter Discharge Instructions * Discharge Instructions* Virginia Ruiz MD - 07/13/2020 10:22 AM CDT Normal colonoscopy Repeat colonoscopy 5 years * Attachments The following attachments cannot be sent through Care Everywhere. * Colonoscopy Discharge Instructions ([place]) documented in this encounter Medications at Time of Discharge [...] daily. 3 documented as of this encounter H&P Notes * Virginia Ruiz MD - 07/13/2020 9:56 AM CDT Virginia Ruiz MD, FACG, FACP Attending Provider: Virginia Ruiz MD PCP: YAMILET MCKEON DO PATIENT: Julianna Brown : 1955 Date of Visit: 07/13/2020 HPI: Julianna Brown is an 65-year-old female who presents for personal history of colon polyps.CV-19 negative 11 Jul 2020. Patient Active Problem List Diagnosis ??? Allergic rhinitis ??? Atherosclerosis of aorta (CMS/HCC) ??? Hyperactivity of bladder ??? Hypertension ??? NUD (nonulcer dyspepsia) ??? Obesity ??? Vaccination refused by patient ??? History of vertebral compression fracture Past Medical History: Diagnosis Date ??? Adhesive capsulitis of left shoulder ??? GERD (gastroesophageal reflux disease) ??? Hypertension Past Surgical History: Procedure Laterality Date ??? SECTION ??? CHOLECYSTECTOMY LAPAROSCOPIC ??? COLONOSCOPY 2010 WNL, 02/2012 POLYP, 02/2017 POLYP MOI ??? HC LAP TOTAL HYSTERECTOMY REMOVAL BOTH TUBES AND OVARIES--BLEEDING ??? HYSTERECTOMY Family History Problem Relation Name Age of Onset ??? Breast Cancer Sister 63 ??? Prostate Cancer Father ??? Diabetes Other ??? Osteoporosis Other Social History Socioeconomic History ??? Marital status: [...] Social Determinants of Health Financial Resource Strain: ??? Difficulty of Paying Living Expenses: Food Insecurity: ??? Worried About Running Out of Food in the Last Year: ??? Ran Out of Food in the Last Year: Transportation Needs: ??? Lack of Transportation (Medical): ??? Lack of Transportation (Non-Medical): Physical Activity: ??? Days of Exercise per Week: ??? Minutes of Exercise per Session: Stress: ??? Feeling of Stress : Social Connections: ??? Frequency of Communication with Friends and Family: ??? Frequency of Social Gatherings with Friends and Family: ??? Attends Mu-Ism Services: ??? Active Member of Clubs or Organizations: ??? Attends Club or Organization Meetings: ??? Marital Status: Intimate Partner Violence: ??? Fear of Current or Ex-Partner: ??? Emotionally Abused: ??? Physically Abused: ??? Sexually Abused: Current Facility-Administered Medications: ??? lactated ringers infusion, , Intravenous, Continuous, Alberto Mendez MD, Last Rate: 10 mL/hr at 07/13/[address], New Bag at 07/13/[address]28 No Known Allergies Travel Exposure: No current facility-administered medications on file prior to encounter. Current Outpatient Medications on File Prior to Encounter Medication Sig ??? cetirizine 10 MG chewable tablet Chew 10 mg by mouth daily. ??? vitamin C 500 MG tablet Take 1 tablet by mouth 2 (two) times daily. ??? vitamin D3, cholecalciferol, (CHOLECALCIFEROL) 10 MCG (400 UNIT) tablet Take 400 Units by mouthdaily. ??? aspirin EC 81 MG tablet Take 1 tablet by mouth daily. ??? FLUTICASONE PROPIONATE 50 MCG/ACT nasal spray SPRAY 2 SPRAYS INTO EACH NOSTRIL EVERY DAY Blood pressure (!) 127/98, pulse 84, temperature 96.9 ??F (36.1 ??C), temperature source Temporal, resp. rate 20, height 5' 7 (1.702 m), weight 105.2 kg (232 lb), SpO2 100 %. Physical Exam Constitutional: she appears well-developed and well-nourished. Cardiovascular: Normal rate. Pulmonary/Chest: Breath sounds normal. Abdominal: Soft, non-tender. she exhibits no edema. Assessment & Plan: Colonoscopy Virginia Ruiz 07/13/2020 documented in this encounter Procedure Notes * Virginia Ruiz MD - 07/13/2020 10:01 AM CDTAssociated Order(s): COLONOSCOPY; SALINE LOCK IV Procedure(s): COLONOSCOPY VIRGINIA RUIZ MD, FACG, FACP COLONOSCOPY 07/13/2020 This is a 65-year-old female with history of GERD, HTN, OA, CCx, Hysterectomy and CSx x 2 who now presents for colonoscopy for personal history of adenomatous colon polyps. GI review of systems is otherwise negative. No endocarditis risk factors. No Known Allergies Medications: see list. Family history: negative for colon cancer. VITALS: Stable. LUNGS: Clear. HEART: RRR. S1/S2 normal. ABDOMEN: NABS/NT. The procedure of colonoscopy, its indications, alternatives of barium studies and risks including perforation, bleeding, infection, reaction to medication as well as the possible need for blood or surgery were discussed with the patient prior to the procedure. The patient voices understanding, agrees to proceed and provides informed consent. COLONOSCOPY INDICATION: Personal history of colon polyps. POST-OP: Normal. SEDATION: Per Anesthesia PREP: Good. With the patient in the left lateral decubitus position, the Olympus [id number] colonoscope was introduced into the rectum and advanced easily to the Terminal Ileum. Careful inspection of the mucosa was made upon insertion and withdrawal of the endoscope. FINDINGS: Terminal ileum: distal 5 cm normal. Cecum, Ascending colon, Transverse colon, Descending colon, Sigmoid colon and Rectum including retroflexion normal. No masses, polyps, AVMs or colitis seen. No complications, blood loss or implants. ASSESSMENT AND PLAN: Personal history of colon polyps: - Colonoscopy 02-21-2017 with 2 cm SC adenoma - Colonoscopy 07-13-2020 normal - Due to high risk findings in 2017 repeat colonoscopy in five years Thank you for allowing me to care for your patient. She will follow-up with Dr. Mikael Mckeon as needed. Virginia Ruiz M.D. Cc: Dr. Mikael Mckeon documented in this encounter Nursing Notes * Julieta Stephenson RN - 07/13/2020 8:18 AM CDT Patient has been able to isolate post Covid nasal swab. Per instructions * Anna Puente RN - 07/08/2020 9:57 AM CDTSummary: covid swab consent Discussed details of COVID testing with patient. Verbal consent given for testing. documented in this encounter Plan of Treatment Upcoming Encounters Date Type Department Care Team (Late st Contact Info) Description 05/01/2024 8:00 AM LAMP WIRER Appointment [facility] Non Invasive Cardiology ONE [facility] [place] [address] Edgard Washington MD Three [facility] [address] [place] [address] 06/02/2024 10:15 AM CDT Office Visit [facility], ED [address] [place] [address] Edgard Washington MD Three [facility] [address] [place] [address] documented as of this encounter Procedures Procedure Name Priority Date/Time Associated Diagnosis Comments COLONOSCOPY Routine 07/13/2020 10:01 AM CDT COLONOSCOPY 07/13/2020 9:43 AM CDT HISTORY OF COLON POLYPS PROCEDURE GENERIC 07/13/2020 9:0 1 AM CDT documented in this encounter Results * Colonoscopy (07/13/2020 10:01 AM CDT) Narrative [...] the left lateral decubitus position, the Olympus [id number] ??colonoscope was introduced into the rectum and [...] patient. She will follow-up with Dr. Mikael Mckeon as needed. Virginia Ruiz M.D. Cc: Dr. Mikael Mckeon us Virginia Ruiz MD GI PROCEDURE ORDERABLES Fin al Result * PROCEDURE GENERIC (07/13/2020 9:01 AM CDT) Narrative 07/13/2020 9:01 AM CDT Ordered by an unspecified provider. us Documents Scanned [facility] Final Result documented in this encounter Visit Diagnoses Not on filedocumented in this encounter Administered Medications Inactive Administered Medications - up to 3 most recent administrations Medication Order MAR Action Action Date Dose Rate Site lactated ringers infusion at 10 mL/hr, Intravenous, Continuous, Starting on Sat07/13/20 at 0845, Until Sat07/13/20 at 1317, Infuse at TKO rate, Pre-Op New Bag 07/13/2020 8:29 AM CDT 10 mL/hr simethicone (MYLICON) 40 MG/0.6ML suspension As needed, Starting on Sat07/13/20 at 1008, Until Sat07/13/20 at 1021, Intra-Op Given 07/13/2020 10:08 AM CDT 40 mg documented in this encounter Active and Recently Administered Medications Times are shown in CDT. Continuous Medication Order 07/11/2020 07/12/2020 07/13/2020 lactated ringers infusion at 10 mL/hr, Intravenous, Continuous, Starting on Sat07/13/20 at 0845, Until Sat07/13/20 at 1317, Infuse at TKO rate, Pre-Op 0829 (New Bag - Prov ider: Julieta Stephenson RN)1022 (Anesthesia Volume Adjustment - Provider: Lilian Young CRNA) PRN Medication Order 07/11/2020 07/12/2020 07/13/2020 simethicone (MYLICON) 40 MG/0.6ML suspension (CANCELED) As needed, Starting on Sat07/13/20 at 1008, Until Sat07/13/20 at 1021, Intra-Op 1008 (Given - Provid er: Virginia Ruiz MD) documented in this encounter Care Teams Vice President For Philanthropy Relationship Specialty Start Date End Date Yamilet Mckeon DO [address] [place] [address] PCP - General FAMILY PRACTICE 09/27/17 06/04/23 documented as of this encounter
--- OUTSIDE RECORDS SUMMARY | 2024-03-23 01:33 | XMS_ITS | Encounter Summary ---
Author Organization [facility] Address [address] [place] [address]. [place] [address] [place] [address] Care Team Providers Care Paper Roll Machine Operator Name Role Phone JosephMariana Primary Care Provider [phone] Reason for Visit * Auth/Cert Specialty Diagnoses / Procedures Referred By Herberth amor Referred To Contact Diagnoses HISTORY OF COLON POLYPS Procedures COLONOSCOPY Referral ID Status Reason Start Date Expiration Date Visits Re quested Visits Authorized [id number] 1 1 Encounter Details Date Type Department Care Team (Late st Contact Info) Description 07/13/2020 9:58 AM CDT Anesthesia Event [facility] [address] Alberto Mendez MD [address] [facility] [address] [id number] Anesthesia Record Procedure Summary Procedure Name Responsible Anesthesiologist Anesthesia Start Time Anesthesia Stop Time COLONOSCOPY Alberto Mendez MD 07/13/20 0958 07/13/20 10 22 Events Date Time Event Comment 07/13/2020 0832 0832 AN Anesthesia Prepped 0911 AN SPECIALTY FOODS COOK Prepped 0942 An Start Data 0946 Nasal Cannula Applied 0958 An Start Patient ID and consent checked and patient reassessed. 1002 An Induction The patient was reevaluated immediately before moderate or deep sedation use and before anesthesia induction. 1002 Anesthesia Ready 1019 An Emergence 1019 Nasal Cannula Removed 1022 an stop data 1022 Post Anesthetic Care Handoff I completed my handoff to the receiving nurse during which we: 1. Identified the patient 2. Identified the responsible provider 3. Reviewed the pertinent medical history 4. Discussed the surgical course 5. Reviewed intra-op anesthesia management and issues during anesthesia 6. Set expectations for post-procedure period 7. Allowed opportunity for questions and acknowledgement of understanding. 1022 An Stop Meds Name Total propofol (DIPRIVAN) 200 mg/20 mL injecti on 280 mg lactated ringers infusion 300 mL * Agents Name O2 N2O Air Ancillary O2 * Blood No blood administrations on file. Lines, Drains, and Airways Type Details Placement Removal Peripheral IV Placement Date: 07/02 04/24; Placement Time: 828; Placed Outside of This Facility?: No; Size: 20 G; Orientation: Right; Location: Hand; Site Prep: Chlorhexidine; Local Anesthetic: None; Inserted By: Bina Machuca RN; Insertion attempts: 1; Ultrasound-guided Placement?: No; Patient Tolerance: Tolerated well; Removal Date: 07/13/20; Removal Time: 1057; Removal Reason: Patient Discharged 07/13/20828 by Julieta Stephenson RN 07/13/201057 by Melina Merrill RN documented in this encounter Social History Tobacco [...] AM CDT documented as of this encounter OR Notes * Anesthesia Postprocedure Evaluation - Alberto Mendez MD - 07/13/2020 11:06 AM CDT Anesthesia Post-op Note Julianna Brown Procedure(s): COLONOSCOPY (N/A ) Anesthesia type: general Vitals: 07/13/20 1040 BP: (!) 152/90 Vitals: 07/13/20 1040 Pulse: 58 Vitals: 07/13/20 1040 Resp: 21 Vitals: 07/13/20 1019 Temp: 36.3 ??C Vitals: 07/13/20 1040 SpO2: 99% Patient Location: Phase II/Outpatient Level of Consciousness: awake Pain Management: adequate analgesia Airway Patency: patent Respiratory Status: acceptable Cardiovascular Status: acceptable Post-Op Nausea: none Postoperative Hydration: euvolemic No complications documented. * Anesthesia Postprocedure Evaluation - Alberto Mendez MD - 07/13/2020 10:31 AM CDT Anesthesia Post-op Note Julianna Flor Kevin Procedure(s): COLONOSCOPY (N/A ) Anesthesia type: general Vitals: 07/13/20 1026 BP: (!) 148/93 Vitals: 07/13/20 1026 Pulse: 66 Vitals: 07/13/20 1026 Resp: 20 Vitals: 07/13/20 1019 Temp: 36.3 ??C Vitals: 07/13/20 1026 SpO2: 98% Patient Location: Other (Endoscopy) Level of Consciousness: awake Pain Management: adequate analgesia Airway Patency: patent Respiratory Status: acceptable Cardiovascular Status: acceptable Post-Op Nausea: none Postoperative Hydration: euvolemic No complications documented. * Anesthesia Preprocedure Evaluation - Alberto Mendez MD - 07/13/2020 8:16 AM CDT Anesthesia ROS/MED History Reviewed: Patient summary , ECG, Family history anesthesia, Anesthesia history , Medications , Labs , Images/Studies , Unchecked boxes are not applicable Pre-Anesthetic State: alert, awake and responds appropriately no history of anesthetic complications Pulmonary neg pulmonary ROS Cardiovascular Exercise tolerance: (No recent changes.) (+) hypertension Neuro/Psych GI/Hepatic/Renal (+) GERD Endo/Other (+) obese GENERAL COMMENTS No Known Allergies Past Medical History: No date: Adhesive capsulitis of left shoulder No date: GERD (gastroesophageal reflux disease) No date: Hypertension Past Surgical History: No date: SECTION No date: CHOLECYSTECTOMY Comment: LAPAROSCOPIC No date: COLONOSCOPY Comment: 2010 WNL, 02/2012 POLYP, 02/2017 POLYP MOI No date: HC LAP TOTAL HYSTERECTOMY Comment: REMOVAL BOTH TUBES AND OVARIES--BLEEDING No date: HYSTERECTOMY Physical Evaluation Airway Mallampati: II TM Distance: >3 FB Neck ROM: normal Dental Pulmonary Pulmonary exam normal Breath sounds clear to auscultation Cardiovascular Rhythm: regular Rate: normal Cardiovascular exam normal Other findings: Blood pressure (!) 127/98, pulse 84, temperature 36.1 ??C, temperature source Temporal, resp. rate 20, height 5' 7 (1.702 m), weight 105.2 kg (232 lb), SpO2 100 %. No results for input(s): WBC, RBC, HGB, HCT, PLT, NA, K, CL, CO2, AGAP, BUN, CR, BUNCREATININ, GFRNON, GFR, GLU, CA in the last 72 hours. Anesthesia Plan ASA 2 Intravenous Induction Anesthesia type: general Discussed potential risks of General Anesthesia including but not limited to corneal abrasion, visual impairment or visual loss, mouth injury, dental damage, sore throat, hoarseness, esophageal injury, awareness under anesthesia, nerve injury due to positioning, aspiration, pneumonia, stroke, cardiac event, adverse drug reactions and . Tiva anesthetic planned and discussed. Possible GA as needed. Informed Consent Anesthetic plan and risks discussed with patient of whom consent was obtained. . documented in this encounter Plan of Treatment Upcoming Encounters Date Type Department Care Team (Late st Contact Info) Description 05/01/2024 8:00 AM HOME HEALTH SCHEDULER Appointment [facility] Non Invasive [place] [address] Edgard Washington MD Three [facility] [address] [place] [address] 06/02/2024 10:15 AM CDT Office Visit [facility], [address] [place] [address] Edgard Washington MD Three [facility] [address] [place] [address] documented as of this encounter Visit Diagnoses Not on filedocumented in this encounter Administered Medications Inactive Administered Medications - up to 3 most recent administrations Medication Order MAR Action Action Date Dose Rate Site propofol (DIPRIVAN) IV bolus Intravenous, PRN, Starting on Sat07/13/20 at 1002, Until Sat07/13/20 at 1022, Anesthesia Intra-Op Given 07/13/2020 10:14 AM CDT 40 mg Given 07/13/2020 10:12 AM CDT 40 mg Given 07/13/2020 10:10 AM CDT 40 mg documented in this encounter Care Teams Paper Roll Machine Operator Relationship Specialty Start Date End Date Mariana Ruiz DO [address] [place] [address] PCP - General FAMILY PRACTICE 09/27/17 06/04/23 documented as of this encounter
--- OUTSIDE RECORDS SUMMARY | 2024-03-23 01:33 | XMS_ITS | Encounter Summary ---
Author Organization [facility] Address [address] [place] [address]. [place] [address] [place] [address] Care Team Providers Care Educational Therapist Name Role Phone JosehpYamilet Primary Care Provider + [phone] Reason for Visit * Auth/Cert Specialty Diagnoses / Procedures Referred By Herberth amor Referred To Contact Diagnoses HISTORY OF COLON POLYPS Procedures COLONOSCOPY Referral ID Status Reason Start Date Expiration Date Visits Re quested Visits Authorized [id number] 1 1 Encounter Details Date Type Department Care Team (Latest Contact Info) Description 07/13/2020 8:00 AM CDT - 07/13/2020 11:14 AM CDT Hospital Encounter [facility] [place] [address] Virginia Ruiz MD [address] [address] Discharge Disposition: Home or Self Care (Routine [...] Sign Reading Time Taken Comments Blood Pressure 152/90 07/13/2020 10:40 AM CDT Pulse 58 07/13/2020 10:40 AM CDT Temperature 36.3 ??C (97.4 ??F) 07/13/2020 10:19 AM C DT Respiratory Rate 21 07/13/2020 10:40 AM CDT Oxygen Saturation 99% 07/13/2020 10:40 AM CDT Inhaled Oxygen Concentration - - [...] through Care Everywhere. * Colonoscopy Discharge Instructions (Citizen [place]) documented in this encounter Medications at Time [...] Gatherings with Friends and Family: ??? Attends Sabianist Services: ??? Active Member of Clubs or Organizations: ??? Attends Club or Organization Meetings: ??? Marital Status: Intimate Partner Violence: ??? Fear of Current or Ex-Partner: ??? Emotionally Abused: ??? Physically Abused: ??? Sexually Abused: Current Facility-Administered Medications: ??? lactated ringers infusion, , Intravenous, Continuous, Alberto Mendez MD, Last Rate: 10 mL/hr at 07/13/2029, New Bag at 07/13/20828 No Known Allergies [...] the left lateral decubitus position, the Olympus [id number] colonoscope was introduced into the rectum and [...] st Contact Info) Description 05/01/2024 8:00 AM ENTRY CLERK Appointment [facility] Non Invasive Cardiology [facility] [place] [address] Edgard Washington MD Three [facility], [address] [place] [address] 06/02/2024 10:15 AM CDT Office Visit [facility] THREE [facility], ED [address] [place] [address] Edgard Washington MD Three [facility], [address] [place] [address] documented as of this encounter Procedures Procedure [...] the left lateral decubitus position, the Olympus [id number] ??colonoscope was introduced into the rectum and [...] Bag 07/13/2020 8:29 AM CDT 10 mL/hr documented in this encounter Active and Recently Administered Medications Times are shown in CDT. Continuous Medication Order 07/11/2020 07/12/2020 07/13/2020 lactated ringers infusion at 10 mL/hr, Intravenous, Continuous, Starting on Sat07/13/20 at 0845, Until Sat07/13/20 at 1317, Infuse at TKO rate, Pre-Op 0829 (New Bag - Prov ider: Julieta Stephenson, RN)1022 (Anesthesia Volume Adjustment - Provider: Lilian Young CRNA) PRN Medication Order 07/11/2020 07/12/2020 07/13/2020 simethicone (MYLICON) 40 MG/0.6ML suspension (CANCELED) As needed, Starting on Sat07/13/20 at 1008, Until Sat07/13/20 at 1021, Intra-Op 1008 (Given - Provid er: Virginia Ruiz MD) documented in this encounter Care Teams Educational Therapist Relationship Specialty Start Date End Date Yamilet Mckeon DO [address] [place] [address] PCP - General FAMILY PRACTICE 09/27/17 06/04/23 documented as of this encounter
--- OUTSIDE RECORDS SUMMARY | 2024-03-23 01:33 | XMS_ITS | Encounter Summary ---
Author Organization [facility] Address [address] [place] [address]. [place], [place] [address] [place] [address] Care Team Providers Care Wax Bleacher Name Role Phone Mariana Ruiz Primary Care Provider [phone] Encounter Details Date Type Department Care Team (Late Contact Info) Description 10/04/2021 9:20 AM CDT Laboratory Only [facility] [address] [facility] [address] [place] [id number] Social History Tobacco Use Types Packs/Day Years [...] st Contact Info) Description 05/01/2024 8:00 AM THERMAL ENGINEER Appointment [facility] [place] [address] Edgard Washington MD Three [facility] [address] [place] [address] 06/02/2024 10:15 AM CDT Office Visit [facility], [address] [place] [address] Edgard Washington MD Three [facility] [address] [place] [address] Scheduled Orders Name Type Priority Associated Diagnoses Orde r Schedule SPECIMEN HANDLING,DR OFF->LAB Procedures Routine Weight gain Lightheadedness Atherosclerosis of aorta Primary hypertension Obesity without serious comorbidity, unspecified classification, unspecified obesity type Ordered: 10/04/2021 documented as of this encounter Procedures Procedure Name Priority Date/Time Associated Diagnosis Comments COMPREHENSIVE METABOLIC PANEL Routine 10/04/2021 10:46 AM CDT Lightheadedness Atherosclerosis of aorta Primary hypertension Obesity without serious comorbidity, unspecified classification, unspecified obesity type LIPID PANEL Routine 10/04/2021 10:46 AM CDT Atherosclerosis of aorta Primary hypertension Obesity without serious comorbidity, unspecified classification, unspecified obesity type CBC, AUTO, NO DIFF Routine 10/04/2021 10 :46 AM CDT Lightheadedness THYROID STIM HORMONE TSH Routine 10/04/2021 10:46 AM CDT Weight gain Lightheadedness COLLECTION VENOUS BLOOD VENIPUNCTURE Routine 10/04/2021 10:45 AM CDT Weight gain Lightheadedness Atherosclerosis of aorta Primary hypertension Obesity without serious comorbidity, unspecified classification, unspecified obesity type documented in this encounter Results * (ABNORMAL) LIPID PANEL (10/04/2021 10:46 AM CDT) [facility] CHOLESTEROL 217(H) 0 - 199 MG/DL [facility] TRIGLYCERIDES 65 0.00 - 150.00 MG/DL [facility] Comment: NCEP REFERENCE VALUES FOR TRIGLYCERIDES: NORMAL: ? <150 MG/DL BORDERLINE HIGH: ?150 - 199 MG/DL HIGH: ? 200 - 499 MG/DL VERY HIGH: ?>/= 500 MG/DL HDL 90 >40 MG/DL [facility] LDL (CALCULATED) 114(H) 0 - 99 MG/DL [facility] Comment: CUTOFF VALUES RECOMMENDED BY THE NATIONAL CHOLESTEROL EDUCATION PROGRAM: DESIRABLE: ?CHOLESTEROL <200 MG/DL ? LDL <100 MG/DL BORDERLINE: ?? CHOLESTEROL 200-239 MG/DL ?LDL 101-159 MG/DL HIGHER RISK: ??CHOLESTEROL >240 MG/DL ? LDL >160 MG/DL, HDL <40 MG/DL NON HDL CHOLESTEROL 127 NO REFERENCE RANGE MG/DL [facility] Comment: A REASONABLE GOAL FOR NON-HDL CHOLESTEROL IS ONE THAT IS 30 MG/DL HIGHER THAN THE LDL CHOLESTEROL GOAL. CHOL/HDL RATIO 2.4 0.0 - 5.0 . [facility] Comment:IS PATIENT FASTING?- >YES 10/04/2021 10:4 6 AM CDT 10/05/2021 4:49 AM CDT us Mariana Ruiz DO LABORATORY Final Result Performing Organization Address City/State/[facility] Co de Phone Number [facility] [address] [place] [address], * COMPREHENSIVE METABOLIC PANEL (10/04/2021 10:46 AM CDT) Pathologist [facility] SODIUM S/P/B 141 133 - 146 MMOL/L [facility] POTASSIUM S/P/B 3.7 3.5 - 5.1 MMOL/L [facility] CHLORIDE S/P/B 104 98 - 107 MMOL/L [facility] CO2 30 21 - 31 MMOL/L [facility] ANION GAP 7 4 - 13 MMOL/L [facility] BUN 17 7 - 25 MG/DL [facility] CREATININE S/P/B 0.79 0.60 - 1.30 MG/DL [facility] EGFR NON-AFR. AMER. 83 >=60 ML/MIN/1.7 3 M2 [facility] CALCIUM S/P/B 9.7 8.3 - 10.5 MG/DL [facility] GLUCOSE 86 70 - 100 MG/DL [facility] TOTAL PROTEIN S/P/B 6.6 6.4 - 8.3 G/DL [facility] ALBUMIN S/P/B 4.1 3.5 - 5.0 G/DL [facility] ALT 14 9 - 43 UNITS/L [facility] ALKALINE PHOSPHATASE S/P/B 55 34 - 104 UNITS/L [facility] AST 17 13 - 39 UNITS/L [facility] BILIRUBIN TOTAL S/P/B 0.6 0.2 - 1.2 MG/DL [facility] Comment:IS PATIENT FASTING?- >YES 10/04/2021 10:4 6 AM CDT 10/05/2021 4:49 AM CDT Mariana Ruiz DO LABORATORY Final Result [address] [address], * CBC, AUTO, NO DIFF (10/04/2021 10:46 AM CDT) WBC 4.8 3.6 - 10.2 10'3/UL [facility] RBC 4.60 BASED ON DOCUMENTED LEGAL SEX 10'6/UL [facility] HGB 13.3 BASED ON DOCUMENTED LEGAL SEX G/DL [facility] HCT 41.3 BASED ON DOCUMENTED LEGAL SEX % [facility] MCV 89.0 82.0 - 99.0 FL [facility] MCH 29.0 27.0 - 33.0 PG [facility] MCHC 32.0 32.0 - 36.0 G/DL [facility] RDW CALCULATED 15.0 11.0 - 15.0 % [facility] PLT 245 150 - 450 10'3/UL [facility] MPV 12.6 9.8 - 12.7 FL [facility] NRBC 0.00 0 % [facility] ABS. NUCLEATED RBC'S 0.0 0 10'3/UL [facility] Comment: 10/05/2021 5:29 AM: P INDICATES PARTIAL RESULTS ON A PANEL HAVE BEEN RELEASED. ADDITIONAL RESULTS WILL FOLLOW. 10/05/2021 5:29 AM: THIS RESULT HAS BEEN FINAL VERIFIED. NO ADDITIONAL OR CHANGED RESULTS ARE EXPECTED. 10/04/2021 10:4 6 AM CDT 10/05/2021 4:49 AM CDT Mariana Ruiz DO LABORATORY Final Result Performing Organization Address City/[facility]/ZIP Co de Phone Number [phone] [address] [place] [address], * THYROID STIM HORMONE, TSH (10/04/2021 10:46 AM CDT) TSH 4.16 0.30 - 5.33 UIU/ML [id number] 10/04/2021 10:4 6 AM CDT 10/05/2021 4:49 AM CDT Mariana Ruiz DO LABORATORY Final Result Performing Organization Address City/[facility] Co de Phone Number [id number] [address] [place] [address], documented in this encounter Visit Diagnoses Diagnosis Weight gain Abnormal weight gain Lightheadedness Dizziness and giddiness Atherosclerosis of aorta (CMS/HCC) Atherosclerosis of aorta Primary hypertension Unspecified essential hypertension Obesity without serious comorbidity, unspecified classification, unspecified obesity type documented in this encounter Additional Health Concerns Assessment Noted Time PHQ-9 Depression Total Score: 0 02/11/20 21 1:25 PM THERMAL ENGINEER documented as of this encounter Care Teams Wax Bleacher Relationship Specialty Start Date End Date Mariana Ruiz DO [address] [place] [address] PCP - General FAMILY PRACTICE 09/27/17 06/04/23 documented as of this encounter
--- OUTSIDE RECORDS SUMMARY | 2024-03-23 01:33 | XMS_ITS | Encounter Summary ---
Author Organization [facility] Address [address] [place] [address]. [place] [address] [place] [address] Care Team Providers Care Cook Boat Name Role Phone Mariana Ruiz Primary Care Provider [phone] Reason for Visit * Reason Comments Vascular Lab Study (SCAN) Encounter Details Date Type Department Care Team (Late Contact Info) Description 05/11/2022 Scan [facility] [address] [facility] [address] [place] [phone] Scanned, Doc Bfma Vascular Lab Study (SCAN) Social History Tobacco Use Types Packs/Day Years [...] Coronavirus/COVID-19? No / Unsure 05/09/2022 8:45 AM PROFESSOR OF ART HISTORY documented as of this encounter Plan of Treatment Upcoming Encounters Date Type Department Care Team (Late Contact Info) Description 05/01/2024 8:00 AM PROFESSOR OF ART HISTORY Appointment [facility] [place] [address] Edgard Washington MD [address] [facility] [address] [place] [address] 06/02/2024 10:15 AM CDT Office Visit [facility] [address] [place] [address] Edgard Washington MD [address] [facility] [address] [place] [address] documented as of this encounter Procedures Procedure Name Priority Date/Time Associated Diagnosis Comments VASCULAR LAB GENERIC (SCAN ORDER) Routine 05/11/2022 documented in this encounter Results * VASCULAR LAB (05/11/2022) Humphrey Desai DO SCANNING Final Resul t [facility] ONBASE documented in this encounter Visit Diagnoses Not on filedocumented in this encounter Additional Health Concerns Assessment Noted Time PHQ-9 Depression Total Score: 0 02/11/20 21 1:25 PM PROFESSOR OF ART HISTORY documented as of this encounter Care Teams Cook Boat Relationship Specialty Start Date End Date Mariana Ruiz DO [address] [place] [address] PCP - General FAMILY PRACTICE 09/27/17 06/04/23 documented as of this encounter
--- OUTSIDE RECORDS SUMMARY | 2024-03-23 01:33 | XMS_ITS | Encounter Summary ---
Author Organization [facility] Address [address] [place] [address]. 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 Appointment [facility] Non Invasive Cardiology [facility] [place] [address] Edgard Washington MD Three [facility] [address] [place] [address] 06/02/2024 10:15 AM CDT Office Visit [facility] THREE [facility], [address] [place] [address] Edgard Washington MD Three [facility], [address] [place] [address] documented as of this encounter Visit Diagnoses Not on filedocumented in this encounter Additional Health Concerns Assessment Noted Time PHQ-9 Depression Total Score: 0 02/11/20 21 1:25 PM MOTORBIKE COURIER documented as of this encounter Care Teams Webmethods Architect Relationship Specialty Start Date End Date Mariana Ruiz DO [address] [place] [address] PCP - General FAMILY PRACTICE 09/27/17 06/04/23 documented as of this encounter
--- OUTSIDE RECORDS SUMMARY | 2024-03-23 01:33 | XMS_ITS | Encounter Summary ---
Author Organization [facility] Address [address] [place] [address]. [place], [place] [id number] [place] [address] Care Team Providers Care Landscape Crew Member Name Role Phone Yamilet Mckeon DO Primary Care Provider [phone] Reason for Visit * Imaging (Routine) - Closed Specialty Diagnoses / Procedures Referred By Herberth amor Referred To Contact RADIOLOGY Diagnoses Encounter for screening mammogram for malignant neoplasm of breast Procedures MG SCREENING W CHANO BRANDY DIGI Yamilet Mckeon DO [address] [place] [address] Phone: tel: fax: Referral ID Status Reason Start Date Expiration Date Visits Re quested Visits Authorized [id number] Closed 04/30/2022 04/30/2023 1 1 Encounter Details Date Type Department Care Team (Latest Contact Info) Description 05/09/2022 8:30 AM SUPPLY MANAGER - 05/09/2022 11:59 PM [facility] Hospital Encounter [facility] Mammography [address] [place] [place] [address] Yamilet Mckeon DO [address] [place] [address] Discharge Disposition: Home or Self [...] Coronavirus/COVID-19? No / Unsure 05/09/2022 8:45 AM SUPPLY MANAGER documented as of this encounter Medications at Time of Discharge cetirizine 10 MG chewable tablet Chew 1 tablet (10 mg total) by mouth daily. FLUTICASONE PROPIONATE 50 MCG/ACT nasal sprayIndications:A llergic rhinitis, unspecified seasonality, unspecified trigger SPRAY 2 SPRAYS INTO EACH NOSTRIL EVERY DAY 48 mL 01/05/2020 celecoxib (CELEBREX) 200 MG capsuleIndications :History of vertebral compression fracture TAKE 1 CAPSULE EVERY DAY 100 capsule 01/17/2022 3 hydroCHLOROthiazid e (MICROZIDE) 12.5 MG tabletIndications: Essential hypertension TAKE 1 TABLET EVERY DAY 90 tablet 1 04/25/2022 3 losartan (COZAAR) 100 MG tabletIndications: Essential hypertension TAKE 1/2 TABLET EVERY DAY 45 tablet 2 04/25/2022 4 omeprazole (PRILOSEC) 40 MG capsuleIndications :Essential hypertension TAKE 1 CAPSULE EVERY DAY 90 capsule 1 04/25/2022 3 oxybutynin XL (DITROPAN-XL) 10 MG 24 hr tabletIndications: Hyperactivity of bladder TAKE 1 TABLET EVERY DAY 90 tablet 03/15/2022 3 polyethylene glycol packet Take 17 g [...] st Contact Info) Description 05/01/2024 8:00 AM SUPPLY MANAGER Appointment [facility] Non Invasive Cardiology [address] [facility] [address] Edgard Washington MD Three [facility] [address] [place] [address] 06/02/2024 10:15 AM CDT Office Visit [facility] THREE [facility], [address] [place] [address] Edgard Washington MD Three [facility] [address] [place] [address] documented as of this encounter Procedures Procedure Name Priority Date/Time Associated Diagnosis Comments MG SCREENING W CHANO BRANDY DIGI Routine 05/09/2022 9:25 AM SUPPLY MANAGER Encounter for screening mammogram for malignant neoplasm of breast documented in this encounter Results * MG SCREENING W CHANO BRANDY DIGI (05/09/2022 9:25 AM SUPPLY MANAGER) Anatomical Region Laterality Modality Breast Bilateral Mammography 05/09/2022 10:3 0 AM SUPPLY MANAGER Narrative 05/09/2022 10:34 AM SUPPLY MANAGER Examination: Screening bilateral mammogram Exam Date/Time: 05/09/2022 8:53 AM Clinical history: Benign left biopsy 1988, no current complaints. Comparison: 03/07/2021 Technique: Digital screening mammography of both breasts was performed. ? Breast tomosynthesis acquisitions were obtained and reviewed. ??This study was read with the assistance of a computer-aided detection system. Tissue density: There are scattered areas of fibroglandular density. Findings: No suspicious masses, malignant appearing calcifications, skin thickening or other abnormalities are present. ??No significant change from the prior exam. Stable chronic medial chest wall keloid. IMPRESSION: No suspicious mammographic findings. Recommendation: 1. Routine Screening, Bilateral Assessment: ACR BI-RADS 2 - BENIGN FINDING(S) Ordered By: YAMILET MCKEON Interpreted By: Sanju Lombardi, 05/09/2022 10:30 AM Yamilet Mckeon DO MAMMO Final Result documented in this encounter Visit Diagnoses Not on filedocumented in this encounter Additional Health Concerns Assessment Noted Time PHQ-9 Depression Total Score: 0 02/11/20 21 1:25 PM SUPPLY MANAGER documented as of this encounter Care Teams Landscape Crew Member Relationship Specialty Start Date End Date Yamilet Mckeon DO [address] [place] [address] PCP - General FAMILY PRACTICE 09/27/17 06/04/23 documented as of this encounter
--- OUTSIDE RECORDS SUMMARY | 2024-03-23 01:34 | XMS_ITS | Encounter Summary ---
Author Organization [facility] Address [address] [place] [address]. [place], [place] [address] [place] [address] Care Team Providers Care Pier Worker Name Role Phone Mariana Ruiz DO Primary Care Provider [phone] Reason for Visit * Imaging (Routine) - Closed Specialty Diagnoses / Procedures Referred By Herberth amor Referred To Contact RADIOLOGY Diagnoses Screening for breast cancer Procedures MG SCREENING W CHANO BRANDY DIGI Mariana Ruiz DO [address] [place] [address] Phone: tel: fax: Referral ID Status Reason Start Date Expiration Date Visits Re quested Visits Authorized [id number] Closed 10/03/2018 11/04/2019 1 1 Encounter Details Date Type Department Care Team (Latest Contact Info) Description 10/17/2018 2:00 PM CDT - 10/17/2018 11:59 PM CDT Hospital Encounter [facility] Mammography [address] [place] [address] Mariana Ruiz DO [address] [place] [address] Discharge Disposition: Home or Self Care (Routine Discharge) Social History Tobacco Use Types Packs/Day Years Used Date Smoking Tobacco: Never Alcohol Use Standard Drinks/Week Comments Yes 0 (1 standard drink = 0.6 oz pur e alcohol) SOCIAL Comments Unknown Sex and Gender Information Value Date Recorded Sex Assigned at Not on file Legal Sex Female 6:40 PM CDT Gender Identity Not on file Sexual Orientation Not on file documented as of this encounter Medications at Time of Discharge aspirin EC 81 MG tablet Take 1 tablet by mouth daily. 2 CELECOXIB 200 MG capsuleIndications :History of vertebral compression fracture TAKE 1 CAPSULE BY MOUTH EVERY DAY 90 capsule 1 09/23/2018 0 Cetirizine HCl (ZYRTEC ALLERGY) 10 MG Cap Take 1 capsule by mouth daily. 0 fluticasone propionate 50 MCG/ACT nasal spray 2 sprays by Nasal route daily. 06/08/2015 0 LOSARTAN-HYDROCHLO ROTHIAZIDE 50-12.5 MG tabletIndications: Hypertension TAKE 1 TABLET BY MOUTH EVERY DAY 90 tablet 3 10/01/2018 0 OMEPRAZOLE 40 MG capsuleIndications :Essential hypertension TAKE 1 CAPSULE BY MOUTH EVERY DAY 90 capsule 1 09/23/2018 0 OXYBUTYNIN XL 5 MG 24 hr tabletIndications: Hyperactivity of bladder TAKE 1 TABLET BY MOUTH EVERY DAY 30 tablet 09/01/2018 9 documented as of this encounter Plan of Treatment Upcoming Encounters Date Type Department Care Team (Late st Contact Info) Description 05/01/2024 8:00 AM PROTOTYPE DEICER ASSEMBLER Appointment [facility] [place] [address] Edgard Washington MD Three [facility], [address] [place] [address] 06/02/2024 10:15 AM CDT Office Visit [facility] THREE [facility], ED [address] [place] [address] Edgard Washington MD [facility], [address] [place] [address] documented as of this encounter Procedures Procedure Name Priority Date/Time Associated Diagnosis Comments MG SCREENING W CHANO BRANDY DIGI Routine 10/17/2018 2:38 PM CDT Screening for breast cancer documented in this encounter Results * MG SCREENING W CHANO BRANDY DIGI (10/17/2018 2:38 PM CDT) Anatomical Region Laterality Modality Breast Bilateral Mammography 10/17/2018 3:18 PM CDT Impressions 10/17/2018 3:21 PM CDT =====IMPRESSION:===== No mammographic findings suggestive of malignancy. ASSESSMENT: ACR BI-RADS Category 1 - Negative. RECOMMENDATION: 1: Routine screening mammogram ??bilateral ??in 1 year Narrative 10/17/2018 3:21 PM CDT EXAMINATION: Digital bilateral screening mammogram with 3-D tomosynthesis EXAM DATE/TIME: 10/17/2018 2:15 PM REASON FOR EXAM: ??Routine screening. ?? COMPARISON: 09/30/2017, 09/10/2015 TECHNIQUE: Digital screening mammography of both breasts was performed in addition to 3-D Tomosynthesis technique. This study was read with the assistance of a computer-aided detection system. TISSUE DENSITY: The breast tissue contains scattered fibroglandular densities. FINDINGS: No suspicious masses, malignant appearing calcifications, skin thickening or other abnormalities are present. ??No significant change from the prior exam. Mariana Ruiz DO MAMMO Final Result documented in this encounter Visit Diagnoses Not on filedocumented in this encounter Care Teams Pier Worker Relationship Specialty Start Date End Date Mariana Ruiz DO [address] [place] [address] PCP - General FAMILY PRACTICE 09/27/17 06/04/23 documented as of this encounter
--- OUTSIDE RECORDS SUMMARY | 2024-03-23 01:34 | XMS_ITS | Encounter Summary ---
Author Organization [facility] Address [address] [place] [address]. [place], [place] [address] [place] [address] Care Team Providers Care Linseed Oil Order Filler Name Role Phone Mariana Ruiz DO Primary Care Provider [phone] Encounter Details Date Type Department Care Team (Latest Contact Info) Description 10/01/2017 Abstract [facility] , Yaa Ramos MD Social History Tobacco Use Types Packs/Day Years Used Date Smoking Tobacco: Never Assessed Comments Unknown Sex and Gender Information Value Date Recorded Sex Assigned at Not on file Legal Sex Female 6:40 PM CDT Gender Identity Not on file Sexual Orientation Not on file documented as of this encounter Progress Notes * Mariana Ruiz MD - 10/01/2017 8:12 AM CDT Message Send Card Verified Results MG SCREENING W CHANO BRANDY DIGI [id number] 01:40PM Mariana Ruiz Test Name Result Flag Reference (Report) This is a summary report. The complete report is available in the patient's medical record. If you cannot access the medical record, please contact the sending organization for a detailed fax or copy. EXAMINATION: Digital bilateral screening mammogram with 3-D tomosynthesis EXAM DATE/TIME: 09/30/2017 1:37 PM REASON FOR EXAM: Routine screening. Previous benign left breast biopsy. Family history of breast cancer in her sister. COMPARISON: 09/10/2015, 07/28/2014 TECHNIQUE: Digital screening mammography of both breasts was performed in addition to 3-D Tomosynthesis technique. This study was read with the assistance of a computer-aided detection system. TISSUE DENSITY: The breast tissue contains scattered fibroglandular densities. FINDINGS: Breast parenchymal pattern is stable. A few benign-appearing calcifications are noted. No suspicious masses, malignant appearing calcifications, skin thickening or other abnormalities are present. No significant change from the prior exam. =====IMPRESSION:===== No mammographic findings suggestive of malignancy. ASSESSMENT: ACR BI-RADS Category 2 - Benign. RECOMMENDATION: 1: Routine screening mammogram bilateral in 1 year COMMENTS: Lab[facility]- CMP [id number] 09:50AM Mariana Ruiz Test Name Result Flag Reference GLUCOSE 103 mg/dL 74-106 BUN 18 mg/dL 6-20 CREATININE 0.75 mg/dL 0.60-1.00 BUN/CREATININE RATIO 24 4-25 eGFR 83.5 mL/min/1.73 m >60.0 eGFR- 101.0 mL/min/1.73 m >60.0 CALCIUM 8.7 mg/dl 8.6-10.3 SODIUM 140 mmol/L 135-145 POTASSIUM 3.6 mmol/L 3.5-5.2 CHLORIDE 103 mmol/L 97-107 CO2 27 mmol/L 21-31 ANION GAP 10.0 7.0-18.0 TOTAL PROTEIN 6.5 g/dL 6.1-8.1 ALBUMIN 4.2 g/dL 3.5-5.2 GLOBULIN CALCULATED 2.3 g/dL 1.9-3.7 A/G RATIO 1.8 1.1-2.5 BILIRUBIN TOTAL 0.43 mg/dL 0.25-1.20 ALKALINE PHOSPHATASE 54 U/L 42-98 AST (SGOT) 19 U/L 5-34 ALT (SGPT) 15 U/L 0-34 RESULTS <10 ARE ACCEPTABLE [facility]- LIPID PANEL [id number] 09:50AM Mariana Ruiz SLIGHT LIPEMIA Test Name Result Flag Reference CHOLESTEROL 197 mg/dL 0-199 TRIGLYCERIDES 46 mg/dL 0-149 HDL 77 mg/dL H 40-60 CONSISTENT WITH PREVIOUS RESULTS CLDL 111 0-130 RISK FACTOR 2.6 Plan Hyperactivity of bladder ?? Oxybutynin Chloride ER 5 MG Oral Tablet Extended Release 24 Hour; Take 1 tablet daily documented in this encounter Plan of Treatment Upcoming Encounters Date Type Department Care Team (Late st Contact Info) Description 05/01/2024 8:[address] TECHNICIAN Appointment [facility] Non Invasive Cardiology [address] [facility] [address] Edgard Washington MD Three [facility] [address] [place], [place] [address] 06/02/2024 10:15 AM CDT Office Visit [facility] THREE [facility], [address] [place] [address] Edgard Washington MD Three [facility] [address] [place] [address] documented as of this encounter Visit Diagnoses Not on filedocumented in this encounter Care Teams Linseed Oil Order Filler Relationship Specialty Start Date End Date Mariana Ruiz DO [address] [place] [address] PCP - General FAMILY PRACTICE 09/27/17 06/04/23 documented as of this encounter
--- OUTSIDE RECORDS SUMMARY | 2024-03-23 01:34 | XMS_ITS | Encounter Summary ---
Author Organization [facility] Address [address] [place] [address]. [place], [place] [address] [place] [address] Care Team Providers Care Park Maintainer Name Role Phone Mariana Ruiz DO Primary Care Provider [phone] Reason for Visit * Reason Onset Date Comments Information 12/09/2019 Encounter Details Date Type Department Care Team (Late st Contact Info) Description 12/09/2019 Telephone [facility] [address] [facility] [address] [place] [address] Mariana Ruiz DO [address] [place] [address] Information Social History Tobacco Use Types Packs/Day Years [...] have Coronavirus / COVID-19? No / Unsure 11/27/2019 9:45 AM CDT documented as of this encounter Progress Notes * Lázaro Carson RN - 12/09/2019 3:22 PM CDT Pt states she is on losartan not lisinopril. Will try zyrtec again. Flonase refill sent * Mariana Ruiz DO - 12/09/2019 3:10 PM CDT I have that she is on losartan not lisinopril Clarify More apt to be from allergies, the ragweed and mold counts are high Make sure she is using flonase, take otc zyrtec daily and try not to have windows open * Lázaro Carson RN - 12/09/2019 1:24 PM CDT Pt states she has been experiencing a dry cough for over a week now, has no other symptoms and not been around anyone sick. Has been taking mucinex with no relief. Pt is asking if it could be due to the lisinopril? Ncb: pt documented in this encounter Plan of Treatment Upcoming Encounters Date Type Department Care Team (Late st Contact Info) Description 05/01/2024 8:00 AM SPLITTER MACHINE Appointment [facility] Non Invasive Cardiology [address] [facility] [place] [address] Edgard Washington MD Three [facility], [address] [place] [address] 06/02/2024 10:15 AM CDT Office Visit [facility] THREE [facility], [address] [place] [address] Edgard Washington MD Three [facility], [address] [place] [address] documented as of this encounter Visit Diagnoses Not on filedocumented in this encounter Care Teams Park Maintainer Relationship Specialty Start Date End Date Mariana Ruiz DO [address] [place] [address] PCP - General FAMILY PRACTICE 09/27/17 06/04/23 documented as of this encounter
--- OUTSIDE RECORDS SUMMARY | 2024-03-23 01:34 | XMS_ITS | Encounter Summary ---
Author Organization [facility] Address [address] [place] [address]. [place] [address] [place] [address] Care Team Providers Care Return To Service Inspector Name Role Phone Mariana Ruiz DO Primary Care Provider [phone] Reason for Visit * Reason Onset Date Comments Medication Request 12/31/2019 Encounter Details Date Type Department Care Team (Late st Contact Info) Description 12/31/2019 Telephone [facility] [address] [facility] [address] [place] [address] Mariana Ruiz DO [address] [place] [address] Medication Request Social History Tobacco [...] Progress Notes * Lázaro Carson RN - 01/01/2020 9:19 AM CDT Pt aware. Med rxd * Malka Mireles PA-C - 01/01/2020 9:14 AM CDT Fine to refill * Brisa Guzman RN - 12/31/2019 3:59 PM CDT Pt was in to see you 11/26 and was rx'd fluconazole for rash under her breast. Pt states a spot is coming back under her breasts and is asking for a refill of that med. Ok for refill? NCB: pt documented in this encounter Plan of Treatment Upcoming Encounters Date Type Department Care Team (Late st Contact Info) Description 05/01/2024 8:00 AM ENGRAVER STEEL PLATE Appointment [facility] [place] [address] Edgard Washington MD Three [facility], [address] [place] [address] 06/02/2024 10:15 AM CDT Office Visit [facility] THREE [facility], [address] [place] [address] Edgard Washington MD Three [facility], [address] [place] [address] documented as of this encounter Visit Diagnoses Not on filedocumented in this encounter Care Teams Return To Service Inspector Relationship Specialty Start Date End Date Mariana Ruiz DO [address] [place], [place] [address] PCP - General FAMILY PRACTICE 09/27/17 06/04/23 documented as of this encounter
--- OUTSIDE RECORDS SUMMARY | 2024-03-23 01:34 | XMS_ITS | Encounter Summary ---
Author Organization [facility] Address [address] [place] [address]. [place], [place] [address] [place] [address] Care Team Providers Care Truck And Transport Mechanic Name Role Phone Mariana Ruiz Primary Care Provider [phone] Encounter Details Date Type Department Care Team (Late st Contact Info) Description 11/20/2018 2:00 PM CDT Laboratory Only [facility] [address] [facility] [address] [place] [address] Social History Tobacco Use Types Packs/Day Years [...] st Contact Info) Description 05/01/2024 8:00 AM PIPE OUT WORKER Appointment [facility] Cardiology [address] [facility] [place], [place] [id number] Edgard Washington MD Three [facility] [address] [place] [address] 06/02/2024 10:15 AM CDT Office Visit [facility] THREE [facility], [address] [place] [address] Edgard Washington MD [address] [place] [address] Scheduled Orders Name Type Priority Associated Diagnoses Orde r Schedule SPECIMEN HANDLING,DR OFF->LAB Procedures Routine Essential hypertension Obesity without serious comorbidity, unspecified classification, unspecified obesity type Ordered: 11/20/2018 documented as of this encounter Procedures Procedure Name Priority Date/Time Associated Diagnosis Comments COMPREHENSIVE METABOLIC PANEL Routine 11/20/2018 2:03 PM CDT Essential hypertension Obesity without serious comorbidity, unspecified classification, unspecified obesity type LIPID PANEL Routine 11/20/2018 2:03 PM CDT Essential hypertension Obesity without serious comorbidity, unspecified classification, unspecified obesity type COLLECTION VENOUS BLOOD VENIPUNCTURE Routine 11/20/2018 2:01 PM CDT Essential hypertension Obesity without serious comorbidity, unspecified classification, unspecified obesity type documented in this encounter Results * COMPREHENSIVE METABOLIC PANEL (11/20/2018 2:03 PM CDT) GLUCOSE 83 70 - 99 MG/DL [facility] BUN 16 8 - 23 MG/DL [facility] CREATININE S/P/B 0.8 0.5 - 1.2 MG/DL [facility] EGFR AFR. AMER. 93 60 - 300 ML/MIN/1.7 3 M2 [facility] EGFR NON-AFR. AMER. 77 60 - 300 ML/MIN/1.7 3 M2 [facility] SODIUM S/P/B 143 136 - 145 MEQ/L [facility] POTASSIUM S/P/B 4.3 3.5 - 5.3 MEQ/L [facility] CHLORIDE S/P/B 101 98 - 107 MEQ/L [facility] CO2 28 23 - 31 MEQ/L [facility] ANION GAP 14 8 - 16 MMOLES/L [facility] CALCIUM S/P/B 9.5 8.8 - 10.5 MG/DL [facility] TOTAL PROTEIN S/P/B 6.8 6.0 - 8.3 GM/DL [facility] ALBUMIN S/P/B 4.3 3.5 - 5.0 GM/DL [facility] AST 17 11 - 32 IU/L [facility] ALT 13 9 - 43 IU/L [facility] ALKALINE PHOSPHATASE S/P/B 56 35 - 129 IU/L [facility] BILIRUBIN TOTAL S/P/B 0.6 0.0 - 1.0 MG/DL [facility] 11/20/2018 2:03 PM CDT 11/21/2018 3:58 AM CDT [facility]ative [facility] - 11/21/2018 5:09 AM CDT REPORT: [id number] IS PATIENT FASTING?->YES Mariana Ruiz DO LABORATORY Final Result [facility] [address] [place] [address], * (ABNORMAL) LIPID PANEL (11/20/2018 2:03 PM CDT) CHOLESTEROL 204(H) 0 - 199 MG/DL [facility] TRIGLYCERIDES 43 0 - 149 MG/DL [facility] HDL 82 50 - 240 MG/DL [facility] LDL (CALCULATED) 113(H) 0 - 99 MG/DL [facility] CHOL/HDL RATIO 2.5 [facility] NON HDL CHOLESTEROL 122 0 - 129 MG/DL [facility] Comment: FOR AGES >=20 YEARS (MG/DL) .................IDEAL....ELEVATED....BORDERLINE......HIGH.....VERY HIGH CHOL*........<200.......................................200-239....>=240 TRIG...........<150.....................150-199......200-499....>=500 LDL-C.......<100...100-129.....130-159......160-189....>=190 NONHDL-C.<130...130-159.....160-189......190-219....>=220 MAGDALNEA TA, ET AL. NATIONAL LIPID ASSOCIATION RECOMMENDATIONS FOR PATIENT-CENTERED MANAGEMENT OF DYSLIPIDEMIA: PART 1-FULL REPORT. ??J CLIN LIPIDOL 2015;129-169. *THIRD REPORT OF THE NATIONAL CHOLESTEROL EDUCATION PROGRAM (NCEP) EXPERT PANEL ON DETECTION, EDUCATION, AND TREATMENT OF HIGH BLOOD CHOLESTEROL IN ADULTS (ADULT TREATMENT PANEL III): FINAL REPORT. CIRCULATION 2002; 106:3143. 11/20/2018 2:03 PM CDT 11/21/2018 3:58 AM CDT [facility] - 11/21/2018 5:09 AM CDT REPORT: [id number] IS PATIENT FASTING?->YES Mariana Ruiz DO LABORATORY Final Result [facility] [address] [place] [address], documented in this encounter Visit Diagnoses Diagnosis Essential hypertension Unspecified essential hypertension Obesity without serious comorbidity, unspecified classification, unspecified obesity type documented in this encounter Care Teams Truck And Transport Mechanic Relationship Specialty Start Date End Date Mariana Ruiz DO [address] [place] [address] PCP - General FAMILY PRACTICE 09/27/17 06/04/23 documented as of this encounter
--- OUTSIDE RECORDS SUMMARY | 2024-03-23 01:34 | XMS_ITS | Encounter Summary ---
Author Organization [facility] Address [address] [place] [address]. [place], [place] [address] [place] [address] Care Team Providers Care Data Software Engineer Name Role Phone Mariana Ruiz DO Primary Care Provider [phone] Encounter Details Date Type Department Care Team (Latest Contact Info) Description 11/27/2019 Travel Social History Tobacco Use Types Packs/Day [...] st Contact Info) Description 05/01/2024 8:00 AM TENNIS INSTRUCTOR Appointment [place] [place] [place] [address] Edgard Washington MD Three [facility] [address] [place] [address] 06/02/2024 10:15 AM CDT Office Visit [facility] THREE [facility], [address] [place] [address] Edgard Washington MD Three [facility] [address] [place] [address] documented as of this encounter Visit Diagnoses Not on filedocumented in this encounter Care Teams Data Software Engineer Relationship Specialty Start Date End Date Mariana Ruiz DO [address] [place] [address] PCP - General FAMILY PRACTICE 09/27/17 06/04/23 documented as of this encounter
--- OUTSIDE RECORDS SUMMARY | 2024-03-23 01:34 | XMS_ITS | Encounter Summary ---
Author Organization [facility] Address [address] [place] [address]. [place] [address] [place] [address] Care Team Providers Care Special Projects Coordinator Name Role Phone Mariana Ruiz DO Primary Care Provider [phone] Reason for Visit * Reason Onset Date Comments Medication Problem 12/29/2018 Encounter Details Date Type Department Care Team (Late st Contact Info) Description 12/29/2018 Telephone [facility] [address] [facility] [address] [place] [address] Mariana Ruiz DO [address] [place] [address] Medication Problem Social History Tobacco Use Types Packs/Day Years [...] this encounter Progress Notes * Mariana Ruiz DO - 12/30/2018 1:39 PM CDT noted * Bella Baumann RN - 12/30/2018 11:35 AM CDT Taken care of 100mg in stock, will fill 100mg take 0.5 tablet daily * Thalia Schofield RN - 12/29/2018 12:32 PM CDT Fax from [facility] - losartan 50mg on back order requesting replacement Valsartan is back in and phcy states they havent had any problems Please advise ? documented in this encounter Plan of Treatment Upcoming Encounters Date Type Department Care Team (Late st Contact Info) Description 05/01/2024 8:00 AM COMPLIANCE PROFESSIONAL Appointment [facility] [place] [address] Edgrad Washington MD Three [facility], [address] [place], [place] [id number] 06/02/2024 10:15 AM CDT Office Visit [facility] THREE [facility], [address] [place], [place] [id number] Edgard Washington MD Three [facility], [address] [place], [place] [address] documented as of this encounter Visit Diagnoses Not on filedocumented in this encounter Care Teams Special Projects Coordinator Relationship Specialty Start Date End Date Mariana Ruiz DO [address] [place] [address] PCP - General FAMILY PRACTICE 09/27/17 06/04/23 documented as of this encounter
--- OUTSIDE RECORDS SUMMARY | 2024-03-23 01:34 | XMS_ITS | Encounter Summary ---
Author Organization [facility] Address [address] [place] [address]. [place], [place] [address] [place] [address] Care Team Providers Care Dairy Farm Supervisor Name Role Phone Mariana Ruiz DO Primary Care Provider Reason for Visit * Reason Onset Date Comments Appointment Request 11/05/2019 Encounter Details Date Type Department Care Team (Late st Contact Info) Description 11/05/2019 Telephone [facility] [address] [facility] [address] [place] [address] Mariana Ruiz DO [address] [place] [address] Appointment Request Social History Tobacco Use Types Packs/Day [...] as of this encounter Progress Notes * Manuela Molina - 12/07/2019 9:37 AM CDT APPT 01/20/2020 * Marcelina De Los Santos - 11/17/2019 3:49 PM CDT Sent letter/duplicate note/bw * Marcelina De Los Santos - 11/10/2019 12:52 PM CDT WILL CALL BACK AT A LATER DATE/BW documented in this encounter Plan of Treatment Upcoming Encounters Date Type Department Care Team (Late st Contact Info) Description 05/01/2024 8:00 AM INSURANCE POLICY ISSUE CLERK Appointment [place] [address] [facility] [place] [address] Edgard Washington MD Three [facility] [address] [place] [address] 06/02/2024 10:15 AM CDT Office Visit [facility] THREE [facility], [address] [place] [address] Edgard Washington MD Three [facility] [address] [place] [address] documented as of this encounter Visit Diagnoses Diagnosis History of vertebral compression fracture documented in this encounter Care Teams Dairy Farm Supervisor Relationship Specialty Start Date End Date Mariana Ruiz DO [address] [place], [place] [address] PCP - General FAMILY PRACTICE 09/27/17 06/04/23 documented as of this encounter
--- OUTSIDE RECORDS SUMMARY | 2024-03-23 01:34 | XMS_ITS | Encounter Summary ---
Author Organization [facility] Address [address] [place] [address]. [place], [place] [address] [place] [address] Care Team Providers Care Typewriters Functional Tester Name Role Phone Al Gloria DO Primary Care Provider [phone] Mariana Ruiz DO Primary Care Provider [phone] Encounter Details Date Type Department Care Team (Latest Contact Info) Description 07/26/2016 Abstract [facility] Al Gloria, [address] [place], [place] [id number] Social History Tobacco Use Types Packs/Day Years Used Date Smoking Tobacco: Never Assessed Comments Unknown Sex and Gender Information Value Date Recorded Sex Assigned at Not on file Legal Sex Female 6:40 PM CDT Gender Identity Not on file Sexual Orientation Not on file documented as of this encounter Last Filed Vital Signs Vital Sign Reading Time Taken Comments Blood Pressure 132/80 07/26/2016 8:43 AM CDT Pulse 72 07/26/2016 8:43 AM CDT Temperature - - Respiratory Rate - - Oxygen Saturation - - Inhaled Oxygen Concentration - - Weight 109.3 kg (241 lb) 07/26/2016 8:43 AM CDT Height 167.6 cm (5' 6 ) 07/26/2016 8:43 AM CDT Body Mass Index 38.9 07/26/2016 8:43 AM CDT documented in this encounter Progress Notes * Al Gloria DO - 07/26/2016 8:45 AM CDT Reason For Visit Reason For Visit: Health Cigarette Tipper Complaint annual exam pt is fasting History of Present Illness HPI Free Text: Labs due Nov Left Shoulder reduced ROM with pain. rare MORENO weekly. No FCNV, SOB, DIZZY, Visual disturbance Obesity (Follow-Up): The patient is being seen for follow-up of obesity. The patient reports doing poorly. Interval symptoms: worsened poor eating habits. Hypertension (Follow-Up): The patient presents for follow-up of primary hypertension. The patient states she has been doing well with her blood pressure control since the last visit. Symptoms: Shoulder Adhesive Capsulitis (Brief): The patient is being seen for an initial evaluation of adhesive capsulitis. Symptoms: shoulder pain and shoulder stiffness The patient presents with complaints of gradual onset of constant episodes of severe decreased range of motion. Episodes started about 6 weeks ago. Symptoms are worsening. The patient is currently experiencing symptoms. Review of Systems Constitutional: no fever, no malaise, no chills and no fatigue. Cardiovascular: no chest pain. Respiratory: no shortness of breath. Gastrointestinal: no abdominal pain. Genitourinary: no dysuria. Active Problems 1. Acute sinusitis (461.9) (J01.90) 2. Allergic rhinitis (477.9) (J30.9) 3. Ankle joint pain (719.47) (M25.579) 4. Chest pain with painful respiration (786.52) (R07.1) 5. Compression fracture of thoracic vertebra (805.2) (S22.000A) 6. Dysfunction of eustachian tube, unspecified laterality (381.81) (H69.80) 7. Hyperactivity of bladder (596.51) (N31.8) 8. Hypertension (401.9) (I10) 9. Low back pain (724.2) (M54.5) 10. Morbid obesity (278.01) (E66.01) 11. NUD (nonulcer dyspepsia) (536.8) (K30) 12. Thumb sprain (842.10) (S63.609A) Surgical History ?? History of Colonoscopy (Fiberoptic) ?? 2010- WNL. Family History Family History ?? Family history of Osteoporosis (V17.81) ?? Family history of Type 2 Diabetes Mellitus Social History ?? Being A Social Drinker ?? Marital History - Single ?? Never a smoker ?? Parentage ?? Working Part-time Current Meds 1. Aspirin EC 81 MG Oral Tablet Delayed Release; TAKE 1 TABLET DAILY DIRECTED; Therapy: (Recorded:17Mar2013) to Recorded Dispense: 0 Days ; #: Sufficient TBEC; Refill: 0; LOU = N; Record; Last Updated By: Nori Pedersen; 03/17/2013 10:02:13 AM 2. Celecoxib 200 MG Oral Capsule; TAKE 1 CAPSULE Daily; Therapy: 23Qze7898 to (Evaluate:60Mjo9340) Requested for: 31Tsi7940; Last Rx:[id number] Ordered Rx By: Al Gloria; Dispense: 30 Days ; #:30 Capsule; Refill: 2; For: Low back pain, Thumb sprain; LOU = N; Verified Transmission to [facility] #[id number]; Last Updated By: Vimodi; 07/26/2016 9:02:08 AM 3. Fluticasone Propionate 50 MCG/ACT Nasal Suspension; USE 2 SPRAYS IN EACH NOSTRIL ONCE DAILY; Therapy: 08Jun2015 to (Last Rx:08Jun2015) Requested for: 08Jun2015 Ordered Rx By: Malka Mireles; Dispense: 0 Days ; #:1 X 16 GM Bottle; Refill: 1; For: Acute sinusitis; LOU = N; Verified Transmission to [facility] #[id number]; Last Updated By: Vimodi; 06/08/2015 3:40:36 PM 4. Losartan Potassium-HCTZ 50-12.5 MG Oral Tablet; TAKE ONE TABLET BY MOUTH ONCE DAILY; Therapy: 29Kzf5801 to (Evaluate:01Fcp8324) Requested for: 38Inv6308; Last Rx:[id number] Ordered Rx By: Al Gloria; Dispense: 90 Days ; #:90 Tablet; Refill: 3; For: Hypertension; LOU = N; Verified Transmission to [facility] #[id number]; Last Updated By: Vimodi; 07/26/2016 9:02:08 AM 5. Omeprazole 40 MG Oral Capsule Delayed Release; TAKE ONE CAPSULE BY MOUTH EVERY DAY; Therapy: 05Jun2012 to (Evaluate:15Ais0680) Requested for: 36Jsy3762; Last Rx:[id number] Ordered Rx By: Al Gloria; Dispense: 30 Days ; #:30 Capsule Delayed Release; Refill: 2; For: NUD (nonulcer dyspepsia); LOU = N; Verified Transmission to [facility] #[id number]; Last Updated By: Berny Land; 07/26/2016 9:02:06 AM 6. Oxybutynin Chloride ER 5 MG Oral Tablet Extended Release 24 Hour; Take 1 tablet daily; Therapy: 87Yxs6501 to Recorded Dispense: 0 Days ; #: Sufficient Tablet Extended Release 24 Hour; Refill: 3; LOU = N; Record; Last Updated By: Marisa Guthrie; 07/26/2016 9:02:10 AM 7. ZyrTEC Allergy 10 MG Oral Capsule; TAKE 1 CAPSULE Daily; Therapy: (Recorded:17Mar2013) to Recorded Dispense: 0 Days ; #: Sufficient Capsule; Refill: 0; LOU = N; Record; Last Updated By: Nori Pedersen; 03/17/2013 10:02:13 AM Allergies 1. No Known Drug Allergies Recorded By: Al Gloria; 06/03/2012 4:30:05 PM Vitals Recorded: 26Jul2016 08:43AM Heart Rate 72 Systolic 132 Diastolic 80 Height 5 ft 6 in Weight 241 lb BMI Calculated 38.9 BSA Calculated 2.17 Physical Exam Constitutional General appearance: Abnormal. patient was observed to be morbidly obese. Eyes Conjunctiva and lids: No swelling, erythema or discharge. Pupils and irises: Equal, round and reactive to light. Ears, Nose, Mouth, and Throat External inspection of ears and nose: Normal. Otoscopic examination: Tympanic membranes translucent with normal light reflex. Canals patent without erythema. Oropharynx: Normal with no erythema, edema, exudate or lesions. Pulmonary Respiratory effort: No increased work of breathing or signs of respiratory distress. Auscultation of lungs: Clear to auscultation. Cardiovascular Palpation of heart: Normal PMI, no thrills. Auscultation of heart: Normal rate and rhythm, normal S1 and S2, without murmurs. Examination of extremities for edema and/or varicosities: Normal. Abdomen Abdomen: Non-tender, no masses. Liver and spleen: No hepatomegaly or splenomegaly. Lymphatic Palpation of lymph nodes in neck: No lymphadenopathy. Musculoskeletal Gait and station: Normal. Digits and nails: Normal without clubbing or cyanosis. Inspection/palpation of joints, bones, and muscles: Normal. Skin Skin and subcutaneous tissue: Normal without rashes or lesions. Neurologic Cranial nerves: Cranial nerves 2-12 intact. Reflexes: 2+ and symmetric. Sensation: No sensory loss. Psychiatric Orientation to person, place, and time: Normal. Mood and affect: Normal. Assessment 1. Allergic rhinitis (477.9) (J30.9) 2. Encounter for preventive health examination (V70.0) (Z00.00) 3. Hyperactivity of bladder (596.51) (N31.8) 4. Hypertension (401.9) (I10) 5. Low back pain (724.2) (M54.5) 6. Morbid obesity (278.01) (E66.01) 7. NUD (nonulcer dyspepsia) (536.8) (K30) 8. Adhesive capsulitis of left shoulder (726.0) (M75.02) Plan Adhesive capsulitis of left shoulder ?? Physical Therapy Referral Outpatient For: Adhesive capsulitis of left shoulder Status: Need Information - Financial Authorization Requested for: [id number] Ordered; For: Adhesive capsulitis of left shoulder; Ordered By: Al Gloria Performed: Due: 09Aug2016 Allergic rhinitis ?? Otolaryngology Referral Outpatient For: Allergic rhinitis Status: Need Information - Financial Authorization Requested for: [id number] Ordered; For: Allergic rhinitis; Ordered By: Al Gloria Performed: Due: 09Aug2016 Hyperactivity of bladder ?? Oxybutynin Chloride ER 5 MG Oral Tablet Extended Release 24 Hour; Take 1 tablet daily Rx By: Al Gloria; Dispense: 0 Days ; #:30 Tablet Extended Release 24 Hour; Refill: 6; For: Hyperactivity of bladder; LOU = N; Verified Transmission to [facility] #[id number]; Last Updated By: Berny Land; 07/26/2016 9:02:10 AM Hypertension ?? Losartan Potassium-HCTZ 50-12.5 MG Oral Tablet; TAKE ONE TABLET BY MOUTH ONCE DAILY Rx By: Al Gloria; Dispense: 90 Days ; #:90 Tablet; Refill: 1; For: Hypertension; LOU = N; Verified Transmission to [facility] #[id number]; Last Updated By: [email or web address].is [employer]; 07/26/2016 9:02:08 AM Low back pain, Thumb sprain ?? Celecoxib 200 MG Oral Capsule; TAKE 1 CAPSULE Daily Rx By: Al Gloria; Dispense: 30 Days ; #:30 Capsule; Refill: 6; For: Low back pain, Thumb sprain; LOU = N; Verified Transmission to [facility] #[id number]; Last Updated By: [email or web address][employer]; 07/26/2016 9:02:08 AM NUD (nonulcer dyspepsia) ?? Omeprazole 40 MG Oral Capsule Delayed Release; TAKE ONE CAPSULE BY MOUTH EVERY DAY Rx By: Al Gloria; Dispense: 30 Days ; #:30 Capsule Delayed Release; Refill: 6; For: NUD (nonulcer dyspepsia); LOU = N; Verified Transmission to [facility] #2585; Last Updated By: Emery [employer]; 07/26/2016 9:02:06 AM Health Management Health Maintenance Schedule COLONOSCOPY; every 10 years; Last 04Aug2014; Next Due: 04Aug2024; Active Signatures Electronically signed by : Al Gloria D.O.; Jul 26 2016 9:03AM TEACHER OF FAMILY AND CONSUMER SCIENCE (Author) documented in this encounter Plan of Treatment Upcoming Encounters Date Type Department Care Team (Late st Contact Info) Description 05/01/2024 8:00 AM TEACHER OF FAMILY AND CONSUMER SCIENCE Appointment [facility] [place] [address] Edgard Washington MD Three [facility] [address] [place], [place] [address] 06/02/2024 10:15 AM CDT Office Visit [facility] THREE [facility], [address] [place] [address] Edgard Washington MD [address] [place] [address] documented as of this encounter Visit Diagnoses Not on filedocumented in this encounter Care Teams Typewriters Functional Tester Relationship Specialty Start Date End Date Al Gloria DO [address] [place] [address] PCP - General 09/10/15 09/26/17 Mariana Ruiz DO [address] [place] [address] PCP - General FAMILY PRACTICE 09/27/17 06/04/23 documented as of this encounter
--- OUTSIDE RECORDS SUMMARY | 2024-03-23 01:34 | XMS_ITS | Encounter Summary ---
Author Organization [facility] Address [address] [place] [address]. 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[place] [place] [address] Edgard Washington MD Three [facility] [address] [place], [place] [address] 06/02/2024 10:15 AM CDT Office Visit [facility] THREE [facility], [address] [place], [place] [id number] Edgard Washington MD Three [facility] [address] [place] [address] documented as of this encounter Procedures Procedure Name Priority Date/Time Associated Diagnosis Comments MG SCREENING W CHANO BRANDY DIGI Routine 09/30/2017 1:40 PM CDT documented in this encounter Results * MG SCREENING W CHANO BRANDY DIGI (09/30/2017 1:40 PM CDT) Anatomical Region Laterality Modality Breast Bilateral Mammography 09/30/2017 1:40 PM CDT 09/30/2017 1:40 PM CDT Narrative 09/30/2017 3:59 PM CDT This is a summary report. The complete report is available in the patient's medical record. If you cannot access the medical record, please contact the sending organization for a detailed fax or copy. EXAMINATION: Digital bilateral screening mammogram with 3-D tomosynthesis EXAM DATE/TIME: 09/30/2017 1:37 PM REASON FOR EXAM: ??Routine screening. Previous benign left breast biopsy. Family history of breast cancer in her sister. ? COMPARISON: 09/10/2015, 07/28/2014 TECHNIQUE: Digital screening mammography [...] ??No significant change from the prior exam. =====IMPRESSION:===== No mammographic findings suggestive of malignancy. ASSESSMENT: ACR BI-RADS Category 2 - Benign. RECOMMENDATION: 1: Routine screening mammogram ??bilateral ??in 1 year ? COMMENTS: ? Procedure Note Yaa Del Rael MD - 05/22/2018 This is a summary report. The complete report is available in thepatient's medical record. If you cannot access the medical record, pleasecontact the sending organization for a detailed fax or copy. EXAMINATION: Digital bilateral screening mammogram with 3-Dtomosynthesis EXAM DATE/TIME: 09/30/2017 1:37 PM REASON FOR EXAM: Routine screening. Previous benign left breast biopsy. Family history of breast cancer in her sister. COMPARISON: 09/10/2015, 07/28/2014 TECHNIQUE: Digital screening mammography of both breasts was performedin addition to 3-D Tomosynthesis technique. This study [...] screening mammogram bilateral in 1 year COMMENTS: Mariana Ruiz DO MAMMO Final Result documented in this encounter Visit Diagnoses Not on filedocumented in this encounter Care Teams Aoc Operations Intelligence Chief Relationship Specialty Start Date End Date Mariana Ruiz DO [address] [place] [address] PCP - General FAMILY PRACTICE 09/27/17 06/04/23 documented as of this encounter
--- OUTSIDE RECORDS SUMMARY | 2024-03-23 01:34 | XMS_ITS | Encounter Summary ---
Author Organization [facility] Address [address] [place] [address]. [place] [address] [place] [address] Care Team Providers Care Facilities Maintenance Assistant Name Role Phone Mariana Ruiz DO Primary Care Provider + [phone] Encounter Details Date Type Department Care Team (Latest Contact Info) Description 01/06/2018 Abstract [facility] Humphrey Desai DO [facility] [address] [place] [address] Social History Tobacco Use Types Packs/Day Years Used Date Smoking Tobacco: Never Assessed Comments Unknown Sex and Gender Information Value Date Recorded Sex Assigned at Not on file Legal Sex Female 6:40 PM CDT Gender Identity Not on file Sexual Orientation Not on file documented as of this encounter Progress Notes * Humphrey Desai DO - 01/06/2018 3:31 PM CST Message Send for Culture Cipro 250mg 1 PO BID #10 Repeat Clean Catch UA in 2-3 weeks Verified Results BFMA-UA w/Micro 06Jan2018 02:58PM Sergei Neal Test Name Result Flag Reference Clarity cloudy Yellow Color yellow Clear Glucose Negative Normal Bilirubin Negative Negative Ketones Negative Negative Specific [place] 1.020 1.002 1.035 Blood trace intact Negative pH 6.0 5.0 8.0 Protein Negative Negative Urobilinogen 0.2 Normal Nitrite Positive Negative Leukocyte Positive Negative trace Micro WBC 10-15 RBC 0-3 1+ bacteria * Generic Conversion MD Nasima - 01/06/2018 2:15 PM CST Chief Complaint Burning and frequency on urination. temp 97.4 Active Problems 1. Allergic rhinitis (477.9) (J30.9) 2. Atherosclerosis of aorta (440.0) (I70.0) 3. Compression fracture of thoracic vertebra (805.2) (S22.000A) 4. Hyperactivity of bladder (596.51) (N31.8) 5. Hypertension (401.9) (I10) 6. Low back pain (724.2) (M54.5) 7. NUD (nonulcer dyspepsia) (536.8) (K30) 8. Obesity (278.00) (E66.9) 9. Urinary tract infection (599.0) (N39.0) 10. Vaccination refused by patient (V64.06) (Z28.21) Immunizations Influenza --- Series1: declines Tdap --- Series1: 20-Aug-2017 Current Meds 1. Aspirin EC 81 MG Oral Tablet Delayed Release; TAKE 1 TABLET DAILY DIRECTED; Therapy: (Recorded:17Mar2013) to Recorded 2. Celecoxib 200 MG Oral Capsule; TAKE 1 CAPSULE Daily; Therapy: 89Vpf9036 to (Evaluate:85Bdm8644) Requested for: 23Ubf2480; Last Rx:[id number] Ordered 3. Fluticasone Propionate 50 MCG/ACT Nasal Suspension; USE 2 SPRAYS IN EACH NOSTRIL ONCE DAILY; Therapy: 03Dhs7131 to (Last Rx:08Jun2015) Requested for: 87Nur4326 Ordered 4. Losartan Potassium-HCTZ 50-12.5 MG Oral Tablet; TAKE 1 TABLET BY MOUTH ONCE DAILY; Therapy: 71Rrj1677 to (Evaluate:36Fgs0024) Requested for: 47Bxw7574; Last Rx:76Jvm4831 Ordered 5. Omeprazole 40 MG Oral Capsule Delayed Release; TAKE ONE CAPSULE BY MOUTH EVERY DAY; Therapy: 05Jun2012 to (Evaluate:50Hdh3238) Requested for: 95Idp5900; Last Rx:65Cxd0432 Ordered 6. Oxybutynin Chloride ER 5 MG Oral Tablet Extended Release 24 Hour; Take 1 tablet daily; Therapy: 12Apr2016 to (Evaluate:29Mar2018) Requested for: 63Gtt3566; Last Rx:17Sfc0710 Ordered 7. ZyrTEC Allergy 10 MG Oral Capsule; TAKE 1 CAPSULE Daily; Therapy: (Recorded:17Mar2013) to Recorded Allergies 1. No Known Drug Allergies Plan Urinary tract infection 1. 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 Appointment [facility] Non [place] [address] Edgard Washington MD Three [facility] [place] [address] 06/02/2024 10:15 AM CDT Office Visit [facility], ED [address] [place] [address] Edgard Washington MD Three [facility] [place] [address] documented as of this encounter Procedures Procedure Name Priority Date/Time Associated Diagnosis Comments URINE BACTERIA CULTURE Routine 01/06/2018 4:23 PM SCHOOL JANITOR URINALYSIS Routine 01/06/2018 2:58 PM SCHOOL JANITOR documented in this encounter Results * CULTURE URINE (01/06/2018 4:23 PM SCHOOL JANITOR) Report Received Specimen: Urine Collected: 01/06/2018 16:23 Status: Final ?Last Updated: 01/09/2018 07:00 ?Culture Result (Final) ?This is the predominant organism. ??Two or more additional organisms are ?present with colony counts <10,000 col/ml. ?Culture complete ??Isolate #1 (Final) ?>=100,000 Colonies/Ml ?Klebsiella pneumoniae ?Isolate #1 ?Klebsiella ?pneumoniae ? ----- ?Trimeth/sulfa (T/S) ?? <=2/38 ?S ?Nitrofurantoi n (FD) ?? <=32 ?S ?Cefazolin (CFZ) ? <=8 ? S ?Ampicillin (AM) ? >16 ? R ?Amp/sulbactam (A/S) ?? <=8/4 ? S ?Tobramycin (TO) ? <=4 ? S ?Ceftriaxone (CAX) ? <=1 ? S ?Ceftazidime (CAZ) ? <=1 ? S ?Aztreonam (AZT) ? <=4 ? S ?Cefepime (CPM) ?<=4 ? S ?Pip/tazo (PI/T) ? <=16 ?S ?Ciprofloxacin (CP) ?<=1 ? S ?Gentamicin (GM) ? <=4 ? S ?Meropenem (MRP) ? <=1 ? S TOUCHWORKS TO EPIC CONVERSION 01/06/2018 4:23 PM SCHOOL JANITOR 01/06/2018 4:23 PM SCHOOL JANITOR Narrative TOUCHWORKS TO EPIC CONVERSION - 01/09/2018 7:00 AM SCHOOL JANITOR Order Comment: Report: [id number] Result Communication: No patient communication needed at this time us Humphrey Desai DO MICROBIOLOGY [facility]AL [facility] Final Result TOUCHWORKS TO EPIC CONVERSION * URINALYSIS (01/06/2018 2:58 PM SCHOOL JANITOR) TURBIDITY cloudy Yellow TOUCHWORKS TO EPIC CONVERSION COLOR (U) yellow Clear TOUCHWORKS TO EPIC CONVERSION GLUCOSE Negative Normal TOUCHWORKS TO EPIC CONVERSION BILIRUBIN (U) Negative Negative TOUCHW ORKS TO EPIC CONVERSION KETONE (U) Negative Negative TOUCHWORK S TO EPIC CONVERSION SPECIFIC GRAVITY (U) 1.020 1.002 - 1.035 TOUCHWORKS TO EPIC CONVERSION BLOOD (U) trace intact Negative TOUCHWORKS TO EPIC CONVERSION PH ARTERIAL 6.0 5.0 - 8.0 TOUCHWOR KS TO EPIC CONVERSION PROTEIN Negative Negative TOUCHWORKS TO EPIC CONVERSION UROBILINOGEN 0.2 Normal TOUCHWO RKS TO EPIC CONVERSION NITRITES Positive Negative TOUCHWORKS TO EPIC CONVERSION LEUKOCYTES (U) Positive Negative TOUCH WORKS TO EPIC CONVERSION Comment:Result Comment: trac e MICRO WBC 10-15 RBC 0-3 1+ bacteria TOUCHWORKS TO EPIC CONVERSION 01/06/2018 2:58 PM SCHOOL JANITOR 01/06/2018 2:58 PM SCHOOL JANITOR Narrative TOUCHWORKS TO EPIC CONVERSION - 01/06/2018 2:57 PM SCHOOL JANITOR 06Jan2018 3:32PM by Humphrey Desai: ??Send for Culture Cipro 250mg 1 PO BID #10 Repeat Clean Catch UA in 2-3 weeks Result Communication: Call patient with results us Sergei Neal MD URINE ORDERABLES Final Result TOUCHWORKS TO EPIC CONVERSION documented in this encounter Visit Diagnoses Not on filedocumented in this encounter Care Teams Facilities Maintenance Assistant Relationship Specialty Start Date End Date Mariana Ruiz DO [address] [place] [address] PCP - General FAMILY PRACTICE 09/27/17 06/04/23 documented as of this encounter
--- OUTSIDE RECORDS SUMMARY | 2024-03-23 01:34 | XMS_ITS | Encounter Summary ---
Author Organization [facility] Address [address] [place] [address]. 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, [address] [place] [address] Edgard Washington MD Three [facility]., [address] [place] [address] documented as of this encounter Visit Diagnoses Not on filedocumented in this encounter Care Teams Tennis Director Relationship Specialty Start Date End Date Al Gloria DO [address] [place] [address] PCP - General 09/10/15 09/26/17 Mariana Ruiz DO [address] [place] [address] PCP - General FAMILY PRACTICE 09/27/17 06/04/23 documented as of this encounter
--- OUTSIDE RECORDS SUMMARY | 2024-03-23 01:34 | XMS_ITS | Encounter Summary ---
Author Organization [facility] Address [address] [place] [address]. [place], [place] [address] [place] [address] Care Team Providers Care Pepper Picker Name Role Phone Mariana Ruiz DO Primary Care Provider + [phone] Encounter Details Date Type Department Care Team (Late st Contact Info) Description 01/20/2020 9:15 AM SURGICAL TECHNOLOGIST Laboratory Only [facility] [address] [facility] [address] [place] [phone] Social History Tobacco Use Types Packs/Day Years [...] have Coronavirus / COVID-19? No / Unsure 01/20/2020 8:26 AM SURGICAL TECHNOLOGIST documented as of this encounter Plan of Treatment Upcoming Encounters Date Type Department Care Team (Late st Contact Info) Description 05/01/2024 8:00 AM SURGICAL TECHNOLOGIST Appointment [facility] [place] [address] Edgard Washington MD Three [facility]., [address] [place] [address] 06/02/2024 10:15 AM CDT Office Visit [facility] THREE [facility], [address] [place] [address] Edgard Washington MD Three [facility]., [address] [place] [address] documented as of this encounter Procedures Procedure Name Priority Date/Time Associated Diagnosis Comments COMPREHENSIVE METABOLIC PANEL Routine 01/20/2020 9:12 AM SURGICAL TECHNOLOGIST Atherosclerosis of aorta Essential hypertension Obesity without serious comorbidity, unspecified classification, unspecified obesity type LIPID PANEL Routine 01/20/2020 9:12 AM SURGICAL TECHNOLOGIST Atherosclerosis of aorta Essential hypertension Obesity without serious comorbidity, unspecified classification, unspecified obesity type COLLECTION VENOUS BLOOD VENIPUNCTURE Routine 01/20/2020 9:11 AM SURGICAL TECHNOLOGIST Atherosclerosis of aorta Essential hypertension Obesity without serious comorbidity, unspecified classification, unspecified obesity type documented in this encounter Results * (ABNORMAL) LIPID PANEL (01/20/2020 9:12 AM SURGICAL TECHNOLOGIST) [facility] CHOLESTEROL 188 0 - 199 MG/DL [facility] TRIGLYCERIDES 36 0 - 149 MG/DL [facility] HDL 81 50 - 240 MG/DL [facility] LDL (CALCULATED) 100(H) 0 - 99 MG/DL [facility] CHOL/HDL RATIO 2.3 [facility] NON HDL CHOLESTEROL 107 0 - 129 MG/DL [facility] Comment: FOR AGES >=20 YEARS (MG/DL) .................IDEAL....ELEVATED....BORDERLINE......HIGH.....VERY HIGH CHOL*........<200.......................................200-239....>=240 TRIG...........<150.....................150-199......200-499....>=500 LDL-C.......<100...100-129.....130-159......160-189....>=190 NONHDL-C.<130...130-159.....160-189......190-219....>=220 MAGDALENA TA, ET AL. NATIONAL LIPID ASSOCIATION RECOMMENDATIONS FOR PATIENT-CENTERED MANAGEMENT OF DYSLIPIDEMIA: PART 1-FULL REPORT. ??J CLIN LIPIDOL 2015;129-169. *THIRD REPORT OF THE NATIONAL CHOLESTEROL EDUCATION PROGRAM (NCEP) EXPERT PANEL ON DETECTION, EDUCATION, AND TREATMENT OF HIGH BLOOD CHOLESTEROL IN ADULTS (ADULT TREATMENT PANEL III): FINAL REPORT. CIRCULATION 2002; 106:3143. 01/20/2020 9:12 AM SURGICAL TECHNOLOGIST 01/21/2020 6:56 AM SURGICAL TECHNOLOGIST Narrative [facility] - 01/21/2020 9:03 AM SURGICAL TECHNOLOGIST REPORT: [id number] IS PATIENT FASTING?->YES RELEASE TO PATIENT->MANUAL RELEASE ONLY REASON FOR PREVENTING IMMEDIATE RELEASE->PHYSICALHARM Mariana Ruiz DO LABORATORY Final Result [employer] [address], * COMPREHENSIVE METABOLIC PANEL (01/20/2020 9:12 AM SURGICAL TECHNOLOGIST) [facility] GLUCOSE 92 70 - 99 MG/DL [facility] BUN 17 8 - 23 MG/DL [facility] CREATININE S/P/B 0.8 0.5 - 1.2 MG/DL [facility] EGFR AFR. AMER. 93 60 - 300 ML/MIN/1.7 3 M2 [facility] EGFR NON-AFR. AMER. 77 60 - 300 ML/MIN/1.7 3 M2 [facility] SODIUM S/P/B 144 136 - 145 MEQ/L [facility] POTASSIUM S/P/B 3.8 3.5 - 5.3 MEQ/L [facility] CHLORIDE S/P/B 105 98 - 107 MEQ/L [facility] CO2 28 23 - 31 MEQ/L [facility] CALCIUM S/P/B 9.1 8.8 - 10.5 MG/DL [facility] TOTAL PROTEIN S/P/B 6.5 6.0 - 8.3 GM/DL [facility] ALBUMIN S/P/B 4.5 3.5 - 5.0 GM/DL [facility] AST 22 11 - 32 IU/L [facility] ALT 15 9 - 43 IU/L [facility] ALKALINE PHOSPHATASE S/P/B 54 35 - 129 IU/L [facility] BILIRUBIN TOTAL S/P/B 0.4 0.0 - 1.0 MG/DL [facility] ANION GAP 11 8 - 16 MMOLES/L [facility] 01/20/2020 9:12 AM SURGICAL TECHNOLOGIST 01/21/2020 6:56 AM SURGICAL TECHNOLOGIST Narrative [facility] - 01/21/2020 9:03 AM SURGICAL TECHNOLOGIST REPORT: [id number] IS PATIENT FASTING?->YES RELEASE TO PATIENT->MANUAL RELEASE ONLY REASON FOR PREVENTING IMMEDIATE RELEASE->PHYSICALHARM Mariana Ruiz DO LABORATORY Final Result [facility] [address] [place] [address], documented in this encounter Visit Diagnoses Diagnosis Atherosclerosis of aorta (CMS/HCC) Atherosclerosis of aorta Essential hypertension Unspecified essential hypertension Obesity without serious comorbidity, unspecified classification, unspecified obesity type documented in this encounter Care Teams Pepper Picker Relationship Specialty Start Date End Date Mariana Ruiz DO [address] [place] [address] PCP - General FAMILY PRACTICE 09/27/17 06/04/23 documented as of this encounter
--- OUTSIDE RECORDS SUMMARY | 2024-03-23 01:34 | XMS_ITS | Encounter Summary ---
Author Organization [facility] Address [address] [place] [address]. [place] [address] [place] [address] Care Team Providers Care Sales Financial Analyst Name Role Phone Mariana Ruiz DO Primary Care Provider + [phone] Marii Randle MD Primary Care Provider + [phone] Encounter Details Date Type Department Care Team (Latest Contact Info) Description 01/07/2018 Abstract [facility] , Yaa Ramos MD [...] st Contact Info) Description 05/01/2024 8:00 AM CLIENT PORTFOLIO MANAGER Appointment [facility] [address] [facility] [place] [address] Edgard Washington MD Three [facility] [address] [place] [address] 06/02/2024 10:15 AM CDT Office Visit [facility] [address] [facility], [address] [place] [address] Edgard Washington MD [facility], [address] [place] [address] documented as of this encounter Visit Diagnoses Not on filedocumented in this encounter Additional Health Concerns Infection Onset Date Last Indicated Resolved Time COVID-19 Rule Out 07/11/2020 07/11/2020 07/11/2020 8:50 PM CDT documented as of this encounter Care Teams Sales Financial Analyst Relationship Specialty Start Date End Date Mariaan Ruiz DO [address] [place] [address] PCP - General FAMILY PRACTICE 09/27/17 06/04/23 Marii Randle MD [address] [facility] [address] [place] [phone] PCP - General FAMILY PRACTICE 06/05/23 documented as of this encounter
--- OUTSIDE RECORDS SUMMARY | 2024-03-23 01:34 | XMS_ITS | Encounter Summary ---
Author Organization [facility] Address [address] [place] [address]. [place], [place] [address] [place] [address] Care Team Providers Care New Car Make Ready Worker Name Role Phone Mariana Ruiz Primary Care Provider [phone] Reason for Visit * Reason Comments Acute Note rash on torso Encounter Details Date Type Department Care Team (Late st Contact Info) Description 11/27/2019 10:00 AM CDT Office Visit [facility] 311 [facility] [address] [place] [phone] Malka Church PA-C 311 [facility] [address] [place] [address] Acute Note (rash on torso) Social History Tobacco Use Types Packs/Day Years [...] Sign Reading Time Taken Comments Blood Pressure 132/86 11/27/2019 9:55 AM CDT Pulse - - Temperature - - Respiratory Rate - - Oxygen Saturation - - Inhaled Oxygen Concentration - - Weight 102.5 kg (226 lb) 11/27/2019 9:55 AM CDT Height - - Body Mass Index 37.04 09/18/2018 2:12 PM CDT documented in this encounter Patient Instructions * Patient Instructions* Malka Church PA-C - 11/27/2019 10:00 AM CDT . documented in this encounter Progress Notes * Malka Church PA-C - 11/27/2019 10:00 AM CDT Reason for Visit: Julianna Brown is a 64-year-old female presents today for Acute Note (rash on torso) History of Present Illness: Planes of a very pruritic, red rash underneath her breasts, her abdominal pannus, and her axilla bilaterally. ROS: Review of Systems Constitutional: Negative for fever. HENT: Negative for ear pain. Eyes: Negative for pain. Respiratory: Negative for shortness of breath. Cardiovascular: Negative for chest pain. Gastrointestinal: Negative for abdominal pain. Genitourinary: Negative for dysuria. Musculoskeletal: Negative for myalgias. Skin: Positive for rash. Neurological: Negative for dizziness. Psychiatric/Behavioral: Negative for depression. Medications: Current Outpatient Medications: ??? aspirin EC 81 MG tablet, Take 1 tablet by mouth daily., Disp: , Rfl: ??? celecoxib 200 MG capsule, Take 1 capsule (200 mg total) by mouth daily., Disp: 30 capsule, Rfl:0 ??? fluconazole 100 MG tablet, Take 1 tablet (100 mg total) by mouth daily for 7 days., Disp: 7 tablet, Rfl: 0 ??? fluticasone propionate 50 MCG/ACT nasal spray, 2 sprays by Nasal route daily., Disp: , Rfl: ??? HYDROCHLOROTHIAZIDE 12.5 MG tablet, TAKE 1 [...] 1 TABLET BY MOUTH EVERY DAY, Disp: 30 tablet, Rfl: 0 No Known Allergies Past Medical History: Diagnosis Date ??? Adhesive capsulitis of left shoulder Past Surgical History: Procedure Laterality Date ??? SECTION ??? CHOLECYSTECTOMY LAPAROSCOPIC ??? COLONOSCOPY 2010 WNL, 02/2012 POLYP, 02/2017 POLYP MOI ??? HC LAP TOTAL HYSTERECTOMY REMOVAL BOTH TUBES AND OVARIES--BLEEDING Social History Socioeconomic History ??? Marital status: Spouse name: Not on file ??? Number of children: 2 ??? Years of education: Not on file ??? Highest education level: Not on file Occupational History ??? Not on file Social Needs ??? Financial resource strain: Not on file ??? Food insecurity: Worry: Not on file Inability: Not on file ??? Transportation needs: Medical: Not on file Non-medical: Not on file Tobacco Use ??? Smoking status: Never Smoker Substance and Sexual Activity ??? Alcohol use: Yes Comment: SOCIAL ??? Drug use: No ??? Sexual activity: Not on file Lifestyle ??? Physical activity: Days per week: Not on file Minutes per session: Not on file ??? Stress: Not on file Relationships ??? Social connections: Talks on phone: Not on file Gets together: Not on file Attends methodist service: Not on file Active member of club or organization: Not on file Attends meetings of clubs or organizations: Not on file Relationship status: Not on file ??? Intimate partner violence: Fear of current or ex partner: Not on file Emotionally abused: Not on file Physically abused: Not on file Forced sexual activity: Not on file Other Topics Concern ??? Not on file Social History Narrative ??? Not on file Family History Problem Relation Name Age of Onset ??? Breast Cancer Sister 63 ??? Prostate Cancer Father ??? Diabetes Other ??? Osteoporosis Other Family Status Relation Name Status ??? Sister (Not Specified) ??? Father (Not Specified) ??? Other (Not Specified) Physical Exam: Filed Vitals: 11/27/19 0955 BP: 132/86 Weight: 102.5 kg (226 lb) Body mass index is 37.04 kg/m??. Physical Exam Constitutional: No distress. HENT: Mouth/Throat: No oropharyngeal exudate. Cardiovascular: Normal rate and regular rhythm. No murmur heard. Pulmonary/Chest: Effort normal and breath sounds normal. No respiratory distress. Musculoskeletal: She exhibits no edema or tenderness. Neurological: No cranial nerve deficit. Skin: Underneath bilateral breasts and going down her abdomen is a large area of erythematous skin. She has the same type of rash in her bilateral axilla, and in her bilateral inguinal folds. Consistent with candidal dermatitis. Psychiatric: She has a normal mood and affect. Assessment: 1. Candidal intertrigo fluconazole 100 MG tablet Recommendations/Plan: Return if symptoms worsen or fail to improve. Reviewed and updated this visit by provider: Allergies Meds Problems Med Hx Surg Hx Fam Hx MALKA CHURCH PA-C Cosigned by Dimitri Morales MD at 11/29/2019 6:43 PM CDT documented in this encounter Plan of Treatment Upcoming Encounters Date Type Department Care Team (Late st Contact Info) Description 05/01/2024 8:00 AM KILN MECHANIC Appointment [facility] [place] [address] Edgard Washington MD [facility], [address] [facility] [place] [address] 06/02/2024 10:15 AM CDT Office Visit [facility] THREE [facility], ED [address] [place] [address] Edgard Washington MD [facility], [address] [place] [address] documented as of this encounter Visit Diagnoses Diagnosis Candidal intertrigo- Primary Candidiasis of skin and nails documented in this encounter Care Teams New Car Make Ready Worker Relationship Specialty Start Date End Date Mariana Ruiz DO [address] [place] [address] PCP - General FAMILY PRACTICE 09/27/17 06/04/23 documented as of this encounter
--- OUTSIDE RECORDS SUMMARY | 2024-03-23 01:34 | XMS_ITS | Encounter Summary ---
Author Organization [facility] Address [address] [place] [address]. [id number] [place] [address] Care Team Providers Care Autocad Draftsman Name Role Phone Yamilet Mckeon DO Primary Care Provider [phone] Reason for Referral * Imaging (Routine) - Closed Specialty Diagnoses / Procedures Referred By Herberth amor Referred To Contact RADIOLOGY Diagnoses Encounter for screening mammogram for malignant neoplasm of breast Procedures MG SCREENING W CHANO BRANDY DIGI Yamilet Mckeon DO [address] [place] [address] Phone: tel: fax: Referral ID Status Reason Start Date Expiration Date Visits Re quested Visits Authorized [id number] Closed 01/21/2020 02/19/2021 1 1 GROWER Reason for Visit * Reason Comments Physical annual Encounter Details Date Type Department Care Team (Late st Contact Info) Description 01/20/2020 8:45 AM HEAD GROWER Office Visit [facility] [address] [place] [address] Yamilet Mckeon DO [address] [place] [address] Physical (annual) Social History Tobacco Use Types Packs/Day Years [...] COVID-19? No / Unsure 01/20/2020 8:26 AM HEAD GROWER documented as of this encounter Last Filed Vital Signs Vital Sign Reading Time Taken Comments Blood Pressure 160/84 01/20/2020 8:33 AM HEAD GROWER Pulse 68 01/20/2020 8:33 AM HEAD GROWER Temperature - - Respiratory Rate - - Oxygen Saturation - - Inhaled Oxygen Concentration - - Weight 105.2 kg (232 lb) 01/20/2020 8:33 AM HEAD GROWER Height 166.4 cm (5' 5.5 ) 01/20/2020 8:33 AM HEAD GROWER Body Mass Index 38.02 01/20/2020 8:33 AM HEAD GROWER documented in this encounter Progress Notes * Yamilet Birch Joseph, DO - 01/20/2020 8:45 AM CST Reason for Visit: Physical (annual) History of Present Illness: Here for annual Doing well, no complaints Did have to take care of grandkids this summer when parents were covid pos Pt has tested neg She mostly stays home Has gained some wt ROS: Review of Systems Constitutional: Negative. Respiratory: Negative. Cardiovascular: Negative. Gastrointestinal: Negative. Genitourinary: Negative. Musculoskeletal: Negative. Psychiatric/Behavioral: Negative. Medications: Current Outpatient Medications: ??? aspirin EC 81 MG tablet, Take 1 tablet by mouth daily., Disp: , Rfl: ??? celecoxib 200 MG capsule, Take 1 capsule (200 mg total) by mouth daily., Disp: 30 capsule, Rfl:0 ??? FLUTICASONE PROPIONATE 50 MCG/ACT nasal spray, [...] by mouth daily., Disp: 90 tablet, Rfl: 0 No Known Allergies Past Medical History: Diagnosis Date ??? Adhesive capsulitis of left shoulder Past Surgical History: Procedure Laterality Date ??? SECTION ??? CHOLECYSTECTOMY LAPAROSCOPIC ??? COLONOSCOPY 2010 WNL, 02/2012 POLYP, 02/2017 POLYP MOI ??? HC LAP TOTAL HYSTERECTOMY REMOVAL BOTH TUBES AND OVARIES--BLEEDING Social History Tobacco Use ??? Smoking status: Never Smoker Substance Use Topics ??? Alcohol use: Yes [...] Oropharynx is clear. Eyes: Conjunctivae are normal. Pupils are equal, round, and reactive to light. Neck: Neck supple. No thyromegaly present. Cardiovascular: Normal rate and regular rhythm. Pulmonary/Chest: Effort normal and breath sounds normal. Right breast exhibits no mass, no nipple discharge and no tenderness. Left breast exhibits no mass, no nipple discharge and no tenderness. Abdominal: Soft. Bowel sounds are normal. She exhibits no mass. There is no tenderness. No hernia. Genitourinary: Rectum normal. Rectal exam shows guaiac negative stool. No vaginal discharge found. Genitourinary Comments: S/p hyst No pap Musculoskeletal: Normal range of motion. She exhibits no tenderness. Right lower leg: She exhibits no edema. Left lower leg: She exhibits no edema. Lymphadenopathy: She has no cervical adenopathy. Neurological: She is alert and oriented to person, place, and time. Skin: Skin is warm and dry. Psychiatric: Mood normal. Nursing note and vitals reviewed. Filed Vitals: 01/20/20 0833 BP: (!) 160/84 Pulse: 68 Weight: 105.2 kg (232 lb) Height: 5' 5.5 (1.664 m) Diagnoses/Impression: 1. Encounter for screening mammogram for malignant neoplasm of breast MG SCREENING BRANDY DIGI 2. Atherosclerosis of aorta (CMS/HCC) LIPID PANEL COMPREHENSIVE METABOLIC PANEL 3. Essential hypertension LIPID PANEL COMPREHENSIVE METABOLIC PANEL 4. Obesity without serious comorbidity, unspecified classification, unspecified obesity type LIPID PANEL COMPREHENSIVE METABOLIC PANEL 5. Allergic rhinitis, unspecified seasonality, unspecified trigger 6. NUD (nonulcer dyspepsia) 7. Hyperactivity of bladder 8. History of vertebral compression fracture 9. Preventative health care Recommendations and Plan: Remain active, exercise, healthy diet, eye exam when due, had recent flu shot and first shingrix Work on diet and wt loss Reviewed and updated this visit by provider: Allergies Meds Problems Med Hx Surg Hx Fam Hx Orders Placed This Encounter ??? LIPID PANEL ??? COMPREHENSIVE METABOLIC PANEL ??? MG SCREENING BRANDY DIGI YAMILET MCKEON DO Referring Provider: No ref. provider found PCP: YAMILET MCKEON DO GROWER documented in this encounter Plan of Treatment Upcoming Encounters Date Type Department Care Team (Late st Contact Info) Description 05/01/2024 8:00 AM HEAD GROWER Appointment [facility] [place] [address] Edgard [place] MD Three [facility], [address] [place] [address] 06/02/2024 10:15 AM CDT Office Visit [facility], [address] [place] [address] Edgard [place] MD [facility], [address] [place] [address] documented as of this encounter Procedures Procedure Name Priority Date/Time Associated Diagnosis Comments MG SCREENING W CHANO BRANDY DIGI Routine 01/21/2020 9:29 AM HEAD GROWER Encounter for screening mammogram for malignant neoplasm of breast documented in this encounter Results * MG SCREENING W CHANO BRANDY DIGI (01/21/2020 9:29 AM HEAD GROWER) Anatomical Region Laterality Modality Breast Bilateral Mammography 01/21/2020 12:0 1 PM HEAD GROWER Impressions 01/21/2020 12:02 PM HEAD GROWER IMPRESSION: No suspicious change since the previous exams. Recommendation: 1: Routine screening mammogram ??Bilateral ?? in 1 Year Assessment: ACR BI-RADS Category 2 - Benign. Narrative 01/21/2020 12:02 PM HEAD GROWER Examination: Digital screening mammogram with CAD. Clinical history: Asymptomatic patient presents for routine screening. Known keloids on physical exam. Comparison: 10/17/2018, 09/30/2017, 09/10/2015, 07/28/2014. Technique: Bilateral digital mammograms. The exam was interpreted with the use of a computer-aided detection (CAD) system. ??Additional 3-D tomosynthesis images were acquired. Tissue density: The breast tissue contains scattered fibroglandular densities. Findings: The breast tissue contains scattered fibroglandular densities. ?? Benign-appearing calcification noted. Bilateral dermal masses are concordant with the history. No suspicious mass, microcalcification or area of architectural distortion can be identified. From a mammographic standpoint, routine followup in one year would seem adequate. us Yamilet Mckeon DO MAMMO Final Result * COMPREHENSIVE METABOLIC PANEL (01/20/2020 9:12 AM HEAD GROWER) GLUCOSE 92 70 - 99 MG/DL [facility] BUN 17 8 - 23 MG/DL [facility] CREATININE S/P/B 0.8 0.5 - 1.2 MG/DL [facility] EGFR AFR. AMER. 93 60 - 300 ML/MIN/1.7 3 M2 [facility] EGFR NON-AFR. AMER. 77 60 - 300 ML/MIN/1.7 3 M2 [facility] SODIUM S/P/B 144 136 - 145 MEQ/L [facility] POTASSIUM S/P/B 3.8 3.5 - 5.3 MEQ/L [facility] CHLORIDE S/P/B 105 98 - 107 [facility]L [facility] CO2 28 23 - 31 MEQ/L [facility] CALCIUM S/P/B 9.1 8.8 - 10.5 MG/DL [facility] TOTAL PROTEIN S/P/B 6.5 6.0 - 8.3 GM/DL [facility] ALBUMIN S/P/B 4.5 3.5 - 5.0 GM/DL [facility] AST 22 11 - 32 IU/L [facility] ALT 15 9 - 43 IU/L [facility] ALKALINE PHOSPHATASE S/P/B 54 35 - 129 IU/L [facility] BILIRUBIN TOTAL S/P/B 0.4 0.0 - 1.0 MG/DL [facility] ANION GAP 11 8 - 16 MMOLES/L [facility] 01/20/2020 9:12 AM HEAD GROWER 01/21/2020 6:56 AM HEAD GROWER Narrative [facility] - 01/21/2020 9:03 AM HEAD GROWER REPORT: [id number] IS PATIENT FASTING?->YES RELEASE TO PATIENT->MANUAL RELEASE ONLY REASON FOR PREVENTING IMMEDIATE RELEASE->PHYSICALHARM Yamilet Mckeon DO LABORATORY Final Result [facility] [address] [place] [address], * (ABNORMAL) LIPID PANEL (01/20/2020 9:12 AM HEAD GROWER) CHOLESTEROL 188 0 - 199 MG/DL [facility] TRIGLYCERIDES 36 0 - 149 MG/DL [facility] HDL 81 50 - 240 MG/DL [facility] LDL (CALCULATED) 100(H) 0 - 99 MG/DL [facility] CHOL/HDL RATIO 2.3 [facility] NON HDL CHOLESTEROL 107 0 - 129 MG/DL [facility] Comment: FOR AGES >=20 YEARS (MG/DL) .................IDEAL....ELEVATED....BORDERLINE......HIGH.....VERY HIGH CHOL*........<200.......................................200-239....>=240 TRIG...........<150.....................150-199......200-499....>=500 LDL-C.......<100...100-129.....130-159......160-189....>=190 NONHDL-C.<130...130-159.....160-189......190-219....>=220 [employer]DALENA ADAME, ET [place]. NATIONAL LIPID ASSOCIATION RECOMMENDATIONS FOR PATIENT-CENTERED MANAGEMENT OF DYSLIPIDEMIA: PART 1-FULL REPORT. ??J CLIN LIPIDOL 2015;129-169. *THIRD REPORT OF THE NATIONAL CHOLESTEROL EDUCATION PROGRAM (NCEP) EXPERT PANEL ON DETECTION, EDUCATION, AND TREATMENT OF HIGH BLOOD CHOLESTEROL IN ADULTS (ADULT TREATMENT PANEL III): FINAL REPORT. CIRCULATION 2002; 106:3143. 01/20/2020 9:12 AM HEAD GROWER 01/21/2020 6:56 AM HEAD GROWER Narrative [facility] - 01/21/2020 9:03 AM HEAD GROWER REPORT: [id number] IS PATIENT FASTING?->YES RELEASE TO PATIENT->MANUAL RELEASE ONLY REASON FOR PREVENTING IMMEDIATE RELEASE->PHYSICALHARM us Yamilet Mckeon DO LABORATORY Final Result Performing Organization Address City/State/[facility] Co de Phone Number [facility] [address] [place] [address], documented in this encounter Visit Diagnoses Diagnosis Encounter for screening mammogram for malignant neoplasm of breast- Primary Other screening mammogram Atherosclerosis of aorta (CMS/HCC) Atherosclerosis of aorta Essential hypertension Unspecified essential hypertension Obesity without serious comorbidity, unspecified classification, unspecified obesity type Allergic rhinitis, unspecified seasonality, unspecified trigger NUD (nonulcer dyspepsia) Dyspepsia and other specified disorders of function of stomach Hyperactivity of bladder Hypertonicity of bladder History of vertebral compression fracture Preventative health care Routine general medical examination at a health care facility Atherosclerosis of aorta (CMS/HCC) Atherosclerosis of aorta Essential hypertension Unspecified essential hypertension Obesity without serious comorbidity, unspecified classification, unspecified obesity type documented in this encounter Care Teams Autocad Draftsman Relationship Specialty Start Date End Date Yamilet Mckeon DO [address] [place] [address] PCP - General FAMILY PRACTICE 09/27/17 06/04/23 documented as of this encounter
--- OUTSIDE RECORDS SUMMARY | 2024-03-23 01:34 | XMS_ITS | Encounter Summary ---
Author Organization [facility] Address [address] [place] [address]. [place], [place] [address] [place] [address] Care Team Providers Care Collection Administrator Name Role Phone Mariana Ruiz DO Primary Care Provider [phone] Reason for Visit * Reason Onset Date Comments Appointment Request 07/31/2018 Encounter Details Date Type Department Care Team (Late st Contact Info) Description 07/31/2018 Telephone [facility] [address] [facility] [address] [place] [address] Mariana Ruiz DO [address] [place] [address] Appointment Request Social History Tobacco Use Types Packs/Day Years Used Date Smoking Tobacco: Never Assessed Comments Unknown Sex and Gender Information Value Date Recorded Sex Assigned at Not on file Legal Sex Female 6:40 PM CDT Gender Identity Not on file Sexual Orientation Not on file documented as of this encounter Progress Notes * Maria Antonia Parham - 08/19/2018 9:53 AM CDT APPT SCHEDULED FOR 09-18-18 * Maria Antonia Parham - 07/31/2018 11:47 AM CDT LMOM * Kristal Lr CMA - 07/31/2018 10:33 AM CDT Annual due after 08/20/18 documented in this encounter Plan of Treatment Upcoming Encounters Date Type Department Care Team (Late st Contact Info) Description 05/01/2024 8:00 AM TRAFFIC SUPERINTENDENT Appointment [facility] [address] [address] Edgard [place] MD [address] [place] [address] 06/02/2024 10:15 AM CDT Office Visit [facility] [address], [address] [place] [address] Edgard [place] MD [address] [place] [address] documented as of this encounter Visit Diagnoses Not on filedocumented in this encounter Care Teams Collection Administrator Relationship Specialty Start Date End Date Mariana Ruiz DO [address] [place] [address] PCP - General FAMILY PRACTICE 09/27/17 06/04/23 documented as of this encounter
--- OUTSIDE RECORDS SUMMARY | 2024-03-23 01:34 | XMS_ITS | Encounter Summary ---
Author Organization [facility] Address [address] [place] [address]. [place] [address] [place] [address] Care Team Providers Care Solutions Specialist Name Role Phone Mariana Ruiz Primary Care Provider + [phone] Encounter Details Date Type Department Care Team (Latest Contact Info) Description 01/20/2020 Travel Social History Tobacco Use Types Packs/Day [...] COVID-19? No / Unsure 01/20/2020 8:26 AM GANG SUPERVISOR documented as of this encounter Plan of Treatment Upcoming Encounters Date Type Department Care Team (Late st Contact Info) Description 05/01/2024 8:00 AM GANG SUPERVISOR Appointment [facility] [place] [place] [address] Edgard [place] MD Three [facility] [address] [place] [address] 06/02/2024 10:15 AM CDT Office Visit [facility], [address] [place] [address] Edgard [place] MD Three [facility] [address] [place], [place] [id number] documented as of this encounter Visit Diagnoses Not on filedocumented in this encounter Care Teams Solutions Specialist Relationship Specialty Start Date End Date Mariana Ruiz DO [address] [place] [address] PCP - General FAMILY PRACTICE 09/27/17 06/04/23 documented as of this encounter
--- OUTSIDE RECORDS SUMMARY | 2024-03-23 01:34 | XMS_ITS | Encounter Summary ---
Author Organization [facility] Address [address] [place] [address]. [place] [address] [place] [address] Care Team Providers Care Architect Name Role Phone Mariana Ruiz Primary Care Provider [phone] Encounter Details Date Type Department Care Team (Latest Contact Info) Description 07/08/2020 Travel Social History Tobacco Use Types Packs/Day [...] st Contact Info) Description 05/01/2024 8:00 AM POLICE OFFICER CRIME PREVENTION Appointment [facility] [place] [address] Edgard [place] MD Three [facility] [address] [place] [address] 06/02/2024 10:15 AM CDT Office Visit [facility] THREE [facility], [address] [place] [address] Edgard [place] MD Three [facility] [address] [place], [place] [id number] documented as of this encounter Visit Diagnoses Not on filedocumented in this encounter Care Teams Architect Relationship Specialty Start Date End Date Mariana Ruiz DO [address] [place] [address] PCP - General FAMILY PRACTICE 09/27/17 06/04/23 documented as of this encounter
--- OUTSIDE RECORDS SUMMARY | 2024-03-23 01:34 | XMS_ITS | Encounter Summary ---
Author Organization [facility] Address [address] [place] [address]. [place] [address] [place] [address] Care Team Providers Care Glass Maker Name Role Phone Yamilet Mckeon DO Primary Care Provider Reason for Visit * Reason Comments Physical annual Encounter Details Date Type Department Care Team (Late st Contact Info) Description 09/18/2018 2:15 PM CDT Office Visit [facility] [address] [facility] [address] [place] [id number] Yamilet Mckeon DO [address] [place] [address] Physical (annual) Social History Tobacco Use Types [...] Sign Reading Time Taken Comments Blood Pressure 130/88 09/18/2018 2:12 PM CDT Pulse 75 09/18/2018 2:12 PM CDT Temperature - - Respiratory Rate - - Oxygen Saturation - - Inhaled Oxygen Concentration - - Weight 100.7 kg (222 lb) 09/18/2018 2:12 PM CDT Height 166.4 cm (5' 5.5 ) 09/18/2018 2:12 PM CDT Body Mass Index 36.38 09/18/2018 2:12 PM CDT documented in this encounter Progress Notes * Yamilet Mckeon, DO - 09/18/2018 2:15 PM CDT Reason for Visit: Physical (annual) History of Present Illness: Here for annual Doing well Tries to stay active and watch diet Stable on meds Has had eye exam ROS: Review of Systems Constitutional: Negative. Respiratory: Negative. Cardiovascular: Negative. Gastrointestinal: Negative. Genitourinary: Negative. Musculoskeletal: Negative. Psychiatric/Behavioral: Negative. Medications: Current Outpatient Medications: ??? aspirin EC 81 MG tablet, Take 1 tablet by mouth daily., Disp: , Rfl: ??? celecoxib 200 MG capsule, Take 1 capsule by mouth daily., Disp: , Rfl: ??? Cetirizine HCl (ZYRTEC ALLERGY) 10 MG Cap, Take 1 capsule by mouth daily., Disp: , Rfl: ??? fluticasone propionate 50 MCG/ACT nasal spray, 2 sprays by Nasal route daily., Disp: , Rfl: ??? LOSARTAN-HYDROCHLOROTHIAZIDE 50-12.5 MG tablet, TAKE 1 TABLET BY MOUTH EVERY DAY, Disp: 90 tablet, Rfl: 0 ??? omeprazole 40 MG capsule, Take 1 capsule by mouth daily., Disp: , Rfl: ??? OXYBUTYNIN XL 5 MG 24 hr [...] person, place, and time. She appears well- developed and well-nourished. obese HENT: Right Ear: External ear normal. Left Ear: External ear normal. Nose: Nose normal. Mouth/Throat: Oropharynx is clear and moist. Eyes: Conjunctivae are normal. Pupils are equal, [...] There is no tenderness. No hernia. Genitourinary: Vagina normal. Rectal exam shows guaiac negative stool. No vaginal discharge found. Genitourinary Comments: S/p hyst Musculoskeletal: Normal range of motion. She exhibits no edema. Lymphadenopathy: She has no cervical adenopathy. Neurological: She is alert and oriented to person, place, and time. Skin: Skin is warm and dry. Large keloids chest/abd Psychiatric: She has a normal mood and affect. Nursing note and vitals reviewed. Filed Vitals: 09/18/18 1412 BP: 130/88 Pulse: 75 Weight: 100.7 kg (222 lb) Height: 5' 5.5 (1.664 m) Diagnoses/Impression: 1. Screening for breast cancer MG SCREENING BRANDY DIGI 2. Essential hypertension COMPREHENSIVE METABOLIC PANEL LIPID PANEL 3. Obesity without serious comorbidity, unspecified classification, unspecified obesity type COMPREHENSIVE METABOLIC PANEL LIPID PANEL 4. Allergic rhinitis, unspecified seasonality, unspecified trigger 5. Atherosclerosis of aorta (CMS/HCC) 6. NUD (nonulcer dyspepsia) 7. Hyperactivity of bladder 8. History of vertebral compression fracture 9. Encounter for preventive health examination Recommendations and Plan: Remain active, exercise, healthy diet, eye exam when due, flu shot each Fall Discussed shingrix Orders Placed This Encounter ??? COMPREHENSIVE METABOLIC PANEL ??? LIPID PANEL ??? MG SCREENING BRANDY DIGI ??? aspirin EC 81 MG tablet ??? celecoxib 200 MG capsule ??? omeprazole 40 MG capsule ??? fluticasone propionate 50 MCG/ACT nasal spray ??? Cetirizine HCl (ZYRTEC ALLERGY) 10 MG Cap YAMILET MCKEON, DO Referring Provider: No ref. provider found PCP: YAMILET MCKEON DO documented in this encounter Plan of Treatment Upcoming Encounters Date Type Department Care Team (Late st Contact Info) Description 05/01/2024 8:00 AM MICROSOFT BI CONSULTANT Appointment [facility] Cardiology [place] [address] Edgard [place] MD Three [facility] [place] [address] 06/02/2024 10:15 AM CDT Office Visit [facility] THREE [facility], [address] [place] [address] Edgard [place] MD Three [facility] [address] [place] [address] documented as of this encounter Results * (ABNORMAL) LIPID PANEL (11/20/2018 2:03 PM CDT) [facility] CHOLESTEROL 204(H) 0 - 199 MG/DL [facility] TRIGLYCERIDES 43 0 - 149 MG/DL [facility] HDL 82 50 - 240 MG/DL [facility] LDL (CALCULATED) 113(H) 0 - 99 MG/DL [facility] CHOL/HDL RATIO 2.5 [facility] NON HDL CHOLESTEROL 122 0 - 129 MG/DL [facility] Comment: FOR AGES >=20 YEARS (MG/DL) [...] 2:03 PM CDT 11/21/2018 3:58 AM CDT [facility] - 11/21/2018 5:09 AM CDT REPORT: [id number] IS PATIENT FASTING?->YES us Yamilet Mckeon DO LABORATORY Final Result [facility] [address] [place] [address], * COMPREHENSIVE METABOLIC PANEL (11/20/2018 2:03 PM CDT) [facility] GLUCOSE 83 70 - 99 MG/DL [facility] BUN 16 8 - 23 MG/DL [facility] CREATININE S/P/B 0.8 0.5 - 1.2 MG/DL [facility] EGFR AFR. AMER. 93 60 - 300 ML/MIN/1.7 3 M2 [facility] EGFR NON-AFR. AMER. 77 60 - 300 ML/MIN/1.7 3 M2 [facility] SODIUM S/P/B 143 136 - 145 MEQ/L [facility] POTASSIUM S/P/B 4.3 3.5 - 5.3 MEQ/L [facility] CHLORIDE S/P/B 101 98 - 107 MEQ/L [facility] CO2 28 23 - 31 MEQ/L [facility] ANION GAP 14 8 - 16 MMOLES/L [facility] CALCIUM S/P/B 9.5 8.8 - 10.5 MG/DL [facility] TOTAL PROTEIN S/P/B 6.8 6.0 - 8.3 GM/DL [facility] ALBUMIN S/P/B 4.3 3.5 - 5.0 GM/DL [facility] AST 17 11 - 32 IU/L [facility] ALT 13 9 - 43 IU/L [facility] ALKALINE PHOSPHATASE S/P/B 56 35 - 129 IU/L [facility] BILIRUBIN TOTAL S/P/B 0.6 0.0 - 1.0 MG/DL [facility] 11/20/2018 2:03 PM CDT 11/21/2018 3:[address] [facility] - 11/21/2018 5:09 AM CDT REPORT: [id number] IS PATIENT FASTING?->YES Yamilet Mckeon DO LABORATORY Final Result Performing Organization Address City/State/[facility] Co de Phone Number [facility] [address] [place] [address], documented in this encounter Visit Diagnoses Diagnosis Encounter for preventive health examination Routine general medical examination at a health care facility Essential hypertension Unspecified essential hypertension Obesity without serious comorbidity, unspecified classification, unspecified obesity type Allergic rhinitis, unspecified seasonality, unspecified trigger Atherosclerosis of aorta (CMS/HCC) Atherosclerosis of aorta NUD (nonulcer dyspepsia) Dyspepsia and other specified disorders of function of stomach Hyperactivity of bladder Hypertonicity of bladder History of vertebral compression fracture Essential hypertension Unspecified essential hypertension Obesity without serious comorbidity, unspecified classification, unspecified obesity type documented in this encounter Care Teams Glass Maker Relationship Specialty Start Date End Date Yamilet Mckeon DO [address] [place] [address] PCP - General FAMILY PRACTICE 09/27/17 06/04/23 documented as of this encounter
--- OUTSIDE RECORDS SUMMARY | 2024-03-23 01:34 | XMS_ITS | Encounter Summary ---
Author Organization [facility] Address [address] [place] [address]. [place] [address] [place] [address] Care Team Providers Care Distributor Sales Consultant Name Role Phone Mariana Ruiz Primary Care Provider [phone] Encounter Details Date Type Department Care Team (Latest Contact Info) Description 01/21/2020 Travel Social History Tobacco Use Types Packs/Day [...] have Coronavirus / COVID-19? No / Unsure 01/21/2020 8:49 AM ALARM SIGNAL OPERATOR documented as of this encounter Plan of Treatment Upcoming Encounters Date Type Department Care Team (Late st Contact Info) Description 05/01/2024 8:00 AM ALARM SIGNAL OPERATOR Appointment [facility] [place] [address] Edgard Washington MD Three [facility] [address] [place] [address] 06/02/2024 10:15 AM CDT Office Visit [facility] THREE [facility], [address] [place] [address] Edgard Washington MD Three [facility] [address] [place], [place] [id number] documented as of this encounter Visit Diagnoses Not on filedocumented in this encounter Care Teams Distributor Sales Consultant Relationship Specialty Start Date End Date Mariana Ruiz DO [address] [place] [address] PCP - General FAMILY PRACTICE 09/27/17 06/04/23 documented as of this encounter
--- OUTSIDE RECORDS SUMMARY | 2024-03-23 01:34 | XMS_ITS | Encounter Summary ---
Author Organization [facility] Address [address] [place] [address]. [place] [address] [place] [address] Care Team Providers Care Patient Intake Coordinator Name Role Phone Mariana Ruiz DO Primary Care Provider Encounter Details Date Type Department Care Team (Latest Contact Info) Description 09/30/2017 1:28 PM CDT - 09/30/2017 11:59 PM CDT Hospital Encounter [facility] M[facility]ography [address] [facility] [address] Mariana Ruiz DO [address] [place], [place] [id number] Discharge Disposition: Home or Self Care (Routine Discharge) Social History Tobacco Use Types Packs/Day Years Used Date Smoking Tobacco: Never Assessed Comments Unknown Sex and Gender Information Value Date Recorded Sex Assigned at Not on file Legal Sex Female 6:40 PM CDT Gender Identity Not on file Sexual Orientation Not on file documented as of this encounter Medications at Time of Discharge celecoxib 200 MG capsule Take 1 capsule by mouth daily. 07/27/2015 09/21/2018 fluticasone propionate 50 MCG/ACT nasal spray 2 sprays by Nasal route daily. 06/08/2015 12/09/2019 losartan-hydrochl orothiazide 50-12.5 MG tablet Take 1 tablet by mouth daily. 07/27/2015 09/15/2018 omeprazole 40 MG capsule Take 1 capsule by mouth daily. 06/05/2012 09/20/2018 documented as of this encounter Plan of Treatment Upcoming Encounters Date Type Department Care Team (Late st Contact Info) Description 05/01/2024 8:00 AM SENIOR ENERGY CONSULTANT Appointment [facility] [place] [address] Edgard aWshington MD Three [facility] [address] [place] [address] 06/02/2024 10:15 AM CDT Office Visit [facility] THREE [facility], [address] [place] [address] Edgard Washington MD Three [facility] [address] [place] [address] documented as of this encounter Procedures Procedure Name Priority Date/Time Associated Diagnosis Comments MG SCREENING W CHANO BRANDY DIGI Routine 09/30/2017 1:53 PM CDT Screening mammogram, encounter for documented in this encounter Results * MG SCREENING W CHANO BRANDY DIGI (09/30/2017 1:53 PM CDT) Anatomical Region Laterality Modality Breast Bilateral Mammography 09/30/2017 3:54 PM CDT Impressions 09/30/2017 3:57 PM CDT =====IMPRESSION:===== No mammographic findings suggestive of malignancy. ASSESSMENT: ACR BI-RADS Category 2 - Benign. RECOMMENDATION: 1: Routine screening mammogram ??bilateral ??in 1 year ? COMMENTS: ? Narrative 09/30/2017 3:57 PM CDT EXAMINATION: Digital bilateral screening mammogram [...] on filedocumented in this encounter Care Teams Patient Intake Coordinator Relationship Specialty Start Date End Date Mariana Ruiz DO [address] [place] [address] PCP - General FAMILY PRACTICE 09/27/17 06/04/23 documented as of this encounter
--- OUTSIDE RECORDS SUMMARY | 2024-03-23 01:34 | XMS_ITS | Encounter Summary ---
Author Organization [facility] Address [address] [place] [address]. [place], [place] [address] [place] [address] Care Team Providers Care Network Admin Name Role Phone Al Gloria DO Primary Care Provider [phone] Mariana Ruiz DO Primary Care Provider [phone] Encounter Details Date Type Department Care Team (Latest Contact Info) Description 09/12/2016 Abstract [facility] Al Gloria, DO [address] [place] [address] Social History Tobacco Use Types Packs/Day Years [...] st Contact Info) Description 05/01/2024 8:00 AM PANEL INSTALLER Appointment [facility] [address] [place], [place] [address] Edgard Washington MD Three [facility] [address] [place] [address] 06/02/2024 10:15 AM CDT Office Visit [facility] THREE [facility] [address] [place] [address] Edgard Washington MD Three [facility] [address] [place] [address] documented as of this encounter Visit Diagnoses Not on filedocumented in this encounter Care Teams Network Admin Relationship Specialty Start Date End Date Al Gloria DO [address] [place] [address] PCP - General 09/10/15 09/26/17 Mariana Ruiz DO [address] [place] [address] PCP - General FAMILY PRACTICE 09/27/17 06/04/23 documented as of this encounter
--- OUTSIDE RECORDS SUMMARY | 2024-03-23 01:34 | XMS_ITS | Encounter Summary ---
Author Organization [facility] Address [address] [place] [address]. [place], [place] [address] [place] [address] Care Team Providers Care Vision Impaired Teacher Name Role Phone Al Gloria Diane ZHANG Primary Care Provider [phone] Mariana Ruiz DO Primary Care Provider [phone] Encounter Details Date Type Department Care Team (Latest Contact Info) Description 03/01/2017 Abstract [facility] Mariana Ruiz DO [address] [place] [address] Social History Tobacco Use Types Packs/Day Years Used Date Smoking Tobacco: Never Assessed Comments Unknown Sex and Gender Information Value Date Recorded Sex Assigned at Not on file Legal Sex Female 6:40 PM CDT Gender Identity Not on file Sexual Orientation Not on file documented as of this encounter Last Filed Vital Signs Vital Sign Reading Time Taken Comments Blood Pressure 152/80 03/01/2017 8:31 AM NURSE LIAISON Pulse 82 03/01/2017 8:31 AM NURSE LIAISON Temperature - - Respiratory Rate - - Oxygen Saturation - - Inhaled Oxygen Concentration - - Weight 110.2 kg (243 lb) 03/01/2017 8:31 AM NURSE LIAISON Height 167.6 cm (5' 6 ) 03/01/2017 8:31 AM NURSE LIAISON Body Mass Index 39.22 03/01/2017 8:31 AM NURSE LIAISON documented in this encounter Progress Notes * Mariana Ruiz MD - 03/01/2017 8:30 AM CST Reason For Visit Reason For Visit: Acute Visit Chief Complaint cough x 4 days History of Present Illness HPI Free Text: Here with cough for past 4d, no fever or chills, no sinus symptoms, some sputum, occas wheeze does have allergies and takes daily zyrtec nonsmoker did not get flu shot Review of Systems See HPI for pertinent positives. Active Problems 1. Acute sinusitis (461.9) (J01.90) 2. 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 Allergic rhinitis (477.9) (J30.9) 4. Ankle joint pain (719.47) (M25.579) 5. Blood in the stool (578.1) (K92.1) 6. Chest pain with painful respiration (786.52) (R07.1) 7. Compression fracture of thoracic vertebra (805.2) (S22.000A) 8. Dysfunction of Eustachian tube, unspecified laterality (381.81) (H69.80) 9. Hyperactivity of bladder (596.51) (N31.8) 10. Hypertension (401.9) (I10) 11. Low back pain (724.2) (M54.5) 12. Morbid obesity (278.01) (E66.01) 13. NUD (nonulcer dyspepsia) (536.8) (K30) 14. Thumb sprain (842.10) (S63.609A) Surgical History 1. History of Colonoscopy (Fiberoptic) ?? 2010- WNL. 02/2012 polyp Family History Family History 1. Family history of Osteoporosis (V17.81) 2. Family history of Type 2 Diabetes Mellitus [...] Oral Capsule; TAKE 1 CAPSULE Daily; Therapy: 27Jul2015 to (Evaluate:02Mar2017) Requested for: 06Aug2016; Last Rx:06Aug2016 Ordered Rx By: Al Gloria; Dispense: 30 Days ; #:30 Capsule; Refill: 6; For: Low back pain, Thumb sprain; LOU = N; Verified Transmission to [id number]; Last Updated By: FanChatter; 08/06/2016 12:39:06 PM 3. Fluticasone Propionate 50 MCG/ACT Nasal Suspension; USE 2 SPRAYS IN EACH NOSTRIL ONCE DAILY; Therapy: 08Jun2015 to (Last Rx:08Jun2015) Requested for: 08Jun2015 Ordered Rx By: Malka Mireles; Dispense: 0 Days ; #:1 X 16 GM Bottle; Refill: 1; For: Acute sinusitis; LOU = N; [id number]; Last Updated By: FanChatter; 06/08/2015 3:40:36 PM 4. Losartan Potassium-HCTZ 50-12.5 MG Oral Tablet; TAKE ONE TABLET BY MOUTH ONCE DAILY; Therapy: 27Jul2015 to (Evaluate:31Jan2017) Requested for: 06Aug2016; Last Rx:06Aug2016 Ordered Rx By: Al Gloria; Dispense: 90 Days ; #:90 Tablet; Refill: 1; For: Hypertension; LOU = N; Ver[id number]; Last Updated By: FanChatter; 08/06/2016 12:39:05 PM 5. Omeprazole 40 MG Oral Capsule Delayed Release; TAKE ONE CAPSULE BY MOUTH EVERY DAY; Therapy: 05Jun2012 to (Evaluate:[id number]) Requested for: 26Jul2016; Last Rx:26Jul2016 Ordered Rx By: Al Gloria; Dispense: 30 Days ; #:30 Capsule Delayed Release; Refill: 6; For: NUD (nonulcer dyspepsia); LOU = N; Verified Transmission to [id number]; Last Updated By: FanChatter; 07/26/2016 9:02:06 AM 6. Oxybutynin Chloride ER 5 MG Oral Tablet Extended Release 24 Hour; Take 1 tablet daily; Therapy: [id number] to (Last Rx:26Jul2016) Requested for: [id number] Ordered Rx By: Al Gloria; Dispense: 0 Days ; #:30 Tablet Extended Release 24 Hour; Refill: 6; For: Hyperactivity of bladder; LOU = N; Verified Transmission to [facility] #[id number]; Last Updated By: Berny Land; 07/26/2016 9:02:10 AM 7. ZyrTEC Allergy 10 MG Oral Capsule; TAKE 1 CAPSULE Daily; Therapy: (Recorded:[id number]) to Recorded Dispense: 0 Days ; #: Sufficient Capsule; Refill: 0; LOU = N; Record; Last Updated By: Nori Pedersen; 03/17/2013 10:02:13 AM Allergies 1. No Known Drug Allergies Recorded By: Al Gloria; 06/03/2012 4:30:05 PM Vitals Recorded: [id number] 08:31AM Temperature 99.2 F Heart Rate 82 Respiration 16 Systolic 152 Diastolic 80 Height 5 ft 6 in Weight 243 lb BMI Calculated 39.22 BSA Calculated 2.17 Physical Exam Constitutional General appearance: No acute distress, well appearing and well nourished. Eyes Conjunctiva and lids: No swelling, erythema or discharge. Ears, Nose, Mouth, and Throat External inspection of ears and nose: Normal. Otoscopic examination: Tympanic membranes translucent with normal light reflex. Canals patent without erythema. Oropharynx: Normal with no erythema, edema, exudate or lesions. Pulmonary Respiratory effort: No increased work of breathing or signs of respiratory distress. Auscultation of lungs: Clear to auscultation. Cardiovascular Auscultation of heart: Normal rate and rhythm, normal S1 and S2, without murmurs. Lymphatic Palpation of lymph nodes in neck: No lymphadenopathy. Skin Skin and subcutaneous tissue: Normal without rashes or lesions. Psychiatric Mood and affect: Normal. Assessment 1. Acute bronchitis (466.0) (J20.9) Plan Acute bronchitis 1. Cheratussin AC 100-10 MG/5ML Oral Syrup; TAKE 5 - 10 ML EVERY 4 TO 6 HOURS NEEDED FOR COUGH Rx By: Mariana Ruiz; Dispense: 4 Days ; #:1 X 236 ML Bottle; Refill: 0; For: Acute bronchitis; LOU = N; Print Rx supportive care cheratussin prn if persists beyond 7-10d call back needs EstPPE at some point Signatures Electronically signed by : Mariana Ruiz D.O.; Mar 01 2017 8:50AM NURSE LIAISON (Author) documented in this encounter Plan of Treatment Upcoming Encounters Date Type Department Care Team (Late st Contact Info) Description 05/01/2024 8:00 AM NURSE LIAISON Appointment [facility] [address] [place] [address] Edgard Washington MD [address] [place] [address] 06/02/2024 10:15 AM CDT Office Visit [facility] [address] [place] [address] Edgard Washington MD [address] [place] [address] documented as of this encounter Visit Diagnoses Not on filedocumented in this encounter Care Teams Vision Impaired Teacher Relationship Specialty Start Date End Date Al Gloria DO [address] [place] [address] PCP - General 09/10/15 09/26/17 Mariana Ruiz DO [address] [place], [place] [address] PCP - General FAMILY PRACTICE 09/27/17 06/04/23 documented as of this encounter
--- OUTSIDE RECORDS SUMMARY | 2024-03-23 01:34 | XMS_ITS | Encounter Summary ---
Author Organization [facility] Address [address] [place] [address]. [place], [place] [id number] [place] [address] Care Team Providers Care Transplanter Orchid Name Role Phone Al Gloria Diane ZHANG Primary Care Provider [phone] Mariana Ruiz DO Primary Care Provider [phone] Encounter Details Date Type Department Care Team (Latest Contact Info) Description 08/20/2017 Abstract [facility] Mariana Ruiz DO [address] [place], [place] [address] Social History Tobacco Use Types Packs/Day Years Used Date Smoking Tobacco: Never Assessed Comments Unknown Sex and Gender Information Value Date Recorded Sex Assigned at Not on file Legal Sex Female 6:40 PM CDT Gender Identity Not on file Sexual Orientation Not on file documented as of this encounter Last Filed Vital Signs Vital Sign Reading Time Taken Comments Blood Pressure 122/68 08/20/2017 1:57 PM CDT Pulse - - Temperature - - Respiratory Rate - - Oxygen Saturation - - Inhaled Oxygen Concentration - - Weight 108.4 kg (239 lb) 08/20/2017 1:57 PM CDT Height 167.6 cm (5' 6 ) 08/20/2017 1:57 PM CDT Body Mass Index 38.58 08/20/2017 1:57 PM CDT documented in this encounter Progress Notes * Mariana Ruiz MD - 08/20/2017 2:00 PM CDT Chief Complaint Annual well woman exam History of Present Illness HPI Free Text: Here for Jenna former Dr Gloria pt hx updated no complaints Review of Systems See HPI for pertinent positives. Constitutional: negative. Cardiovascular: negative. Respiratory: negative. Gastrointestinal: negative. Genitourinary: negative. Musculoskeletal: negative. Psychiatric: negative. Active Problems 1. Allergic rhinitis (477.9) (J30.9) 2. Compression fracture of thoracic vertebra (805.2) (S22.000A) 3. Hyperactivity of bladder (596.51) (N31.8) 4. Hypertension (401.9) (I10) ?? diagnosed 2002 5. Low back pain (724.2) (M54.5) 6. NUD (nonulcer dyspepsia) (536.8) (K30) Past Medical History ?? 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 History of (V13.29) ?? Surgical History ?? History of Colonoscopy (Fiberoptic) ?? 2010- WNL. 02/2012 polyp 02/2017 polyp Joseph Family History Father ?? Family history of malignant neoplasm of prostate (V16.42) (Z80.42) Family History ?? Family history of Osteoporosis (V17.81) ?? Family history of Type 2 Diabetes Mellitus Social History ?? Being A Social Drinker ?? Never a smoker ?? Parentage ?? 2 children Current Meds 1. Aspirin EC 81 MG Oral Tablet Delayed Release; TAKE 1 TABLET DAILY DIRECTED; Therapy: (Recorded:17Mar2013) to Recorded Dispense: 0 Days ; #: Sufficient TBEC; Refill: 0; LOU = N; Record; Last Updated By: Nori Pedersen; 03/17/2013 10:02:13 AM 2. Celecoxib 200 MG Oral Capsule; TAKE 1 CAPSULE Daily; Therapy: 77Hlp2367 to (Evaluate:45Puy6350) Requested for: 86Mwk6667; Last Rx:[id number] Ordered Rx By: Mariana Ruiz; Dispense: 30 Days ; #:30 Capsule; Refill: 5; For: Low back pain, PMH: Thumbsprain; LOU = N; Verified Transmission to [facility] #[id number]; Last Updated By: [employer];04/11/2017 8:52:53 AM 3. Fluticasone Propionate 50 MCG/ACT Nasal Suspension; USE 2 SPRAYS IN EACH NOSTRIL ONCE DAILY; Therapy: 08Jun2015 to (Last Rx:08Jun2015) Requested for: 08Jun2015 Ordered Rx By: Malka Mireles; Dispense: 0 Days ; #:1 X 16 GM Bottle; Refill: 1; For: PMH: History of acute sinusitis; LOU = N; Verified Transmission to [facility] #[id number]; Last Updated By: [employer]; 06/08/2015 3:40:36 PM 4. Losartan Potassium-HCTZ 50-12.5 MG Oral Tablet; TAKE 1 TABLET BY MOUTH ONCE DAILY; Therapy: 27Jul2015 to (Evaluate:53Yog0773) Requested for: 12Jul2017; Last Rx:12Jul2017 Ordered Rx By: Mariana Ruiz; Dispense: 90 Days ; #:90 Tablet; Refill: 0; For: Hypertension; LOU = N; Ver[facility]; Last Updated By: [employer]; 07/12/2017 3:34:35 PM 5. Omeprazole 40 MG Oral Capsule Delayed Release; TAKE ONE CAPSULE BY MOUTH EVERY DAY; Therapy: 05Jun2012 to (Evaluate:66Riv6689) Requested for: 26Jul2016; Last Rx:26Jul2016 Ordered Rx By: Al Gloria; Dispense: 30 Days ; #:30 Capsule Delayed Release; Refill: 6; For: NUD (nonulcer dyspepsia); LOU = N; Verified Transmission to [facility]; Last Updated By: [employer]; 07/26/2016 9:02:06 AM 6. Oxybutynin Chloride ER 5 MG Oral Tablet Extended Release 24 Hour; Take 1 tablet daily; Therapy: 12Apr2016 to (Evaluate:79Hfv6748) Requested for: 13Aug2017; Last Rx:13Aug2017 Ordered Rx By: Mariana Ruiz; Dispense: 30 Days ; #:30 Tablet; Refill: 0; For: Hyperactivity of bladder; LOU = N; Verified Transmission to [facility] #[id number]; Msg to Pharmacy: Have patient call the office.; Last Updated By: Berny Land; 08/20/2017 2:25:15 PM 7. ZyrTEC Allergy 10 MG Oral Capsule; TAKE 1 CAPSULE Daily; Therapy: (Recorded:17Mar2013) to Recorded Dispense: 0 Days ; #: Sufficient Capsule; Refill: 0; LOU = N; Record; Last Updated By: Nori Pedersen; 03/17/2013 10:02:13 AM Allergies 1. No Known Drug Allergies Recorded By: Al Gloria; 06/03/2012 4:30:05 PM Immunizations 1 Influenza declines Vitals Recorded: 20Aug2017 01:57PM Systolic 122 Diastolic 68 Height 5 ft 6 in Weight 239 lb BMI Calculated 38.58 BSA Calculated 2.16 Physical Exam Constitutional General appearance: No acute distress, well appearing and well nourished. obese.. Eyes Conjunctiva and lids: No swelling, erythema or discharge. Pupils and irises: Equal, round, reactive to light. Ears, Nose, Mouth, and Throat External inspection of ears and nose: Normal. Otoscopic examination: Tympanic membranes translucent with normal light reflex. Canals patent without erythema. Nasal mucosa, septum, and turbinates: Normal without edema or erythema. Lips, teeth, and gums: Normal, good dentition. Oropharynx: Normal with no erythema, edema, exudate or lesions. Neck Neck: Supple, symmetric, trachea midline, no masses. Thyroid: Normal, no thyromegaly. Pulmonary Respiratory effort: No increased work of breathing or signs of respiratory distress. Auscultation of lungs: Clear to auscultation. Cardiovascular Auscultation of heart: Normal rate and rhythm, normal S1 and S2, no murmurs. Carotid pulses: 2+ bilaterally. Examination of extremities for edema and/or varicosities: Normal. Chest Breasts: Normal, no dimpling or skin changes appreciated. Palpation of breasts and axillae: Normal, no masses palpated. Abdomen Abdomen: Non-tender, no masses. Liver and spleen: No hepatomegaly or splenomegaly. Examination for hernias: No hernia appreciated. Anus, perineum, and rectum: Normal sphincter tone, no masses, no prolapse. Stool sample for occult blood: Negative. Genitourinary External genitalia and vagina: Normal, no lesions appreciated. Urethra: Normal, no discharge. Adnexa/Parametria: Normal, no masses or tenderness. s/p hyst no pap.. Lymphatic Palpation of lymph nodes in neck: No lymphadenopathy. Palpation of lymph nodes in axillae: No lymphadenopathy. Musculoskeletal Gait and station: Normal. Digits and nails: Normal without clubbing or cyanosis. Joints, bones, and muscles: Normal. Skin numerous keloids.. Psychiatric Mood and affect: Normal. Assessment 1. Encounter for preventive health examination (V70.0) (Z00.00) 2. Obesity (278.00) (E66.9) 3. Hypertension (401.9) (I10) ?? diagnosed 2002 4. Hyperactivity of bladder (596.51) (N31.8) 5. Atherosclerosis of aorta (440.0) (I70.0) ?? CXR Plan Health Maintenance ?? MG SCREEN MAMMO DIGITAL BI; Status:Active; Requested for:20Aug2017; Perform:Other Radiology; Due:19Sep2017;Ordered; For:Health Maintenance; Ordered By:Mariana Ruiz; ?? Shingrix 50 MCG Intramuscular Suspension Reconstituted; as directed; To Be Done: 20Aug2017 For: Health Maintenance; Ordered By:Mariana Ruiz; Effective Date:20Aug2017; Last Updated By: Valery Holley; 08/20/2017 2:33:00 PM ?? Tdap For: Health Maintenance; Ordered By:Mariana Ruiz; Effective Date:20Aug2017; Administered by: Valery Holley: 08/20/2017 2:32:00 PM; Last Updated By: Valery Holley; 08/20/2017 2:32:33 PM Hyperactivity of bladder ?? Oxybutynin Chloride ER 5 MG Oral Tablet Extended Release 24 Hour; Take 1 tablet daily Rx By: Mariana Ruiz; Dispense: 30 Days ; #:90 Tablet; Refill: 3; For: Hyperactivity of bladder; LOU = N; Verified Transmission to [facility] (Mail Order); Msg to Pharmacy: Have patient call the office.; Last Updated By: Emery what3wordsDave; 08/20/2017 2:25:15 PM Hypertension, Obesity ?? Labdaq- CMP; Status:Need Information - Required information; Requested for:20Aug2017; Perform:LabDAQ; Due:20Noy5503;Ordered; For:Hypertension, Obesity; Ordered By:Mariana Ruiz; : Fast 12 hours prior to test (May drink water) Obesity ?? Labdaq- LIPID PANEL; Status:Need Information - Required information; Requested for:20Aug2017; Perform:LabDAQ; Due:50Lex7939;Ordered; For:Obesity; Ordered By:Mariana Ruiz; : Fast 12 hours prior to test (May drink water) cmp lipids mamm tdap will check on plan about shingrix exercise watch diet work on wt loss eye exam Health Management Health Maintenance Schedule COLONOSCOPY; every 10 years; Last 53Gor4575; Next Due: 36Dot3668; Active Signatures Electronically signed by : Mariana Ruiz D.O.; Aug 20 2017 2:49PM EMERY WHEEL WORKER (Author) documented in this encounter Plan of Treatment Upcoming Encounters Date Type Department Care Team (Late st Contact Info) Description 05/01/2024 8:00 AM EMERY WHEEL WORKER Appointment [facility] [place] [address] Edgard Washington MD [address] [facility], [address] [place] [address] 06/02/2024 10:15 AM CDT Office Visit [facility], [address] [place] [address] Edgard Washington MD [address] [facility], [address] [place] [address] documented as of this encounter Procedures Procedure Name Priority Date/Time Associated Diagnosis Comments COMPREHENSIVE METABOLIC PANEL Routine 09/30/2017 9:50 AM CDT LIPID PANEL Routine 09/30/2017 9:50 AM CDT COLONOSCOPY Routine 02/01/2017 12:00 AM EMERY WHEEL WORKER documented in this encounter Results * COMPREHENSIVE METABOLIC PANEL (09/30/2017 9:50 AM CDT) GLUCOSE 103 74 - 106 mg/dL TOUCHWORKS TO EPIC CONVERSION BUN 18 6 - 20 mg/dL TOUCHWORKS TO EPIC CONVERSION CREATININE S/P/B 0.75 0.60 - 1.00 mg/dL TOUCHWORKS TO EPIC CONVERSION BUN CREATININE RATIO 24 4 - 25 TOUCHWORKS TO EPIC CONVERSION GFR ESTIMATE 83.5 >60.0 mL/min/1.7 3 m TOUCHWORKS TO EPIC CONVERSION EGFR AFR. AMER. 101.0 >60.0 mL/min/1.7 3 m TOUCHWORKS TO EPIC CONVERSION CALCIUM S/P/B 8.7 8.6 - 10.3 mg/dl TOUCHWORKS TO EPIC CONVERSION SODIUM S/P/B 140 135 - 145 mmol/L TOUCHWORKS TO EPIC CONVERSION POTASSIUM S/P/B 3.6 3.5 - 5.2 mmol/L TOUCHWORKS TO EPIC CONVERSION CHLORIDE S/P/B 103 97 - 107 mmol/L TOUCHWORKS TO EPIC CONVERSION CO2 27 21 - 31 mmol/L TOUCHWORKS TO EPIC CONVERSION ANION GAP 10.0 7.0 - 18.0 TOUCHWORK S TO EPIC CONVERSION TOTAL PROTEIN S/P/B 6.5 6.1 - 8.1 g/dL TOUCHWORKS TO EPIC CONVERSION ALBUMIN S/P/B 4.2 3.5 - 5.2 g/dL TOUCHWORKS TO EPIC CONVERSION GLOBULIN 2.3 1.9 - 3.7 g/dL TOUCHWORKS TO EPIC CONVERSION A/G RATIO 1.8 1.1 - 2.5 TOUCHWORKS TO EPIC CONVERSION BILIRUBIN TOTAL (FLUID) 0.43 0.25 - 1.20 mg/dL TOUCHWORKS TO EPIC CONVERSION ALK PHOS 54 42 - 98 U/L TOUCHWORKS TO EPIC CONVERSION AST 19 5 - 34 U/L TOUCHWORK S TO EPIC CONVERSION ALT 15 0 - 34 U/L TOUCHWORK S TO EPIC CONVERSION Comment:Result Comment: RESU LTS <10 ARE ACCEPTABLE 09/30/2017 9:50 AM CDT 09/30/2017 9:50 AM CDT Narrative TOUCHWORKS TO EPIC CONVERSION - 09/30/2017 9:50 AM CDT Order Comment: [id number] 8:12AM by Mariana Ruiz: ??Send Card Result Communication: Call patient with results us Mariana Ruiz DO LABORATORY Final Result Performing Organization Address [facility] de Phone Number TOUCHWORKS TO EPIC CONVERSION * (ABNORMAL) LIPID PANEL (09/30/2017 9:50 AM CDT) CHOLESTEROL 197 0 - 199 mg/dL TOUCHWORKS TO EPIC CONVERSION TRIGLYCERIDES 46 0 - 149 mg/dL TOUCHWORKS TO EPIC CONVERSION HDL 77(H) 40 - 60 mg/dL TOUCHWORKS TO EPIC CONVERSION Comment:Result Comment: CONS ISTENT WITH PREVIOUS RESULTS LDL (CALCULATED) 111 0 - 130 MARCOS CHWORKS TO EPIC CONVERSION RISK 2.6 TOUCHWORKS TO EPIC CONVERSION 09/30/2017 9:50 AM CDT 09/30/2017 9:50 AM CDT Narrative TOUCHWORKS TO EPIC CONVERSION - 09/30/2017 9:50 AM CDT Order Comment: SLIGHT LIPEMIA [id number] 8:12AM by Mariana Ruiz: ??Send Card Result Communication: Call patient with results us Mariana Ruiz DO LABORATORY Final Result Performing Organization Address [facility] Phone Number TOUCHWORKS TO EPIC CONVERSION * Colonoscopy (02/01/2017 12:00 AM EMERY WHEEL WORKER) 02/01/2017 02/01/2017 Narrative TOUCHWORKS TO EPIC CONVERSION - 02/01/2017 12:00 AM EMERY WHEEL WORKER Documented hx of procedure Procedure Note Yaa Del Real MD - 05/22/2018 Documented hx of procedure Yaa Ramos Md, MD GI PROCEDURE ORDERABLES Final Result Performing Organization Address [facility] de Phone Number TOUCHWORKS TO EPIC CONVERSION documented in this encounter Visit Diagnoses Not on filedocumented in this encounter Care Teams Transplanter Orchid Relationship Specialty Start Date End Date Al Gloria DO [address] [place] [id number] PCP - General 09/10/15 09/26/17 Mariana Ruiz DO [address] [place] [address] PCP - General FAMILY PRACTICE 09/27/17 06/04/23 documented as of this encounter
--- OUTSIDE RECORDS SUMMARY | 2024-03-23 01:34 | XMS_ITS | Encounter Summary ---
Author Organization [facility] Address [address] [place] [address]. 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 [address] [place] [address] Edgard Washington MD [address] [place] [address] documented as of this encounter Visit Diagnoses Diagnosis History of colon polyps- Primary Personal history of colonic polyps documented in this encounter Additional Health Concerns Infection Onset Date Last Indicated Resolved Time COVID-19 Rule Out 07/11/2020 07/11/2020 07/11/2020 8:50 PM CDT documented as of this encounter Care Teams Assembler Installer General Relationship Specialty Start Date End Date Mariana Ruiz DO [address] [place] [address] PCP - General FAMILY PRACTICE 09/27/17 06/04/23 Marii Randle MD [address] [facility] [address] [place] [phone] PCP - General FAMILY PRACTICE 06/05/23 documented as of this encounter
--- OUTSIDE RECORDS SUMMARY | 2024-03-23 01:34 | XMS_ITS | Encounter Summary ---
Author Organization [facility] Address [address] [place] [address]. [place] [address] [place] [address] Care Team Providers Care Fine Arts Model Name Role Phone Mariana Ruiz DO Primary Care Provider [phone] Reason for Visit * Reason Onset Date Comments Refill Request 04/07/2019 Encounter Details Date Type Department Care Team (Late st Contact Info) Description 04/07/2019 Telephone [facility] [address] [facility] [address] [place] [address] Mariana Ruiz DO [address] [place] [address] Refill Request Social History Tobacco Use Types [...] as of this encounter Progress Notes * Xuan Main RN - 04/07/2019 4:30 PM CST Pt. Is in [place] visiting her daughter and states that the [facility] the combo pill for losartan/HCTZ and would prefer that pill if you will rx E MACHINE OPERATOR documented in this encounter Plan of Treatment Upcoming Encounters Date Type Department Care Team (Late st Contact Info) Description 05/01/2024 8:00 AM FENCE MACHINE OPERATOR Appointment [facility] [address] [facility] [place] [address] Edgard Washington MD Three [facility] [address] [place] [address] 06/02/2024 10:15 AM CDT Office Visit [facility] THREE [facility], ED [address] [place] [address] Edgard Washington MD Three [facility] [address] [place] [address] documented as of this encounter Visit Diagnoses Diagnosis Hypertension Unspecified essential hypertension documented in this encounter Care Teams Fine Arts Model Relationship Specialty Start Date End Date Mariana Ruiz DO [address] [place] [address] PCP - General FAMILY PRACTICE 09/27/17 06/04/23 documented as of this encounter
--- OUTSIDE RECORDS SUMMARY | 2024-03-23 01:34 | XMS_ITS | Encounter Summary ---
Author Organization [facility] Address [address] [place] [address]. [place], [place] [address] [place] [address] Care Team Providers Care Territory Sales Manager Medical Name Role Phone GloriaAl grififth DO Primary Care Provider [phone] Mariana Ruiz DO Primary Care Provider [phone] Encounter Details Date Type Department Care Team (Latest Contact Info) Description 12/25/2016 Abstract [facility] CelsaKenisha, MARTELL [address] [place] [address] Social History Tobacco Use Types Packs/Day Years Used Date Smoking Tobacco: Never Assessed Comments Unknown Sex and Gender Information Value Date Recorded Sex Assigned at Not on file Legal Sex Female 6:40 PM CDT Gender Identity Not on file Sexual Orientation Not on file documented as of this encounter Last Filed Vital Signs Vital Sign Reading Time Taken Comments Blood Pressure 148/80 12/25/2016 1:14 PM CDT Pulse - - Temperature - - Respiratory Rate - - Oxygen Saturation - - Inhaled Oxygen Concentration - - Weight 109.3 kg (241 lb) 12/25/2016 1:14 PM CDT Height 167.6 cm (5' 6 ) 12/25/2016 1:14 PM CDT Body Mass Index 38.9 12/25/2016 1:14 PM CDT documented in this encounter Progress Notes * Error Celsa - 12/25/2016 1:15 PM CDT Chief Complaint rectal bleeding History of Present Illness HPI Free Text: blood on tp 3 weeks ago this am had blood in toilet with BM denies constipation normal cscope 2 years ago no family history of colon ca Gastrointestinal Bleeding, Lower (Brief): The patient is being seen for an initial evaluation of lower gastrointestinal bleeding. Symptoms: no diarrhea, no constipation, no fatigue, no weakness, no abdominal pain and no weight loss The patient presents with complaints of hematochezia, described as drops of blood in the toilet, blood streaks on toilet paper and with bowel movements. The patient is currently experiencing symptoms. Review of Systems Constitutional review of systems normal except as noted. Active Problems 1. Acute sinusitis (461.9) (J01.90) 2. 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 Allergic rhinitis (477.9) (J30.9) 4. Ankle joint pain (719.47) (M25.579) 5. Chest pain with painful respiration (786.52) (R07.1) 6. Compression fracture of thoracic vertebra (805.2) (S22.000A) 7. Dysfunction of Eustachian tube, unspecified laterality (381.81) (H69.80) 8. Hyperactivity of bladder (596.51) (N31.8) 9. Hypertension (401.9) (I10) 10. Low back pain (724.2) (M54.5) 11. Morbid obesity (278.01) (E66.01) 12. NUD (nonulcer dyspepsia) (536.8) (K30) 13. Thumb sprain (842.10) (S63.609A) Surgical History 1. History of Colonoscopy (Fiberoptic) ?? 2010- WNL. Family History Family History 1. Family history [...] Oral Capsule; TAKE 1 CAPSULE Daily; Therapy: 84Fhg9287 to (Evaluate:47Bkq4772) Requested for: 06Aug2016; Last Rx:06Aug2016 Ordered Rx By: Al Gloria; Dispense: 30 Days ; #:30 Capsule; Refill: 6; For: Low back pain, Thumb sprain; LOU = N; Verified Transmission to [id number]; Last Updated By: Transmension; 08/06/2016 12:39:06 PM 3. Fluticasone Propionate 50 MCG/ACT Nasal Suspension; USE 2 SPRAYS IN EACH NOSTRIL ONCE DAILY; Therapy: 08Jun2015 to (Last Rx:08Jun2015) Requested for: 08Jun2015 Ordered Rx By: Malka Mireles; Dispense: 0 Days ; #:1 X 16 GM Bottle; Refill: 1; For: Acute sinusitis; LOU = N; Verified Transmission to [facility] #[id number]; Last Updated By: Transmension; 06/08/2015 3:40:36 PM 4. Losartan Potassium-HCTZ 50-12.5 MG Oral Tablet; TAKE ONE TABLET BY MOUTH ONCE DAILY; Therapy: 27Jul2015 to (Evaluate:31Jan2017) Requested for: 06Aug2016; Last Rx:06Aug2016 Ordered Rx By: Al Gloria; Dispense: 90 Days ; #:90 Tablet; Refill: 1; For: Hypertension; LOU = N; Verified Transmission to [facility][id number]; Last Updated By: Transmension; 08/06/2016 12:39:05 PM 5. Omeprazole 40 MG Oral Capsule Delayed Release; TAKE ONE CAPSULE BY MOUTH EVERY DAY; Therapy: 05Jun2012 to (Evaluate:01Vbl1777) Requested for: 26Jul2016; Last Rx:26Jul2016 Ordered Rx By: Al Gloria; Dispense: 30 Days ; #:30 Capsule Delayed Release; Refill: 6; For: NUD (nonulcer dyspepsia); LOU = N; Verified Transmission to [facility][id number]; Last Updated By: Transmension; 07/26/2016 9:02:06 AM 6. Oxybutynin Chloride ER 5 MG Oral Tablet Extended Release 24 Hour; Take 1 tablet daily; Therapy: 63Mjd0980 to (Last Rx:09Gvv1057) Requested for: 76Tbr8118 Ordered Rx By: Al Gloria; Dispense: 0 Days ; #:30 Tablet Extended Release 24 Hour; Refill: 6; For: Hyperactivity of bladder; LOU = N; Verified Transmission to [facility] #[id number]; Last Updated By: Berny Land; 07/26/2016 9:02:10 AM 7. ZyrTEC Allergy 10 MG Oral Capsule; TAKE 1 CAPSULE Daily; Therapy: (Recorded:17Mar2013) to Recorded Dispense: 0 Days ; #: Sufficient Capsule; Refill: 0; LOU = N; Record; Last Updated By: Nori Pedersen; 03/17/2013 10:02:13 AM Allergies 1. No Known Drug Allergies Recorded By: Al Gloria; 06/03/2012 4:30:05 PM Vitals Signs Systolic: 148 Diastolic: 80 Height: 5 ft 6 in Weight: 241 lb BMI Calculated: 38.9 BSA Calculated: 2.17 Physical Exam Constitutional General appearance: No acute distress, well appearing and well nourished. Pulmonary Respiratory effort: No increased work of breathing or signs of respiratory distress. Auscultation of lungs: Clear to auscultation. Cardiovascular Auscultation of heart: Normal rate and rhythm, normal S1 and S2, no murmurs. Abdomen Abdomen: Non-tender, no masses. Anus, perineum, and rectum: Abnormal. Rectum examination showed a normal anus. Nontender, non-swollen and non-thrombosed external hemorrhoid(s) were present. The sphincter tone was normal. There was no rectal tenderness. Stool sample for occult blood: Abnormal. Occult blood was positive. (Hemoccult Card). Musculoskeletal Gait and station: Normal. Psychiatric Orientation to person, place, and time: Normal. Mood and affect: Normal. Assessment 1. Blood in the stool (578.1) (K92.1) Plan Blood in the stool 1. LC-CBC With Differential/Platelet [id number]; Status:In Progress - Specimen/Data Collected; Done: 25Dec2016 2. Schedule COLONOSCOPY Outpatient Follow-up Status: Hold For - Scheduling Requested for: 25Dec[address] Ruiz office will call her Discussion/Summary long discusiion with pt will check cbc and get a repeat c scope call if change in sx Signatures Electronically signed by : DONAVAN Granados; Dec 25 2016 1:50PM PLASTERER APPRENTICE (Author) Electronically signed by : Dimitri Morgan M.D.; Dec 25 2016 9:22PM PLASTERER APPRENTICE documented in this encounter Plan of Treatment Upcoming Encounters Date Type Department Care Team (Late st Contact Info) Description 05/01/2024 8:00 AM PLASTERER APPRENTICE Appointment [facility] [place] [address] Edgard Washington MD Three [facility]., Suite [facility] [place] [address] 06/02/2024 10:15 AM CDT Office Visit [facility] [address] [place] [address] Edgard Washington MD Three [facility]., [address] [place] [address] documented as of this encounter Procedures Procedure Name Priority Date/Time Associated Diagnosis Comments CBC W/DIFF AUTOMATED Routine 12/25/2016 1:43 PM CDT documented in this encounter Results * CBC W/DIFF AUTOMATED (12/25/2016 1:43 PM CDT) WBC 4.1 3.4 - 10.8 x10E3/uL TOUCHWORKS TO EPIC CONVERSION RBC 4.57 3.77 - 5.28 x10E6/uL TOUCHWORKS TO EPIC CONVERSION HEMOGLOBIN MIXED VENOUS 13.0 11.1 - 15.9 g/dL TOUCHWORKS TO EPIC CONVERSION HCT 39.6 34.0 - 46.6 % TOUCHWORKS TO EPIC CONVERSION MCV 87 79 - 97 fL TOUCHWORK S TO EPIC CONVERSION MCH 28.4 26.6 - 33.0 pg TOUCHWORKS TO EPIC CONVERSION MCHC 32.8 31.5 - 35.7 g/dL TOUCHWORKS TO EPIC CONVERSION RDW 14.7 12.3 - 15.4 % TOUCHWORKS TO EPIC CONVERSION PLT 222 150 - 379 x10E3/uL TOUCHWORKS TO EPIC CONVERSION SEG NEUTROPHILS 47 Not Estab. % TOUCHWORKS TO EPIC CONVERSION LYMPHOCYTES 38 Not Estab. % TOUCHWORKS TO EPIC CONVERSION MONOCYTES 8 Not Estab. % TOUCHWORKS TO EPIC CONVERSION EOSINOPHILS 6 Not Estab. % TOUCHWORKS TO EPIC CONVERSION BASOPHILS % 1 Not Estab. % TOUCHWORKS TO EPIC CONVERSION IMMATURE CELLS TOUCH WORKS TO EPIC CONVERSION ABS. NEUTROPHILS 2.0 1.4 - 7.0 x10E3/uL TOUCHWORKS TO EPIC CONVERSION ABS. LYMPHOCYTES 1.6 0.7 - 3.1 x10E3/uL TOUCHWORKS TO EPIC CONVERSION ABS. MONOCYTES 0.3 0.1 - 0.9 x10E3/uL TOUCHWORKS TO EPIC CONVERSION ABS. EOSINOPHILS 0.2 0.0 - 0.4 x10E3/uL TOUCHWORKS TO EPIC CONVERSION ABS. BASOPHILS 0.1 0.0 - 0.2 x10E3/uL TOUCHWORKS TO EPIC CONVERSION IMMATURE CELLS 0 Not Estab. % TOUCHWORKS TO EPIC CONVERSION ABS. IMMATURE GRANULOCYTES 0.0 0.0 - 0.1 x10E3/uL TOUCHWORKS TO EPIC CONVERSION NRBC TOUCHWORKS TO EPIC CONVERSION CBC COMMENT TOUCHWOR [place] TO EPIC CONVERSION 12/25/2016 1:43 PM CDT 12/25/2016 1:43 PM CDT Narrative TOUCHWORKS TO EPIC CONVERSION - 12/26/2016 5:12 AM CDT Result Communication: No patient communication needed at this time Kenisha Steen [facility] Final Result TOUCHWORKS TO EPIC CONVERSION documented in this encounter Visit Diagnoses Not on filedocumented in this encounter Care Teams Territory Sales Manager Medical Relationship Specialty Start Date End Date Al Gloria DO [address] [place] [address] PCP - General 09/10/15 09/26/17 Mariana Ruiz DO [address] [place] [address] PCP - General FAMILY PRACTICE 09/27/17 06/04/23 documented as of this encounter
--- OUTSIDE RECORDS SUMMARY | 2024-03-23 01:34 | XMS_ITS | Encounter Summary ---
Author Organization [facility] Address [address] [place] [address]. [place], [place] [address] [place] [address] Care Team Providers Care Java Analyst Name Role Phone Mariana Ruiz DO Primary Care Provider [phone] Reason for Visit * Imaging (Routine) - Closed Specialty Diagnoses / Procedures Referred By Herberth amor Referred To Contact RADIOLOGY Diagnoses Encounter for screening mammogram for malignant neoplasm of breast Procedures MG SCREENING W CHANO BRANDY DIGI Mariana Ruiz DO [address] [place] [address] Phone: tel: fax: Referral ID Status Reason Start Date Expiration Date Visits Re quested Visits Authorized [id number] Closed 01/21/2020 02/19/2021 1 1 Encounter Details Date Type Department Care Team (Latest Contact Info) Description 01/21/2020 8:51 AM PUMPER HEAD - 01/21/2020 11:59 PM [facility] Hospital Encounter [facility] [address] [place] [address] Mariana Ruiz DO [address] [place], [place] [address] Discharge Disposition: Home or Self Care (Routine [...] COVID-19? No / Unsure 01/21/2020 8:49 AM PUMPER HEAD documented as of this encounter Medications at Time of Discharge FLUTICASONE PROPIONATE 50 MCG/ACT nasal sprayIndications:A llergic rhinitis, unspecified seasonality, unspecified trigger SPRAY 2 SPRAYS INTO EACH NOSTRIL EVERY DAY 48 mL 01/05/2020 aspirin EC 81 MG tablet Take 1 tablet by mouth daily. 2 celecoxib 200 MG capsuleIndications :History of vertebral compression fracture Take 1 capsule (200 mg total) by mouth daily. 30 capsule 01/13/2020 1 HYDROCHLOROTHIAZID E 12.5 MG tabletIndications: Essential hypertension TAKE 1 TABLET BY MOUTH EVERY DAY 90 tablet 12/25/2019 1 LOSARTAN 100 MG tabletIndications: Essential hypertension TAKE 1/2 TABLET BY MOUTH EVERY DAY 45 tablet 12/25/2019 1 OMEPRAZOLE 40 MG capsuleIndications :Essential hypertension TAKE 1 CAPSULE BY MOUTH EVERY DAY 90 capsule 12/25/2019 1 oxybutynin XL 5 MG 24 hr tabletIndications: Hyperactivity of bladder Take 1 tablet (5 mg total) by mouth daily. 90 tablet 12/23/2019 1 documented as of this encounter Plan of Treatment Upcoming Encounters Date Type Department Care Team (Late st Contact Info) Description 05/01/2024 8:00 AM PUMPER HEAD Appointment [facility] [place] [address] Edgard Washington MD Three [facility] [address] [place], [place] [address] 06/02/2024 10:15 AM CDT Office Visit [facility] THREE [facility], ED [address] [place] [address] Edgard Washington MD Three [facility] [address] [place] [address] documented as of this encounter Procedures Procedure Name Priority Date/Time Associated Diagnosis Comments MG SCREENING W CHANO BRANDY DIGI Routine 01/21/2020 9:29 AM PUMPER HEAD Encounter for screening mammogram for malignant neoplasm of breast documented in this encounter Results * MG SCREENING W CHANO BRANDY DIGI (01/21/2020 9:29 AM PUMPER HEAD) Anatomical Region Laterality Modality Breast Bilateral Mammography 01/21/2020 12:0 1 PM PUMPER HEAD Impressions 01/21/2020 12:02 PM PUMPER HEAD IMPRESSION: No suspicious change since the previous exams. Recommendation: 1: Routine screening mammogram ??Bilateral ?? in 1 Year Assessment: ACR BI-RADS Category 2 - Benign. Narrative 01/21/2020 12:02 PM PUMPER HEAD Examination: Digital screening mammogram with CAD. Clinical [...] in one year would seem adequate. us Mariana Ruiz DO MAMMO Final Result documented in this encounter Visit Diagnoses Not on filedocumented in this encounter Care Teams Java Analyst Relationship Specialty Start Date End Date Mariana Ruiz DO [address] [place] [address] PCP - General FAMILY PRACTICE 09/27/17 06/04/23 documented as of this encounter
--- OUTSIDE RECORDS SUMMARY | 2024-03-23 01:35 | XMS_ITS | Encounter Summary ---
Author Organization [facility] Address [address] [place] [address]. [place] [address] [place] [address] Care Team Providers Care Luggage Repairer Name Role Phone Al Gloria DO Primary Care Provider [phone] Al Gloria DO Primary Care Provider [phone] Al Gloria DO Primary Care Provider [phone] Al Gloria DO Primary Care Provider [phone] Encounter Details Date Type Department Care Team (Late st Contact Info) Description 11/18/2013 Abstract [facility] Diagnostic Imaging [address] [id number] Al Gloria DO [address] [place] [address] Social History Tobacco Use Types Packs/Day [...] st Contact Info) Description 05/01/2024 8:[address] DESIGN ENGINEER Appointment [facility] Invasive [facility] [place] [phone] Edgard Washington MD Three [facility] [address] [place] [address] 06/02/2024 10:15 AM CDT Office Visit [facility] THREE [facility], ED [address] [place] [address] Edgard Washington MD Three [facility], [address] [place] [address] documented as of this encounter Visit Diagnoses Diagnosis Painful respiration documented in this encounter Care Teams Luggage Repairer Relationship Specialty Start Date End Date Al Gloria DO [address] [place] [address] PCP - General 09/10/15 09/26/17 Al Gloria DO [address] [place] [address] PCP - General 08/02/14 09/09/15 Al Gloria DO [address] [place] [address] PCP - General 07/28/14 08/01/14 Al Gloria DO [address] [place] [address] PCP - General 11/18/13 07/27/14 documented as of this encounter
--- OUTSIDE RECORDS SUMMARY | 2024-03-23 01:35 | XMS_ITS | Encounter Summary ---
Author Organization [facility] Address [address] [place] [address]. [place] [address] [place] [address] Care Team Providers Care Marketing And Development Coordinator Name Role Phone Al Gloria DO Primary Care Provider [phone] Al Gloria DO Primary Care Provider [phone] Al Gloria DO Primary Care Provider [phone] Mariana Ruiz DO Primary Care Provider [phone] Encounter Details Date Type Department Care Team (Latest Contact Info) Description 07/28/2014 Abstract [facility] Medical Group Al Gloria DO [address] [place], [place] [id number] Social History Tobacco Use Types Packs/Day Years Used Date Smoking Tobacco: Never Assessed Comments Unknown Sex and Gender Information Value Date Recorded Sex Assigned at Not on file Legal Sex Female 6:40 PM CDT Gender Identity Not on file Sexual Orientation Not on file documented as of this encounter Progress Notes * Generic Conversion MD Nasima - 07/28/2014 8:00 AM CDT Reason For Visit Nurse Visit Chief Complaint EKG performed for preop PSC. Active Problems 1. Allergic rhinitis (477.9) (J30.9) 2. Ankle joint pain (719.47) (M25.579) 3. Chest pain with painful respiration (786.52) (R07.1) 4. Compression fracture of thoracic vertebra (805.2) (S22.000A) 5. Dyspepsia (536.8) (K30) 6. Hyperactivity of bladder (596.51) (N31.8) 7. Hypertension (401.9) (I10) 8. Lumbago (724.2) (M54.5) 9. Thumb sprain (842.10) (S63.609A) Current Meds 1. AmLODIPine Besylate 5 MG Oral Tablet; TAKE 1 TABLET BY MOUTH EVERY DAY DIRECTED; Therapy: 30Dec2012 to (Evaluate:19Aug2014) Requested for: 35Qau6938; Last Rx:10Goc2507 Ordered 2. Aspirin EC 81 MG Oral Tablet Delayed Release; TAKE 1 TABLET DAILY DIRECTED; Therapy: (Recorded:17Mar2013) to Recorded 3. Lisinopril-Hydrochlorothiazide 20-25 MG Oral Tablet; TAKE 1 TABLET BY MOUTH EVERY DAY; Therapy: 30Dec2012 to (Evaluate:91Xrl0398) Requested for: 22May2014; Last Rx:22May2014 Ordered 4. Omeprazole 40 MG Oral Capsule Delayed Release; TAKE ONE CAPSULE BY MOUTH EVERY DAY; Therapy: 89Iiu1564 to (Evaluate:12Aug2014) Requested for: 24Dyz6433; Last Rx:60Grt8451 Ordered 5. VESIcare 10 MG Oral Tablet; TAKE 1 TABLET BY MOUTH EVERY DAY; Therapy: 01Feb2012 to (Evaluate:77Pmp0985) Requested for: 11Goy4876; Last Rx:[id number] Ordered 6. ZyrTEC Allergy 10 MG Oral Capsule; TAKE 1 CAPSULE Daily; Therapy: (Recorded:17Mar2013) to Recorded Allergies 1. No Known Drug Allergies Plan Hypertension 1. EKG In Office; Status:Complete; Done: 89Bee2262 Signatures Electronically signed by : Milagros Husain, ; Jul 28 2014 9:46AM INTERNAL MEDICINE NURSE (Author) Electronically signed by : Al Gloria D.O.; Jul 28 2014 11:28AM INTERNAL MEDICINE NURSE (Author) documented in this encounter Plan of Treatment Upcoming Encounters Date Type Department Care Team (Late st Contact Info) Description 05/01/2024 8:00 AM INTERNAL MEDICINE NURSE Appointment [facility] [address] [facility] [place] [address] Edgard Washington MD [address] [place] [address] 06/02/2024 10:15 AM CDT Office Visit [facility] [address] [facility] [address], [address] [place] [address] Edgard Washington MD Three [facility] [address] [place] [address] documented as of this encounter Visit Diagnoses Not on filedocumented in this encounter Care Teams Marketing And Development Coordinator Relationship Specialty Start Date End Date Al Gloria DO [address] [place] [address] PCP - General 09/10/15 09/26/17 Al Gloria DO [address] [place] [address] PCP - General 08/02/14 09/09/15 Al Gloria DO [address] [place] [address] PCP - General 07/28/14 08/01/14 Mariana Ruiz DO [address] [place], [place] [address] PCP - General FAMILY PRACTICE 09/27/17 06/04/23 documented as of this encounter
--- OUTSIDE RECORDS SUMMARY | 2024-03-23 01:35 | XMS_ITS | Encounter Summary ---
Author Organization [facility] Address [address] [place] [address]. [place] [address] [place] [address] Care Team Providers Care Trencher Driver Name Role Phone Al Gloria DO Primary Care Provider [phone] Al Gloria DO Primary Care Provider [phone] Al Gloria DO Primary Care Provider [phone] Al Gloria DO Primary Care Provider [phone] Md Generic Rachel BURGESS Primary Care Provider Unavailable Yaa Burgess MD Primary Care Provider Unavailable Encounter Details Date Type Department Care Team (Late st Contact Info) Description 05/10/2010 Abstract [facility] [place] [address] Yaa Burgess MD Social History Tobacco Use Types Packs/Day [...] st Contact Info) Description 05/01/2024 8:00 AM RADAR SIGNAL PROCESSING ENGINEER Appointment [facility] [place] [address] Edgard Washington MD Three [facility]., [address] [place] [address] 06/02/2024 10:15 AM CDT Office Visit [facility] THREE [facility], ED [address] [place] [address] Edgard Washington MD Three [facility] [address] [place] [address] documented as of this encounter Visit Diagnoses Diagnosis Other abnormal findings on radiological examination of breast documented in this encounter Care Teams Trencher Driver Relationship Specialty Start Date End Date Al Gloria DO [address] [place] [address] PCP - General 09/10/15 09/26/17 Al Gloria DO [address] [place] [address] PCP - General 08/02/14 09/09/15 Al Gloria DO [address] [place] [address] PCP - General 07/28/14 08/01/14 Al Gloria DO [address] [place] [address] PCP - General 11/18/13 07/27/14 , Generic ConversionMD PCP - General 06/05/12 , Generic Conversion, PCP - General 02/02/10 3 documented as of this encounter
--- OUTSIDE RECORDS SUMMARY | 2024-03-23 01:35 | XMS_ITS | Encounter Summary ---
Author Organization [facility] Address [address] [place] [address]. [place], [place] [address] [place] [address] Care Team Providers Care Dental Ceramist Name Role Phone Al Gloria DO Primary Care Provider [phone] Al Gloria DO Primary Care Provider [phone] Mariana Ruiz DO Primary Care Provider [phone] Encounter Details Date Type Department Care Team (Latest Contact Info) Description 06/24/2015 Abstract [facility] Medical Group , Yaa Ramos MD [...] Notes * Generic Conversion MD Nasima - 06/24/2015 2:44 PM CDT Message Recorded as Task Date: 06/24/2015 12:50 PM, Created By: Marisa Curtis Task Name: Call Back Assigned [facility] Regarding Patient: Julianna Brown Ellie, Status: Active Comment: Marisa Curtis - 24 Jun 2015 12:50 PM TASK CREATED pt states finished abx a few days ago for sinus infection. Feels better, no more congestion, but now has developed dry cough and it won't stop. Is taking bp meds as seen on med list. appt? minimal spots open and pt wanted me to ask [facility] [phone] Al Gloria - 24 Jun 2015 1:52 PM TASK EDITED Perfect; pt due for Annual in July; I'll see her then and we can chat Kiesha Hussein - 24 Jun 2015 2:43 PM TASK EDITED PT WILL WAIT UNTIL ANNUAL Signatures Electronically signed by : Kiesha Hussein, ; Jun 24 2015 2:44PM LOOM DOFFER (Author) documented in this encounter Plan of Treatment Upcoming Encounters Date Type Department Care Team (Late st Contact Info) Description 05/01/2024 8:00 AM LOOM DOFFER Appointment [facility] [place] [place] [address] Edgard Washington MD Three [facility] [address] [place], [place] [address] 06/02/2024 10:15 AM CDT Office Visit [facility], ED [address] [place] [address] Edgard Washington MD Three [facility] [address] [place], [place] [address] documented as of this encounter Visit Diagnoses Not on filedocumented in this encounter Care Teams Dental Ceramist Relationship Specialty Start Date End Date Al Gloria DO [address] [place] [address] PCP - General 09/10/15 09/26/17 Al Gloria DO [address] [place] [address] PCP - General 08/02/14 09/09/15 Mariana Ruiz DO [address] [place] [address] PCP - General FAMILY PRACTICE 09/27/17 06/04/23 documented as of this encounter
--- OUTSIDE RECORDS SUMMARY | 2024-03-23 01:35 | XMS_ITS | Encounter Summary ---
Author Organization [facility] Address [address] [place] [address]. [place] [address] [place] [address] Care Team Providers Care Environmental Aid Name Role Phone Al Gloria DO Primary Care Provider [phone] Al Gloria DO Primary Care Provider [phone] Al Gloria DO Primary Care Provider [phone] Al Gloria DO Primary Care Provider [phone] Yaa Del Real MD Primary Care Provider Unavailable Mariana Ruiz DO Primary Care Provider [phone] Encounter Details Date Type Department Care Team (Latest Contact Info) Description 03/17/2013 Abstract [facility] Al Gloria DO [address] [place] [address] Social History Tobacco Use Types Packs/Day Years Used Date Smoking Tobacco: Never Assessed Comments Unknown Sex and Gender Information Value Date Recorded Sex Assigned at Not on file Legal Sex Female 6:40 PM CDT Gender Identity Not on file Sexual Orientation Not on file documented as of this encounter Last Filed Vital Signs Vital Sign Reading Time Taken Comments Blood Pressure 124/80 03/17/2013 9:58 AM WATCH CASE POLISHER Pulse - - Temperature - - Respiratory Rate - - Oxygen Saturation - - Inhaled Oxygen Concentration - - Weight 108.4 kg (239 lb) 03/17/2013 9:58 AM WATCH CASE POLISHER Height - - Body Mass Index 38.58 06/27/2012 4:00 PM CDT documented in this encounter Progress Notes * Al Gloria, - 03/17/2013 10:15 AM CST Reason For Visit Reason For Visit: Acute Visit Chief Complaint 1. Foot Problem Chief Complaint Free Text: c/o right foot pain and swelling x 2 weeks. History of Present Illness Foot Problem: The patient presents with complaints of gradual onset of constant episodes of mild right foot pain.Episodes started about 2 weeks ago. Symptoms are made worse by weight bearing and walking. Symptomsare unchanged. Previous Evaluation: High heels on New Years. Back Pain Lumbar, Acute (Brief): The patient is being seen for an initial evaluation of this episode of acute low back pain. The patient presents with complaints of gradual onset of intermittent episodes of right > left and right lower back back pain, described as dull, radiating to the right buttock, right thigh and right lower leg. Episodes started about 3 months ago. Symptoms are worsening. Review of Systems Focused-Female: Constitutional: no fever and no chills. Cardiovascular: no chest pain. Respiratory: no shortness of breath. Gastrointestinal: no abdominal pain. The patient presents with complaints of gradual onset of mild arthralgias. Active Problems 1. Allergic Rhinitis 477.9 2. Compression Fracture Of Thoracic Vertebral Body 805.2 3. Dyspepsia 536.8 4. 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 Hypertension 401.9 6. Thumb Sprain 842.10 Past Medical History Patient indicats no significant past medical history. Surgical History 1. History of Colonoscopy (Fiberoptic) Family History 1. Family history of Osteoporosis V17.81 2. Family history of Type 2 Diabetes Mellitus Social History ?? Being A Social Drinker ?? Marital History - Single ?? Never A Smoker ?? Parentage ?? Working Part-time Current Meds 1. AmLODIPine Besylate 5 MG Oral Tablet; TAKE 1 TABLET DAILY DIRECTED; Therapy: 30Dec2012 to (Evaluate:28Jun2013) Requested for: 30Dec2012; Last Rx:30Dec2012 Ordered; For: Hypertension (401.9); Rx By: Al Gloria; Dispense: 90 Days ; #:90 Tablet; Refill: 1; Rx auto-faxed to [id number] 2. Aspirin EC 81 MG Oral Tablet Delayed Release; TAKE 1 TABLET DAILY DIRECTED; Therapy: (Recorded:17Mar2013) to Recorded; Dispense: 0 Days ; #: Sufficient TBEC; Refill: 0; Record; Last Updated By: Nori Pedersen 3. Lisinopril-Hydrochlorothiazide 20-25 MG Oral Tablet; TAKE 1 TABLET BY MOUTH EVERY DAY; Therapy: 30Dec2012 to (Evaluate:28Jun2013) Requested for: 30Dec2012; Last Rx:[id number] Ordered; For: Hypertension (401.9); Rx By: Al Gloria; Dispense: 90 Days ; #:90 Tablet; Refill: 1; Verified Transmission to [id number] 4. Omeprazole 40 MG Oral Capsule Delayed Release; TAKE ONE CAPSULE BY MOUTH EVERY DAY; Therapy: 05Jun2012 to (Evaluate:25Mar2013) Requested for: 10Nrs6650; Last Rx:[id number] Ordered; For: Dyspepsia (536.8); Rx By: Al Gloria; Dispense: 90 Days ; #:90 Capsule; Refill: 1;Verified Transmission to [id number] 5. VESIcare 10 MG Oral Tablet; TAKE 1 TABLET BY MOUTH EVERY DAY; Therapy: 01Feb2012 to (Evaluate:09Jun2013) Requested for: 11Dec2012; Last Rx:[id number] Ordered; For: Hyperactivity Of The Bladder (596.51); Rx By: Al Gloria; Dispense: 90 Days ; #:90Tablet; Refill: 1; Verified Transmission to [facility][id number]; Msg to Pharmacy: REFILL REQUEST 6. ZyrTEC Allergy 10 MG Oral Capsule; TAKE 1 CAPSULE Daily; Therapy: (Recorded:17Mar2013) to Recorded; Dispense: 0 Days ; #: Sufficient Capsule; Refill: 0; Record; Last Updated By: Nori Pedersen Allergies 1. No Known Drug Allergies No Known Drug Allergies Vitals Vital Signs [Data Includes: Current Encounter] 17Mar2013 09:58AM Temperature 98.5 F, Oral Systolic 124, RUE, Sitting Diastolic 80, RUE, Sitting BMI Calculated 38.41 BSA Calculated 2.16 Weight 239 lb Physical Exam Constitutional General appearance: No acute [...] cyanosis. Inspection/palpation of joints, bones, and muscles: Abnormal. TTP right paraspinals LUMBAR, also TTP right ankle anteriorly and sub-achilles bursa. Skin Skin and subcutaneous tissue: Normal without rashes or lesions. Neurologic Cranial nerves: Cranial nerves 2-12 intact. Reflexes: 2+ and symmetric. Sensation: No sensory loss. Psychiatric Orientation to person, place, and time: Normal. Mood and affect: Normal. Assessment 1. Ankle Joint Pain 719.47 2. Lumbago 724.2 Plan 1. Meloxicam 15 MG Oral Tablet; TAKE 1 TABLET DAILY WITH FOOD; Therapy: 17Mar2013 to (Last Rx:17Mar2013) Requested for: 17Mar2013; Edited Ordered; For: Ankle Joint Pain (719.47); Rx By: Al Gloria; Dispense: 0 Days ; #:30 Tablet; Refill: 0; Verified Transmission to [facility][id number] 2. Follow-up PRN Outpatient Follow-up Done: 17Mar2013 Ordered; For: Ankle Joint Pain (719.47), Lumbago (724.2); Ordered By: Al Gloria Performed: Due: 27Mar2013 Discussion/Summary Discussion Summary Free Text: NO high heels until all pain resolved. Signatures Electronically signed by : Al Gloria D.O.; Mar 17 2013 10:24AM (Author) documented in this encounter Plan of Treatment Upcoming Encounters Date Type Department Care Team (Late st Contact Info) Description 05/01/2024 8:00 AM WATCH CASE POLISHER Appointment [facility] [address] Edgard Washington MD Three [facility] [address] [place] [address] 06/02/2024 10:15 AM CDT Office Visit [facility] THREE [facility], [address] [place] [address] Edgard Washington MD Three [facility], [address] [place] [address] documented as of this encounter Visit Diagnoses Not on filedocumented in this encounter Care Teams Environmental Aid Relationship Specialty Start Date End Date Al Gloria DO [address] [place] [address] PCP - General 09/10/15 09/26/17 Al Gloria DO [address] [place] [address] PCP - General 08/02/14 09/09/15 Al Gloria DO [address] [place] [address] PCP - General 07/28/14 08/01/14 Al Gloria DO [address] [place] [address] PCP - General 11/18/13 07/27/14 Yaa Del Real MD PCP - General 06/05/12 Mariana Ruiz DO [address] [place] [address] PCP - General FAMILY PRACTICE 09/27/17 06/04/23 documented as of this encounter
--- OUTSIDE RECORDS SUMMARY | 2024-03-23 01:35 | XMS_ITS | Encounter Summary ---
Author Organization [facility] Address [address] [place] [address]. [place], [place] [address] [place] [address] Care Team Providers Care Director Operating Room Name Role Phone Al Gloria DO Primary Care Provider [phone] Al Gloria DO Primary Care Provider [phone] Encounter Details Date Type Department Care Team (Late st Contact Info) Description 08/02/[address] 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 [place] [address] Edgard Washington MD Three [facility] [address] [place], [place] [address] 06/02/2024 10:15 AM CDT Office Visit [facility] THREE [facility], [address] [place] [address] Edgard Washington MD Three [facility] [address] [place] [address] documented as of this encounter Visit Diagnoses Not on filedocumented in this encounter Care Teams Director Operating Room Relationship Specialty Start Date End Date Al Gloria DO [address] [place] [address] PCP - General 09/10/15 09/26/17 Al Gloria DO [address] [place] [address] PCP - General 08/02/14 09/09/15 documented as of this encounter
--- OUTSIDE RECORDS SUMMARY | 2024-03-23 01:35 | XMS_ITS | Encounter Summary ---
Author Organization [facility] Address [address] [place] [address]. [place] [address] [place] [address] Care Team Providers Care Parks And Recreation Manager Name Role Phone Al Gloria DO Primary Care Provider [phone] Al Gloria DO Primary Care Provider [phone] Al Gloria DO Primary Care Provider [phone] Encounter Details Date Type Department Care Team (Late st Contact Info) Description 07/28/[address] 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 Appointment [facility] ONE [place], [place] [id number] Edgard Washington MD Three [facility] [address] [place] [address] 06/02/2024 10:15 AM CDT Office Visit [facility] THREE [facility], [address] [place] [address] Edgard Washington MD Three [facility] [address] [place] [address] documented as of this encounter Visit Diagnoses Diagnosis Other screening mammogram documented in this encounter Care Teams Parks And Recreation Manager Relationship Specialty Start Date End Date Al Gloria DO [address] [place] [address] PCP - General 09/10/15 09/26/17 [place] [address] [place] [address] PCP - General 08/02/14 09/09/15 Al Gloria DO [facility] [place] [address] PCP - General 07/28/14 08/01/14 documented as of this encounter
--- OUTSIDE RECORDS SUMMARY | 2024-03-23 01:35 | XMS_ITS | Encounter Summary ---
Author Organization [facility] Address [address] [place] [address]. [place], [place] [address] [place] [address] Care Team Providers Care Nurse Orthopedic Name Role Phone Al Gloria DO Primary Care Provider [phone] Encounter Details Date Type Department Care Team (Late st Contact Info) Description 09/10/2015 Abstract [facility] [address] Al Gloria DO [facility] [place], [place] [id number] Social History Tobacco Use Types Packs/Day Years [...] st Contact Info) Description 05/01/2024 8:00 AM PT SITTER Appointment [facility] ONE [facility] [place] [address] Edgard Washington MD [facility] [address] [place] [address] 06/02/2024 10:15 AM CDT Office Visit [facility], [address] [place], [place] [id number] Edgard Washington MD Three [facility] [address] [place], [place] [id number] documented as of this encounter Visit Diagnoses Diagnosis Encounter for screening mammogram for malignant neoplasm of breast Other screening mammogram documented in this encounter Care Teams Nurse Orthopedic Relationship Specialty Start Date End Date Al Gloria DO [address] [place] [address] PCP - General 09/10/15 09/26/17 documented as of this encounter
--- OUTSIDE RECORDS SUMMARY | 2024-03-23 01:35 | XMS_ITS | Encounter Summary ---
Author Organization [facility] Address [address] [place] [address]. [place] [address] [place] [address] Care Team Providers Care [place]isqueak Applier Name Role Phone Al Gloria DO Primary Care Provider [phone] Al Gloria DO Primary Care Provider [phone] Al Gloria DO Primary Care Provider [phone] Al Gloria DO Primary Care Provider [phone] Mariana Ruiz DO Primary Care Provider [phone] Encounter Details Date Type Department Care Team (Latest Contact Info) Description 07/23/2014 Abstract [facility] Al Gloria DO [address] [place] [address] Social History Tobacco Use Types Packs/Day Years [...] st Contact Info) Description 05/01/2024 8:00 AM 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 Appointment [facility] [place] [place] [address] Edgard Washington MD Three [facility] [address] [place] [address] 06/02/2024 10:15 AM CDT Office Visit [facility] THREE [facility], [address] [place] [address] Edgard Washington MD Three [facility] [address] [place] [address] documented as of this encounter Visit Diagnoses Not on filedocumented in this encounter Care Teams [place]isqueak Applier Relationship Specialty Start Date End Date Al Gloria DO [address] [place] [address] PCP - General 09/10/15 09/26/17 Al Gloria DO [address] [place] [address] PCP - General 08/02/14 09/09/15 Al Gloria DO [address] [place] [address] PCP - General 07/28/14 08/01/14 Al Gloria DO [address] [place] [address] PCP - General 11/18/13 07/27/14 Mariana Ruiz DO [address] [place] [address] PCP - General FAMILY PRACTICE 09/27/17 06/04/23 documented as of this encounter
--- OUTSIDE RECORDS SUMMARY | 2024-03-23 01:35 | XMS_ITS | Encounter Summary ---
Author Organization [facility] Address [address] [place] [address]. [place] [address] [place] [address] Care Team Providers Care Textile Slitting Machine Operator Name Role Phone Darnell Arriaga DO Primary Care Provider [phone] Darnell Arriaga DO Primary Care Provider [phone] Darnell Arriaga DO Primary Care Provider [phone] Darnell Arriaga DO Primary Care Provider [phone] Mariana Ruiz DO Primary Care Provider [phone] Encounter Details Date Type Department Care Team (Latest Contact Info) Description 07/20/[address] [facility] Darnell Arriaga DO [address] [place] [address] Social History Tobacco Use Types Packs/Day Years Used Date Smoking Tobacco: Never Assessed Comments Unknown Sex and Gender Information Value Date Recorded Sex Assigned at Not on file Legal Sex Female 6:40 PM CDT Gender Identity Not on file Sexual Orientation Not on file documented as of this encounter Last Filed Vital Signs Vital Sign Reading Time Taken Comments Blood Pressure 124/72 07/20/2014 3:30 PM CDT Pulse - - Temperature - - Respiratory Rate - - Oxygen Saturation - - Inhaled Oxygen Concentration - - Weight 102.5 kg (226 lb) 07/20/2014 3:30 PM CDT Height 168.1 cm (5' 6.18 ) 07/20/2014 3:30 PM CD T Body Mass Index 36.28 07/20/2014 3:30 PM CDT documented in this encounter Progress Notes * Darnell Arriaga, DO - 07/20/2014 3:30 PM CDT Reason For Visit 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 Last cscope about 10 years. Wants cscope. Taking OTC Ali for Fat Emmanuel. Dyspepsia (Brief): The patient is being seen for a routine clinic follow-up of dyspepsia. The patient is currently asymptomatic. Hypertension (Follow-Up): The patient presents for follow-up of primary hypertension. The patient states she has been doing well with her blood pressure control since the last visit. She has no comorbid illnesses. She has no significant interval events. Symptoms: The patient is currently asymptomatic. Review of Systems Constitutional: no fever and no chills. Cardiovascular: no chest pain. Respiratory: no shortness of breath. Gastrointestinal: abdominal pain. Active Problems 1. Allergic rhinitis (477.9) (J30.9) 2. Ankle joint pain (719.47) (M25.579) 3. Chest pain with painful respiration (786.52) (R07.1) 4. Compression fracture of thoracic vertebra (805.2) (S22.000A) 5. Dyspepsia (536.8) (K30) 6. Hyperactivity of bladder (596.51) (N31.8) 7. Hypertension (401.9) (I10) 8. Lumbago (724.2) (M54.5) 9. Thumb sprain (842.10) (S63.609A) Surgical History ?? History of Colonoscopy (Fiberoptic) Family History Family History ?? Family history of Osteoporosis (V17.81) ?? Family history of Type 2 Diabetes Mellitus Social History ?? Being A Social Drinker ?? Marital History - Single ?? Never a smoker ?? Parentage ?? Working Part-time Current Meds 1. AmLODIPine Besylate 5 MG Oral Tablet; TAKE 1 TABLET BY MOUTH EVERY DAY DIRECTED; Therapy: 30Dec2012 to (Evaluate:87Egp8635) Requested for: 13Jun2014; Last Rx:13Jun2014 Ordered Rx By: Darnell Arriaga; Dispense: 30 Days ; #:90 TAB; Refill: 0; For: Hypertension; LOU = N; Verified Transmission to [facility]Y #[id number]; Last Updated By: SOAK (Smart Operational Agricultural toolKit); 06/13/2014 9:49:17 PM 2. Aspirin EC 81 MG Oral Tablet Delayed Release; TAKE 1 TABLET DAILY DIRECTED; Therapy: (Recorded:17Mar2013) to Recorded Dispense: 0 Days ; #: Sufficient TBEC; Refill: 0; LOU = N; Record; Last Updated By: Nori Pedersen; 03/17/2013 10:02:13 AM 3. Lisinopril-Hydrochlorothiazide 20-25 MG Oral Tablet; TAKE 1 TABLET BY MOUTH EVERY DAY; Therapy: 30Dec2012 to (Evaluate:76Hqo5485) Requested for: 22May2014; Last Rx:22May2014 Ordered Rx By: Darnell Arriaga; Dispense: 30 Days ; #:90 TAB; Refill: 1; For: Hypertension; LOU = N; Verified Transmission to [facility]ARMACY #2585; Last Updated By: SOAK (Smart Operational [employer] toolKit); 05/22/2014 8:59:15 AM 4. Omeprazole 40 MG Oral Capsule Delayed Release; TAKE ONE CAPSULE BY MOUTH EVERY DAY; Therapy: 05Jun2012 to (Evaluate:12Aug2014) Requested for: 13Jun2014; Last Rx:13Jun2014 Ordered Rx By: Darnell Arriaga; Dispense: 30 Days ; #:90 Capsule; Refill: 1; For: Dyspepsia; LOU = N; Verified Transmission to [facility] #2585; Last Updated By: SOAK (Smart Operational [employer] toolKit); 06/13/2014 9:49:18 PM 5. VESIcare 10 MG Oral Tablet; TAKE 1 TABLET BY MOUTH EVERY DAY; Therapy: 01Feb2012 to (Evaluate:57Nly2847) Requested for: 16Jul2014; Last Rx:16Jul2014 Ordered Rx By: Darnell Arriaga; Dispense: 30 Days ; #:90 TAB; Refill: 1; For: Hyperactivity of bladder; LOU = N; Verified Transmission to [facility] #2585; Last Updated By: SOAK (Smart Operational [employer] tool[employer]); 07/16/2014 9:23:50 AM 6. ZyrTEC Allergy 10 MG Oral Capsule; TAKE 1 CAPSULE Daily; Therapy: (Recorded:04Bcg9254) to Recorded Dispense: 0 Days ; #: Sufficient Capsule; Refill: 0; LOU = N; Record; Last Updated By: Nori Pedersen; 03/17/2013 10:02:13 AM Allergies 1. No Known Drug Allergies Recorded By: Darnell Arriaga; 06/03/2012 4:30:05 PM Vitals Recorded: 57Oay8818 03:30PM Systolic 124 Diastolic 72 Height 5 ft 6.18 in Weight 226 lb BMI Calculated 36.28 BSA Calculated 2.11 Physical Exam Constitutional General appearance: Abnormal. Patient was observed to be moderately obese. Eyes Conjunctiva and lids: No swelling, [...] Assessment 1. Allergic rhinitis (477.9) (J30.9) 2. Dyspepsia (536.8) (K30) 3. Hyperactivity of bladder (596.51) (N31.8) 4. Encounter for preventive health examination (V70.0) (Z00.00) 5. Hypertension (401.9) (I10) 6. Lumbago (724.2) (M54.5) Plan Dyspepsia ?? LC-CBC, No Differential/Platelet 084250; Status:Hold For - Manual Activation; Requested for:20Jul2014; Perform:[facility] Bill; Due:19Aug2014;Ordered; For:Dyspepsia; Ordered By:Darnell Arriaga; ?? LC-Comp. Metabolic Panel ( CMP ) 300200; Status:Hold For - Manual Activation; Requested for:20Jul2014; Perform:[facility] Cli Bill; Due:19Aug2014;Ordered; For:Dyspepsia; Ordered By:Darnell Arriaga; ?? LC-Lipid Panel w/ Chol/HDL Ratio 454468; Status:Hold For - Manual Activation; Requested for:20Jul2014; Perform:[facility] Bill; Due:19Aug2014;Ordered; For:Dyspepsia; Ordered By:Darnell Arriaga; ?? LC-TSH 880492; Status:Hold For - Manual Activation; Requested for:20Jul2014; Perform:[facility] Cli Bill; Due:19Aug2014;Ordered; For:Dyspepsia; Ordered By:Darnell Arriaga; Dyspepsia, Health Maintenance ?? Schedule COLONOSCOPY Outpatient Follow-up Status: Need Information - Financial Authorization Requested for: 20Jul2014 Ordered; For: Dyspepsia, Health Maintenance; Ordered By: Darnell Arriaga Performed: Due: 03Aug2014 ?? Schedule Upper endoscopy Outpatient Follow-up Status: Hold For - Scheduling Requested for: 96Xvd5871 Ordered; For: Dyspepsia, Health Maintenance; Ordered By: Darnell Arriaga Performed: Due: 03Aug2014 Health Maintenance ?? Follow-up visit in 1 year Outpatient Follow-up Status: Hold For - Scheduling Requested for: 15Lad7468 Ordered; For: Health Maintenance; Ordered By: Darnell Arriaga Performed: Due: 03Aug2014 ?? MG SCREEN MAMMO DIGITAL BI; Status:Active; Requested for:20Jul2014; Perform:Other Radiology; Due:19Aug2014;Ordered; For:Health Maintenance; Ordered By:Darnell Arriaga; Discussion/Summary Continued Weight Loss. Health Management Health Maintenance Schedule COLONOSCOPY; every 10 years; Last 47Tdq2909; Next Due: 60Yvt2832; Overdue Signatures Electronically signed by : Darnell Arriaga D.O.; Jul 20 2014 3:53PM PERFORATOR (Author) documented in this encounter Plan of Treatment Upcoming Encounters Date Type Department Care Team (Late st Contact Info) Description 05/01/2024 8:00 AM PERFORATOR Appointment [facility] [address] [facility] [place] [address] Edgard Washington MD [address] [place] [address] 06/02/2024 10:15 AM CDT [facility] [address] [place], [place] [address] Edgard [place] MD [address] [place], [place] [address] documented as of this encounter Procedures Procedure Name Priority Date/Time Associated Diagnosis Comments MG SCREENING BRANDY DIGI Routine 07/28/2014 10:40 AM CDT documented in this encounter Results * MG SCREENING BRANDY DIGI (07/28/2014 10:40 AM CDT) Anatomical Region Laterality Modality Breast Bilateral Mammography 07/28/2014 10:4 0 AM CDT 07/28/2014 10:40 AM CDT Narrative 07/28/2014 10:49 AM CDT JULIANNA SALGADO ? ADMIT/SERVICE DATE: 07/28/14 ?? ACCT: [id number] ?DISCHARGE DATE: ?? : 1955 ??SEX: F ?ORD SITE: [facility] [place] ?? PT TYPE: REG CLI ? ORDERING MD: DARNELL ARRIAGA DO ? STUDY DATE ? REPORT # ?ORDER # ?EXT ORDER ID ?? 07/28/14 ? [id number] ? [id number] ? [id number] ? PROC CODE: ? [id number] ? PROCEDURE DESCRIPTION: ?? MG SCREEN MAMMO DIGITAL BI ? IMPRESSION: ?? NO MAMMOGRAPHIC FINDINGS SUGGESTIVE OF MALIGNANCY. ? ASSESSMENT: ACR BI-RADS CATEGORY 2 - BENIGN. ? RECOMMENDATION: ?? 1: ROUTINE SCREENING MAMMOGRAM ??BILATERAL ??IN 1 YEAR ? COMMENTS: ? EXAMINATION: DIGITAL BILATERAL SCREENING MAMMOGRAM ? CLINICAL HISTORY: PREVIOUS BREAST BIOPSY. FAMILY HISTORY OF BREAST ?? CANCER. MID CHEST KELOID SCARS. ? COMPARISON: ??2010 AND 2011 MAMMOGRAMS.. ? TECHNIQUE: DIGITAL SCREENING MAMMOGRAPHY OF BOTH BREASTS WAS PERFORMED. ?? THIS STUDY WAS READ WITH THE ASSISTANCE OF A COMPUTER-AIDED DETECTION ?? SYSTEM. ? TISSUE DENSITY: THE BREAST TISSUE CONTAINS SCATTERED FIBROGLANDULAR ?? DENSITIES. ? FINDINGS: ??NO NEW MASS LESION OR SUSPICIOUS CALCIFICATIONS. LOBULATED ?? SKIN LESIONS MEDIALLY BOTH BREASTS, CORRESPONDING TO KELOID SCARS ON THE ?? PATIENT'S SKIN. ? ELECTRONICALLY SIGNED BY: NAYLA PIERRE07/28/2014 10:43 AM ? Procedure Note Darnell Arriaga DO - 05/22/2018 JULIANNA SALGADO ADMIT/SERVICE DATE:07/28/14 ACCT: [id number] DISCHARGE DATE: : 1955 SEX: F ORD SITE: [facility] PT TYPE: REG CLI ORDERING MD:DARNELL ARRIAGA DO STUDY DATE REPORT # ORDER # EXT ORDER ID 07/28/14 [id number] PROC CODE: SCMAMDGB PROCEDURE DESCRIPTION: MG SCREEN MAMMO DIGITAL BI IMPRESSION: NO MAMMOGRAPHIC FINDINGS SUGGESTIVE OF MALIGNANCY. ASSESSMENT: ACR BI-RADS CATEGORY 2 - BENIGN. RECOMMENDATION: 1: ROUTINE SCREENING MAMMOGRAM BILATERAL IN 1 YEAR COMMENTS: EXAMINATION: DIGITAL BILATERAL SCREENING MAMMOGRAM CLINICAL HISTORY: PREVIOUS BREAST BIOPSY. FAMILY HISTORY OF BREAST CANCER. MID CHEST KELOID SCARS. COMPARISON: 2009 AND 2010 MAMMOGRAMS.. TECHNIQUE: DIGITAL SCREENING MAMMOGRAPHY OF BOTH BREASTS WAS PERFORMED. THIS STUDY WAS READ WITH THE ASSISTANCE OF A COMPUTER-AIDED DETECTION SYSTEM. TISSUE DENSITY: THE BREAST TISSUE CONTAINS SCATTERED FIBROGLANDULAR DENSITIES. FINDINGS: NO NEW MASS LESION OR SUSPICIOUS CALCIFICATIONS. LOBULATED SKIN LESIONS MEDIALLY BOTH BREASTS, CORRESPONDING TO KELOID SCARS ON THE PATIENT'S SKIN. ELECTRONICALLY SIGNED BY: NAYLA PIERRE07/28/2014 10:43 AM Darnell Arriaga DO MAMMO Final Result documented in this encounter Visit Diagnoses Not on filedocumented in this encounter Care Teams Textile Slitting Machine Operator Relationship Specialty Start Date End Date Darnell Arriaga DO [facility] [place] [address] PCP - General 09/10/15 09/26/17 Darnell Arriaga DO [facility] [place] [address] PCP - General 08/02/14 09/09/15 Darnell Arriaga DO [address] [place] [address] PCP - General 07/28/14 08/01/14 Darnell Arriaga DO [address] [place] [address] PCP - General 11/18/13 07/27/14 Mariana Ruiz DO [address] [place] [address] PCP - General FAMILY PRACTICE 09/27/17 06/04/23 documented as of this encounter
--- OUTSIDE RECORDS SUMMARY | 2024-03-23 01:35 | XMS_ITS | Encounter Summary ---
Author Organization [facility] Address [address] [place] [address]. [place], [place] [address] [place] [address] Care Team Providers Care Railroad Car Checker Name Role Phone Al Gloria DO Primary Care Provider [phone] Mariana Ruiz DO Primary Care Provider [phone] Encounter Details Date Type Department Care Team (Latest Contact Info) Description 01/30/2016 Abstract [facility] Al Gloria, DO [address] [place], [place] [address] Social History Tobacco Use Types Packs/Day Years Used Date Smoking Tobacco: Never Assessed Comments Unknown Sex and Gender Information Value Date Recorded Sex Assigned at Not on file Legal Sex Female 6:40 PM CDT Gender Identity Not on file Sexual Orientation Not on file documented as of this encounter Last Filed Vital Signs Vital Sign Reading Time Taken Comments Blood Pressure 146/86 01/30/2016 4:00 PM FOREMAN/PROJECT MANAGER Pulse - - Temperature - - Respiratory Rate - - Oxygen Saturation - - Inhaled Oxygen Concentration - - Weight 109.8 kg (242 lb) 01/30/2016 4:00 PM FOREMAN/PROJECT MANAGER Height 167.6 cm (5' 6 ) 01/30/2016 4:00 PM FOREMAN/PROJECT MANAGER Body Mass Index 39.06 01/30/2016 4:00 PM FOREMAN/PROJECT MANAGER documented in this encounter Progress Notes * Al Gloria DO - 01/30/2016 4:00 PM CST Reason For Visit Chronic Recheck Visit Chief Complaint 6 MO CHECK, DECLINES FLU SHOT History of Present Illness HPI Free Text: Gained 7 lbs since Spring. Needs HTN labs. Obesity (Follow-Up): The patient is being seen for follow-up of obesity. The patient reports doing poorly. Hypertension (Follow-Up): The patient presents for follow-up of primary hypertension. The patient states she has been stable with her blood pressure control since the last visit. Symptoms: Review of Systems Constitutional: no fever, no chills and no headache. Cardiovascular: the heart rate was not slow and no chest pain. Respiratory: no shortness of breath and no cough. Gastrointestinal: no abdominal pain. Active Problems 1. Acute sinusitis (461.9) (J01.90) 2. Allergic rhinitis (477.9) (J30.9) 3. Ankle joint pain (719.47) (M25.579) 4. Chest pain with painful respiration (786.52) (R07.1) 5. Compression fracture of thoracic vertebra (805.2) (S22.000A) 6. Hyperactivity of bladder (596.51) (N31.8) 7. Hypertension (401.9) (I10) 8. Low back pain (724.2) (M54.5) 9. NUD (nonulcer dyspepsia) (536.8) (K30) 10. Thumb sprain (842.10) (S63.609A) Surgical History 1. [...] MOUTH EVERY DAY DIRECTED; Therapy: 30Dec2012 to (Evaluate:06Mar2016) Requested for: 92Erd1597; Last Rx:45Kgj5817 Ordered 2. Aspirin EC 81 MG Oral Tablet Delayed Release; TAKE 1 TABLET DAILY DIRECTED; Therapy: (Recorded:17Mar2013) to Recorded 3. Celecoxib 200 MG Oral Capsule; TAKE 1 CAPSULE DAILY; Therapy: 76Nrg5289 to (Last Rx:90Jhw9272) Requested for: 70Dcp9794 Ordered 4. Fluticasone Propionate 50 MCG/ACT Nasal Suspension; USE 2 SPRAYS IN EACH NOSTRIL ONCE DAILY; Therapy: 08Jun2015 to (Last Rx:08Jun2015) Requested for: 63Xhp2353 Ordered 5. Losartan Potassium-HCTZ 50-12.5 MG Oral Tablet; TAKE ONE TABLET BY MOUTH ONCE DAILY; Therapy: 15Qnl5488 to (Evaluate:53Nah2522) Requested for: 27Jul2015; Last Rx:27Jul2015 Ordered 6. Omeprazole 40 MG Oral Capsule Delayed Release; TAKE ONE CAPSULE BY MOUTH EVERY DAY; Therapy: 05Jun2012 to (Evaluate:50Ypa0391) Requested for: 30Dec2015; Last Rx:30Dec2015 Ordered 7. VESIcare 10 MG Oral Tablet; TAKE 1 TABLET BY MOUTH EVERY DAY; Therapy: 01Feb2012 to (Evaluate:63Cjm1061) Requested for: 27Jan2016; Last Rx:27Jan2016 Ordered 8. ZyrTEC Allergy 10 MG Oral Capsule; TAKE 1 CAPSULE Daily; Therapy: (Recorded:17Mar2013) to Recorded Allergies 1. No Known Drug Allergies Vitals Recorded: 30Jan2016 04:00PM Systolic 146 Diastolic 86 Height 5 ft 6 in Weight 242 lb BMI Calculated 39.06 BSA Calculated 2.17 Physical Exam Constitutional General [...] Assessment 1. Allergic rhinitis (477.9) (J30.9) 2. Compression fracture of thoracic vertebra (805.2) (S22.000A) 3. Hyperactivity of bladder (596.51) (N31.8) 4. Hypertension (401.9) (I10) 5. Low back pain (724.2) (M54.5) 6. NUD (nonulcer dyspepsia) (536.8) (K30) 7. Morbid obesity (278.01) (E66.01) Plan Health Maintenance, Hypertension, Morbid obesity, NUD (nonulcer dyspepsia) 1. Follow-up visit in 6 months Outpatient Follow-up Status: Hold For - Scheduling Requested for: 30Jan2016 Ordered; For: Health Maintenance, Hypertension, Morbid obesity, NUD (nonulcer dyspepsia); Ordered By: Al Gloria Performed: Due: 67Mko5712 Hypertension 2. LC-Basic Metabolic Panel ( 8 ) 583186; Status:Hold For - Manual Activation; Requested for:30Jan2016; Perform:[facility] Cli Bill; Due:94Hmj9160;Ordered; For:Hypertension; Ordered By:Al Gloria; Morbid obesity 3. Planning Supervisor Referral Outpatient For: Morbid obesity Status: Need Information - Financial Authorization Requested for: 30Jan2016 Ordered; For: Morbid obesity; Ordered By: Al Gloria Performed: Due: 20Byy4611 Signatures Electronically signed by : Al Gloria D.O.; Jan 30 2016 4:20PM FOREMAN/PROJECT MANAGER (Author) documented in this encounter Plan of Treatment Upcoming Encounters Date Type Department Care Team (Late st Contact Info) Description 05/01/2024 8:00 AM FOREMAN/PROJECT MANAGER Appointment [facility] [place] [address] Edgard Washington MD Three [facility] [address] [place] [address] 06/02/2024 10:15 AM CDT Office Visit [facility], [address] [place] [address] Edgard Washington MD Three [facility] [address] [place] [address] documented as of this encounter Visit Diagnoses Not on filedocumented in this encounter Care Teams Railroad Car Checker Relationship Specialty Start Date End Date Al Gloria DO [address] [place] [address] PCP - General 09/10/15 09/26/17 Mariana Ruiz DO [address] [place] [address] PCP - General FAMILY PRACTICE 09/27/17 06/04/23 documented as of this encounter
--- OUTSIDE RECORDS SUMMARY | 2024-03-23 01:35 | XMS_ITS | Encounter Summary ---
Author Organization [facility] Address [address] [place] [address]. [place], [place] [address] [place] [address] Care Team Providers Care Political Research Scientist Name Role Phone Darnell Arriaga DO Primary Care Provider [phone] Darnell Arriaga DO Primary Care Provider [phone] Mariana Ruiz DO Primary Care Provider [phone] Encounter Details Date Type Department Care Team (Latest Contact Info) Description 08/02/2014 Abstract [facility] Darnell Arriaga DO [address] [place] [address] Social History Tobacco Use Types Packs/Day Years [...] st Contact Info) Description 05/01/2024 8:00 AM VOICE TEACHER Appointment [facility] [address] [place], [place] [id number] Edgard Washington MD [address] [facility] [address] [place], [place] [address] 06/02/2024 10:15 AM CDT Office Visit [facility], [address] [place] [address] Edgard Washington MD [address] [facility] [address] [place] [address] documented as of this encounter Procedures Procedure Name Priority Date/Time Associated Diagnosis Comments TISSUE EXAM BY PATHOLOGIST Routine 08/02/2014 12:00 AM CDT documented in this encounter Results * TISSUE EXAM BY PATHOLOGIST (08/02/2014 12:00 AM CDT) PATHOLOGY - SURGICAL FINAL REPORT Patient Name: JULIANNA SALGADO Med. Rec. #:[id number] : 1955 (Age: 59) Gender: F Soc. Sec. #:[id number] Physician(s): DARNELL ARRIAGA Client: [facility] Location: [facility] Service: Billing #[id number] Copy To: Taken: 08/02/2014 Received: 08/02/2014 Reported: 08/03/2014 Specimen(s) Received A: Gastric, biopsy B: Gastroesophageal junction, biopsy Final Pathologic Diagnosis A. ??STOMACH, BIOPSY: ? CHRONIC GASTRITIS ? H. PYLORI IMMUNOSTAIN PENDING, TO BE REPORTED IN AN ADDENDUM B. ??GASTROESOPHAGEAL JUNCTION, BIOPSY: ? COLUMNAR MUCOSA WITH CHRONIC INFLAMMATION CONSISTENT WITH REFLUX ESOPHAGITIS ? NO INTESTINAL METAPLASIA vas/08/03/2014 Electronically Signed Out Darius JOHNSON MD Procedures/Addenda Addendum JUICE ? Date Ordered: ? 08/04/2014 ? Status: ?? Signed Out ? Date Complete: ? 08/04/2014 ? Date Reported: ? 08/04/2014 Addendum Diagnosis An immunostain for H. pylori performed on the stomach biopsy (part A) is negative. Addendum Comment These tests were developed and the performance characteristics determined by [place], [place] and/or [facility]. ??They have not been cleared or approved by the US Food and Drug Administration (FDA). ??The FDA has determined that such clearance or approval is not necessary. ??These tests are used for clinical purposes. ??Prognostic and predictive testing should be interpreted in the context of additional and/or histopathological findings. ? FOSTER JOHNSON MD Microscopic Description Microscopic examination substantiates above diagnosis. Clinical History Abdominal pain, screening Gross Description The specimen is received in two formalin-filled containers both labeled with the patient's name (Julianna Salgado) and date of . A. ??The first container is additionally labeled gastric biopsy (in formalin at 1000) . ??The specimen consists of a single fragment of cole tissue which measures up to 0.3 cm. ??The specimen is entirely submitted in cassette A. B. ??The second container is additionally labeled as GE junction biopsy (in formalin at 1000) . ??The specimen consists of a single fragment of cole tissue measuring up to 0.2 cm. ??The specimen is entirely submitted in cassette B. vas[place] [place]08/02/2014 Billing Fee Code(s): 85431 ??JUICE(2), 74089 JUICE TOUCHWORKS TO EPIC CONVERSION 08/02/2014 08/02/2014 Narrative TOUCHWORKS TO EPIC CONVERSION - 08/02/2014 2:28 PM CDT [id number] 4:17PM by Darnell Arriaga: ??stomach biopsies negative Result Communication: Call patient with results Darnell Arriaga DO PATHOLOGY/CYTOLOGY ORDERABLES Final Result TOUCHWORKS TO EPIC CONVERSION documented in this encounter Visit Diagnoses Not on filedocumented in this encounter Care Teams Political Research Scientist Relationship Specialty Start Date End Date Darnell Arriaga DO [address] [place], [place] [id number] PCP - General 09/10/15 09/26/17 Darnell Arriaga DO [address] [place] [address] PCP - General 08/02/14 09/09/15 Mariana Ruiz DO [address] [place] [address] PCP - General FAMILY PRACTICE 09/27/17 06/04/23 documented as of this encounter
--- OUTSIDE RECORDS SUMMARY | 2024-03-23 01:35 | XMS_ITS | Encounter Summary ---
Author Organization [facility] Address [address] [place] [address]. 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 [facility] [address] [place], [place] [address] Edgard Washington MD Three [facility] [address] [place], [place] [id number] 06/02/2024 10:15 AM CDT Office Visit [facility] [address] [place] [address] Edgard Washington MD Three [facility] [address] [place] [address] documented as of this encounter Procedures Procedure Name Priority Date/Time Associated Diagnosis Comments MG SCREENING BRANDY DIGI Routine 09/10/2015 12:50 PM CDT documented in this encounter Results * MG SCREENING BRANDY DIGI (09/10/2015 12:50 PM CDT) Anatomical Region Laterality Modality Breast Bilateral Mammography 09/10/2015 12:5 0 PM CDT 09/10/2015 12:50 PM CDT Narrative 09/10/2015 12:57 PM CDT JULIANNA SALGADO ? ADMIT/SERVICE DATE: 09/10/15 ?? ACCT: [id number] ?DISCHARGE DATE: ?? : 1955 ??SEX: F ?ORD SITE: [facility] ?? PT TYPE: REG CLI ? ORDERING MD: DARNELL ARRIAGA DO ? STUDY DATE ? REPORT # ?ORDER # ? EXT ORDER ID ?? 09/10/15 ? [id number] ? [id number] ?[id number] ? PROC CODE: ? SCMAMDGB ? PROCEDURE DESCRIPTION: ?? MG SCREEN MAMMO DIGITAL BI ? IMPRESSION: ?? 1. ??STABLE MAMMOGRAPHIC APPEARANCE WITH NO NEW FINDINGS TO SUGGEST ?? MALIGNANCY IN EITHER BREAST. ? ASSESSMENT: ACR BI-RADS CATEGORY 2 - BENIGN. ? RECOMMENDATION: ?? 1: ROUTINE SCREENING MAMMOGRAM ??BILATERAL ??IN 1 YEAR ? COMMENTS: ? EXAMINATION: DIGITAL BILATERAL SCREENING MAMMOGRAM ? CLINICAL HISTORY: NO PERSONAL HISTORY OF BREAST CANCER. BREAST CANCER IN ?? A SISTER AT AGE 63. BENIGN BIOPSY ON THE LEFT 1988. NO CURRENT ?? COMPLAINTS. ? COMPARISON: PRIOR MAMMOGRAMS FROM 07/28/2014 05/10/2010 03/05/2009 ? TECHNIQUE: BILATERAL CC AND MLO MAMMOGRAMS ARE OBTAINED. THIS STUDY WAS ?? READ WITH THE ASSISTANCE OF A COMPUTER-AIDED DETECTION SYSTEM. ? TISSUE DENSITY: THE BREAST TISSUE CONTAINS SCATTERED FIBROGLANDULAR ?? DENSITIES. ? FINDINGS: MOLE MARKER ON THE RIGHT. BENIGN AXILLARY LYMPH NODES. BENIGN ?? PUNCTATE CALCIFICATIONS. KELOID SCAR IS IN THE MID CHEST AGAIN NOTED. ?? OVERALL PARENCHYMAL PATTERN STABLE FROM COMPARISON EXAMS. THERE IS NO ?? NEW FOCAL ASYMMETRY, DOMINANT MASS LESION, AREA OF SKIN THICKENING, OR ?? CLUSTER OF SUSPICIOUS APPEARING CALCIFICATIONS IN EITHER BREAST TO ?? SUGGEST MALIGNANCY. ? ELECTRONICALLY SIGNED BY: DEE HUTTON09/10/2015 12:52 PM ? Procedure Note Yaa Del Real MD - 05/22/2018 SALGADOJULIANNA DODSON ADMIT/SERVICE DATE:09/10/15 ACCT: [id number] DISCHARGE DATE: : 1955 SEX: F ORD SITE: [facility] PT TYPE: REG CLI ORDERING MD:DARNELL ARRIAGA DO STUDY DATE REPORT # ORDER # EXT ORDER ID 09/10/15 [id number] PROC CODE: SCMAMDGB PROCEDURE DESCRIPTION: MG SCREEN MAMMO DIGITAL BI IMPRESSION: 1. STABLE MAMMOGRAPHIC APPEARANCE WITH NO NEW FINDINGS TO SUGGEST MALIGNANCY IN EITHER BREAST. ASSESSMENT: ACR BI-RADS CATEGORY 2 - BENIGN. RECOMMENDATION: 1: ROUTINE SCREENING MAMMOGRAM BILATERAL IN 1 YEAR COMMENTS: EXAMINATION: DIGITAL BILATERAL SCREENING MAMMOGRAM CLINICAL HISTORY: NO PERSONAL HISTORY OF BREAST CANCER. BREAST CANCER IN A SISTER AT AGE 64. BENIGN BIOPSY ON THE LEFT 1989. NO CURRENT COMPLAINTS. COMPARISON: PRIOR MAMMOGRAMS FROM 07/28/2014 05/10/2010 03/05/2009 TECHNIQUE: BILATERAL CC AND MLO MAMMOGRAMS ARE OBTAINED. THIS STUDY WAS READ WITH THE ASSISTANCE OF A COMPUTER-AIDED DETECTION SYSTEM. TISSUE DENSITY: THE BREAST TISSUE CONTAINS SCATTERED FIBROGLANDULAR DENSITIES. FINDINGS: MOLE MARKER ON THE RIGHT. BENIGN AXILLARY LYMPH NODES. BENIGN PUNCTATE CALCIFICATIONS. KELOID SCAR IS IN THE MID CHEST AGAIN NOTED. OVERALL PARENCHYMAL PATTERN STABLE FROM COMPARISON EXAMS. THERE IS NO NEW FOCAL ASYMMETRY, DOMINANT MASS LESION, AREA OF SKIN THICKENING, OR CLUSTER OF SUSPICIOUS APPEARING CALCIFICATIONS IN EITHER BREAST TO SUGGEST MALIGNANCY. ELECTRONICALLY SIGNED BY: DEE HUTTON09/10/2015 12:52 PM Darnell Arriaga DO MAMMO Final Result documented in this encounter Visit Diagnoses Not on filedocumented in this encounter Care Teams Palliative Care Nurse Practitioner Relationship Specialty Start Date End Date Darnell Arriaga DO [address] [place] [address] PCP - General 09/10/15 09/26/17 Mariana Ruiz DO [address] [place] [address] PCP - General FAMILY PRACTICE 09/27/17 06/04/23 documented as of this encounter
--- OUTSIDE RECORDS SUMMARY | 2024-03-23 01:35 | XMS_ITS | Encounter Summary ---
Author Organization [facility] Address [address] [place] [address]. [place], [place] [address] [place] [address] Care Team Providers Care Ultrasonic Hand Solderer Name Role Phone Darnell Arriaga DO Primary Care Provider [phone] Darnell Arriaga DO Primary Care Provider [phone] Darnell Arriaga DO Primary Care Provider [phone] Mariana Ruiz DO Primary Care Provider [phone] Encounter Details Date Type Department Care Team (Latest Contact Info) Description 07/29/2014 Abstract [facility] , Yaa Ramos MD Social History Tobacco Use Types Packs/Day Years Used Date Smoking Tobacco: Never Assessed Comments Unknown Sex and Gender Information Value Date Recorded Sex Assigned at Not on file Legal Sex Female 6:40 PM CDT Gender Identity Not on file Sexual Orientation Not on file documented as of this encounter Progress Notes * Darnell Arriaga DO - 07/29/2014 9:35 PM CDT Message send card Verified Results MG SCREEN MAMMO DIGITAL BI [id number] 10:40AM Darnell Arriaga Test Name Result Flag Reference MG SCREEN MAMMO DIGITAL BI (Report) JULIANNA SALGADO ADMIT/SERVICE DATE: 07/28/14 ACCT: [id number] DISCHARGE DATE: : 1955 SEX: F ORD SITE: [facility] PT TYPE: REG CLI ORDERING MD: ARRIAGA,DARNELL DO STUDY DATE REPORT # ORDER # EXT ORDER ID 07/28/14 [id number] PROC CODE: SCMAMDGB PROCEDURE DESCRIPTION: MG SCREEN [...] ELECTRONICALLY SIGNED BY: NAYLA PIERRE07/28/2014 10:43 AM LC-CBC, No Differential/Platelet [id number] 28Jul2014 09:28AM Darnell Arriaga Test Name Result Flag Reference WBC 4.9 x10E3/uL 3.4-10.8 RBC 4.66 x10E6/uL 3.77-5.28 Hemoglobin 13.5 g/dL 11.1-15.9 Hematocrit 40.6 % 34.0-46.6 MCV 87 fL 79-97 MCH 29.0 pg 26.6-33.0 MCHC 33.3 g/dL 31.5-35.7 RDW 15.0 % 12.3-15.4 NRBC -TSH [id number] 28Jul2014 09:28AM Darnell Arriaga Test Name Result Flag Reference TSH 3.210 uIU/mL 0.450-4.500 [facility]- CMP 28Jul2014 09:27AM Darnell Arriaga Test Name Result Flag Reference GLUCOSE 91 mg/dL 74-106 BUN 13 mg/dL 6-20 CREATININE 0.8 mg/dL 0.6-1.0 BUN/CREATININE 16 4-25 eGFR 78.3 mL/min/1.73 m >60.0 eGFR- 94.7 mL/min/1.73 m >60.0 CALCIUM 9.1 mg/dl 8.6-10.3 SODIUM 139 mmol/L 135-145 POTASSIUM 3.2 mmol/L L 3.5-5.2 REPEATED CHLORIDE 101 mmol/L 97-107 CO2 31 mmol/L 21-31 ANION GAP 7.0 7.0-18.0 TOTAL PROTEIN 6.9 g/dL 6.3-8.3 ALBUMIN 4.2 g/dL 3.5-5.2 GLOBULIN CALCULATED 2.7 g/dL 1.6-3.2 A/G RATIO 1.6 1.1-2.5 BILIRUBIN TOTAL 0.55 mg/dL 0.20-1.20 ALKALINE PHOSPHATASE 53 U/L 42-98 AST (SGOT) 21 U/L 5-34 ALT (SGPT) 14 U/L 0-34 RESULTS <10 ARE ACCEPTABLE [facility]- LIPID PANEL [id number] 09:27AM Darnell Arriaga Test Name Result Flag Reference CHOLESTEROL 177 mg/dL 0-199 TRIGLYCERIDES 65 mg/dL 0-149 HDL 59 mg/dL 40-60 CLDL 105 0-130 RISK FACTOR 3.0 documented in this encounter Plan of Treatment Upcoming Encounters Date Type Department Care Team (Late st Contact Info) Description 05/01/2024 8: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, ED [address] [place] [address] Edgard Washington MD [facility], [address] [place] [address] documented as of this encounter Visit Diagnoses Not on filedocumented in this encounter Care Teams Ultrasonic Hand Solderer Relationship Specialty Start Date End Date Darnell Arriaga DO [address] [place] [address] PCP - General 09/10/15 09/26/17 Darnell Arriaga DO [address] [place] [address] PCP - General 08/02/14 09/09/15 Darnell Arriaga DO [facility] [place] [address] PCP - General 07/28/14 08/01/14 Mariana Ruiz DO [address] [place], [place] [address] PCP - General FAMILY PRACTICE 09/27/17 06/04/23 documented as of this encounter
--- OUTSIDE RECORDS SUMMARY | 2024-03-23 01:35 | XMS_ITS | Encounter Summary ---
Author Organization [facility] Address [address] [place] [address]. [place] [address] [place] [address] Care Team Providers Care Lead Case Manager Name Role Phone Al Gloria DO Primary Care Provider [phone] Al Gloria DO Primary Care Provider [phone] Al Gloria DO Primary Care Provider [phone] Al Gloria DO Primary Care Provider [phone] Yaa Del Real MD Primary Care Provider Unavailable Encounter Details Date Type Department Care Team (Late st Contact Info) Description 06/05/2012 Abstract [facility] [address] [address] Al Gloria DO [facility] [place], [place] [address] Social History Tobacco Use Types Packs/Day Years [...] st Contact Info) Description 05/01/2024 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, ED [address] [place] [address] Edgard Washington MD Three [facility] [address] [place] [address] documented as of this encounter Visit Diagnoses Diagnosis Sprain of hand Sprain of hand, unspecified site documented in this encounter Care Teams Lead Case Manager Relationship Specialty Start Date End Date Al Gloria DO [facility] [place] [address] PCP - General 09/10/15 09/26/17 Al Gloria DO [facility] [place] [address] PCP - General 08/02/14 09/09/15 Al Gloria DO [facility] [place] [address] PCP - General 07/28/14 08/01/14 Al Gloria DO [address] [place] [address] PCP - General 11/18/13 07/27/14 Yaa Del Real MD PCP - General 06/05/12 documented as of this encounter
--- OUTSIDE RECORDS SUMMARY | 2024-03-23 01:35 | XMS_ITS | Encounter Summary ---
Author Organization [facility] Address [address] [place] [address]. [place] [address] [place] [address] Care Team Providers Care First Mate Name Role Phone Al Gloria DO Primary Care Provider [phone] Al Gloria DO Primary Care Provider [phone] Al Gloria DO Primary Care Provider [phone] Al Gloria DO Primary Care Provider [phone] Yaa Del Real MD Primary Care Provider Unavailable Mariana Ruiz DO Primary Care Provider [phone] Encounter Details Date Type Department Care Team (Latest Contact Info) Description 04/13/2013 Abstract [facility] Al Gloria DO [address] [place] [address] Social History Tobacco Use Types Packs/Day Years Used Date Smoking Tobacco: Never Assessed Comments Unknown Sex and Gender Information Value Date Recorded Sex Assigned at Not on file Legal Sex Female 6:40 PM CDT Gender Identity Not on file Sexual Orientation Not on file documented as of this encounter Last Filed Vital Signs Vital Sign Reading Time Taken Comments Blood Pressure 142/88 04/13/2013 4:15 PM CORNER CUTTER Pulse - - Temperature - - Respiratory Rate - - Oxygen Saturation - - Inhaled Oxygen Concentration - - Weight 108.9 kg (240 lb) 04/13/2013 4:15 PM CORNER CUTTER Height - - Body Mass Index 38.74 06/27/2012 4:00 PM CDT documented in this encounter Progress Notes * Al Gloria, DO - 04/13/2013 4:15 PM CST Reason For Visit Chronic Recheck Visit Chief Complaint one month follow up ankle pain History of Present Illness Some minimal right ankle pain and swelling, much improved. No problems with medicine. The patient is being seen for a routine clinic follow-up of ankle pain. Symptoms: ankle pain and foot pain. The patient is currently experiencing symptoms. Review of Systems Constitutional: no fever and no chills. ENT: no earache. Cardiovascular: the heart rate was not slow. Respiratory: no shortness of breath. Active Problems 1. Allergic rhinitis (477.9) (J30.9) 2. Ankle joint pain (719.47) (M25.579) 3. Compression fracture of thoracic vertebra (805.2) (S22.000A) 4. Dyspepsia (536.8) (K30) 5. Hyperactivity of bladder (596.51) (N31.8) 6. Hypertension (401.9) (I10) 7. Lumbago (724.2) (M54.5) 8. Thumb sprain (842.10) (S63.609A) Surgical History 1. History of Colonoscopy (Fiberoptic) Family History 1. Family history of Osteoporosis (V17.81) 2. Family history of Type 2 Diabetes Mellitus Social History ?? Being A Social Drinker ?? Marital History - Single ?? Never a smoker ?? Parentage ?? Working Part-time Current Meds 1. AmLODIPine Besylate 5 MG Oral Tablet (Norvasc); TAKE 1 TABLET DAILY DIRECTED; Therapy: 30Dec2012 to (Evaluate:28Jun2013) Requested for: 30Dec2012; Last Rx:30Dec2012 Ordered 2. Aspirin EC 81 MG Oral Tablet Delayed Release; TAKE 1 TABLET DAILY DIRECTED; Therapy: (Recorded:17Mar2013) to Recorded 3. Lisinopril-Hydrochlorothiazide 20-25 MG Oral Tablet (Zestoretic); TAKE 1 TABLET BY MOUTH EVERY DAY; Therapy: 30Dec2012 to (Evaluate:28Jun2013) Requested for: 30Dec2012; Last Rx:30Dec2012 Ordered 4. Meloxicam 15 MG Oral Tablet; TAKE 1 TABLET DAILY WITH FOOD; Therapy: 17Mar2013 to (Last Rx:17Mar2013) Requested for: 17Mar2013 Ordered 5. Omeprazole 40 MG Oral Capsule Delayed Release; TAKE ONE CAPSULE BY MOUTH EVERY DAY; Therapy: 05Jun2012 to (Evaluate:25Mar2013) Requested for: 40Gam0932; Last Rx:[id number] Ordered 6. VESIcare 10 MG Oral Tablet; TAKE 1 TABLET BY MOUTH EVERY DAY; Therapy: 01Feb2012 to (Evaluate:09Jun2013) Requested for: 11Dec2012; Last Rx:11Dec2012 Ordered 7. ZyrTEC Allergy 10 MG Oral Capsule; TAKE 1 CAPSULE Daily; Therapy: (Recorded:17Mar2013) to Recorded Allergies 1. No Known Drug Allergies Vitals Recorded by : Valery Holley at [id number] 04:15PM Systolic 142 Diastolic 88 Weight 240 lb BMI Calculated 38.74 BSA Calculated 2.16 Physical Exam Constitutional General [...] Mood and affect: Normal. Assessment 1. Ankle joint pain (719.47) (M25.579) Plan 1. Renew: Meloxicam 15 MG Oral Tablet; TAKE 1 TABLET DAILY WITH FOOD Rx By: Al Gloria; Dispense: 0 Days ; #:30 Tablet; Refill: 1; For: Ankle joint pain; LOU = N; Verified Transmission to [facility][id number]; Last Updated By: YogaTrail; 04/13/2013 4:55:48 PM 2. Follow-up visit in 6 months Outpatient Follow-up Status: Hold For - Scheduling Requested for: [id number] Ordered; For: Ankle joint pain, Health Maintenance, Hyperactivity of bladder, Hypertension; OrderedBy: Al Gloria Performed: Due: [id number] 3. Renew: VESIcare 10 MG Oral Tablet; TAKE 1 TABLET BY MOUTH EVERY DAY Rx By: Al Gloria; Dispense: 90 Days ; #:90 Tablet; Refill: 1; For: Hyperactivity of bladder; LOU = N; Verified Transmission to [facility][id number]; Msg to Pharmacy: REFILL REQUEST; Last Updated By: YogaTrail; 04/13/2013 4:56:51 PM Signatures Electronically signed by : Al Gloria D.O.; Apr 13 2013 4:59PM CORNER CUTTER (Author) documented in this encounter Plan of Treatment Upcoming Encounters Date Type Department Care Team (Late st Contact Info) Description 05/01/2024 8:00 AM CORNER CUTTER Appointment [facility] Non Invasive Cardiology [facility] [place] [address] Edgard Washington MD Three [facility]., [address] [place], [place] [address] 06/02/2024 10:15 AM CDT Office Visit [facility] THREE [facility], ED [address] [place] [address] Edgard Washington MD Three [facility] [address] [place] [address] documented as of this encounter Visit Diagnoses Not on filedocumented in this encounter Care Teams First Mate Relationship Specialty Start Date End Date Al Gloria DO [address] [place] [address] PCP - General 09/10/15 09/26/17 Al Gloria, [address] [place] [address] PCP - General 08/02/14 09/09/15 Al Gloria, [address] [place] [address] PCP - General 07/28/14 08/01/14 Al Gloria, [facility] [place] [address] PCP - General 11/18/13 07/27/14 Yaa Del Real MD PCP - General 06/05/12 Mariana Ruiz DO [address] [place], [place] [address] PCP - General FAMILY PRACTICE 09/27/17 06/04/23 documented as of this encounter
--- OUTSIDE RECORDS SUMMARY | 2024-03-23 01:35 | XMS_ITS | Encounter Summary ---
Author Organization [facility] Address [address] [place] [address]. [place] [address] [place] [address] Care Team Providers Care Bi Solutions Architect Name Role Phone Al Gloria DO Primary Care Provider [phone] Al Gloria DO Primary Care Provider [phone] Al Gloria DO Primary Care Provider [phone] Al Gloria DO Primary Care Provider [phone] Yaa Del Real MD Primary Care Provider Unavailable Mariana Ruiz DO Primary Care Provider [phone] Encounter Details Date Type Department Care Team (Latest Contact Info) Description 06/27/2012 Abstract [facility] Medical Group Al Gloria DO [address] [place] [address] Social History Tobacco Use Types [...] Reading Time Taken Comments Blood Pressure 132/80 06/27/2012 4:00 PM CDT Pulse - - Temperature - - Respiratory Rate - - Oxygen Saturation - - Inhaled Oxygen Concentration - - Weight 108.9 kg (240 lb) 06/27/2012 4:00 PM CDT Height 167.6 cm (5' 6 ) 06/27/2012 4:00 PM CDT Body Mass Index 38.74 06/27/2012 4:00 PM CDT documented in this encounter Progress Notes * Al Gloria, - 06/27/2012 4:15 PM CDT Reason For Visit Reason For Visit: Chronic Recheck Visit Chief Complaint 1. Finger Problem Chief Complaint Free Text: follow up thumb pain, discuss MRI History of Present Illness Finger Problem: Julianna Brown presents with complaints of finger problem. Associated symptoms include finger swelling and lump on the finger. The patient presents with complaints of gradual onset of intermittent episodes of mild distal interphalangeal joint and right first digit finger pain. Episodes started 9 months ago. Symptoms are improved by rest and analgesics. Symptoms are made worse by overuse. Symptoms are improving. Review of Systems Focused-Female: Constitutional: no fever and no chills. Cardiovascular: no chest pain. Respiratory: no shortness of breath. Active Problems 1. Allergic Rhinitis 477.9 2. Compression Fracture Of Thoracic Vertebral Body 805.2 3. Dyspepsia 536.8 4. 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 Hypertension 401.9 6. Thumb Sprain 842.10 Surgical History 1. History of Colonoscopy (Fiberoptic) Family History 1. Family history of Osteoporosis V17.81 2. Family history of Type 2 Diabetes Mellitus Social History ?? Being A Social Drinker ?? Marital History - Single ?? Never A Smoker ?? Parentage ?? Working Part-time Current Meds 1. Aspirin EC 81 MG Oral Tablet Delayed Release; Therapy: (Recorded:03Jun2012) to Recorded; Dispense: 0 Days ; #: Sufficient TBEC; Refill: 0; Record; Last Updated By: Al Gloria 2. Norvasc 5 MG Oral Tablet; Therapy: (Recorded:03Jun2012) to Recorded; Dispense: 0 Days ; #: Sufficient TABS; Refill: 0; Record; Last Updated By: Al Gloria 3. Omeprazole 40 MG Oral Capsule Delayed Release; TAKE 1 CAPSULE DAILY; Therapy: 05Jun2012 to (Evaluate:[id number]) Requested for: 05Jun2012; Last Rx:05Jun2012 Ordered; For: Dyspepsia (536.8); Rx By: Al Gloria; Dispense: 30 Days ; #:30 Capsule Delayed Release; Refill: 3; Verified Transmission to [facility] [address] 4. VESIcare 10 MG Oral Tablet; TK ONE T PO D; Therapy: 01Feb2012 to Recorded; Dispense: 30 Days ; #:30 TABS; Refill: 0; Record; Last Updated By: Elsie Ding 5. Zestoretic 20-25 MG Oral Tablet; Therapy: (Recorded:03Jun2012) to Recorded; Dispense: 0 Days ; #: Sufficient TABS; Refill: 0; Record; Last Updated By: Al Gloria 6. ZyrTEC Allergy 10 MG Oral Capsule; Therapy: (Recorded:05Jun2012) to Recorded; Dispense: 0 Days ; #: Sufficient CAPS; Refill: 0; Record; Last Updated By: Elsie Ding Allergies 1. No Known Drug Allergies No Known Drug Allergies Vitals Vital Signs [Data Includes: Current Encounter] 27Jun2012 04:00PM Systolic 132 Diastolic 80 BMI Calculated 38.57 BSA Calculated 2.16 Height 5 ft 6 in Weight 240 lb Physical Exam Constitutional General appearance: No acute distress, well appearing and well nourished. Musculoskeletal Digits and nails: Normal without clubbing or cyanosis. Assessment 1. Health Maintenance V70.0 2. Hypertension 401.9 3. Thumb Sprain 842.10 Plan 1. Follow-up visit in 6 months Outpatient Follow-up Requested for: 27Jun2012 Ordered; For: Health Maintenance (V70.0), Hypertension (401.9), Thumb Sprain (842.10); Ordered By: Al Gloria Performed: Due: [id number] Signatures Electronically signed by : Al Gloria D.O.; Jun 27 2012 4:31PM (Author) documented in this encounter Plan of Treatment Upcoming Encounters Date Type Department Care Team (Late st Contact Info) Description 05/01/2024 8:00 AM BUSINESS ACCOUNT EXECUTIVE Appointment [facility] [place] [address] Edgard Washington MD Three [facility] [address] [place] [address] 06/02/2024 10:15 AM CDT Office Visit [facility] THREE [facility], ED [address] [place] [address] Edgard Washington MD Three [facility] [address] [place] [address] documented as of this encounter Visit Diagnoses Not on filedocumented in this encounter Care Teams Bi Solutions Architect Relationship Specialty Start Date End Date Al Gloria DO [facility] [place] [address] PCP - General 09/10/15 09/26/17 Al Gloria DO [address] [place] [address] PCP - General 08/02/14 09/09/15 Al Gloria DO [address] [place] [address] PCP - General 07/28/14 08/01/14 Al Gloria DO [address] [place] [address] PCP - General 11/18/13 07/27/14 Yaa Del Real MD PCP - General 06/05/12 Mariana Ruiz DO [address] [place] [address] PCP - General FAMILY PRACTICE 09/27/17 06/04/23 documented as of this encounter
--- OUTSIDE RECORDS SUMMARY | 2024-03-23 01:35 | XMS_ITS | Encounter Summary ---
Author Organization [facility] Address [address] [place] [address]. [place], [place] [address] [place] [address] Care Team Providers Care Treatment Manager Name Role Phone Al Gloria DO Primary Care Provider [phone] Mariana Ruiz DO Primary Care Provider [phone] Encounter Details Date Type Department Care Team (Latest Contact Info) Description 02/05/2016 Abstract [facility] , Yaa Ramos MD Social History Tobacco Use Types Packs/Day Years Used Date Smoking Tobacco: Never Assessed Comments Unknown Sex and Gender Information Value Date Recorded Sex Assigned at Not on file Legal Sex Female 6:40 PM CDT Gender Identity Not on file Sexual Orientation Not on file documented as of this encounter Progress Notes * Al Gloria DO - 02/05/2016 6:01 PM CST Message Send Card Verified Results Labdaq- [facility] [id number] 09:09AM Al Gloria Test Name Result Flag Reference GLUCOSE 92 mg/dL 74-106 BUN 19 mg/dL 6-20 CREATININE 0.8 mg/dL 0.6-1.0 BUN/CREATININE 24 4-25 CALCIUM 8.8 mg/dl 8.6-10.3 SODIUM 136 mmol/L 135-145 POTASSIUM 3.3 mmol/L L 3.5-5.2 CONSISTENT WITH PREVIOUS RESULTS CHLORIDE 101 mmol/L 97-107 CO2 30 mmol/L 21-31 ANION GAP 5.0 L 7.0-18.0 TOTAL PROTEIN 6.3 g/dL 6.1-8.1 ALBUMIN 3.9 g/dL 3.5-5.2 GLOBULIN CALCULATED 2.4 g/dL 1.9-3.7 A/G RATIO 1.6 1.1-2.5 BILIRUBIN TOTAL 0.47 mg/dL 0.25-1.20 ALKALINE PHOSPHATASE 46 U/L 42-98 AST (SGOT) 16 U/L 5-34 ALT (SGPT) 14 U/L 0-34 RESULTS <10 ARE ACCEPTABLE eGFR 78.0 mL/min/1.73 m >60.0 eGFR- 94.4 mL/min/1.73 m >60.0 Labdaq- LIPID PANEL 30Jan2016 09:09AM Al Gloria Test Name Result Flag Reference CHOLESTEROL 183 mg/dL 0-199 TRIGLYCERIDES 36 mg/dL 0-149 HDL 71 mg/dL H 40-60 CLDL 105 0-130 RISK FACTOR 2.6 LC-CBC, No Differential/Platelet [id number] 30Jan2016 09:09AM Al Gloria Test Name Result Flag Reference WBC 5.2 x10E3/uL 3.4-10.8 RBC 4.53 x10E6/uL 3.77-5.28 Hemoglobin 13.6 g/dL 11.1-15.9 Hematocrit 39.5 % 34.0-46.6 MCV 87 fL 79-97 MCH 30.0 pg 26.6-33.0 MCHC 34.4 g/dL 31.5-35.7 RDW 14.4 % 12.3-15.4 NRBC LC-TSH [id number] 30Jan2016 09:09AM Al Gloria Test Name Result Flag Reference TSH 3.420 uIU/mL 0.450-4.500 documented in this encounter Plan of Treatment Upcoming Encounters Date Type Department Care Team (Late st Contact Info) Description 05/01/2024 8:00 AM NUCLEAR MEDICAL TECH Appointment [facility] Non [place] [address] Edgard Washington MD Three [facility] [address] [place], [place] [id number] 06/02/2024 10:15 AM CDT Office Visit [facility] THREE [facility], [address] [place], [place] [address] Edgard Washington MD Three [facility] [address] [place], [place] [address] documented as of this encounter Visit Diagnoses Not on filedocumented in this encounter Care Teams Treatment Manager Relationship Specialty Start Date End Date Al Gloria DO [address] [place] [address] PCP - General 09/10/15 09/26/17 Mariana Ruiz DO [address] [place] [address] PCP - General FAMILY PRACTICE 09/27/17 06/04/23 documented as of this encounter
--- OUTSIDE RECORDS SUMMARY | 2024-03-23 01:35 | XMS_ITS | Encounter Summary ---
Author Organization [facility] Address [address] [place] [address]. [place], [place] [address] [place] [address] Care Team Providers Care String Winding Machine Operator Name Role Phone GloriaAl griffith DO Primary Care Provider [phone] Mariana Ruiz DO Primary Care Provider [phone] Encounter Details Date Type Department Care Team (Latest Contact Info) Description 07/09/2016 Abstract [facility] Group Malka Mireles PA-C [address] [place] [address] Social History Tobacco Use Types Packs/Day Years Used Date Smoking Tobacco: Never Assessed Comments Unknown Sex and Gender Information Value Date Recorded Sex Assigned at Not on file Legal Sex Female 6:40 PM CDT Gender Identity Not on file Sexual Orientation Not on file documented as of this encounter Last Filed Vital Signs Vital Sign Reading Time Taken Comments Blood Pressure 130/76 07/09/2016 1:29 PM CDT Pulse - - Temperature - - Respiratory Rate - - Oxygen Saturation - - Inhaled Oxygen Concentration - - Weight 108.9 kg (240 lb) 07/09/2016 1:29 PM CDT Height 167.6 cm (5' 6 ) 07/09/2016 1:29 PM CDT Body Mass Index 38.74 07/09/2016 1:29 PM CDT documented in this encounter Progress Notes * Malka Mireles PA-C - 07/09/2016 1:45 PM CDT Reason For Visit Acute Visit Chief Complaint reduced hearing in L ear after using qtip History of Present Illness Ear Fullness: The patient is being seen for an initial evaluation of ear fullness. Symptoms: ear plugging and hearing loss, but no tinnitus and no vertigo The patient presents with complaints of ear fullness starting 1 week ago. The patient is currently experiencing symptoms. No associated symptoms are reported. Review of Systems Constitutional, ENT, Cardiovascular, Respiratory and Gastrointestinal review of systems normal except as noted. Active Problems 1. Acute sinusitis (461.9) (J01.90) 2. Allergic rhinitis (477.9) (J30.9) 3. Ankle joint pain (719.47) (M25.579) 4. Chest pain with painful respiration (786.52) (R07.1) 5. Compression fracture of thoracic vertebra (805.2) (S22.000A) 6. Hyperactivity of bladder (596.51) (N31.8) 7. Hypertension (401.9) (I10) 8. Low back pain (724.2) (M54.5) 9. Morbid obesity (278.01) (E66.01) 10. NUD (nonulcer dyspepsia) (536.8) (K30) 11. Thumb sprain (842.10) (S63.609A) Surgical History 1. [...] DIRECTED; Therapy: 30Dec2012 to (Evaluate:06Mar2016) Requested for: 19Isc6247; Last Rx:[id number] Ordered Rx By: Al Gloria; Dispense: 90 Days ; #:90 Tablet; Refill: 1; For: Hypertension; LOU = N; Verified Transmission to [facility] #4113; Last Updated By: Emery MapHazardlyjeaneth; 09/08/2015 1:29:42 PM 2. Aspirin EC 81 MG Oral Tablet Delayed Release; TAKE 1 TABLET DAILY DIRECTED; Therapy: (Recorded:17Mar2013) to Recorded Dispense: 0 Days ; #: Sufficient TBEC; Refill: 0; LOU = N; Record; Last Updated By: Nori Pedersen; 03/17/2013 10:02:13 AM 3. Celecoxib 200 MG Oral Capsule; TAKE 1 CAPSULE Daily; Therapy: 37Xif1807 to (Evaluate:70Trb0760) Requested for: 21Qnc8179; Last Rx:[id number] Ordered Rx By: Al Gloria; Dispense: 30 Days ; #:30 Capsule; Refill: 2; For: Low back pain, Thumb sprain; LOU = N; Verified Transmission to [facility] #2585; Last Updated By: [employer]; 04/25/2016 10:39:43 AM 4. Fluticasone Propionate 50 MCG/ACT Nasal Suspension; USE 2 SPRAYS IN EACH NOSTRIL ONCE DAILY; Therapy: 08Jun2015 to (Last Rx:08Jun2015) Requested for: 08Jun2015 Ordered Rx By: Malka Mireles; Dispense: 0 Days ; #:1 X 16 GM Bottle; Refill: 1; For: Acute sinusitis; LOU = N; Verified Transmission to [facility] #2585; Last Updated By: [employer]; 06/08/2015 3:40:36 PM 5. Losartan Potassium-HCTZ 50-12.5 MG Oral Tablet; TAKE ONE TABLET BY MOUTH ONCE DAILY; Therapy: 89Iar7841 to (Evaluate:61Kss7022) Requested for: 72Mlt5385; Last Rx:[id number] Ordered Rx By: Al Gloria; Dispense: 90 Days ; #:90 Tablet; Refill: 3; For: Hypertension; LOU = N; Verified Transmission to [facility] #2585; Last Updated By: [employer]; 07/27/2015 4:11:44 PM 6. Omeprazole 40 MG Oral Capsule Delayed Release; TAKE ONE CAPSULE BY MOUTH EVERY DAY; Therapy: 05Tzm7799 to (Evaluate:99Rck2528) Requested for: 49Ets7785; Last Rx:[id number] Ordered Rx By: Al Gloria; Dispense: 30 Days ; #:30 Capsule Delayed Release; Refill: 2; For: NUD (nonulcer dyspepsia); LOU = N; Verified Transmission to [facility] #2585; Last Updated By: Berny Land; 04/10/2016 7:13:13 PM 7. Oxybutynin Chloride ER 5 MG Oral Tablet Extended Release 24 Hour; Take 1 tablet daily; Therapy: 12Apr2016 to Recorded Dispense: 0 Days ; #: Sufficient Tablet Extended Release 24 Hour; Refill: 3; LOU = N; Record; Last Updated By: Marisa Guthrie; 04/12/2016 11:33:04 AM 8. ZyrTEC Allergy 10 MG Oral Capsule; TAKE 1 CAPSULE Daily; Therapy: (Recorded:17Mar2013) to Recorded Dispense: 0 Days ; #: Sufficient Capsule; Refill: 0; LOU = N; Record; Last Updated By: Nori Pedersen; 03/17/2013 10:02:13 AM Allergies 1. No Known Drug Allergies Recorded By: Al Gloria; 06/03/2012 4:30:05 PM Vitals Signs [Data Includes: Current Encounter] Temperature: 97.8 F Systolic: 130 Diastolic: 76 Height: 5 ft 6 in Weight: 240 lb BMI Calculated: 38.74 BSA Calculated: 2.16 Physical Exam Constitutional General appearance: No acute distress, well appearing and well nourished. Eyes Conjunctiva and lids: No swelling, erythema or discharge. Ears, Nose, Mouth, and Throat Otoscopic examination: Abnormal. The left tympanic membrane had a loss of landmarks and had a diminished light reflex. Exam of the left middle ear showed a middle ear effusion mucoid. Oropharynx: Normal with no erythema, edema, exudate or lesions. Pulmonary Respiratory effort: No increased work of breathing or signs of respiratory distress. Auscultation of lungs: Clear to auscultation. Cardiovascular Auscultation of heart: Normal rate and rhythm, normal S1 and S2, without murmurs. Lymphatic Palpation of lymph nodes in neck: No lymphadenopathy. Musculoskeletal Gait and station: Normal. Psychiatric Mood and affect: Normal. Assessment 1. Dysfunction of eustachian tube, unspecified laterality (381.81) (H69.80) Plan Use Flonase daily. f/u if not resolving. Signatures Electronically signed by : Malka Mireles PA-C; Jul 09 2016 1:49PM BIT SHARPENER (Author) Electronically signed by : Dimitri Morgan M.D.; Jul 09 2016 2:32PM BIT SHARPENER documented in this encounter Plan of Treatment Upcoming Encounters Date Type Department Care Team (Late st Contact Info) Description 05/01/2024 8:00 AM BIT SHARPENER Appointment [facility] [address] [place] [address] Edgard Washington MD [address] [place] [address] 06/02/2024 10:15 AM CDT Office Visit [facility] [address], [address] [place] [address] Edgard Washington MD [address] [place] [address] documented as of this encounter Visit Diagnoses Not on filedocumented in this encounter Care Teams String Winding Machine Operator Relationship Specialty Start Date End Date Al Gloria DO [address] [place] [address] PCP - General 09/10/15 09/26/17 Mariana Ruiz DO [address] [place], [place] [address] PCP - General FAMILY PRACTICE 09/27/17 06/04/23 documented as of this encounter
--- OUTSIDE RECORDS SUMMARY | 2024-03-23 01:35 | XMS_ITS | Encounter Summary ---
Author Organization [facility] Address [address] [place] [address]. [place], [place] [address] [place] [address] Care Team Providers Care Stone Mill Operator Name Role Phone Al Gloria DO Primary Care Provider [phone] Al Gloria DO Primary Care Provider [phone] Mariana Ruiz DO Primary Care Provider [phone] Encounter Details Date Type Department Care Team (Latest Contact Info) Description 08/02/2014 Abstract [facility] Al Gloria DO [address] [place] [address] Social History Tobacco Use Types Packs/Day Years [...] st Contact Info) Description 05/01/2024 8:00 AM CANE WEIGHER Appointment [facility] [address] [place], [place] [id number] Edgard Washington MD Three [facility] [address] [place], [place] [address] 06/02/2024 10:15 AM CDT Office Visit [facility] THREE [facility], ED [address] [place] [address] Edgard Washington MD Three [facility] [address] [place] [address] documented as of this encounter Visit Diagnoses Not on filedocumented in this encounter Care Teams Stone Mill Operator Relationship Specialty Start Date End Date Al Gloria DO [address] [place] [address] PCP - General 09/10/15 09/26/17 Al Gloria DO [address] [place] [address] PCP - General 08/02/14 09/09/15 Mariana Ruiz DO [address] [place], [place] [address] PCP - General FAMILY PRACTICE 09/27/17 06/04/23 documented as of this encounter
--- OUTSIDE RECORDS SUMMARY | 2024-03-23 01:35 | XMS_ITS | Encounter Summary ---
Author Organization [facility] Address [address] [place] [address]. [place] [address] [place] [address] Care Team Providers Care Boat Dispatcher Name Role Phone Al Gloria DO Primary Care Provider [phone] Al Gloria DO Primary Care Provider [phone] Mariana Ruiz DO Primary Care Provider [phone] Encounter Details Date Type Department Care Team (Latest Contact Info) Description 07/27/2015 Abstract [facility] Al Gloria, [address] [place] [address] Social History Tobacco Use Types Packs/Day Years Used Date Smoking Tobacco: Never Assessed Comments Unknown Sex and Gender Information Value Date Recorded Sex Assigned at Not on file Legal Sex Female 6:40 PM CDT Gender Identity Not on file Sexual Orientation Not on file documented as of this encounter Last Filed Vital Signs Vital Sign Reading Time Taken Comments Blood Pressure 144/80 07/27/2015 3:47 PM CDT Pulse - - Temperature - - Respiratory Rate - - Oxygen Saturation - - Inhaled Oxygen Concentration - - Weight 106.6 kg (235 lb) 07/27/2015 3:47 PM CDT Height 167.6 cm (5' 6 ) 07/27/2015 3:47 PM CDT Body Mass Index 37.93 07/27/2015 3:47 PM CDT documented in this encounter Progress Notes * Al Gloria DO - 07/27/2015 4:15 PM CDT Reason For Visit Reason For Visit: Health Lap Cutter Truer Operator Complaint Annual well exam History of Present Illness HPI Free Text: Dry cough x 3 months, no FCNVD. Left knee pain, right hip pain, x several months, no injury. Vertebral Compression Fracture: The patient is being seen for a routine clinic follow-up of vertebral compression fracture. Hypertension (Follow-Up): The patient presents for follow-up of primary hypertension. The patient states she has been doing well with her blood pressure control since the last visit. She has no significant interval events. Symptoms: [...] 10. Thumb sprain (842.10) (S63.609A) Surgical History ?? [...] MOUTH EVERY DAY DIRECTED; Therapy: 30Dec2012 to (Evaluate:68Vof7472) Requested for: 59Dke0030; Last Rx:[id number] Ordered Rx By: Sergei Neal; Dispense: 30 Days ; #:90 TAB; Refill: 0; For: Hypertension; LOU = N; [facility]ifiedTransmission to [facility] #2585; Last Updated By: [employer]; 09/02/2014 11:04:11 AM 2. Aspirin EC 81 MG Oral Tablet Delayed Release; TAKE 1 TABLET DAILY DIRECTED; Therapy: (Recorded:17Mar2013) to Recorded Dispense: 0 Days ; #: Sufficient TBEC; Refill: 0; LOU = N; Record; Last Updated By: Nori Pedersen; 03/17/2013 10:02:13 AM 3. Fluticasone Propionate 50 MCG/ACT Nasal Suspension; USE 2 SPRAYS IN EACH NOSTRIL ONCE DAILY; Therapy: 08Jun2015 to (Last Rx:08Jun2015) Requested for: 08Jun2015 Ordered Rx By: Malka Mireles; Dispense: 0 Days ; #:1 X 16 GM Bottle; Refill: 1; For: Acute sinusitis; LOU = N; Verified Transmission to [facility] #2585; Last Updated By: [employer]; 06/08/2015 3:40:36 PM 4. Lisinopril-Hydrochlorothiazide 20-25 MG Oral Tablet; Take 1 tablet daily; Therapy: 30Dec2012 to (Evaluate:35Fmd2588) Requested for: 10Jun2015; Last Rx:[id number] Ordered Rx By: Al Gloria; Dispense: 90 Days ; #:90 Tablet; Refill: 1; For: Hypertension; LOU = N; Verified Transmission to [facility] #2585; Last Updated By: [employer]; 06/10/2015 1:16:52 PM 5. Omeprazole 40 MG Oral Capsule Delayed Release; TAKE ONE CAPSULE BY MOUTH EVERY DAY; Therapy: 05Jun2012 to (Evaluate:24Rob8555) Requested for: 36Ocq3540; Last Rx:[id number] Ordered Rx By: Al Gloria; Dispense: 30 Days ; #:30 Capsule Delayed Release; Refill: 1; For: NUD (nonulcer dyspepsia); LOU = N; Verified Transmission to [facility] #2585; Last Updated By: [employer]; 07/04/2015 1:25:42 PM 6. VESIcare 10 MG Oral Tablet; TAKE 1 TABLET BY MOUTH EVERY DAY; Therapy: 01Feb2012 to (Evaluate:25Aug2015) Requested for: 54Jby6295; Last Rx:26Jul2015 Ordered Rx By: Al Gloria; Dispense: 30 Days ; #:30 Tablet; Refill: 0; For: Hyperactivity of bladder; LOU = N; Verified Transmission to [facility] #2585; Last Updated By: [employer]; 07/26/20158:43:15 PM 7. ZyrTEC Allergy 10 MG Oral Capsule; TAKE 1 CAPSULE Daily; Therapy: (Recorded:17Mar2013) to Recorded Dispense: 0 Days ; #: Sufficient Capsule; Refill: 0; LOU = N; Record; Last Updated By: Nori Pedersen; 03/17/2013 10:02:13 AM Allergies 1. No Known Drug Allergies Recorded By: Al Gloria; 06/03/2012 4:30:05 PM Vitals Recorded: 27Jul2015 03:47PM Systolic 144 Diastolic 80 Height 5 ft 6 in Weight 235 lb BMI Calculated 37.93 BSA Calculated 2.14 Physical Exam Constitutional General appearance: Abnormal. patient [...] fracture of thoracic vertebra (805.2) (S22.000A) 3. Encounter for preventive health examination (V70.0) (Z00.00) 4. Hyperactivity of bladder (596.51) (N31.8) 5. Hypertension (401.9) (I10) 6. Low back pain (724.2) (M54.5) 7. NUD (nonulcer dyspepsia) (536.8) (K30) Plan Acute sinusitis, Allergic rhinitis, Ankle joint pain, Chest pain with painful respiration, Compression fracture of thoracic vertebra, Hyperactivity of bladder, Hypertension, Low back pain, NUD (nonulcer dyspepsia), Thumb sprain ?? Follow-up visit in 6 months Outpatient Follow-up Status: Hold For - Scheduling Requested for: 27Jul2015 Ordered; For: Acute sinusitis, Allergic rhinitis, Ankle joint pain, Chest pain with painful respiration, Compression fracture of thoracic vertebra, Hyperactivity of bladder, Hypertension, Low back pain, NUD (nonulcer dyspepsia), Thumb sprain; Ordered By: Al Gloria Performed: Due: 10Aug2015 Health Maintenance ?? MG SCREEN MAMMO DIGITAL BI; Status:Active; Requested for:29Ald4656; Perform:Other Radiology; Due:26Aug2015;Ordered; For:Health Maintenance; Ordered By:Al Gloria; Hypertension ?? Lisinopril-Hydrochlorothiazide 20-25 MG Oral Tablet (Zestoretic) Rx By: Al Gloria; Dispense: 90 Days ; #:90 Tablet; Refill: 1; For: Hypertension; LOU = N; SentTo: [facility] #6791 ?? Losartan Potassium-HCTZ 50-12.5 MG Oral Tablet; TAKE ONE TABLET BY MOUTH ONCE DAILY Rx By: Al Gloria; Dispense: 90 Days ; #:90 Tablet; Refill: 3; For: Hypertension; LOU = N; Verified Transmission to [facility] #3668; Last Updated By: Berny Land; 07/27/2015 4:11:44 PM ?? LC-CBC, No Differential/Platelet [id number]; Status:Hold For - Manual Activation; Requested for:[id number]; Perform:[facility]; Due:26Aug2015;Ordered; For:Hypertension; Ordered By:Al Gloria; ?? LC-Comp. Metabolic Panel ( 12 ) [id number]; Status:Hold For - Manual Activation; Requested for:[id number]; Perform:[facility]; Due:26Aug2015;Ordered; For:Hypertension; Ordered By:Al Gloria; ?? LC-Lipid Panel w/ Chol/HDL Ratio [id number]; Status:Hold For - Manual Activation; Requested for:[id number]; Perform:[facility]; Due:26Aug2015;Ordered; For:Hypertension; Ordered By:Al Gloria; ?? LC-TSH [id number]; Status:Hold For - Manual Activation; Requested for:[id number]; Perform:[facility]; Due:26Aug2015;Ordered; For:Hypertension; Ordered By:Al Gloria; Low back pain, Thumb sprain ?? Celecoxib 200 MG Oral Capsule; TAKE 1 CAPSULE DAILY Rx By: Al Gloria; Dispense: 0 Days ; #:30 Capsule; Refill: 5; For: Low back pain, Thumb sprain; LOU = N; Sent To: [facility]9133 Health Management Health Maintenance Schedule COLONOSCOPY; every 10 years; Last 04Aug2014; Next Due: 04Aug2024; Active Signatures Electronically signed by : Al Gloria D.O.; Jul 27 2015 4:16PM DUPLICATE MAKER (Author) documented in this encounter Plan of Treatment Upcoming Encounters Date Type Department Care Team (Late st Contact Info) Description 05/01/2024 8:00 AM DUPLICATE MAKER Appointment [facility] Non [place]vasive [place] [address] Edgard Washington MD Three [facility] [address] [place], [place] [address] 06/02/2024 10:15 AM CDT Office Visit [facility] THREE [facility], ED [address] [place] [address] Edgard Washington MD Three [facility] [address] [place] [address] documented as of this encounter Visit Diagnoses Not on filedocumented in this encounter Care Teams Boat Dispatcher Relationship Specialty Start Date End Date Al Gloria DO [address] [place] [address] PCP - General 09/10/15 09/26/17 Al Gloria DO [address] [place] [address] PCP - General 08/02/14 09/09/15 Mariana Ruiz DO [address] [place], [place] [address] PCP - General FAMILY PRACTICE 09/27/17 06/04/23 documented as of this encounter
--- OUTSIDE RECORDS SUMMARY | 2024-03-23 01:35 | XMS_ITS | Encounter Summary ---
Author Organization [facility] Address [address] [place] [address]. [place] [address] [place] [address] Care Team Providers Care Senior Energy Trader Name Role Phone Darnell Arriaga DO Primary Care Provider [phone] Darnell Arriaga DO Primary Care Provider [phone] Darnell Arriaga DO Primary Care Provider [phone] Darnell Arriaga DO Primary Care Provider [phone] Mariana Ruiz DO Primary Care Provider [phone] Encounter Details Date Type Department Care Team (Latest Contact Info) Description 11/18/2013 Abstract [facility] Medical Group Darnell Arriaga DO [address] [place] [address] Social History Tobacco Use Types Packs/Day Years Used Date Smoking Tobacco: Never Assessed Comments Unknown Sex and Gender Information Value Date Recorded Sex Assigned at Not on file Legal Sex Female 6:40 PM CDT Gender Identity Not on file Sexual Orientation Not on file documented as of this encounter Last Filed Vital Signs Vital Sign Reading Time Taken Comments Blood Pressure 142/80 11/18/2013 1:05 PM CDT Pulse - - Temperature - - Respiratory Rate - - Oxygen Saturation - - Inhaled Oxygen Concentration - - Weight 109.3 kg (241 lb) 11/18/2013 1:05 PM CDT Height - - Body Mass Index 38.9 06/27/2012 4:00 PM CDT documented in this encounter Progress Notes * Darnell Arriaga, DO - 11/18/2013 1:15 PM CDT Reason For Visit Reason For Visit: Acute Visit Chief Complaint complains of sharp, stabbing pain in left side for three weeks History of Present Illness only with deep breath, no trauma. Left chest wall pain with deep inhalation. Review of Systems Constitutional: no fever and no chills. Cardiovascular: chest pain. Respiratory: no shortness of breath. Gastrointestinal: no abdominal pain. Active Problems 1. Allergic rhinitis (477.9) (J30.9) 2. Ankle joint pain (719.47) (M25.579) 3. Compression fracture of thoracic vertebra (805.2) (S22.000A) 4. Dyspepsia (536.8) (K30) 5. Hyperactivity of bladder (596.51) (N31.8) 6. Hypertension (401.9) (I10) 7. Lumbago (724.2) (M54.5) 8. Thumb sprain (842.10) (S63.609A) Past Medical History Patient indicats no significant past medical history. Surgical History 1. History of Colonoscopy (Fiberoptic) Family History Family History 1. Family history of Osteoporosis (V17.81) 2. Family history of Type 2 Diabetes Mellitus Social History ?? Being A Social Drinker ?? Marital History - Single ?? Never a smoker ?? Parentage ?? Working Part-time Current Meds 1. AmLODIPine Besylate 5 MG Oral Tablet (Norvasc); TAKE 1 TABLET BY MOUTH EVERY DAY DIRECTED; Therapy: 30Dec2012 to (Evaluate:09Dec2013) Requested for: 87Zah1374; Last Rx:[id number] Ordered Rx By: Mariana Ruiz; Dispense: 90 Days ; #:90 Tablet; Refill: 0; For: Hypertension; LOU = N; Verified Transmission to [facility]; Last Updated By: Berny Land; 09/10/2013 9:04:11 AM 2. Aspirin EC 81 MG Oral Tablet Delayed Release; TAKE 1 TABLET DAILY DIRECTED; Therapy: (Recorded:17Mar2013) to Recorded Dispense: 0 Days ; #: Sufficient TBEC; Refill: 0; LOU = N; Record; Last Updated By: Nori Pedersen; 03/17/2013 10:02:13 AM 3. Lisinopril-Hydrochlorothiazide 20-25 MG Oral Tablet (Zestoretic); TAKE 1 TABLET BY MOUTH EVERY DAY; Therapy: 30Dec2012 to (Evaluate:79Jil4529) Requested for: 22Jun2013; Last Rx:22Jun2013 Ordered Rx By: Darnell Arriaga; Dispense: 90 Days ; #:90 Tablet; Refill: 1; For: Hypertension; LOU = N; [facility]; Last Updated By: [employer]; 06/22/2013 10:34:17 AM 4. Meloxicam 15 MG Oral Tablet; TAKE 1 TABLET DAILY WITH FOOD; Therapy: 17Mar2013 to (Last Rx:86Ckt9029) Requested for: 30Krb3603 Ordered Rx By: Darnell Arriaga; Dispense: 0 Days ; #:30 Tablet; Refill: 1; For: Ankle joint pain; LOU = N; Verified [facility]; Last Updated By: [employer]; 04/13/2013 4:55:48 PM 5. Omeprazole 40 MG Oral Capsule Delayed Release; TAKE ONE CAPSULE BY MOUTH EVERY DAY; Therapy: 05Jun2012 to (Evaluate:15Dec2013) Requested for: 61Uxp6891; Last Rx:67Vci3095 Ordered Rx By: Darnell Arriaga; Dispense: 90 Days ; #:90 Capsule Delayed Release; Refill: 1; For: Dyspepsia; LOU = N; Verified Transmission [facility]; Last Updated By: [employer]; 06/18/201311:43:15 AM 6. VESIcare 10 MG Oral Tablet; TAKE 1 TABLET BY MOUTH EVERY DAY; Therapy: 01Feb2012 to (Evaluate:38Bwj6291) Requested for: 10Aug2013; Last Rx:10Aug2013 Ordered Rx By: Darnell Arriaga; Dispense: 90 Days ; #:90 Tablet; Refill: 1; For: Hyperactivity of bladder; LOU = N; Verified Transmission to [facility]; Last Updated By: [employer]; 08/10/2013 9:15:51 AM 7. ZyrTEC Allergy 10 MG Oral Capsule; TAKE 1 CAPSULE Daily; Therapy: (Recorded:17Mar2013) to Recorded Dispense: 0 Days ; #: Sufficient Capsule; Refill: 0; LOU = N; Record; Last Updated By: Nori Pedersen; 03/17/2013 10:02:13 AM Allergies 1. No Known Drug Allergies Recorded By: Darnell Arriaga; 06/03/2012 4:30:05 PM Vitals Vital Signs [Data Includes: Current Encounter] Recorded by : Valery Holley at 55Dfe1533 01:05PM Systolic 142 Diastolic 80 Weight 241 lb BMI Calculated 38.9 BSA [...] Normal. Mood and affect: Normal. Assessment 1. Compression fracture of thoracic vertebra (805.2) (S22.000A) 2. Chest pain with painful respiration (786.52) (R07.1) Plan Chest pain with painful respiration, Compression fracture of thoracic vertebra 1. XR CHEST 2 VIEW ( Routine ) Status: Active Requested for: [id number] Perform: Other Radiology Due: 98Cda0507; Ordered; For: Chest pain with painful respiration, Compression fracture of thoracic vertebra; Ordered By: Darnell Arriaga Signatures Electronically signed by : Darnell Arriaga D.O.; Nov 18 2013 1:40PM MANAGER SAP (Author) documented in this encounter Plan of Treatment Upcoming Encounters Date Type Department Care Team (Late st Contact Info) Description 05/01/2024 8:00 AM MANAGER SAP Appointment [facility] Non [place] [place] [address] Edgard Washington MD Three [facility] [address] [facility] [place] [address] 06/02/2024 10:15 AM CDT Office Visit [facility] THREE [facility], ED [address] [place] [address] Edgard Washington MD Three [facility] [facility] [place], [place] [address] documented as of this encounter Procedures Procedure Name Priority Date/Time Associated Diagnosis Comments XR CHEST 2V+NIPPLE MARKER Routine 11/18/2013 2:28 PM CDT documented in this encounter Results * XR CHEST 2V+NIPPLE MARKER (11/18/2013 2:28 PM CDT) Anatomical Region Laterality Modality Chest Radiographic Breann ging 11/18/2013 2:28 PM CDT 11/18/2013 2:28 PM CDT Narrative 11/19/2013 5:23 PM CDT JULIANNA SALGADO ORDERING MD: DARNELL ARRIAGA DO ?? ACCT: [id number] ?? ADMIT/SERVICE DATE: 11/18/13 DISCHARGE DATE: ?? : 1955 PT TYPE: REG CLI ?? SEX: F ORD SITE: [facility] ? STUDY DATE REPORT # PROCEDURE CODE PROCEDURE ?? 11/18/13 [id number] CXR2V XR CHEST 2 VIEW ? EXTORDERID ? [id number] ? ACCESSION NUMBER ?? [id number] ?CHART DOCUMENT ? IMPRESSION: ? NO ACUTE PULMONARY DISEASE DEMONSTRATED. ? BORDERLINE CARDIOMEGALY. ? MILD THORACIC SPONDYLOSIS WITH ACCENTUATED KYPHOSIS. ? HISTORY: ??CHEST PAIN, THORACIC VERTEBRA COMPRESSION FRACTURE. ??PAIN WITH ?? RESPIRATIONS. ??HISTORY OF SMOKING. ? TWO VIEW CHEST 11/18/13 ? COMPARISON: ??NONE. ? FINDINGS: ??MILD CARDIOMEGALY. ??MILD AORTIC ATHEROSCLEROSIS. ??PULMONARY ?? VESSELS ARE WITHIN NORMAL LIMITS. ??NO ACUTE AIRSPACE CONSOLIDATION, PLEURAL ? EFFUSION OR PNEUMOTHORAX. 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 ??CHOLECYSTECTOMY CLIPS. ??LUNG VOLUMES ARE WITHIN NORMAL ?? LIMITS. ??ACCENTUATED THORACIC KYPHOSIS. ? ELECTRONICALLY SIGNED BY: ?? BIPIN BUSTILLOS M.D. 11/19/2013 05:20 P ?? BIPIN BUSTILLOS M.D. ? D: ??11/18/2013 02:28 P ??#[id number] ?? T: ??11/18/2013 03:00 P/MA ? CC: ?DARNELL ARRIAGA D.O. ? Procedure Note Darnell Arriaga DO - 05/22/2018 JULIANNA SALGADO ORDERING MD: DARNELL ARRIAGA DO ACCT: [id number] ADMIT/SERVICE DATE: 11/18/13 DISCHARGE DATE: : 1955 PT TYPE: REG CLI SEX: F ORD SITE: [facility] STUDY DATE REPORT # PROCEDURE CODE PROCEDURE 11/18/13 [id number] CXR2V XR CHEST 2 VIEW EXTORDERID [id number] ACCESSION NUMBER [id number] CHART DOCUMENT IMPRESSION: NO ACUTE PULMONARY DISEASE DEMONSTRATED. BORDERLINE CARDIOMEGALY. MILD THORACIC SPONDYLOSIS WITH ACCENTUATED KYPHOSIS. HISTORY: CHEST PAIN, THORACIC VERTEBRA COMPRESSION FRACTURE. PAIN WITH RESPIRATIONS. HISTORY OF SMOKING. TWO VIEW CHEST 11/18/13 COMPARISON: NONE. FINDINGS: MILD CARDIOMEGALY. MILD AORTIC ATHEROSCLEROSIS. PULMONARY VESSELS ARE WITHIN NORMAL LIMITS. NO ACUTE AIRSPACE CONSOLIDATION,PLEURAL EFFUSION OR PNEUMOTHORAX. 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 CHOLECYSTECTOMY CLIPS. LUNG VOLUMES ARE WITHIN NORMAL LIMITS. ACCENTUATED THORACIC KYPHOSIS. ELECTRONICALLY SIGNED BY: BIPIN BUSTILLOS M.D. 11/19/2013 05:20 P BIPIN BUSTILLOS M.D. P #[id number] P/MA CC: DARNELL ARRIAGA D.O. Darnell Arriaga DO GENERAL IMAGING Final Result documented in this encounter Visit Diagnoses Not on filedocumented in this encounter Care Teams Senior Energy Trader Relationship Specialty Start Date End Date Darnell Arriaga DO [address] [place] [address] PCP - General 09/10/15 09/26/17 Darnell Arriaga DO [address] [place] [address] PCP - General 08/02/14 09/09/15 Darnell Arriaga DO [address] [place] [address] PCP - General 07/28/14 08/01/14 Darnell Arriaga DO [address] [place] [address] PCP - General 11/18/13 07/27/14 Mariana Ruiz DO [address] [place], [place] [address] PCP - General FAMILY PRACTICE 09/27/17 06/04/23 documented as of this encounter
--- OUTSIDE RECORDS SUMMARY | 2024-03-23 01:35 | XMS_ITS | Encounter Summary ---
Author Organization [facility] Address [address] [place] [address]. [place], [place] [address] [place] [address] Care Team Providers Care Sales Floor Team Member Name Role Phone Al Gloria DO Primary Care Provider [phone] Mariana Ruiz DO Primary Care Provider [phone] Encounter Details Date Type Department Care Team (Latest Contact Info) Description 01/30/2016 Abstract [facility] Medical Group Al Gloria, DO [address] [place] [address] Social History Tobacco Use Types Packs/Day Years [...] st Contact Info) Description 05/01/2024 8:00 AM BARBER STYLIST Appointment [facility]iology [address] [place], [place] [address] Edgard Washington MD Three [facility] [address] [place], [place] [address] 06/02/2024 10:15 AM CDT Office Visit [facility] THREE [facility] [address] [place] [address] Edgard Washington MD Three [facility] [place] [address] documented as of this encounter Procedures Procedure Name Priority Date/Time Associated Diagnosis Comments COMPREHENSIVE METABOLIC PANEL Routine 01/30/2016 9:09 AM BARBER STYLIST LIPID PANEL Routine 01/30/2016 9:09 AM BARBER STYLIST CBC, AUTO, NO DIFF Routine 01/30/2016 9: 09 AM BARBER STYLIST THYROID STIM HORMONE TSH Routine 01/30/2016 9:09 AM BARBER STYLIST documented in this encounter Results * (ABNORMAL) COMPREHENSIVE METABOLIC PANEL (01/30/2016 9:09 AM BARBER STYLIST) GLUCOSE 92 74 - 106 mg/dL TOUCHWORKS TO EPIC CONVERSION BUN 19 6 - 20 mg/dL TOUCHWORKS TO EPIC CONVERSION CREATININE S/P/B 0.8 0.6 - 1.0 mg/dL TOUCHWORKS TO EPIC CONVERSION BUN CREATININE RATIO 24 4 - 25 TOUCHWORKS TO EPIC CONVERSION GFR ESTIMATE 78.0 >60.0 mL/min/1.7 3 m TOUCHWORKS TO EPIC CONVERSION EGFR AFR. AMER. 94.4 >60.0 mL/min/1.7 3 m TOUCHWORKS TO EPIC CONVERSION CALCIUM S/P/B 8.8 8.6 - 10.3 mg/dl TOUCHWORKS TO EPIC CONVERSION SODIUM S/P/B 136 135 - 145 mmol/L TOUCHWORKS TO EPIC CONVERSION POTASSIUM S/P/B 3.3(L) 3.5 - 5.2 mmol/L TOUCHWORKS TO EPIC CONVERSION Comment:Result Comment: CONS ISTENT WITH PREVIOUS RESULTS CHLORIDE S/P/B 101 97 - 107 mmol/L TOUCHWORKS TO EPIC CONVERSION CO2 30 21 - 31 mmol/L TOUCHWORKS TO EPIC CONVERSION ANION GAP 5.0(L) 7.0 - 18.0 TOUCHWORK S TO EPIC CONVERSION TOTAL PROTEIN S/P/B 6.3 6.1 - 8.1 g/dL TOUCHWORKS TO EPIC CONVERSION ALBUMIN S/P/B 3.9 3.5 - 5.2 g/dL TOUCHWORKS TO EPIC CONVERSION GLOBULIN 2.4 1.9 - 3.7 g/dL TOUCHWORKS TO EPIC CONVERSION A/G RATIO 1.6 1.1 - 2.5 TOUCHWORKS TO EPIC CONVERSION BILIRUBIN TOTAL (FLUID) 0.47 0.25 - 1.20 mg/dL TOUCHWORKS TO EPIC CONVERSION ALK PHOS 46 42 - 98 U/L TOUCHWORKS TO EPIC CONVERSION AST 16 5 - 34 U/L TOUCHWORK S TO EPIC CONVERSION ALT 14 0 - 34 U/L TOUCHWORK S TO EPIC CONVERSION Comment:Result Comment: RESU LTS <10 ARE ACCEPTABLE 01/30/2016 9:09 AM BARBER STYLIST 01/30/2016 9:09 AM BARBER STYLIST Narrative TOUCHWORKS TO EPIC CONVERSION - 01/30/2016 9:09 AM BARBER STYLIST Order Comment: [id number] 6:01PM by Al Gloria: ??Send Card Result Communication: Call patient with results us Al Gloria DO LABORATORY Final Result TOUCHWORKS TO EPIC CONVERSION * THYROID STIM HORMONE, TSH (01/30/2016 9:09 AM BARBER STYLIST) TSH 3.420 0.450 - 4.500 uIU/mL TOUCHWORKS TO EPIC CONVERSION 01/30/2016 9:09 AM BARBER STYLIST 01/30/2016 9:09 AM BARBER STYLIST Narrative TOUCHWORKS TO EPIC CONVERSION - 01/31/2016 7:16 AM BARBER STYLIST [id number] 6:01PM by Al Gloria: ??Send Card Result Communication: Call patient with results us Al Gloria DO LABORATORY Final Result TOUCHWORKS TO EPIC CONVERSION * CBC, AUTO, NO DIFF (01/30/2016 9:09 AM BARBER STYLIST) WBC 5.2 3.4 - 10.8 x10E3/uL TOUCHWORKS TO EPIC CONVERSION RBC 4.53 3.77 - 5.28 x10E6/uL TOUCHWORKS TO EPIC CONVERSION HEMOGLOBIN MIXED VENOUS 13.6 11.1 - 15.9 g/dL TOUCHWORKS TO EPIC CONVERSION HCT 39.5 34.0 - 46.6 % TOUCHWORKS TO EPIC CONVERSION MCV 87 79 - 97 fL TOUCHWORK S TO EPIC CONVERSION MCH 30.0 26.6 - 33.0 pg TOUCHWORKS TO EPIC CONVERSION MCHC 34.4 31.5 - 35.7 g/dL TOUCHWORKS TO EPIC CONVERSION RDW 14.4 12.3 - 15.4 % TOUCHWORKS TO EPIC CONVERSION NRBC TOUCHWORKS TO EPIC CONVERSION 01/30/2016 9:09 AM BARBER STYLIST 01/30/2016 9:09 AM BARBER STYLIST Narrative TOUCHWORKS TO EPIC CONVERSION - 01/31/2016 7:16 AM BARBER STYLIST [id number] 6:01PM by Al Gloria: ??Send Card Result Communication: Call patient with results us Al Gloria DO LABORATORY Final Result Performing Organization Address City/[facility]/ZIP Co de Phone Number TOUCHWORKS TO EPIC CONVERSION * (ABNORMAL) LIPID PANEL (01/30/2016 9:09 AM BARBER STYLIST) CHOLESTEROL 183 0 - 199 mg/dL TOUCHWORKS TO EPIC CONVERSION TRIGLYCERIDES 36 0 - 149 mg/dL TOUCHWORKS TO EPIC CONVERSION HDL 71(H) 40 - 60 mg/dL TOUCHWORKS TO EPIC CONVERSION LDL (CALCULATED) 105 0 - 130 MARCOS CHWORKS TO EPIC CONVERSION RISK 2.6 TOUCHWORKS TO EPIC CONVERSION 01/30/2016 9:09 AM BARBER STYLIST 01/30/2016 9:09 AM BARBER STYLIST Narrative TOUCHWORKS TO EPIC CONVERSION - 01/30/2016 9:09 AM BARBER STYLIST Order Comment: [id number] 6:01PM by Al Gloria: ??Send Card Result Communication: Call patient with results us Al Gloria DO LABORATORY Final Result TOUCHWORKS TO EPIC CONVERSION documented in this encounter Visit Diagnoses Not on filedocumented in this encounter Care Teams Sales Floor Team Member Relationship Specialty Start Date End Date Al Gloria DO [address] [place] [address] PCP - General 09/10/15 09/26/17 Mariana Ruiz DO [address] [place], [place] [address] PCP - General FAMILY PRACTICE 09/27/17 06/04/23 documented as of this encounter
--- OUTSIDE RECORDS SUMMARY | 2024-03-23 01:35 | XMS_ITS | Encounter Summary ---
Author Organization [facility] Address [address] [place] [address]. [place] [address] [place] [address] Care Team Providers Care Rotary Drier Name Role Phone Al Gloria DO Primary Care Provider [phone] Al Gloria DO Primary Care Provider [phone] Mariana Ruiz DO Primary Care Provider [phone] Encounter Details Date Type Department Care Team (Latest Contact Info) Description 06/08/2015 Abstract [facility] Medical Group Malka Mireles PA-C [address] [place] [address] Social History Tobacco Use Types Packs/Day Years Used Date Smoking Tobacco: Never Assessed Comments Unknown Sex and Gender Information Value Date Recorded Sex Assigned at Not on file Legal Sex Female 6:40 PM CDT Gender Identity Not on file Sexual Orientation Not on file documented as of this encounter Last Filed Vital Signs Vital Sign Reading Time Taken Comments Blood Pressure 142/80 06/08/2015 3:32 PM CDT Pulse - - Temperature - - Respiratory Rate - - Oxygen Saturation - - Inhaled Oxygen Concentration - - Weight 105.7 kg (233 lb) 06/08/2015 3:32 PM CDT Height 167.6 cm (5' 6 ) 06/08/2015 3:32 PM CDT Body Mass Index 37.61 06/08/2015 3:32 PM CDT documented in this encounter Progress Notes * Malka Mireles PA-C - 06/08/2015 3:30 PM CDT Reason For Visit Acute Visit Chief Complaint cold symptoms History of Present Illness Sinusitis (Brief): The patient presents with complaints of facial pressure starting 2 weeks ago. The patient is being seen for an initial evaluation of sinusitis. The sinusitis involves the maxillary sinuses, the frontal sinuses and the ethmoid sinuses. The sinusitis is classified as acute. The patient is currently experiencing symptoms. The patient presents with complaints of facial pressure starting 2 weeks ago. retro-orbital pain nasal congestion purulent rhinorrhea Associated symptoms: cough, but no fever and no chills. Review of Systems Eyes, Cardiovascular and Gastrointestinal review of systems normal except as noted. Constitutional: feeling poorly. ENT: nasal discharge. Respiratory: cough. Active Problems 1. Allergic rhinitis (477.9) (J30.9) 2. Ankle joint pain (719.47) (M25.579) 3. Chest pain with painful respiration (786.52) (R07.1) 4. Compression fracture of thoracic vertebra (805.2) (S22.000A) 5. Dyspepsia (536.8) (K30) 6. Hyperactivity of bladder (596.51) (N31.8) 7. Hypertension (401.9) (I10) 8. Lumbago (724.2) (M54.5) 9. Thumb sprain (842.10) (S63.609A) Surgical History 1. [...] MOUTH EVERY DAY DIRECTED; Therapy: 30Dec2012 to (Evaluate:63Ykc7701) Requested for: 65Bqj3068; Last Rx:[id number] Ordered Rx By: Sergei Neal; Dispense: 30 Days ; #:90 TAB; Refill: 0; For: Hypertension; LOU = N; VerifiedTransmission to [facility]; Last Updated By: Berny Land; 09/02/2014 11:04:11 AM 2. Aspirin EC 81 MG Oral Tablet Delayed Release; TAKE 1 TABLET DAILY DIRECTED; Therapy: (Recorded:17Mar2013) to Recorded Dispense: 0 Days ; #: Sufficient TBEC; Refill: 0; LOU = N; Record; Last Updated By: Nori Pedersen; 03/17/2013 10:02:13 AM 3. Lisinopril-Hydrochlorothiazide 20-25 MG Oral Tablet; TAKE 1 TABLET BY MOUTH EVERY DAY; Therapy: 30Dec2012 to (Evaluate:85Kth5953) Requested for: 22May2014; Last Rx:22May2014 Ordered Rx By: Al Gloria; Dispense: 30 Days ; #:90 TAB; Refill: 1; For: Hypertension; LOU = N; Verified Transmission to [facility] #2585; Last Updated By: [employer]; 05/22/2014 8:59:15 AM 4. Omeprazole 40 MG Oral Capsule Delayed Release; TAKE ONE CAPSULE BY MOUTH EVERY DAY; Therapy: 05Jun2012 to (Evaluate:93Vqs5314) Requested for: 60Psf5131; Last Rx:[id number] Ordered Rx By: Al Gloria; Dispense: 30 Days ; #:90 Capsule; Refill: 1; For: Dyspepsia; LOU = N; Verified Transmission to [facility]25[facility]; Last Updated By: [employer]; 09/23/2014 2:02:23 PM 5. VESIcare 10 MG Oral Tablet; TAKE 1 TABLET BY MOUTH EVERY DAY; Therapy: 01Feb2012 to (Evaluate:24Jun2015) Requested for: 31Vav1005; Last Rx:[id number] Ordered Rx By: Al Gloria; Dispense: 30 Days ; #:30 Tablet; Refill: 1; For: Hyperactivity of bladder; LOU = N; Verified Transmission to [facility]; Last Updated By: [employer]; 04/25/20152:51:13 PM 6. ZyrTEC Allergy 10 MG Oral Capsule; TAKE 1 CAPSULE Daily; Therapy: (Recorded:17Mar2013) to Recorded Dispense: 0 Days ; #: Sufficient Capsule; Refill: 0; LOU = N; Record; Last Updated By: Nori Pedersen; 03/17/2013 10:02:13 AM Allergies 1. No Known Drug Allergies Recorded By: Al Gloria; 06/03/2012 4:30:05 PM Vitals Signs [Data Includes: Current Encounter] Temperature: 98 F Systolic: 142 Diastolic: 80 Height: 5 ft 6 in Weight: 233 lb BMI Calculated: 37.61 BSA Calculated: 2.13 Physical Exam Constitutional General appearance: No acute distress, well appearing and well nourished. Eyes Conjunctiva and lids: No swelling, erythema or discharge. Pupils and irises: Equal, round, reactive to light. Ears, Nose, Mouth, and Throat Otoscopic examination: Abnormal. The right tympanic membrane had a loss of landmarks and had a diminished light reflex. The left tympanic membrane had a loss of landmarks and had a diminished light reflex. Nasal mucosa, septum, and turbinates: Abnormal. The bilateral nasal mucosa was edematous and red. Oropharynx: Normal with no erythema, edema, exudate or lesions. Pulmonary Respiratory effort: No increased work of breathing or signs of respiratory distress. Auscultation of lungs: Clear to auscultation. Cardiovascular Auscultation of heart: Normal rate and rhythm, normal S1 and S2, no murmurs. Lymphatic Palpation of lymph nodes in neck: No lymphadenopathy. Musculoskeletal Gait and station: Normal. Psychiatric Mood and affect: Normal. Assessment 1. Acute sinusitis (461.9) (J01.90) Plan Acute sinusitis 1. Amoxicillin-Pot Clavulanate 875-125 MG Oral Tablet; TAKE 1 TABLET EVERY 12 HOURS UNTIL GONE 2. Fluticasone Propionate 50 MCG/ACT Nasal Suspension; USE 2 SPRAYS IN EACH NOSTRIL ONCE DAILY 3. Follow up if worse or not better; Status:Complete; Done: 08Jun2015 Signatures Electronically signed by : Malka Mireles PA-C; Jun 08 2015 3:41PM INTERNET SYSTEMS ADMINISTRATOR (Author) Electronically signed by : Dimitri Morgan M.D.; Jun 09 2015 8:11AM INTERNET SYSTEMS ADMINISTRATOR documented in this encounter Plan of Treatment Upcoming Encounters Date Type Department Care Team (Late st Contact Info) Description 05/01/2024 8:00 AM INTERNET SYSTEMS ADMINISTRATOR Appointment [facility] [address] [facility] [address] Edgard Washington MD Three [facility] [address] [place] [address] 06/02/2024 10:15 AM CDT Office Visit [facility], [address] [place] [address] Edgard Washington MD Three [facility] [address] [place] [address] documented as of this encounter Visit Diagnoses Not on filedocumented in this encounter Care Teams Rotary Drier Relationship Specialty [place] [address] [place] [address] PCP - General 09/10/15 09/26/17 Al Gloria DO [address] [place] [address] PCP - General 08/02/14 09/09/15 Mariana Ruiz DO [address] [place] [address] PCP - General FAMILY PRACTICE 09/27/17 06/04/23 documented as of this encounter
--- OUTSIDE RECORDS SUMMARY | 2024-03-23 01:35 | XMS_ITS | Encounter Summary ---
Author Organization [facility] Address [address] [place] [address]. [place] [address] [place] [address] Care Team Providers Care Cuffer Name Role Phone Al Gloria DO Primary Care Provider [phone] Al Gloria DO Primary Care Provider [phone] Al Gloria DO Primary Care Provider [phone] Al Gloria DO Primary Care Provider [phone] Yaa Del Real MD Primary Care Provider Unavailable Mariana Ruiz DO Primary Care Provider [phone] Encounter Details Date Type Department Care Team (Latest Contact Info) Description 06/12/2012 Abstract [facility] Al Gloria DO [address] [place] [address] Social History Tobacco Use Types [...] Contact Info) Description 05/01/2024 8:00 AM SUPERVISOR LEAF SPRING FABRICATION Appointment [facility] [place], [place] [id number] Edgard Washington MD [facility] [address] [place] [address] 06/02/2024 10:15 AM CDT Office Visit [facility], [address] [place] [address] Edgard Washington MD Three [facility], [address] [place], [place] [address] documented as of this encounter Visit Diagnoses Not on filedocumented in this encounter Care Teams Cuffer Relationship Specialty Start Date End Date Al Gloria DO [address] [place] [address] PCP - General 09/10/15 09/26/17 Al Gloria DO [address] [place] [address] PCP - General 08/02/14 09/09/15 Al Gloria DO [address] [place] [address] PCP - General 07/28/14 08/01/14 Al Gloria DO [address] [place] [address] PCP - General 11/18/13 07/27/14 Yaa Del Real MD PCP - General 06/05/12 Mariana Ruiz DO [address] [place] [address] PCP - General FAMILY PRACTICE 09/27/17 06/04/23 documented as of this encounter
--- OUTSIDE RECORDS SUMMARY | 2024-03-23 01:35 | XMS_ITS | Encounter Summary ---
Author Organization [facility] Address [address] [place] [address]. [place] [address] [place] [address] Care Team Providers Care College Director Name Role Phone Al Gloria DO Primary Care Provider [phone] Al Gloria DO Primary Care Provider [phone] Al Gloria DO Primary Care Provider [phone] Al Gloria DO Primary Care Provider [phone] Md Generic Conversion Primary Care Provider Unavailable Md Generic Conversion Primary Care Provider Unavailable Encounter Details Date Type Department Care Team (Late st Contact Info) Description 11/30/2011 Abstract [facility] Diagnostic Imaging [address] [id number] Al Gloria DO [facility] [place], [place] [id number] Social History Tobacco Use Types Packs/Day Years [...] (Late Contact Info) Description 05/01/2024 8:00 AM BUILDINGS AND GROUNDS SUPERINTENDENT Appointment [facility] Non Invasive Cardiology [place], [place] [id number] Edgard Washington MD Three [facility]., [address] [place] [address] 06/02/2024 10:15 AM CDT Office Visit [facility], ED [address] [place] [address] Edgard Washington MD Three [facility] [address] [place] [address] documented as of this encounter Visit Diagnoses Diagnosis Lumbosacral spondylosis without myelopathy documented in this encounter Care Teams College Director Relationship Specialty Start Date End Date Al Gloria DO [facility] [place] [address] PCP - General 09/10/15 09/26/17 Al Gloria DO [facility] [place] [address] PCP - General 08/02/14 09/09/15 Al Gloria DO [facility] [place] [address] PCP - General 07/28/14 08/01/14 Al Gloria DO [address] [place] [address] PCP - General 11/18/13 07/27/14 , Generic Conversion, PCP - General 06/05/12 Md Generic Conversion, PCP - General 02/02/10 3 documented as of this encounter
--- OUTSIDE RECORDS SUMMARY | 2024-03-23 01:35 | XMS_ITS | Encounter Summary ---
Author Organization [facility] Address [address] [place] [address]. 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 Appointment [facility] [place] [address] Edgard Washington MD Three [facility]., [address] [place], [place] [id number] 06/02/2024 10:15 AM CDT Office Visit [facility], ED [address] [place] [address] Edgard Washington MD Three [facility] [address] [place], [place] [address] documented as of this encounter Procedures Procedure Name Priority Date/Time Associated Diagnosis Comments CBC, AUTO, NO DIFF Routine 07/28/2014 9: 28 AM CDT THYROID STIM HORMONE TSH Routine 07/28/2014 9:28 AM CDT COMPREHENSIVE METABOLIC PANEL Routine 07/28/2014 9:27 AM CDT LIPID PANEL Routine 07/28/2014 9:27 AM CDT documented in this encounter Results * THYROID STIM HORMONE, TSH (07/28/2014 9:28 AM CDT) TSH 3.210 0.450 - 4.500 uIU/mL TOUCHWORKS TO EPIC CONVERSION 07/28/2014 9:28 AM CDT 07/28/2014 9:28 AM CDT Narrative TOUCHWORKS TO EPIC CONVERSION - 07/29/2014 2:09 AM CDT [id number] 9:35PM by Al Gloria: ??send card Result Communication: Call patient with results us Al Gloria DO LABORATORY Final Result TOUCHWORKS TO EPIC CONVERSION * CBC, AUTO, NO DIFF (07/28/2014 9:28 AM CDT) WBC 4.9 3.4 - 10.8 x10E3/uL TOUCHWORKS TO EPIC CONVERSION RBC 4.66 3.77 - 5.28 x10E6/uL TOUCHWORKS TO EPIC CONVERSION HEMOGLOBIN MIXED VENOUS 13.5 11.1 - 15.9 g/dL TOUCHWORKS TO EPIC CONVERSION HCT 40.6 34.0 - 46.6 % TOUCHWORKS TO EPIC CONVERSION MCV 87 79 - 97 fL TOUCHWORK S TO EPIC CONVERSION MCH 29.0 26.6 - 33.0 pg TOUCHWORKS TO EPIC CONVERSION MCHC 33.3 31.5 - 35.7 g/dL TOUCHWORKS TO EPIC CONVERSION RDW 15.0 12.3 - 15.4 % TOUCHWORKS TO EPIC CONVERSION NRBC TOUCHWORKS TO EPIC CONVERSION 07/28/2014 9:28 AM CDT 07/28/2014 9:28 AM CDT Narrative TOUCHWORKS TO EPIC CONVERSION - 07/29/2014 2:09 AM CDT [id number] 9:36PM by Al Gloria: ??send card Result Communication: Call patient with results us Al Gloria DO LABORATORY Final Result Performing Organization Address [facility] Co de Phone Number TOUCHWORKS TO EPIC CONVERSION * LIPID PANEL (07/28/2014 9:27 AM CDT) CHOLESTEROL 177 0 - 199 mg/dL TOUCHWORKS TO EPIC CONVERSION TRIGLYCERIDES 65 0 - 149 mg/dL TOUCHWORKS TO EPIC CONVERSION HDL 59 40 - 60 mg/dL TOUCHWORKS TO EPIC CONVERSION LDL (CALCULATED) 105 0 - 130 MARCOS CHWORKS TO EPIC CONVERSION RISK 3.0 TOUCHWORKS TO EPIC CONVERSION 07/28/2014 9:27 AM CDT 07/28/2014 9:27 AM CDT Narrative TOUCHWORKS TO EPIC CONVERSION - 07/28/2014 9:27 AM CDT Order Comment: [id number] 9:36PM by Al Gloria: ??send card Result Communication: Call patient with results us Al Gloria DO LABORATORY Final Result TOUCHWORKS TO EPIC CONVERSION * (ABNORMAL) COMPREHENSIVE METABOLIC PANEL (07/28/2014 9:27 AM CDT) GLUCOSE 91 74 - 106 mg/dL TOUCHWORKS TO EPIC CONVERSION BUN 13 6 - 20 mg/dL TOUCHWORKS TO EPIC CONVERSION CREATININE S/P/B 0.8 0.6 - 1.0 mg/dL TOUCHWORKS TO EPIC CONVERSION BUN CREATININE RATIO 16 4 - 25 TOUCHWORKS TO EPIC CONVERSION GFR ESTIMATE 78.3 >60.0 mL/min/1.7 3 m TOUCHWORKS TO EPIC CONVERSION EGFR AFR. AMER. 94.7 >60.0 mL/min/1.7 3 m TOUCHWORKS TO EPIC CONVERSION CALCIUM S/P/B 9.1 8.6 - 10.3 mg/dl TOUCHWORKS TO EPIC CONVERSION SODIUM S/P/B 139 135 - 145 mmol/L TOUCHWORKS TO EPIC CONVERSION POTASSIUM S/P/B 3.2(L) 3.5 - 5.2 mmol/L TOUCHWORKS TO EPIC CONVERSION Comment:Result Comment: REPE ATED CHLORIDE S/P/B 101 97 - 107 mmol/L TOUCHWORKS TO EPIC CONVERSION CO2 31 21 - 31 mmol/L TOUCHWORKS TO EPIC CONVERSION ANION GAP 7.0 7.0 - 18.0 TOUCHWORK S TO EPIC CONVERSION TOTAL PROTEIN S/P/B 6.9 6.3 - 8.3 g/dL TOUCHWORKS TO EPIC CONVERSION ALBUMIN S/P/B 4.2 3.5 - 5.2 g/dL TOUCHWORKS TO EPIC CONVERSION GLOBULIN 2.7 1.6 - 3.2 g/dL TOUCHWORKS TO EPIC CONVERSION A/G RATIO 1.6 1.1 - 2.5 TOUCHWORKS TO EPIC CONVERSION BILIRUBIN TOTAL (FLUID) 0.55 0.20 - 1.20 mg/dL TOUCHWORKS TO EPIC CONVERSION ALK PHOS 53 42 - 98 U/L TOUCHWORKS TO EPIC CONVERSION AST 21 5 - 34 U/L TOUCHWORK S TO EPIC CONVERSION ALT 14 0 - 34 U/L TOUCHWORK S TO EPIC CONVERSION Comment:Result Comment: RESU LTS <10 ARE ACCEPTABLE 07/28/2014 9:27 AM CDT 07/28/2014 9:27 AM CDT Narrative TOUCHWORKS TO EPIC CONVERSION - 07/28/2014 9:27 AM CDT Order Comment: [id number] 9:36PM by Al Gloria: ??send card Result Communication: Call patient with results us Al Gloria DO LABORATORY Final Result TOUCHWORKS TO EPIC CONVERSION documented in this encounter Visit Diagnoses Not on filedocumented in this encounter Care Teams Garage Laborer Relationship Specialty Start Date End Date Al Gloria DO [address] [place] [address] PCP - General 09/10/15 09/26/17 Al Gloria, [address] [place] [address] PCP - General 08/02/14 09/09/15 Al Gloria DO [address] [place] [address] PCP - General 07/28/14 08/01/14 Mariana Ruiz DO [address] [place], [place] [address] PCP - General FAMILY PRACTICE 09/27/17 06/04/23 documented as of this encounter
--- OUTSIDE RECORDS SUMMARY | 2024-03-23 01:35 | XMS_ITS | Encounter Summary ---
Author Organization [facility] Address [address] [place] [address]. [place] [address] [place] [address] Care Team Providers Care Telecasting Technician Name Role Phone Al Gloria DO Primary Care Provider [phone] Al Gloria DO Primary Care Provider [phone] Al Gloria DO Primary Care Provider [phone] Al Gloria DO Primary Care Provider [phone] Yaa Del Real MD Primary Care Provider Unavailable Mariana Ruiz DO Primary Care Provider [phone] Encounter Details Date Type Department Care Team (Latest Contact Info) Description 06/05/2012 Abstract [facility] Al Gloria DO [address] [place] [address] Social History Tobacco Use Types Packs/Day Years Used Date Smoking Tobacco: Never Assessed Comments Unknown Sex and Gender Information Value Date Recorded Sex Assigned at Not on file Legal Sex Female 6:40 PM CDT Gender Identity Not on file Sexual Orientation Not on file documented as of this encounter Last Filed Vital Signs Vital Sign Reading Time Taken Comments Blood Pressure 134/92 06/05/2012 11:32 AM CDT Pulse - - Temperature - - Respiratory Rate - - Oxygen Saturation - - Inhaled Oxygen Concentration - - Weight 108.9 kg (240 lb) 06/05/2012 11:32 AM CDT Height - - Body Mass Index - - documented in this encounter Progress Notes * Al Orrner, DO - 06/05/2012 11:00 AM CDT Reason For Visit Reason For Visit: Acute Visit Chief Complaint 1. Belching Chief Complaint Free Text: reflux, always needs to clear throat History of Present Illness HPI Free Text: 3 months increasing GERD sxs; worse night and early AM. No OTCs helping; No NSAIDs routinely, no hxulcer or H pylori. Dyspepsia (Brief): Symptoms: belching, heartburn and regurgitation, but no abdominal pain, no bloating, no dysphagia, no early satiety, no anorexia, no nausea and no vomiting. The patient is currently experiencing symptoms. Associated symptoms: no fever, no chills, no weakness, no weight loss, no di arrhea, no constipation, no hematemesis and no melena. Review of Systems Focused-Female: Constitutional: no fever, no chills and no headache. Cardiovascular: no chest pain. Respiratory: cough, but no shortness of breath and no shortness of breath during exertion. Gastrointestinal: heartburn, but no abdominal pain, no constipation, no vomiting, no diarrhea and no melena. Integumentary: no skin lesions. Musculoskeletal: arthralgias and joint pain. Neurological: no confusion. no anxiety Active Problems 1. Allergic Rhinitis 477.9 2. Compression Fracture Of Thoracic Vertebral Body 805.2 3. 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 Hypertension 401.9 Past Medical History Patient indicats no significant [...] Record; Last Updated By: Al Gloria 3. VESIcare 10 MG Oral Tablet; TK ONE T PO D; Therapy: 01Feb2012 to Recorded; Dispense: 30 Days ; #:30 TABS; Refill: 0; Record; Last Updated By: Elsie Ding 4. Zestoretic 20-25 MG Oral Tablet; Therapy: (Recorded:03Jun2012) to Recorded; Dispense: 0 Days ; #: Sufficient TABS; Refill: 0; Record; Last Updated By: Al Gloria 5. ZyrTEC Allergy 10 MG Oral Capsule; Therapy: (Recorded:05Jun2012) to Recorded; Dispense: 0 Days ; #: Sufficient CAPS; Refill: 0; Record; Last Updated By: Elsie Ding Allergies 1. No Known Drug Allergies No Known Drug Allergies Vitals Vital Signs [Data Includes: Current Encounter] 05Jun2012 11:32AM Systolic 134 Diastolic 92 Weight 240 lb Physical Exam Constitutional General [...] Gait and station: Normal. Digits and nails: Abnormal. Inspection/palpation of joints, bones, and muscles: Normal. right thumb enlarged Skin Skin and subcutaneous tissue: Normal without rashes or lesions. Neurologic Cranial nerves: Cranial nerves 2-12 intact. Reflexes: 2+ and symmetric. Sensation: No sensory loss. Psychiatric Orientation to person, place, and time: Normal. Mood and affect: Normal. Assessment 1. Hypertension 401.9 2. 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 Allergic Rhinitis 477.9 4. Compression Fracture Of Thoracic Vertebral Body 805.2 5. Health Maintenance V70.0 6. Dyspepsia 536.8 7. Thumb Sprain 842.10 Plan 1. Omeprazole 40 MG Oral Capsule Delayed Release; TAKE 1 CAPSULE DAILY; Therapy: 05Jun2012 to (Evaluate:[id number]) Requested for: 05Jun2012; Last Rx:[id number]; Edited Ordered; For: Dyspepsia (536.8); Rx By: Al Gloria; Dispense: 30 Days ; #:30 Capsule Delayed Release; Refill: 3; Verified Transmission to [employer] [id number] 2. Follow-up visit in 3 months Outpatient Follow-up Requested for: 05Jun2012 Ordered; For: Dyspepsia (536.8); Ordered By: Al Gloria Performed: Due: 15Jun2012 3. Schedule COLONOSCOPY ; every 10 years; Last 03Jun2002; Next 03Jun2012; Status:Active Schedule COLONOSCOPY ; every 10 years; Last 03Jun2002; Next 03Jun2012; Status:Active 4. XR THUMB RT Requested for: 05Jun2012 Ordered; For: Thumb Sprain (842.10); Ordered By: Al Gloria Perform: Other Radiology Due: [id number] Signatures Electronically signed by : Al Gloria D.O.; Jun 05 2012 12:00PM (Author) documented in this encounter Plan of Treatment Upcoming Encounters Date Type Department Care Team (Late st Contact Info) Description 05/01/2024 8:00 AM VP CLINICAL RESEARCH Appointment [facility] [place] [address] Edgard Washington MD Three [facility] [address] [place] [address] 06/02/2024 10:15 AM CDT Office Visit [facility], ED [address] [place] [address] Edgard Washington MD [facility], [address] [place] [address] documented as of this encounter Visit Diagnoses Not on filedocumented in this encounter Care Teams Telecasting Technician Relationship Specialty Start Date End Date Al Gloria DO [address] [place] [address] PCP - General 09/10/15 09/26/17 Al Gloria DO [facility] [place] [address] PCP - General 08/02/14 09/09/15 Al Gloria DO [address] [place] [address] PCP - General 07/28/14 08/01/14 Al Gloria DO [address] [place] [address] PCP - General 11/18/13 07/27/14 Yaa Del Real MD PCP - General 06/05/12 Mariana Ruiz DO [address] [place] [address] PCP - General FAMILY PRACTICE 09/27/17 06/04/23 documented as of this encounter
--- OUTSIDE RECORDS SUMMARY | 2024-03-23 01:35 | XMS_ITS | Encounter Summary ---
Author Organization [facility] Address [address] [place] [address]. [place] [address] [place] [address] Care Team Providers Care Clinical Project Coordinator Name Role Phone Al Gloria DO Primary Care Provider [phone] Al Gloria DO Primary Care Provider [phone] Al Gloria DO Primary Care Provider [phone] Al Gloria DO Primary Care Provider [phone] Md Generic Conversion Primary Care Provider Unavailable Md Generic Conversion Primary Care Provider Unavailable Encounter Details Date Type Department Care Team (Late st Contact Info) Description 02/02/2010 Abstract [facility] 3rd [place] [address] Macario German MD [address] [place] [address] Social History Tobacco Use Types Packs/Day [...] st Contact Info) Description 05/01/2024 8:[address] [facility] [place] [address] Edgard Washington MD Three [facility] [address] [place] [address] 06/02/2024 10:15 AM CDT Office Visit [facility], ED [address] [place] [address] Edgard Washington MD Three [facility] [address] [place] [address] documented as of this encounter Visit Diagnoses Diagnosis Calculus of gallbladder with acute cholecystitis Calculus of gallbladder with acute cholecystitis, without mention of obstruction documented in this encounter Care Teams Clinical Project Coordinator Relationship Specialty Start Date End Date Al Gloria DO [address] [place] [address] PCP - General 09/10/15 09/26/17 Al Gloria DO [address] [place] [address] PCP - General 08/02/14 09/09/15 Al Gloria DO [facility] [place] [address] PCP - General 07/28/14 08/01/14 Al Gloria DO [facility] [place] [address] PCP - General 11/18/13 07/27/14 , Generic Conversion, PCP - General 06/05/12 , Generic Conversion, PCP - General 02/02/10 3 documented as of this encounter
--- OUTSIDE RECORDS SUMMARY | 2024-03-23 01:35 | XMS_ITS | Encounter Summary ---
Author Organization [facility] Address [address] [place] [address]. [place], [place] [address] [place] [address] Care Team Providers Care Business Operations Analyst Name Role Phone Darnell Arriaga DO Primary Care Provider [phone] Mariana Ruiz DO Primary Care Provider [phone] Encounter Details Date Type Department Care Team (Latest Contact Info) Description 09/11/2015 Abstract [facility] , Yaa Ramos MD Social History Tobacco Use Types Packs/Day Years Used Date Smoking Tobacco: Never Assessed Comments Unknown Sex and Gender Information Value Date Recorded Sex Assigned at Not on file Legal Sex Female 6:40 PM CDT Gender Identity Not on file Sexual Orientation Not on file documented as of this encounter Progress Notes * Darnell Arriaga DO - 09/11/2015 9:25 AM CDT Message send card Verified Results MG SCREEN MAMMO DIGITAL BI [id number] 12:50PM Darnell Arriaga Test Name Result Flag Reference MG SCREEN MAMMO DIGITAL BI (Report) JULIANNA SALGADO IVORY ADMIT/SERVICE DATE: 09/10/15 ACCT: [id number] DISCHARGE DATE: : 1955 SEX: F ORD SITE: [facility] PT TYPE: REG CLI ORDERING MD: DARNELL ARRIAGA DO STUDY DATE REPORT # ORDER # EXT ORDER ID 09/10/15 [id number] PROC CODE: [id number] PROCEDURE DESCRIPTION: MG SCREEN [...] BIOPSY ON THE LEFT 1988. NO CURRENT COMPLAINTS. COMPARISON: PRIOR MAMMOGRAMS FROM [...] ELECTRONICALLY SIGNED BY: DEE HUTTON09/10/2015 12:52 PM documented in this encounter Plan of Treatment Upcoming Encounters Date Type Department Care Team (Late st Contact Info) Description 05/01/2024 8:00 AM COFFEE SHOP AIDE Appointment [facility] [place] [address] Edgard Washington MD Three [facility] [address] [place] [address] 06/02/2024 10:15 AM CDT Office Visit [facility], ED [address] [place] [address] Edgard Washington MD Three [facility] [address] [place] [address] documented as of this encounter Visit Diagnoses Not on filedocumented in this encounter Care Teams Business Operations Analyst Relationship Specialty Start Date End Date Darnell Arriaga DO [address] [place] [address] PCP - General 09/10/15 09/26/17 Mariana Ruiz DO [address] [place] [address] PCP - General FAMILY PRACTICE 09/27/17 06/04/23 documented as of this encounter
--- OUTSIDE RECORDS SUMMARY | 2024-03-23 01:35 | XMS_ITS | Encounter Summary ---
Author Organization [facility] Address [address] [place] [address]. [place] [address] [place] [address] Care Team Providers Care Automobile Damage Field Appraiser Name Role Phone Al Gloria DO Primary Care Provider [phone] Al Gloria DO Primary Care Provider [phone] Al Gloria DO Primary Care Provider [phone] Al Gloria DO Primary Care Provider [phone] Md Generic Conversion Primary Care Provider Unavailable Md Generic Conversion Primary Care Provider Unavailable Md Generic Conversion Primary Care Provider Unavailable Encounter Details Date Type Department Care Team (Late st Contact Info) Description 01/31/[address] [facility] [place] [id number] Macario German MD [address] [place] [id number] Social History Tobacco Use Types Packs/Day Years [...] (Late Contact Info) Description 05/01/2024 8:00 AM TELEVISION SPECIALIST Appointment [facility] [place] [address] Edgard Washington MD Three [facility] [address] [place] [address] 06/02/2024 10:15 AM CDT Office Visit [facility] THREE [facility], ED [address] [place] [address] Edgard Washington MD Three [facility] [address] [place] [address] documented as of this encounter Visit Diagnoses Diagnosis Other specified pre-operative examination documented in this encounter Care Teams Automobile Damage Field Appraiser Relationship Specialty Start Date End Date Al Gloria DO [facility] [place] [address] PCP - General 09/10/15 09/26/17 Al Gloria DO [facility] [place] [address] PCP - General 08/02/14 09/09/15 Al Gloria DO [facility] [place] [address] PCP - General 07/28/14 08/01/14 Al Gloria DO [address] [place] [address] PCP - General 11/18/13 07/27/14 , Generic Conversion, PCP - General 06/05/12 , Generic Conversion, PCP - General 02/02/10 3 , Generic Conversion, PCP - General 01/31/10 documented as of this encounter
--- OUTSIDE RECORDS SUMMARY | 2024-03-23 01:35 | XMS_ITS | Encounter Summary ---
Author Organization [facility] Address [address] [place] [address]. [place] [address] [place] [address] Care Team Providers Care Psychiatric Assistant Name Role Phone Al Gloria DO Primary Care Provider [phone] Al Gloria DO Primary Care Provider [phone] Al Gloria DO Primary Care Provider [phone] Al Gloria DO Primary Care Provider [phone] Yaa Del Real MD Primary Care Provider Unavailable Mariana Ruiz DO Primary Care Provider [phone] Encounter Details Date Type Department Care Team (Latest Contact Info) Description 06/14/2012 Abstract [facility] Al Gloria DO [address] [place] [address] Social History Tobacco Use Types [...] Contact Info) Description 05/01/2024 8:[address] OFFICER Appointment [facility] [place], [place] [id number] Edgard Washington MD Three [facility] [address] [place] [address] 06/02/2024 10:15 AM CDT Office Visit [facility], [address] [place] [address] Edgard Washington MD Three [facility], [address] [place], [place] [address] documented as of this encounter Visit Diagnoses Not on filedocumented in this encounter Care Teams Psychiatric Assistant Relationship Specialty Start Date End Date Al Gloria DO [address] [place] [address] PCP - General 09/10/15 09/26/17 Al Gloria DO [address] [place] [address] PCP - General 08/02/14 09/09/15 Al Gloria DO [address] [place] [address] PCP - General 07/28/14 08/01/14 Al Gloria DO [address] [place] [address] PCP - General 11/18/13 07/27/14 Yaa Del Real MD PCP - General 06/05/12 Mariana Ruiz DO [address] [place] [address] PCP - General FAMILY PRACTICE 09/27/17 06/04/23 documented as of this encounter
--- OUTSIDE RECORDS SUMMARY | 2024-03-23 01:35 | XMS_ITS | Encounter Summary ---
Author Organization [facility] Address [address] [place] [address]. [place], [place] [address] [place] [address] Care Team Providers Care Trimming Machine Operator Name Role Phone Darnell Arriaga DO Primary Care Provider [phone] Darnell Arriaga DO Primary Care Provider [phone] Mariana Ruiz DO Primary Care Provider [phone] Encounter Details Date Type Department Care Team (Latest Contact Info) Description 08/05/2014 Abstract [facility] , Yaa Ramos MD Social History Tobacco Use Types Packs/Day Years Used Date Smoking Tobacco: Never Assessed Comments Unknown Sex and Gender Information Value Date Recorded Sex Assigned at Not on file Legal Sex Female 6:40 PM CDT Gender Identity Not on file Sexual Orientation Not on file documented as of this encounter Progress Notes * Darnell Arriaga DO - 08/05/2014 4:17 PM CDT Message stomach biopsies negative Verified Results Surgical Pathology 02Aug2014 12:00AM Darnell Arriaga Test Name Result Flag Reference Surgical Pathology (Report) - SURGICAL FINAL REPORT Patient Name: JULIANNA SALGADO Tae Med. Rec. #:[id number] : 1955 (Age: 59) Gender: F Soc. Sec. #:[id number] Physician(s): DARNELL ARRIAGA Client: [facility] Location: [facility] Service: Billing #[id number] Copy To: Taken: 08/02/2014 Received: 08/02/2014 Reported: 08/03/2014 Specimen(s) Received A: Gastric, biopsy B: Gastroesophageal junction, biopsy Final Pathologic Diagnosis A. STOMACH, BIOPSY: CHRONIC GASTRITIS H. PYLORI IMMUNOSTAIN PENDING, TO BE REPORTED IN AN ADDENDUM B. GASTROESOPHAGEAL JUNCTION, BIOPSY: COLUMNAR MUCOSA WITH CHRONIC INFLAMMATION CONSISTENT WITH REFLUX ESOPHAGITIS NO INTESTINAL METAPLASIA vas/08/03/2014 Electronically Signed Out Darius JOHNSON MD Procedures/Addenda Addendum JUICE Date Ordered: 08/04/2014 Status: Signed Out Date Complete: 08/04/2014 Date Reported: 08/04/2014 Addendum Diagnosis An immunostain for H. pylori performed on the stomach biopsy (part A) is negative. Addendum Comment These tests were developed and the performance characteristics determined by [place], [place] and/or [employer]. They have not been cleared or approved by the US Food and Drug Administration (FDA). The FDA has determined that such clearance or approval is not necessary. These tests are used for clinical purposes. Prognostic and predictive testing should be interpreted in the context of additional and/or histopathological findings. FOSTER JOHNSON MD Microscopic Description Microscopic examination substantiates above diagnosis. Clinical History Abdominal pain, screening Gross Description The specimen is received in two formalin-filled containers both labeled with the patient's name (Julianna Salgado) and date of . A. The first container is additionally labeled gastric biopsy (in formalin at 1000) . The specimen consists of a single fragment of cole tissue which measures up to 0.3 cm. The specimen is entirely submitted in cassette A. B. The second container is additionally labeled as GE junction biopsy (in formalin at 1000) . The specimen consists of a single fragment of cole tissue measuring up to 0.2 cm. The specimen is entirely submitted in cassette B. vas[place] [place]08/02/2014 Billing Fee Code(s): 70674 JUICE(2), 78677 JUICE documented in this encounter Plan of Treatment Upcoming Encounters Date Type Department Care Team (Late st Contact Info) Description 05/01/2024 8:00 AM MACHINE TRIMMER Appointment [facility] [place] [place] [address] Edgard Washington MD Three [facility] [address] [place] [address] 06/02/2024 10:15 AM CDT Office Visit [facility], ED [address] [place] [address] Edgard Washington MD Three [facility] [address] [place] [address] documented as of this encounter Visit Diagnoses Not on filedocumented in this encounter Care Teams Trimming Machine Operator Relationship Specialty Start Date End Date Darnell Arriaga DO [address] [place] [address] PCP - General 09/10/15 09/26/17 Darnell Arriaga DO [address] [place] [address] PCP - General 08/02/14 09/09/15 Mariana Ruiz DO [address] [place] [address] PCP - General FAMILY PRACTICE 09/27/17 06/04/23 documented as of this encounter
--- OUTSIDE RECORDS SUMMARY | 2024-03-23 01:36 | XMS_ITS | Encounter Summary ---
Author Organization [facility] Address [address] [place] [address]. [place] [address] [place] [address] Care Team Providers Care Bill Of Materials Clerk Name Role Phone Al Gloria DO Primary Care Provider [phone] Al Gloria DO Primary Care Provider [phone] Al Gloria DO Primary Care Provider [phone] Al Gloria DO Primary Care Provider [phone] Md Generic Conversion Primary Care Provider Unavailable Md Generic Conversion Primary Care Provider Unavailable Md Generic Conversion Primary Care Provider Unavailable Encounter Details Date Type Department Care Team (Late st Contact Info) Description 04/23/1997 Abstract [place] [address] Md Generic ConversionMD Social History Tobacco Use Types Packs/Day Years [...] st Contact Info) Description 05/01/2024 8:00 AM 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 Appointment [facility] Non Invasive Cardiology [address] [place], [place] [id number] Edgard Washington MD Three [facility]., [address] [place] [address] 06/02/2024 10:15 AM CDT Office Visit [facility] THREE [facility], ED [address] [place] [address] Edgard Washington MD Three [facility]., [address] [place] [address] documented as of this encounter Visit Diagnoses Not on filedocumented in this encounter Care Teams Bill Of Materials Clerk Relationship Specialty Start Date End Date Al Gloria DO [facility] [place] [address] PCP - General 09/10/15 09/26/17 Al Gloria DO [facility] [place] [address] PCP - General 08/02/14 09/09/15 Al Gloria DO [facility] [place] [address] PCP - General 07/28/14 08/01/14 Al Gloria DO [facility] [place] [address] PCP - General 11/18/13 07/27/14 Md Generic Conversion, PCP - General 06/05/12 , Generic Conversion, PCP - General 02/02/10 3 Md Generic Conversion, PCP - General 01/31/10 documented as of this encounter
--- OUTSIDE RECORDS SUMMARY | 2024-03-23 01:36 | XMS_ITS | Encounter Summary ---
Author Organization [facility] Address [address] [place] [address]. [place] [address] [place] [address] Care Team Providers Care Security Control Room Officer Name Role Phone Al Gloria DO Primary Care Provider [phone] Al Gloria DO Primary Care Provider [phone] Al Gloria DO Primary Care Provider [phone] Al Gloria DO Primary Care Provider [phone] Md Generic Conversion Primary Care Provider Unavailable Md Generic Conversion Primary Care Provider Unavailable Md Generic Rachel BURGESS Primary Care Provider Unavailable Encounter Details Date Type Department Care Team (Late st Contact Info) Description 01/28/2010 Abstract [facility] [address] [place], [place] [id number] Yaa Burgess MD Social History Tobacco Use [...] st Contact Info) Description 05/01/2024 8:00 AM 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, [address] [place] [address] Edgard Washington MD Three [facility] [address] [place] [address] documented as of this encounter Visit Diagnoses Diagnosis Abdominal pain Abdominal pain, unspecified site documented in this encounter Care Teams Security Control Room Officer Relationship Specialty Start Date End Date Al Gloria DO [address] [place] [address] PCP - General 09/10/15 09/26/17 Al Gloria DO [address] [place] [address] PCP - General 08/02/14 09/09/15 Al Gloria DO [address] [place] [address] PCP - General 07/28/14 08/01/14 Al Gloria DO [address] [place] [address] PCP - General 11/18/13 07/27/14 Md Generic Conversion, PCP - General 06/05/12 Md Generic Conversion, PCP - General 02/02/10 3 Md Generic Conversion, PCP - General 01/31/10 documented as of this encounter
--- OUTSIDE RECORDS SUMMARY | 2024-03-23 01:36 | XMS_ITS | Encounter Summary ---
Author Organization [facility] Address [address] [place] [address]. [place] [address] [place] [address] Care Team Providers Care Automotive Parts Manager Name Role Phone Al Gloria DO Primary Care Provider [phone] Al Gloria DO Primary Care Provider [phone] Al Gloria DO Primary Care Provider [phone] Al Gloria DO Primary Care Provider [phone] Md Generic Conversion Primary Care Provider Unavailable Md Generic Conversion Primary Care Provider Unavailable Md Generic Conversion Primary Care Provider Unavailable Encounter Details Date Type Department Care Team (Late st Contact Info) Description 09/07/1996 Abstract [place] [address] Md Generic ConversionMD Social History [...] st Contact Info) Description 05/01/2024 8:00 AM 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 Appointment [facility] Non Invasive Cardiology ONE [place], [place] [phone] Edgard Washington MD Three [facility]., [address] [place] [address] 06/02/2024 10:15 AM CDT Office Visit [facility] THREE [facility], ED [address] [place] [address] Edgard Washington MD Three [facility] [address] [place] [address] documented as of this encounter Visit Diagnoses Not on filedocumented in this encounter Care Teams Automotive Parts Manager Relationship Specialty Start Date End Date Al Gloria DO [facility] [place] [address] PCP - General 09/10/15 09/26/17 Al Gloria DO [facility] [place] [address] PCP - General 08/02/14 09/09/15 Al Gloria DO [facility] [place] [address] PCP - General 07/28/14 08/01/14 Al Gloria DO [facility] [place] [address] PCP - General 11/18/13 07/27/14 Md Generic Conversion, PCP - General 06/05/12 , Generic Conversion, PCP - General 02/02/10 3 Md Generic Conversion, PCP - General 01/31/10 documented as of this encounter
--- OUTSIDE RECORDS SUMMARY | 2024-03-23 01:36 | XMS_ITS | Encounter Summary ---
Author Organization [facility] [place] [facility] Address [address] [place] [address]. [place] [address] [place] [address] Care Team Providers Care Field Service Engineer Name Role Phone Al Gloria DO Primary Care Provider [phone] Al Gloria DO Primary Care Provider [phone] Al Gloria DO Primary Care Provider [phone] Al Gloria DO Primary Care Provider [phone] Md Generic Conversion Primary Care Provider Unavailable Md Generic Conversion Primary Care Provider Unavailable Md Generic Conversion Primary Care Provider Unavailable Encounter Details Date Type Department Care Team (Late st Contact Info) Description 07/11/1998 Abstract [place] [address] Md Generic ConversionMD Social History [...] st Contact Info) Description 05/01/2024 8:00 AM NATUROPATHIC DOCTOR Appointment [facility] Non Invasive Cardiology ONE [place], [place] [phone] Edgard Washington MD Three [facility]., [address] [place] [address] 06/02/2024 10:15 AM CDT Office Visit [facility] THREE [facility], ED [address] [place] [address] Edgard Washington MD Three [facility]., [address] [place] [address] documented as of this encounter Visit Diagnoses Not on filedocumented in this encounter Care Teams Field Service Engineer Relationship Specialty Start Date End Date Al Gloria DO [facility] [place] [address] PCP - General 09/10/15 09/26/17 Al Gloria DO [facility] [place] [address] PCP - General 08/02/14 09/09/15 Al Gloria DO [facility] [place] [address] PCP - General 07/28/14 08/01/14 Al Gloria DO [facility] [place] [address] PCP - General 11/18/13 07/27/14 Md Generic Conversion, PCP - General 06/05/12 , Generic Conversion, PCP - General 02/02/10 3 Md Generic Conversion, PCP - General 01/31/10 documented as of this encounter
--- OUTSIDE RECORDS SUMMARY | 2024-03-23 01:36 | XMS_ITS | Encounter Summary ---
Author Organization [facility] Address [address] [place] [address]. [place] [address] [place] [address] Care Team Providers Care Supply Chain Associate Name Role Phone Al Gloria DO Primary Care Provider [phone] Al Gloria DO Primary Care Provider [phone] Al Gloria DO Primary Care Provider [phone] Al Gloria DO Primary Care Provider [phone] Md Generic Conversion Primary Care Provider Unavailable Md Generic Conversion Primary Care Provider Unavailable Md Generic Conversion Primary Care Provider Unavailable Encounter Details Date Type Department Care Team (Late st Contact Info) Description 12/25/1993 Abstract [place] [address] Md Generic ConversionMD Social History [...] st Contact Info) Description 05/01/2024 8:00 AM SOLAR SITE ASSESSMENT SPECIALIST Appointment [facility] Non Invasive Cardiology ONE [place], [place] [id number] Edgard Washington MD Three [facility] [address] [place] [address] 06/02/2024 10:15 AM CDT Office Visit [facility] [place] [facility], ED [address] [place] [address] Edgard Washington MD Three [facility]., [address] [place] [address] documented as of this encounter Visit Diagnoses Not on filedocumented in this encounter Care Teams Supply Chain Associate Relationship Specialty Start Date End Date Al Gloria DO [facility] [place] [address] PCP - General 09/10/15 09/26/17 Al Gloria DO [facility] [place] [address] PCP - General 08/02/14 09/09/15 Al Gloria DO [facility] [place] [address] PCP - General 07/28/14 08/01/14 Al Gloria DO [facility] [place] [address] PCP - General 11/18/13 07/27/14 Md Generic Conversion, PCP - General 06/05/12 , Generic Conversion, PCP - General 02/02/10 3 Md Generic Conversion, PCP - General 01/31/10 documented as of this encounter
--- OUTSIDE RECORDS SUMMARY | 2024-03-23 01:36 | XMS_ITS | Encounter Summary ---
Author Organization [facility] Address [address] [place] [address]. [place] [address] [place] [address] Care Team Providers Care Heritage Consultant Name Role Phone Al Gloria DO Primary Care Provider [phone] Al Gloria DO Primary Care Provider [phone] Al Gloria DO Primary Care Provider [phone] Al Gloria DO Primary Care Provider [phone] Md Generic Conversion Primary Care Provider Unavailable Md Generic Conversion Primary Care Provider Unavailable Md Generic Rachel BURGESS Primary Care Provider Unavailable Encounter Details Date Type Department Care Team (Late st Contact Info) Description 06/17/2003 Abstract [facility] [address] [place], [place] [id number] Yaa Burgess MD Social History Tobacco Use [...] Contact Info) Description 05/01/2024 8:00 AM 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 CARBON PAPER 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 Appointment [facility] ONE [facility] [place], [place] [phone] Edgard Washington MD Three [facility]., [address] [place] [address] 06/02/2024 10:15 AM CDT Office Visit [facility] THREE [facility], ED [address] [place] [address] Edgard Washington MD Three [facility] [address] [place] [address] documented as of this encounter Visit Diagnoses Not on filedocumented in this encounter Care Teams Heritage Consultant Relationship Specialty Start Date End Date Al Gloria DO [address] [place] [address] PCP - General 09/10/15 09/26/17 Al Gloria DO [facility] [place] [address] PCP - General 08/02/14 09/09/15 Al Gloria DO [address] [place] [address] PCP - General 07/28/14 08/01/14 Al Gloria DO [facility] [place] [address] PCP - General 11/18/13 07/27/14 Md Generic Conversion, PCP - General 06/05/12 Md Generic Conversion, PCP - General 02/02/10 3 Md Generic Conversion, PCP - General 01/31/10 documented as of this encounter
--- OUTSIDE RECORDS SUMMARY | 2024-03-23 01:36 | XMS_ITS | Encounter Summary ---
Author Organization [facility] Address [address] [place] [address]. [place] [address] [place] [address] Care Team Providers Care Coin Collector Name Role Phone Al Gloria DO Primary Care Provider [phone] Al Gloria DO Primary Care Provider [phone] Al Gloria DO Primary Care Provider [phone] Al Gloria DO Primary Care Provider [phone] Md Generic Conversion Primary Care Provider Unavailable Md Generic Conversion Primary Care Provider Unavailable Md Generic Conversion Primary Care Provider Unavailable Encounter Details Date Type Department Care Team (Late st Contact Info) Description 09/01/1990 Abstract [place] [address] Md Generic ConversionMD Social History [...] st Contact Info) Description 05/01/2024 8:00 AM PRESSURE SUPERVISOR Appointment [facility] Non Invasive Cardiology ONE [place], [place] [id number] Edgard Washington MD Three [facility] [address] [place] [address] 06/02/2024 10:15 AM CDT Office Visit [facility] THREE [facility], ED [address] [place] [address] Edgard Washington MD Three [facility]., [address] [place] [address] documented as of this encounter Visit Diagnoses Not on filedocumented in this encounter Care Teams Coin Collector Relationship Specialty Start Date End Date Al Gloria DO [facility] [place] [address] PCP - General 09/10/15 09/26/17 Al Gloria DO [facility] [place] [address] PCP - General 08/02/14 09/09/15 Al Gloria DO [facility] [place] [address] PCP - General 07/28/14 08/01/14 Al Gloria DO [facility] [place] [address] PCP - General 11/18/13 07/27/14 Md Generic Conversion, PCP - General 06/05/12 , Generic Conversion, PCP - General 02/02/10 3 Md Generic Conversion, PCP - General 01/31/10 documented as of this encounter
--- OUTSIDE RECORDS SUMMARY | 2024-03-23 01:36 | XMS_ITS | Encounter Summary ---
Author Organization [facility] Address [address] [place] [address]. [place] [address] [place] [address] Care Team Providers Care Language Translator Name Role Phone Al Gloria DO Primary Care Provider [phone] Al Gloria DO Primary Care Provider [phone] Al Gloria DO Primary Care Provider [phone] Al Gloria DO Primary Care Provider [phone] Md Generic Conversion Primary Care Provider Unavailable Md Generic Conversion Primary Care Provider Unavailable Md Generic Rachel BURGESS Primary Care Provider Unavailable Encounter Details Date Type Department Care Team (Late st Contact Info) Description 05/16/2004 Abstract [facility] ONE [place], [place] [id number] Yaa Burgess MD Social History Tobacco Use [...] st Contact Info) Description 05/01/2024 8:00 AM OFFICE MACHINE SERVICE SUPERVISOR Appointment [facility] ONE [facility] [place], [place] [phone] Edgard Washington MD Three [facility] [address] [place] [address] 06/02/2024 10:15 AM CDT Office Visit [facility] THREE [facility], ED [address] [place] [address] Edgard Washington MD Three [facility] [address] [place] [address] documented as of this encounter Visit Diagnoses Not on filedocumented in this encounter Care Teams Language Translator Relationship Specialty Start Date End Date Al Gloria DO [address] [place] [address] PCP - General 09/10/15 09/26/17 Al Gloria DO [facility] [place] [address] PCP - General 08/02/14 09/09/15 Al Gloria DO [address] [place] [address] PCP - General 07/28/14 08/01/14 Al Gloria DO [facility] [place] [address] PCP - General 11/18/13 07/27/14 Md Generic Conversion, PCP - General 06/05/12 Md Generic Conversion, PCP - General 02/02/10 3 Md Generic Conversion, PCP - General 01/31/10 documented as of this encounter
--- OUTSIDE RECORDS SUMMARY | 2024-03-23 01:36 | XMS_ITS | Encounter Summary ---
Author Organization [facility] Address [address] [place] [address]. [place] [address] [place] [address] Care Team Providers Care Director University Name Role Phone Al Gloria DO Primary Care Provider [phone] Al Gloria DO Primary Care Provider [phone] Al Gloria DO Primary Care Provider [phone] Al Gloria DO Primary Care Provider [phone] Md Generic Rachel BURGESS Primary Care Provider Unavailable Yaa Burgess MD Primary Care Provider Unavailable Yaa Burgess MD Primary Care Provider Unavailable Mariana Ruiz DO Primary Care Provider [phone] Encounter Details Date Type Department Care Team (Latest Contact Info) Description 09/21/2002 Abstract [facility] Yaa Burgess MD Social History Tobacco Use [...] st Contact Info) Description 05/01/2024 8:00 AM FIELD GEOLOGIST Appointment [facility] [place] [address] Edgard Washington MD Three [facility] [address] [place] [address] 06/02/2024 10:15 AM CDT Office Visit [facility] THREE [facility], [address] [place] [address] Edgard Washington MD Three [facility] [address] [place], [place] [address] documented as of this encounter Visit Diagnoses Not on filedocumented in this encounter Care Teams Director University Relationship Specialty Start Date End Date Al Gloria DO [address] [place] [address] PCP - General 09/10/15 09/26/17 Al Gloria DO [address] [place] [address] PCP - General 08/02/14 09/09/15 Al Gloria DO [address] [place] [address] PCP - General 07/28/14 08/01/14 Al Gloria DO [address] [place] [address] PCP - General 11/18/13 07/27/14 , Generic Conversion, PCP - General 06/05/12 , Generic Conversion, PCP - General 02/02/10 3 , Generic Conversion, PCP - General 01/31/10 Mariana Ruiz DO [address] [place] [address] PCP - General FAMILY PRACTICE 09/27/17 06/04/23 documented as of this encounter
--- OUTSIDE RECORDS SUMMARY | 2024-03-23 01:36 | XMS_ITS | Encounter Summary ---
Author Organization [facility] Address [address] [place] [address]. [place] [address] [place] [address] Care Team Providers Care Production Lapping Machine Operator Name Role Phone Al Gloria DO Primary Care Provider [phone] Al Gloria DO Primary Care Provider [phone] Al Gloria DO Primary Care Provider [phone] Al Gloria DO Primary Care Provider [phone] Md Generic Conversion Primary Care Provider Unavailable Md Generic Conversion Primary Care Provider Unavailable Md Generic Rachel BURGESS Primary Care Provider Unavailable Encounter Details Date Type Department Care Team (Late st Contact Info) Description 01/27/2010 Abstract [facility] [place], [place] [id number] Yaa Burgess MD Social History Tobacco Use [...] st Contact Info) Description 05/01/2024 8:00 AM HALL MONITOR Appointment [facility] [place], [place] [phone] Edgard Washington MD Three [facility]., [address] [place] [address] 06/02/2024 10:15 AM CDT Office Visit [facility] THREE [facility], ED [address] [place] [address] Edgard Washington MD Three [facility]., [address] [place] [address] documented as of this encounter Visit Diagnoses Diagnosis Abdominal pain Abdominal pain, unspecified site documented in this encounter Care Teams Production Lapping Machine Operator Relationship Specialty Start Date End Date Al Gloria DO [address] [place] [address] PCP - General 09/10/15 09/26/17 Al Gloria DO [address] [place] [address] PCP - General 08/02/14 09/09/15 Al Gloria DO [address] [place] [address] PCP - General 07/28/14 08/01/14 Al Gloria DO [address] [place] [address] PCP - General 11/18/13 07/27/14 Md Generic Conversion, PCP - General 06/05/12 Md Generic Conversion, PCP - General 02/02/10 3 Md Generic Conversion, PCP - General 01/31/10 documented as of this encounter
--- OUTSIDE RECORDS SUMMARY | 2024-03-23 01:36 | XMS_ITS | Encounter Summary ---
Author Organization [facility] Address [address] [place] [address]. [place] [address] [place] [address] Care Team Providers Care Seed Cleaner Operator Name Role Phone Al Gloria DO Primary Care Provider [phone] Al Gloria DO Primary Care Provider [phone] Al Gloria DO Primary Care Provider [phone] Al Gloria DO Primary Care Provider [phone] Md Generic Conversion Primary Care Provider Unavailable Md Generic Conversion Primary Care Provider Unavailable Md Generic Conversion Primary Care Provider Unavailable Encounter Details Date Type Department Care Team (Late st Contact Info) Description 01/06/1991 Abstract [place] [address] Md Generic ConversionMD Social History [...] st Contact Info) Description 05/01/2024 8:00 AM SPLUNK DEVELOPER Appointment [facility] Non Invasive Cardiology [place], [place] [phone] Edgard Washington MD Three [facility]., [address] [place] [address] 06/02/2024 10:15 AM CDT Office Visit [facility] THREE [facility], ED [address] [place] [address] Edgard Washington MD Three [facility]., [address] [place] [address] documented as of this encounter Visit Diagnoses Not on filedocumented in this encounter Care Teams Seed Cleaner Operator Relationship Specialty Start Date End Date Al Gloria DO [facility] [place] [address] PCP - General 09/10/15 09/26/17 Al Gloria DO [facility] [place] [address] PCP - General 08/02/14 09/09/15 Al Gloria DO [facility] [place] [address] PCP - General 07/28/14 08/01/14 Al Gloria DO [facility] [place] [address] PCP - General 11/18/13 07/27/14 Md Generic Conversion, PCP - General 06/05/12 , Generic Conversion, PCP - General 02/02/10 3 Md Generic Conversion, PCP - General 01/31/10 documented as of this encounter
--- OUTSIDE RECORDS SUMMARY | 2024-03-23 01:36 | XMS_ITS | Encounter Summary ---
Author Organization [facility] Address [address] [place] [address]. [place] [address] [place] [address] Care Team Providers Care Full Stack Engineer Name Role Phone Al Gloria DO Primary Care Provider [phone] Al Gloria DO Primary Care Provider [phone] Al Gloria DO Primary Care Provider [phone] Al Gloria DO Primary Care Provider [phone] Md Generic Conversion Primary Care Provider Unavailable Md Generic Conversion Primary Care Provider Unavailable Md Generic Rachel BURGESS Primary Care Provider Unavailable Encounter Details Date Type Department Care Team (Late st Contact Info) Description 03/11/2009 Abstract [facility] [place], [place] [id number] Yaa Burgess MD Social History Tobacco Use [...] st Contact Info) Description 05/01/2024 8:00 AM CUSTOM DESIGNER Appointment [facility] ONE [facility] [place], [place] [phone] Edgard Washington MD Three [facility]., [address] [place] [address] 06/02/2024 10:15 AM CDT Office Visit [facility] THREE [facility], ED [address] [place] [address] Edgard Washington MD Three [facility]., [address] [place] [address] documented as of this encounter Visit Diagnoses Not on filedocumented in this encounter Care Teams Full Stack Engineer Relationship Specialty Start Date End Date Al Gloria DO [address] [place] [address] PCP - General 09/10/15 09/26/17 Al Gloria DO [facility] [place] [address] PCP - General 08/02/14 09/09/15 Al Gloria DO [address] [place] [address] PCP - General 07/28/14 08/01/14 Al Gloria DO [facility] [place] [address] PCP - General 11/18/13 07/27/14 Md Generic Conversion, PCP - General 06/05/12 Md Generic Conversion, PCP - General 02/02/10 3 Md Generic Conversion, PCP - General 01/31/10 documented as of this encounter
--- OUTSIDE RECORDS SUMMARY | 2024-03-23 01:36 | XMS_ITS | Encounter Summary ---
Author Organization [facility] Address [address] [place] [address]. [place] [address] [place] [address] Care Team Providers Care Dental Scheduler Name Role Phone Al Gloria DO Primary Care Provider [phone] Al Gloria DO Primary Care Provider [phone] Al Gloria DO Primary Care Provider [phone] Al Gloria DO Primary Care Provider [phone] Md Generic Conversion Primary Care Provider Unavailable Md Generic Conversion Primary Care Provider Unavailable Md Generic Rachel BURGESS Primary Care Provider Unavailable Encounter Details Date Type Department Care Team (Late st Contact Info) Description 12/18/2002 Abstract [place] [place], [place] [id number] Yaa Burgess MD Social History Tobacco Use [...] st Contact Info) Description 05/01/2024 8:00 AM WILL CALL CLERK Appointment [place] ONE [facility] O [place], [place] [phone] Edgard Washington MD Three [facility] [address] [place] [address] 06/02/2024 10:15 AM CDT Office Visit [facility] THREE [facility], ED [address] [place] [address] Edgard Washington MD Three [facility] [address] [place] [address] documented as of this encounter Visit Diagnoses Not on filedocumented in this encounter Care Teams Dental Scheduler Relationship Specialty Start Date End Date Al Gloria DO [address] [place] [address] PCP - General 09/10/15 09/26/17 Al Gloria DO [facility] [place] [address] PCP - General 08/02/14 09/09/15 Al Gloria DO [address] [place] [address] PCP - General 07/28/14 08/01/14 Al Gloria DO [facility] [place] [address] PCP - General 11/18/13 07/27/14 Md Generic Conversion, PCP - General 06/05/12 Md Generic Conversion, PCP - General 02/02/10 3 Md Generic Conversion, PCP - General 01/31/10 documented as of this encounter
--- OUTSIDE RECORDS SUMMARY | 2024-03-23 01:36 | XMS_ITS | Encounter Summary ---
Author Organization [facility] Address [address] [place] [address]. [address] Care Team Providers Care Technical Services Coordinator Name Role Phone Al Gloria DO Primary Care Provider [phone] Al Gloria DO Primary Care Provider [phone] Al Gloria DO Primary Care Provider [phone] Al Gloria DO Primary Care Provider [phone] Md Generic Conversion Primary Care Provider Unavailable Md Generic Conversion Primary Care Provider Unavailable Md Generic Rachel BURGESS Primary Care Provider Unavailable Encounter Details Date Type Department Care Team (Late st Contact Info) Description 09/03/2009 Abstract [facility] [place] ONE [place], [place] [id number] Yaa Burgess MD Social History Tobacco Use [...] st Contact Info) Description 05/01/2024 8:00 AM VACUUM EXTRACTOR OPERATOR Appointment [place] ONE [facility] [place], [place] [phone] Edgard Washington MD Three [facility] [address] [place] [address] 06/02/2024 10:15 AM CDT Office Visit [facility] THREE [facility], ED [address] [place] [address] Edgard Washington MD Three [facility] [address] [place] [address] documented as of this encounter Visit Diagnoses Not on filedocumented in this encounter Care Teams Technical Services Coordinator Relationship Specialty Start Date End Date Al Gloria DO [address] [place] [address] PCP - General 09/10/15 09/26/17 Al Gloria DO [facility] [place] [address] PCP - General 08/02/14 09/09/15 Al Gloria DO [address] [place] [address] PCP - General 07/28/14 08/01/14 Al Gloria DO [facility] [place] [address] PCP - General 11/18/13 07/27/14 Md Generic Conversion, PCP - General 06/05/12 Md Generic Conversion, PCP - General 02/02/10 3 Md Generic Conversion, PCP - General 01/31/10 documented as of this encounter
--- OUTSIDE RECORDS SUMMARY | 2024-03-23 01:36 | XMS_ITS | Encounter Summary ---
Author Organization [facility] Address [address] [place] [address]. [place] [address] [place] [address] Care Team Providers Care Assurance Engineer Name Role Phone Al Gloria DO Primary Care Provider [phone] Al Gloria DO Primary Care Provider [phone] Al Gloria DO Primary Care Provider [phone] Al Gloria DO Primary Care Provider [phone] Md Generic Conversion Primary Care Provider Unavailable Md Generic Conversion Primary Care Provider Unavailable Md Generic Conversion Primary Care Provider Unavailable Encounter Details Date Type Department Care Team (Late st Contact Info) Description 08/21/1990 Abstract [place] [address] Md Generic ConversionMD Social History [...] st Contact Info) Description 05/01/2024 8:00 AM TREASURY REPRESENTATIVE Appointment [facility] Non Invasive Cardiology ONE [place], [place] [phone] Edgard Washington MD Three [facility]., [address] [place] [address] 06/02/2024 10:15 AM CDT Office Visit [facility] THREE [facility], ED [address] [place] [address] Edgard Washington MD Three [facility]., [address] [place] [address] documented as of this encounter Visit Diagnoses Not on filedocumented in this encounter Care Teams Assurance Engineer Relationship Specialty Start Date End Date Al Gloria DO [facility] [place] [address] PCP - General 09/10/15 09/26/17 Al Gloria DO [facility] [place] [address] PCP - General 08/02/14 09/09/15 Al Gloria DO [facility] [place] [address] PCP - General 07/28/14 08/01/14 Al Gloria DO [facility] [place] [address] PCP - General 11/18/13 07/27/14 Md Generic Conversion, PCP - General 06/05/12 , Generic Conversion, PCP - General 02/02/10 3 Md Generic Conversion, PCP - General 01/31/10 documented as of this encounter
--- OUTSIDE RECORDS SUMMARY | 2024-03-23 01:36 | XMS_ITS | Encounter Summary ---
Author Organization [facility] Address [address] [place] [address]. [place] [address] [place] [address] Care Team Providers Care Aircraft Mechanic Name Role Phone Al Gloria DO Primary Care Provider [phone] Al Gloria DO Primary Care Provider [phone] Al Gloria DO Primary Care Provider [phone] Al Gloria DO Primary Care Provider [phone] Md Generic Conversion Primary Care Provider Unavailable Md Generic Conversion Primary Care Provider Unavailable Md Generic Conversion Primary Care Provider Unavailable Encounter Details Date Type Department Care Team (Late st Contact Info) Description 01/16/1991 Abstract [place] [address] Md Generic ConversionMD Social History [...] st Contact Info) Description 05/01/2024 8:00 AM IMPACT RETAIL SERVICE MERCHANDISER Appointment [facility] Non Invasive Cardiology [address] [place], [place] [id number] Edgard Washington MD Three [facility] [address] [place] [address] 06/02/2024 10:15 AM CDT Office Visit [facility] THREE [facility], ED [address] [place] [address] Edgard Washington MD Three [facility] [address] [place] [address] documented as of this encounter Visit Diagnoses Not on filedocumented in this encounter Care Teams Aircraft Mechanic Relationship Specialty Start Date End Date Al Gloria DO [facility] [place] [address] PCP - General 09/10/15 09/26/17 Al Gloria DO [facility] [place] [address] PCP - General 08/02/14 09/09/15 Al Gloria DO [facility] [place] [address] PCP - General 07/28/14 08/01/14 Al Gloria DO [facility] [place] [address] PCP - General 11/18/13 07/27/14 Md Generic Conversion, PCP - General 06/05/12 , Generic Conversion, PCP - General 02/02/10 3 Md Generic Conversion, PCP - General 01/31/10 documented as of this encounter
--- OUTSIDE RECORDS SUMMARY | 2024-03-23 01:36 | XMS_ITS | Encounter Summary ---
Author Organization [facility] Address [address] [place] [address]. [place] [address] [place] [address] Care Team Providers Care Tile Classifier Name Role Phone Al Gloria DO Primary Care Provider [phone] Al Gloria DO Primary Care Provider [phone] Al Gloria DO Primary Care Provider [phone] Al Gloria DO Primary Care Provider [phone] Md Generic Conversion Primary Care Provider Unavailable Md Generic Conversion Primary Care Provider Unavailable Md Generic Conversion Primary Care Provider Unavailable Encounter Details Date Type Department Care Team (Late st Contact Info) Description 07/11/1998 Abstract [place] [address] Md Generic ConversionMD Social History [...] st Contact Info) Description 05/01/2024 8:00 AM CLEANING STAFF SUPERVISOR Appointment [facility] Non Invasive Cardiology ONE [place], [place] [id number] Edgard Washington MD Three [facility] [address] [place] [address] 06/02/2024 10:15 AM CDT Office Visit [facility] THREE [facility], ED [address] [place] [address] Edgard Washington MD Three [facility] [address] [place] [address] documented as of this encounter Visit Diagnoses Not on filedocumented in this encounter Care Teams Tile Classifier Relationship Specialty Start Date End Date Al Gloria DO [facility] [place] [address] PCP - General 09/10/15 09/26/17 Al Gloria DO [facility] [place] [address] PCP - General 08/02/14 09/09/15 Al Gloria DO [facility] [place] [address] PCP - General 07/28/14 08/01/14 Al Gloria DO [facility] [place] [address] PCP - General 11/18/13 07/27/14 Md Generic Conversion, PCP - General 06/05/12 , Generic Conversion, PCP - General 02/02/10 3 Md Generic Conversion, PCP - General 01/31/10 documented as of this encounter
--- OUTSIDE RECORDS SUMMARY | 2024-03-23 01:36 | XMS_ITS | Encounter Summary ---
Author Organization [facility] Address [address] [place] [address]. [place] [address] [place] [address] Care Team Providers Care Head Mixer Name Role Phone Al Gloria DO Primary Care Provider [phone] Al Gloria DO Primary Care Provider [phone] Al Gloria DO Primary Care Provider [phone] Al Gloria DO Primary Care Provider [phone] Md Generic Conversion Primary Care Provider Unavailable Md Generic Conversion Primary Care Provider Unavailable Md Generic Conversion Primary Care Provider Unavailable Encounter Details Date Type Department Care Team (Late st Contact Info) Description 01/12/1993 Abstract [place] [address] Md Generic ConversionMD Social History [...] st Contact Info) Description 05/01/2024 8:00 AM VECTOR CONTROL ASSISTANT Appointment [facility] Non Invasive Cardiology ONE [place], [place] [id number] Edgard Washington MD Three [facility]., [address] [place] [address] 06/02/2024 10:15 AM CDT Office Visit [facility] THREE [facility], ED [address] [place] [address] Edgard Washington MD Three [facility] [address] [place] [address] documented as of this encounter Visit Diagnoses Not on filedocumented in this encounter Care Teams Head Mixer Relationship Specialty Start Date End Date Al Gloria DO [facility] [place] [address] PCP - General 09/10/15 09/26/17 Al Gloria DO [facility] [place] [address] PCP - General 08/02/14 09/09/15 Al Gloria DO [facility] [place] [address] PCP - General 07/28/14 08/01/14 Al Gloria DO [facility] [place] [address] PCP - General 11/18/13 07/27/14 Md Generic Conversion, PCP - General 06/05/12 , Generic Conversion, PCP - General 02/02/10 3 Md Generic Conversion, PCP - General 01/31/10 documented as of this encounter
--- OUTSIDE RECORDS SUMMARY | 2024-03-23 01:36 | XMS_ITS | Encounter Summary ---
Author Organization [facility] Address [address] [place] [address]. [place] [address] [place] [address] Care Team Providers Care Medical Appointment Clerk Name Role Phone Al Gloria DO Primary Care Provider [phone] Al Gloria DO Primary Care Provider [phone] Al Gloria DO Primary Care Provider [phone] Al Gloria DO Primary Care Provider [phone] Md Generic Conversion Primary Care Provider Unavailable Md Generic Conversion Primary Care Provider Unavailable Md Generic Conversion Primary Care Provider Unavailable Encounter Details Date Type Department Care Team (Late st Contact Info) Description 09/24/2006 Abstract [facility] ONE [place], [place] [id number] Arjun Donald MD Social History Tobacco Use Types Packs/Day [...] st Contact Info) Description 05/01/2024 8:00 AM WOOD HEEL FLAP INSERTER Appointment [facility] Non Invasive Cardiology [place], [place] [id number] Edgard Washington MD Three [facility] [address] [place] [address] 06/02/2024 10:15 AM CDT Office Visit [facility] THREE [facility], ED [address] [place] [address] Edgard Washington MD Three [facility]., [address] [place] [address] documented as of this encounter Visit Diagnoses Not on filedocumented in this encounter Care Teams Medical Appointment Clerk Relationship Specialty Start Date End Date Al Gloria DO [address] [place] [address] PCP - General 09/10/15 09/26/17 Al Gloria DO [address] [place] [address] PCP - General 08/02/14 09/09/15 Al Gloria DO [address] [place] [address] PCP - General 07/28/14 08/01/14 Al Gloria DO [address] [place] [address] PCP - General 11/18/13 07/27/14 Md Generic Conversion, PCP - General 06/05/12 Md Generic Conversion, PCP - General 02/02/10 3 Md Generic Conversion, PCP - General 01/31/10 documented as of this encounter
--- OUTSIDE RECORDS SUMMARY | 2024-03-23 01:36 | XMS_ITS | Encounter Summary ---
Author Organization [facility] Address [address] [place] [address]. [place] [address] [place] [address] Care Team Providers Care Training And Development Assistant Name Role Phone Al Gloria DO Primary Care Provider [phone] Al Gloria DO Primary Care Provider [phone] Al Gloria DO Primary Care Provider [phone] Al Gloria DO Primary Care Provider [phone] Md Generic Conversion Primary Care Provider Unavailable Md Generic Conversion Primary Care Provider Unavailable Md Generic Conversion Primary Care Provider Unavailable Encounter Details Date Type Department Care Team (Late st Contact Info) Description 07/13/1991 Abstract [place] [address] Md Generic ConversionMD Social History [...] st Contact Info) Description 05/01/2024 8:00 AM LOAN COLLECTOR Appointment [facility] Non Invasive Cardiology ONE [place], [place] [id number] Edgard Washington MD Three [facility] [address] [place] [address] 06/02/2024 10:15 AM CDT Office Visit [facility] THREE [facility], [address] [place] [address] Edgard Washington MD Three [facility] [address] [place] [address] documented as of this encounter Visit Diagnoses Not on filedocumented in this encounter Care Teams Training And Development Assistant Relationship Specialty Start Date End Date Al Gloria DO [facility] [place] [address] PCP - General 09/10/15 09/26/17 Al Gloria DO [facility] [place] [address] PCP - General 08/02/14 09/09/15 Al Gloria DO [facility] [place] [address] PCP - General 07/28/14 08/01/14 Al Gloria DO [facility] [place] [address] PCP - General 11/18/13 07/27/14 Md Generic Conversion, PCP - General 06/05/12 , Generic Conversion, PCP - General 02/02/10 3 Md Generic Conversion, PCP - General 01/31/10 documented as of this encounter
--- OUTSIDE RECORDS SUMMARY | 2024-03-23 01:36 | XMS_ITS | Encounter Summary ---
Author Organization [facility] Address [address] [place] [address]. [place] [address] [place] [address] Care Team Providers Care Oracle Data Warehouse Developer Name Role Phone Al Gloria DO Primary Care Provider [phone] Al Gloria DO Primary Care Provider [phone] Al Gloria DO Primary Care Provider [phone] Al Gloria DO Primary Care Provider [phone] Md Generic Conversion Primary Care Provider Unavailable Md Generic Conversion Primary Care Provider Unavailable Md Generic Rachel BURGESS Primary Care Provider Unavailable Encounter Details Date Type Department Care Team (Late st Contact Info) Description 12/18/2002 Abstract [facility] ONE [place], [place] [id number] Yaa Burgess MD Social History Tobacco Use [...] st Contact Info) Description 05/01/2024 8:00 AM HAT BINDER Appointment [facility] ONE [facility] [place], [place] [id number] Edgard Washington MD Three [facility] [address] [place] [address] 06/02/2024 10:15 AM CDT Office Visit [facility] THREE [facility], ED [address] [place] [address] Edgard Washington MD Three [facility] [address] [place] [address] documented as of this encounter Visit Diagnoses Not on filedocumented in this encounter Care Teams Oracle Data Warehouse Developer Relationship Specialty Start Date End Date Al Gloria DO [address] [place] [address] PCP - General 09/10/15 09/26/17 Al Gloria DO [facility] [place] [address] PCP - General 08/02/14 09/09/15 Al Gloria DO [address] [place] [address] PCP - General 07/28/14 08/01/14 Al Gloria DO [facility] [place] [address] PCP - General 11/18/13 07/27/14 Md Generic Conversion, PCP - General 06/05/12 Md Generic Conversion, PCP - General 02/02/10 3 Md Generic Conversion, PCP - General 01/31/10 documented as of this encounter
--- OUTSIDE RECORDS SUMMARY | 2024-03-23 01:36 | XMS_ITS | Encounter Summary ---
Author Organization [facility] Address [address] [place] [address]. [place] [address] [place] [address] Care Team Providers Care Line Painting Machine Operator Name Role Phone Al Gloria DO Primary Care Provider [phone] Al Gloria DO Primary Care Provider [phone] Al Gloria DO Primary Care Provider [phone] Al Gloria DO Primary Care Provider [phone] Md Generic Conversion Primary Care Provider Unavailable Md Generic Conversion Primary Care Provider Unavailable Md Generic Conversion Primary Care Provider Unavailable Encounter Details Date Type Department Care Team (Late st Contact Info) Description 02/23/1998 Abstract [place] [address] Md Generic ConversionMD Social History [...] st Contact Info) Description 05/01/2024 8:00 AM DIRECTOR OF DIAGNOSTIC IMAGING Appointment [facility] Non Invasive Cardiology ONE [place], [place] [id number] Edgard Washington MD Three [facility] [address] [place] [address] 06/02/2024 10:15 AM CDT Office Visit [facility] THREE [facility], ED [address] [place] [address] Edgard Washington MD Three [facility] [address] [place] [address] documented as of this encounter Visit Diagnoses Not on filedocumented in this encounter Care Teams Line Painting Machine Operator Relationship Specialty Start Date End Date Al Gloria DO [facility] [place] [address] PCP - General 09/10/15 09/26/17 Al Gloria DO [facility] [place] [address] PCP - General 08/02/14 09/09/15 Al Gloria DO [facility] [place] [address] PCP - General 07/28/14 08/01/14 Al Gloria DO [facility] [place] [address] PCP - General 11/18/13 07/27/14 Md Generic Conversion, PCP - General 06/05/12 , Generic Conversion, PCP - General 02/02/10 3 Md Generic Conversion, PCP - General 01/31/10 documented as of this encounter
--- OUTSIDE RECORDS SUMMARY | 2024-03-23 01:36 | XMS_ITS | Encounter Summary ---
Author Organization [facility] Address [address] [place] [address]. [place] [address] [place] [address] Care Team Providers Care Flat Sorter Processor Name Role Phone Al Gloria DO Primary Care Provider [phone] Al Gloria DO Primary Care Provider [phone] Al Gloria DO Primary Care Provider [phone] Al Gloria DO Primary Care Provider [phone] Md Generic Conversion Primary Care Provider Unavailable Md Generic Conversion Primary Care Provider Unavailable Md Generic Conversion Primary Care Provider Unavailable Encounter Details Date Type Department Care Team (Late st Contact Info) Description 06/21/1994 Abstract [place] [address] Md Generic ConversionMD Social History [...] st Contact Info) Description 05/01/2024 8:00 AM AUDIO VISUAL DESIGN ENGINEER Appointment [facility] Non Invasive Cardiology ONE [place], [place] [id number] Edgard Washington MD Three [facility] [address] [place] [address] 06/02/2024 10:15 AM CDT Office Visit [facility], ED [address] [place] [address] Edgard Washington MD Three [facility] [address] [place] [address] documented as of this encounter Visit Diagnoses Not on filedocumented in this encounter Care Teams Flat Sorter Processor Relationship Specialty Start Date End Date Al Gloria DO [facility] [place] [address] PCP - General 09/10/15 09/26/17 Al Gloria DO [facility] [place] [address] PCP - General 08/02/14 09/09/15 Al Gloria DO [facility] [place] [address] PCP - General 07/28/14 08/01/14 Al Gloria DO [facility] [place] [address] PCP - General 11/18/13 07/27/14 Md Generic Conversion, PCP - General 06/05/12 , Generic Conversion, PCP - General 02/02/10 3 Md Generic Conversion, PCP - General 01/31/10 documented as of this encounter
--- OUTSIDE RECORDS SUMMARY | 2024-03-23 01:36 | XMS_ITS | Encounter Summary ---
Author Organization [facility] Address [address] [place] [address]. [place] [address] [place] [address] Care Team Providers Care Recep Name Role Phone Al Gloria DO Primary Care Provider [phone] Al Gloria DO Primary Care Provider [phone] Al Gloria DO Primary Care Provider [phone] Al Gloria DO Primary Care Provider [phone] Md Generic Conversion Primary Care Provider Unavailable Md Generic Conversion Primary Care Provider Unavailable Md Generic Rachel BURGESS Primary Care Provider Unavailable Encounter Details Date Type Department Care Team (Late st Contact Info) Description 03/05/[address] [facility] ONE [place], [place] [id number] Yaa Burgess MD Social History Tobacco Use [...] Contact Info) Description 05/01/2024 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 Appointment [facility] ONE [facility] [place], [place] [id number] Edgard Washington MD Three [facility] [address] [place] [address] 06/02/2024 10:15 AM CDT Office Visit [facility] THREE [facility], ED [address] [place] [address] Edgard Washington MD Three [facility] [address] [place] [address] documented as of this encounter Visit Diagnoses Not on filedocumented in this encounter Care Teams Recep Relationship Specialty Start Date End Date Al Gloria DO [address] [place] [address] PCP - General 09/10/15 09/26/17 Al Gloria DO [facility] [place] [address] PCP - General 08/02/14 09/09/15 Al Gloria DO [address] [place] [address] PCP - General 07/28/14 08/01/14 Al Gloria DO [facility] [place] [address] PCP - General 11/18/13 07/27/14 Md Generic Conversion, PCP - General 06/05/12 Md Generic Conversion, PCP - General 02/02/10 3 Md Generic Conversion, PCP - General 01/31/10 documented as of this encounter
--- OUTSIDE RECORDS SUMMARY | 2024-03-23 01:44 | XMS_ITS | Encounter Summary ---
Author Organization [facility] Address [address] [place] [address] Care Team Providers Care Senior Information Security Analyst Name Role Phone Unavailable Primary Care Provider Unavailabl e Reason for Visit * MRI/CAT/PET Scan (Routine) - Pending Review Specialty Diagnoses / Procedures Referred By Herberth amor Referred To Contact Procedures MSK MR Outside Reference Transcribed Order, Provider Referral ID Status Reason Start Date Expiration Date V isits Requested Visits Authorized [id number] Pending Review 05/29/2023 06/27/2024 1 1 Encounter Details Date Type Department Care Team (Latest Contact Info) Description 05/10/2023 - 05/10/2023 11:59 PM NEWBORN PHOTOGRAPHER Hospital Encounter [facility] [address] [facility] [place] [address] Discharge Disposition: Discharge to home or self care Social History Tobacco Use Types Packs/Day Years Used Date Smoking Tobacco: Former Cigarettes Q uit: 1984 AUDIT-C Answer Date Recorded Q1: How often do you have a drink containing alc ohol? 2-4 times a month 09/13/2022 Q2: How many drinks containi ng alcohol do you have on a typical day when you are drinking? 1 or 2 09/13/2022 Q3: How often do you have si x or more drinks on one occasion? 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 Gender Identity Not on file Sexual Orientation Not on file Occupation Industry Job Start Date Job End Date retired Not on file Not on file Not on file documented as of this encounter Medications at Time of Discharge ascorbic acid 500 mg tablet,chewable Take 1 tablet/chew tab (500 mg total) by mouth 2 (two) times a day celecoxib (CeleBREX) 200 mg capsule Take 1 capsule (200 mg total) by mouth daily 08/14/2022 cetirizine (ZyrTEC) 10 mg chewable tablet Take 1 tablet (10 mg total) by mouth daily cholecalciferol 400 unit capsule Take 1 tablet/capsule (400 Units total) by mouth daily hydroCHLOROthiazi de (HYDRODIURIL) 12.5 mg tablet Take 1 tablet (12.5 mg total) by mouth daily 04/25/2022 losartan (COZAAR) 100 mg tablet Take 0.5 tablets (50 mg total) by mouth daily 04/25/2022 omeprazole (PriLOSEC) 40 mg capsule Take 1 capsule (40 mg total) by mouth daily 04/25/2022 oxyBUTYnin XL (DITROPAN-XL) 10 mg 24 hr tablet Take 1 tablet (10 mg total) by mouth daily 08/14/2022 polyethylene glycol (MIRALAX) 17 gram/dose powder Take 17 g by mouth daily semaglutide (Ozempic) 0.25 mg or 0.5 mg (2 mg/3 mL) pen injector injection Inject under the skin zinc gluconate 50 mg tablet Take by mouth documented as of this encounter Discharge Disposition Disposition Code Departure Means Destination Discharge to home or self care documented in this encounter Plan of Treatment Not on file documented as of this encounter Procedures Procedure Name Priority Date/Time Associated Diagnosis Comments K MR OUTSIDE REFERENCE Routine 05/10/2023 12:00 AM NEWBORN PHOTOGRAPHER documented in this encounter Results * MSK MR Outside Reference (05/10/2023 12:00 AM NEWBORN PHOTOGRAPHER) Narrative [email or web address] - 05/29/2023 10:13 AM CDT This order has been auto-finalized and does not contain a result. us Provider Transcribed Order IMG MRI PROCEDURES Fi nal Result [email or web address] documented in this encounter Visit Diagnoses Not on filedocumented in this encounter
--- OUTSIDE RECORDS SUMMARY | 2024-03-23 01:44 | XMS_ITS | Referral Summary ---
Author Organization [facility] Address [address] [place] [id number] Care Team Providers Care Recreation Instructor Name Role Phone Marii Randle MD Primary Care Provider [phone] Allergies No known active allergies Medications ascorbic acid 500 mg tablet,chewable Take 1 tablet/chew tab (500 mg total) by mouth 2 (two) times a day Active celecoxib (CeleBREX) 200 mg capsule Take 1 capsule (200 mg total) by mouth daily 08/14/2022 Active cetirizine (ZyrTEC) 10 mg chewable tablet Take 1 tablet (10 mg total) by mouth daily Active cholecalciferol 400 unit capsule Take 1 tablet/capsu le (400 Units total) by mouth daily Active hydroCHLOROthia zide (HYDRODIURIL) 12.5 mg tablet Take 1 tablet (12.5 mg total) by mouth daily 04/25/2022 Active losartan (COZAAR) 100 mg tablet Take 0.5 tablets (50 mg total) by mouth daily 04/25/2022 Active omeprazole (PriLOSEC) 40 mg capsule Take 1 capsule (40 mg total) by mouth daily 04/25/2022 Active oxyBUTYnin XL (DITROPAN-XL) 10 mg 24 hr tablet Take 1 tablet (10 mg total) by mouth daily 08/14/2022 Active polyethylene glycol (MIRALAX) 17 gram/dose powder Take 17 g by mouth daily Active zinc gluconate 50 mg tablet Take by mouth Active semaglutide (Ozempic) 0.25 mg or 0.5 mg (2 mg/3 mL) pen injector injection Inject under the skin Active Active Problems No known active problems Social History Tobacco Use Types Packs/Day Years Used Date Smoking Tobacco: Former Cigarettes Q uit: 1985 Tobacco Cessation:Counseling Given: Not Answered AUDIT-C Answer Date Recorded Q1: How often [...] on file 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 Gender Identity Not on file Sexual Orientation Not on file Occupation Industry Job Start Date Job End Date retired Not on file Not on file Not on file Last Filed Vital Signs Vital Sign Reading Time Taken Comments Blood Pressure - - Pulse - - Temperature - - Respiratory Rate - - Oxygen Saturation - - Inhaled Oxygen Concentration - - Weight 93 kg (205 lb) 05/29/2023 10:39 AM CDT Height 167.6 cm (5' 6 ) 05/29/2023 10:39 AM CDT Body Mass Index 33.09 05/29/2023 10:39 AM CDT Plan of Treatment Not on file Insurance [employer] MEDIC[employer] PPO Care Teams Recreation Instructor Relationship Specialty Start Date End Date Marii Randle MD [address] [facility] [address] [place] [address] PCP - General Family Medicine 05/29/23
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
--- OUTSIDE RECORDS SUMMARY | 2024-03-23 01:44 | XMS_ITS | Encounter Summary ---
Author Organization [facility] Address [address] [place] [id number] Care Team Providers Care Child Development Teacher Name Role Phone Unavailable Primary Care Provider Unavailabl e Reason for Referral * Diagnostic Imaging (Routine) - Closed Specialty Diagnoses / Procedures Referred By Contac t Referred To Contact Diagnoses Lumbar pain Procedures XR Spine Lumbar W Bending 6 or More Views Celia Keys NP [address] [place] [address] [address] Phone: tel: fax: [address] [phone] Referral ID Status Reason Start Date Expiration Date Visits Re quested Visits Authorized [id number] Closed 08/16/2022 09/15/2023 1 1 * Diagnostic Imaging (Routine) - Closed Specialty Diagnoses / Procedures Referred By Contac t Referred To Contact Diagnoses Pain of right hip Procedures XR Hip Right 2 or 3 Views W Pelvis Celia Keys NP [address] [place] [address] [place] [address] Phone: tel: fax: [address] [phone] Referral ID Status Reason Start Date Expiration Date Visits Re quested Visits Authorized [id number] Closed 08/28/2022 09/27/2023 1 1 Reason for Visit * Diagnostic Imaging (Routine) - Closed Specialty Diagnoses / Procedures Referred By Contac t Referred To Contact Diagnoses Pain of right hip Procedures XR Hip Right 2 or 3 Views W Pelvis Celia Keys, RAISE DRILLER [address] [place] [address] Phone: tel: fax: [facility] [address] [place] [phone] Referral ID Status Reason Start Date Expiration Date Visits Re quested Visits Authorized [id number] Closed 08/28/2022 09/27/2023 1 1 Encounter Details Date Type Department Care Team (Latest Contact Info) Description 09/13/2022 9:31 AM CDT - 09/13/2022 11:59 PM CDT Hospital Encounter [facility] [address] [place] [address] Pain of right hip; Lumbar pain Discharge Disposition: Discharge to home or self [...] more drinks on one occasion? 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 Gender Identity Not on file Sexual Orientation [...] Priority Date/Time Associated Diagnosis Comments XR HIP RIGHT W PELVIS 2 OR 3 VIEWS Schedule Routine, Read Routine (OP Routine) 09/13/2022 9:55 AM CDT Pain of right hip XR SPINE LUMBAR W BENDING 6 OR MORE VIEWS Schedule Routine, Read Routine (OP Routine) 09/13/2022 9:55 AM CDT Lumbar pain documented in this encounter Results * XR Spine Lumbar W Bending 6 or More Views (09/13/2022 9:55 AM CDT) Anatomical Region Laterality Modality Spine N/A Computed Radiogr aphy 09/14/2022 2:32 AM CDT Narrative 09/14/2022 2:33 AM CDT EXAM DESCRIPTION: XR HIP RIGHT 2 OR 3 VIEWS W PELVIS; XR SPINE LUMBAR W BENDING 6 OR MORE VIEWS REASON FOR STUDY: pain ?? C/O right sided pain shooting from low back to knee x 1 yr. No known injury ? FINDINGS: Two views right hip and 6 views lumbar spine submitted without comparison . Lumbar spine: No acute fractures are identified. ??There is grade 1 anterolisthesis of L4 on L5. ??There is mild L3-L5 and moderate to severe L5-S1 degenerative disc disease. ??There is severe multilevel lumbar facet osteoarthritis. ??Surgical clips are present. Right hip: No acute fractures are identified. ??There is mild bilateral hip osteoarthritis, right greater than left. ??Alignment is normal. IMPRESSION: Mild L3-L5 and moderate to severe L5-S1 degenerative disc disease with severe multilevel lumbar facet osteoarthritis. Grade 1 anterolisthesis of L4 on L5. Mild bilateral hip osteoarthritis, right greater than left. THIS IS AN ELECTRONICALLY VERIFIED FINAL REPORT 09/14/2022 2:33 AM - Electronically signed by ??Vic Keys M.D. D: ??09/14/2022 2:33 AM T: Report ID: [id number] Reading Location: ??[id number] Procedure Note Vic Keys MD - 09/14/2022 EXAM DESCRIPTION: XR HIP RIGHT 2 OR 3 VIEWS W PELVIS; XR SPINE LUMBAR W BENDING 6 OR MORE VIEWS REASON FOR STUDY: pain C/O right sided pain shooting from low back to knee x 1 yr. No knowninjury FINDINGS: Two views right hip and 6 views lumbar spine submitted without comparison . Lumbar spine: No acute fractures are identified. There is grade 1 anterolisthesis of L4on L5. There is mild L3-L5 and moderate to severe L5-S1 degenerative disc disease. There is severe multilevel lumbar facet osteoarthritis.Surgical clips are present. Right hip: No acute fractures are identified. There is mild bilateral hip osteoarthritis, right greater than left. Alignment is normal. IMPRESSION: Mild L3-L5 and moderate to severe L5-S1 degenerative disc disease withsevere multilevel lumbar facet osteoarthritis. Grade 1 anterolisthesis of L4 on L5. Mild bilateral hip osteoarthritis, right greater than left. THIS IS AN ELECTRONICALLY VERIFIED FINAL REPORT 09/14/2022 2:33 AM - Electronically signed by Vic Keys M.D. T: Report ID: [id number] Reading Location: [id number] Celia Keys RAISE DRILLER IMG XR PROCEDURES Final Res ult * XR Hip Right 2 or 3 Views W Pelvis (09/13/2022 9:55 AM CDT) Anatomical Region Laterality Modality Lower Extremities, Hip, Pelvis Right C omputed Radiography 09/14/2022 2:32 AM CDT Narrative 09/14/2022 2:33 AM CDT EXAM DESCRIPTION: XR HIP RIGHT 2 OR 3 VIEWS W PELVIS; XR SPINE LUMBAR W BENDING 6 OR MORE VIEWS REASON FOR STUDY: pain ?? C/O right sided pain shooting from low back to knee x 1 yr. No known injury ? FINDINGS: Two views right hip and 6 views lumbar spine submitted without comparison . Lumbar spine: No acute fractures are identified. ??There is grade 1 anterolisthesis of L4 on L5. ??There is mild L3-L5 and moderate to severe L5-S1 degenerative disc disease. ??There is severe multilevel lumbar facet osteoarthritis. ??Surgical clips are present. Right hip: No acute fractures are identified. ??There is mild bilateral hip osteoarthritis, right greater than left. ??Alignment is normal. IMPRESSION: Mild L3-L5 and moderate to severe L5-S1 degenerative disc disease with severe multilevel lumbar facet osteoarthritis. Grade 1 anterolisthesis of L4 on L5. Mild bilateral hip osteoarthritis, right greater than left. THIS IS AN ELECTRONICALLY VERIFIED FINAL REPORT 09/14/2022 2:33 AM - Electronically signed by ??Vic Keys M.D. D: ??09/14/2022 2:33 AM T: Report ID: [id number] Reading Location: ??[id number] Procedure Note Vic Keys MD - 09/14/2022 EXAM DESCRIPTION: XR HIP RIGHT 2 OR 3 VIEWS W PELVIS; XR SPINE LUMBAR W BENDING 6 OR MORE VIEWS REASON FOR STUDY: pain C/O right sided pain shooting from low back to knee x 1 yr. No knowninjury FINDINGS: Two views right hip and 6 views lumbar spine submitted without comparison . Lumbar spine: No acute fractures are identified. There is grade 1 anterolisthesis of L4on L5. There is mild L3-L5 and moderate to severe L5-S1 degenerative disc disease. There is severe multilevel lumbar facet osteoarthritis.Surgical clips are present. Right hip: No acute fractures are identified. There is mild bilateral hip osteoarthritis, right greater than left. Alignment is normal. IMPRESSION: Mild L3-L5 and moderate to severe L5-S1 degenerative disc disease withsevere multilevel lumbar facet osteoarthritis. Grade 1 anterolisthesis of L4 on L5. Mild bilateral hip osteoarthritis, right greater than left. THIS IS AN ELECTRONICALLY VERIFIED FINAL REPORT 09/14/2022 2:33 AM - Electronically signed by Vic Keys M.D. T: Report ID: [id number] Reading Location: [place] [address] Celia Keys NP IMG XR PROCEDURES Final Res ult documented in this encounter Visit Diagnoses Diagnosis Pain of right hip Lumbar pain Lumbago documented in this encounter
--- OUTSIDE RECORDS SUMMARY | 2024-03-23 01:44 | XMS_ITS | Encounter Summary ---
Author Organization [facility] Healthcare Address [address] [place] [id number] Care Team Providers Care Planting Machine Crewman Name Role Phone Marii Randle MD Primary Care Provider Reason for Referral * MRI/CAT/PET Scan (Routine) - Closed Specialty Diagnoses / Procedures Referred By Contbrenda t Referred To Contact Radiology Procedures MRI Lumbar Spine WO Contrast Guadalupe Aviles MD [address] [place] [address] Phone: tel: Referral ID Status Reason Start Date Expiration Date Visits Re quested Visits Authorized [id number] Closed 05/29/2023 06/27/2024 1 1 Encounter Details Date Type Department Care Team (Late st Contact Info) Description 05/29/2023 Orders Only [facility] Medical Group Orthopedics and Sports Medicine [address] [place] [phone] Guadalupe Aviles MD [address] [place] [address] Social History Tobacco Use Types Packs/Day Years [...] on file 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 Gender Identity Not on file Sexual Orientation Not on file Occupation Industry Job Start Date Job End Date retired Not on file Not on file Not on file documented as of this encounter Plan of Treatment Not on file documented as of this encounter Procedures Procedure Name Priority Date/Time Associated Diagnosis Comments MRI LUMBAR SPINE WO CONTRAST Schedule Routine, Read Routine (OP Routine) 05/10/2023 10:44 AM STRIPING MACHINE OPERATOR documented in this encounter Results * MRI Lumbar Spine WO Contrast (05/10/2023 10:44 AM STRIPING MACHINE OPERATOR) Anatomical Region Laterality Modality Spine N/A Magnetic Resonan ce Historical Provider MD LADD MRI PROCEDURES Final Result documented in this encounter Visit Diagnoses Not on filedocumented in this encounter Care Teams Planting Machine Crewman Relationship Specialty Start Date End Date Marii Randle MD [address] [facility] [address] [place] [address] PCP - General Family Medicine 05/29/23 documented as of this encounter
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
--- OUTSIDE RECORDS SUMMARY | 2024-03-23 01:44 | XMS_ITS | Encounter Summary ---
Author Organization [facility] Address [address] [place] [address] Care Team Providers Care Fund Accounting Manager Name Role Phone Unavailable Primary Care Provider Unavailabl e Reason for Referral * Procedure (Routine) - Closed Specialty Diagnoses / Procedures Referred By Contac t Referred To Contact Diagnoses Trochanteric bursitis of right hip Procedures Large Joint (Hip, Knee, Shoulder) Injection: R greater trochanteric bursa Celia Keys NP [address] [place] [address] DR WARD [address] [place] [address] Phone: tel: fax: [facility] Medical [facility] Referral ID Status Reason Start Date Expiration Date Visits Re quested Visits Authorized [id number] Closed 01/07/2023 02/06/2024 1 1 PRINTING MACHINE OPERATOR * Procedure (Routine) - Closed Specialty Diagnoses / Procedures Referred By Contac t Referred To Contact Diagnoses Myalgia, other site Procedures Trigger Point Injection [facility] DR WARD [address] [place] [address] Phone: tel: fax: [facility] Medical Group Referral ID Status Reason Start Date Expiration Date Visits Re quested Visits Authorized [id number] Closed 01/07/2023 02/06/2024 1 1 PRINTING MACHINE OPERATOR Reason for Visit * Reason Comments Pain Encounter Details Date Type Department Care Team (Late st Contact Info) Description 01/07/2023 1:30 PM BOX PRINTING MACHINE OPERATOR Office Visit [facility] Medical Group Orthopedics and Sports Medicine [address] [facility] [address] [place] [address] Celia Keys NP [address] [place] [address] [address] [place] [address] Myalgia, other site (Primary Dx); Trochanteric bursitis of right hip; Chronic bilateral low back pain with right-sided sciatica; Lumbar facet arthropathy, severe multilevel; DDD (degenerative disc disease), lumbar, Mild L3-L5 and moderate to severe L5-S1; Anterolisthesis of lumbar spine, grade 1 L4 on L5; Bilateral primary osteoarthritis of hip, mild Social History Tobacco Use Types Packs/Day Years [...] on file Legal Sex Female 8:07 PM BOX PRINTING MACHINE OPERATOR Gender Identity Not on file [...] - - Weight 93 kg (205 lb) 01/07/2023 1:45 PM BOX PRINTING MACHINE OPERATOR Height 167.6 cm (5' 6 ) 01/07/2023 1:45 PM BOX PRINTING MACHINE OPERATOR Body Mass Index 33.09 01/07/2023 1:45 PM BOX PRINTING MACHINE OPERATOR documented in this encounter Progress Notes * Celia Keys NP - 01/07/2023 1:30 PM CSTAssociated Order(s): Trigger Point Injection; Large Joint (Hip, Knee, Shoulder) Injection: R greater trochanteric bursa Post-Procedure Diagnose(s): Myalgia, other site; Trochanteric bursitis of right hip Reason for Appointment Chronic lumbar pain History of Present Illness: Julianna Brown is a 67 y.o. female arrived to the orthopedic department ambulatory, walking with no assisted devices. She is here today requesting have cortisone trigger point injections for her chronic lumbar pain symptoms. Previous cortisone trigger point injections given September 13, 2022 for similar type pain provided at least 75% reduction of her lumbar pain symptoms. Her pain has now returned which she reports increases up to 6/10 achy, occasional sharp pain. Her pain symptoms worsen withactivities such as going up stairs and with activities such as sweeping and mopping. She currently uses Tylenol Arthritis for pain reduction. She continues to go to the rec center in [place]. She denies bowel or bladder dysfunction and denies saddle paresthesia type symptoms. She is been actively working on weight loss by going [facility] for exercise and healthier dietary choices and Ozempic. She reports that she is now lost 20 lbs. She has had career development associate by Dr. Yusef Huerta, her chiropractor at [facility] where she isbeen going for chiropractor. She also had outpatient physical therapy at [place] August 02, 2021 through August 31, 2021. Red flags in history of lumbar pain: [...] sidewalk Unexplained weight loss: She reports a 20 lb weight loss after being placed on [...] history of cancer. Assessment: Diagnosis Plan 1. Myalgia, other site Trigger Point Injection 2. Trochanteric bursitis of right hip Large Joint (Hip, Knee, Shoulder) Injection: R greater trochanteric bursa 3. Chronic bilateral low back pain with right-sided sciatica 4. Lumbar facet arthropathy, severe multilevel 5. DDD (degenerative disc disease), lumbar, Mild L3-L5 and moderate to severe L5-S1 6. Anterolisthesis of lumbar spine, grade 1 L4 on L5 7. Bilateral primary osteoarthritis of hip, mild Plan: For her chronic lumbar pain symptoms, today I gave Julianna cortisone trigger point injections using 2 mL 1% lidocaine without epi and 40 mg triamcinolone each to the right lower lumbar paraspinal muscle region near L4-L5, L5-S1 and the right gluteal/piriformis muscle region where there were focal areas of hyperirritability with palpation. For her right hip pain symptoms, today I gave Julianna a cortisone injection using 2 mL 1% lidocaine without epi and 40 mg triamcinolone to the right trochanter bursa region where there was focal hyperirritability with palpation. I discussed options with Julianna that I could order an MRI of the lumbar spine for further evaluation for the purpose of referral to interventional pain management or Neurosurgery. At this time Julianna does not wish to have referral to Neurosurgery or interventional pain management. She can contact me at the Orthopedic clinic if she would like to have an MRI of the lumbar spine ordered which would be for the purpose of referral to Neurosurgery or interventional pain management. She has a follow-up appointment scheduled with me on April 08, 2023 for further evaluation of herlumbar pain, right hip pain symptoms. Imaging Reviewed: Right hip with pelvis x-rays, [...] discussed, including, but not limited to:: Pain Alternatives discussed:: Alternative treatment Site/side marked: Yes Indications: Pain Procedure Details: Location: R lumbar paraspinal Local anesthetic: Ethyl chloride spray Ultrasound guidance: No Needle size: 22 G Number of muscles: 1 or 2 Approach: Posterior 6 mL lidocaine 10 mg/mL (1 %); 120 mg triamcinolone 40 mg/mL Patient tolerance: Patient tolerated the procedure well with no immediate complications Large Joint (Hip, Knee, Shoulder) Injection: R greater trochanteric bursa Performed by: Celia Keys NP Authorized by: Celia Keys NP Large Joint Injection/Aspiration: Consent Given by: [...] the right lower lumbar paraspinal/facet region at L4-L5, L5-S1. There is also pain with palpation to the right gluteal/piriformis muscle region and the right trochanter bursa region. Referred pain to the right gluteal/piriformis region and right hip region Straight leg raise produces increased right lower lumbar pain, right gluteal pain Sensation is intact in the superficial peroneal [...] Types: Cigarettes Quit date: 1984 Years since quittin.8 Smokeless tobacco: None Substance and Sexual Activity Drug use: Never Sexual activity: None Alcohol Use: Not At Risk (09/13/2022) AUDIT-C Frequency of Alcohol Consumption: 2-4 times a month Average Number of Drinks: 1 or 2 Frequency of Binge Drinking: Never Vital Signs: Height 167.6 cm (5' 6 ), weight 93 kg (205 lb). BMI Readings from Last 1 Encounters: 01/07/23 33.09 kg/m?? Celia Keys NP PRINTING MACHINE OPERATOR documented in this encounter Plan of Treatment Not on file documented as of this encounter Procedures Procedure Name Priority Date/Time Associated Diagnosis Comments ND ARTHROCENTESIS ASPIR&/INJ MAJOR JT/BURSA W/O US Routine 01/07/2023 1:30 PM BOX PRINTING MACHINE OPERATOR Trochanteric bursitis of right hip ND INJECTION SINGLE/COOKER SYRUP TRIGGER POINT 1/2 MUSCLES Routine 01/07/2023 1:30 PM BOX PRINTING MACHINE OPERATOR Myalgia, other site documented in this encounter Results * ND ARTHROCENTESIS ASPIR&/INJ MAJOR JT/BURSA W/O US (01/07/2023 1:30 PM BOX PRINTING MACHINE OPERATOR) Narrative Celia Keys NP - 01/07/2023 1:30 PM BOX PRINTING MACHINE OPERATOR Celia Keys NP ? 01/07/2023 ??6:24 PM Large Joint (Hip, Knee, Shoulder) Injection: [...] IN CLINIC/BEDSIDE ORDERABLE S Final Result * ND INJECTION SINGLE/COOKER SYRUP TRIGGER POINT 1/2 MUSCLES (01/07/2023 1:30 PM BOX PRINTING MACHINE OPERATOR) Narrative Celia Keys NP - 01/07/2023 1:30 PM BOX PRINTING MACHINE OPERATOR Celia Keys NP ? 01/07/2023 ??6:24 PM Trigger Point Injection Performed by: Celia Keys NP Authorized by: Celia Keys NP ?? Trigger Point Injection: ??Consent Given by: ??Patient ??Site marked: the procedure site was marked ?Timeout: prior to procedure the correct patient, procedure, and site was verified ?Consent obtained:: ??Verbal ??Risks discussed, including, but not limited to:: ??Pain ??Alternatives discussed:: ??Alternative treatment ??Site/side marked: Yes ?Indications: ??Pain Procedure Details: ??Location: ??R lumbar paraspinal ??Local anesthetic: ??Ethyl chloride spray ??Ultrasound guidance: No ?Needle size: ??22 G ??Number of muscles: ??1 or 2 ??Approach: ??Posterior ?? 6 mL lidocaine 10 mg/mL (1 %); 120 mg triamcinolone 40 mg/mL ??Patient tolerance: ??Patient tolerated the procedure well with no immediate complications us Celia Keys CLERK TELEVISION PRODUCTION IN CLINIC/BEDSIDE ORDERABLE S Final Result documented in this encounter Visit Diagnoses Diagnosis Myalgia, other site- Primary Trochanteric bursitis of right hip Chronic bilateral low back pain with right-sided sciatica Lumbar facet arthropathy, severe multilevel Spondylosis of unspecified site without mention of myelopathy DDD (degenerative disc disease), lumbar, Mild L3-L5 and moderate to severe L5-S1 Degeneration of lumbar or lumbosacral intervertebral disc Anterolisthesis of lumbar spine, grade 1 L4 on L5 Bilateral primary osteoarthritis of hip, mild documented in this encounter Administered Medications Inactive Administered Medications - up to 3 most recent administrations Medication Order MAR Action Action Date Dose Rate Site lidocaine (XYLOCAINE) 10 mg/mL (1 %) injection 2 mL 2 mL, One-Time Injection, Starting on Sat01/07/23 at 1330, For 1 dose, Indications: Administration of Local AnesthesiaIndications:Administ ration of Local Anesthesia Given 01/07/2023 1:30 PM BOX PRINTING MACHINE OPERATOR 2 mL Right Hip lidocaine (XYLOCAINE) 10 mg/mL (1 %) injection 6 mL 6 mL, One-Time Injection, Starting on Sat01/07/23 at 1330, For 1 dose, Indications: Administration of Local AnesthesiaIndications:Administ ration of Local Anesthesia Given 01/07/2023 1:30 PM BOX PRINTING MACHINE OPERATOR 6 mL triamcinolone (KENALOG) 40 mg/mL injection 120 mg 120 mg, One-Time Injection, Starting on Sat01/07/23 at 1330, For 1 doseIndications:Myalgia, other site Given 01/07/2023 1:30 PM BOX PRINTING MACHINE OPERATOR 120 mg triamcinolone (KENALOG) 40 mg/mL injection 40 mg 40 mg, One-Time Injection, Starting on Sat01/07/23 at 1330, For 1 doseIndications:Trochanteric bursitis of right hip Given 01/07/2023 1:30 PM BOX PRINTING MACHINE OPERATOR 40 mg Right Hip documented in this encounter
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
--- OUTSIDE RECORDS SUMMARY | 2024-03-23 01:44 | XMS_ITS | Clinical Summary ---
Author Organization [facility] Address [address] [place] [phone] Care Team Providers Care Cement Finisher Apprentice Name Role Phone Marii Randle MD Primary Care Provider [phone] Allergies No known active allergies Medications ascorbic [...] Active Active Problems No known active problems Surgical History Surgery Date Site/Laterality Comments SECTION CHOLECYSTECTOMY Medical History Medical History Date Comments GERD (gastroesophageal reflux disease) Gastric reflux Hypertension Chronic lumbar pain Lumbar facet arthropathy Anterolisthesis of lumbar spine L4 on L5 Bilateral primary osteoarthritis of hip DDD (degenerative disc disease), lumbar Family History Medical History Relation Name Comments Cancer Father Relation Name Status Comments Father Social History Tobacco Use Types Packs/Day Years [...] on file Legal Sex Female 8:07 PM LEGAL ADVISOR Gender Identity Not on file Sexual Orientation Not on file Occupation Industry Job Start Date Job End Date retired Not on file Not on file Not on file Obstetrics History Last Filed Vital Signs Vital Sign Reading Time Taken Comments Blood Pressure - - Pulse - - Temperature - - Respiratory Rate - - Oxygen Saturation - - Inhaled Oxygen Concentration - - Weight 93 kg (205 lb) 05/29/2023 10:39 AM CDT Height 167.6 cm (5' 6 ) 05/29/2023 10:39 AM CDT Body Mass Index 33.09 05/29/2023 10:39 AM CDT Plan of Treatment Health Maintenance Due Date Last Done Comments Breast Cancer Screening-Mammogram 1956 Colon Cancer Screening-Colonoscopy 1955 Depression Screening 1956 Fall Risk Assessment 1956 Hepatitis C Screening 1956 Osteoporosis Screening-Bone Density Scan 1956 Hepatitis B Screening 1974 Pneumococcal vaccine 65+ (1 of 1 - PCV) 2021 Well Visit 65+ 2021 Covid-19 Vaccine (2023-2 5 season) 2023 12/18/2021, 06/17/2021, 06/17/2021, Additional history exists Influenza Vaccine (#1) 2023 3, 12/18/2021, 02/10/2021, Additional history exists DTaP/Tdap/Td Vaccine (2 - Td or Tdap) 08/21/2027 08/20/2017 Zoster Vaccine Completed 08/23/2020, 12/03, 12/22/2019 Insurance [employer] CHOICE MEDICARE PPO Care Teams Cement Finisher Apprentice Relationship Specialty Start Date End Date Marii Randle MD [address] [facility] [address] [place] [address] PCP - General Family Medicine 05/29/23
== END 2024-03-17 14:40 | disposition home or self-care (01) ==
LOC: ANHSURGERY 05:57 → ANH3MEDSUR 11:04
PROVIDERS: Physician Assistant; PCP Family Medicine; Visit Provider Orthopaedic Surgery
PROC: (CPT 27130; principal; 2024-03-16 07:30)
DX: M16.11 Unilateral primary osteoarthritis, right hip (principal); I10 Essential (primary) hypertension; K21.9 Gastro-esophageal reflux disease without esophagitis; N32.81 Overactive bladder; E66.9 Obesity, unspecified; Z68.32 Body mass index [BMI] 32.0-32.9, adult; Z79.891 Long term (current) use of opiate analgesic; Z98.890 Other specified postprocedural states; Z90.49 Acquired absence of other specified parts of digestive tract; Z87.891 Personal history of nicotine dependence; Z80.42 Family history of malignant neoplasm of prostate; Z80.3 Family history of malignant neoplasm of breast; Z80.8 Family history of malignant neoplasm of other organs or systems; Z82.49 Family history of ischemic heart disease and other diseases of the circulatory system
CPT/HCPCS: 27130; 36415; 80048; 83735; 85025; 86850; 86900; 86901; 97110; 97116; 97161; 97165; 97530; 97535; 99199; A9270; C1776; J0690; J1100; J1171; J1741; J2003; J2250; J2405; J2704; J3010; J3370; J7120

== ENCOUNTER 2024-12-24 13:09 | Outpatient (CLI) | payer MEDICARE, SELFPAY ==
--- NOTE | ~2024-12-24 | US_ITS ---
EXAMINATION: US hip asp inj w image RT DATE: 12/24/2024 12:07 INDICATION: Right lower limb pain and presence of right artificial hip joint TECHNIQUE: The procedure and its risks and benefits were discussed with the patient. Potential risks discussed included bleeding and infection. The skin overlying the right hip was prepped and draped in sterile fashion. 1% lidocaine was used for local anesthesia. Under ultrasound guidance, a 20-gauge spinal needle was advanced into the hypoechoic region along the anterior margin of the neck of the femoral component of a right total hip arthroplasty. Attempt was made at fluid aspiration yielding no fluid. The needle was repositioned 2 additional times, each time palpable and contacting the anterior surface of the arthroplasty with aspiration yielding no fluid. The needle was removed, and a sterile dressing was applied. There were no immediate complications. FINDINGS: Ultrasound images demonstrate a small hypoechoic region along the anterior margin of the neck of a right total hip arthroplasty which likely represents synovial tissue which yielded no fluid on attempted aspiration at 3 separate locations. IMPRESSION: 1. Unsuccessful attempt at ultrasound-guided right hip thoracentesis which yielded no fluid at 3 separate locations contacting the neck of the femoral component of a right total hip arthroplasty. Reviewed, dictated and finalized at location A. IMPRESSION: 1. Unsuccessful attempt at ultrasound-guided right hip thoracentesis which yiel ded no fluid at 3 separate locations contacting the neck of the femoral compone nt of a right total hip arthroplasty.
--- OUTSIDE RECORDS SUMMARY | 2024-12-24 10:07 | XMS_ITS | Clinical Summary ---
Author Organization [facility] Address [address] [place] [phone] Care Team Providers Care Medical Insurance Coding Specialist Name Role Phone Marii Randle MD Primary Care Provider [phone] Allergies No known active allergies Medications ascorbic [...] on file Legal Sex Female 8:07 PM PARISH NURSE Gender Identity Not on file Sexual Orientation [...] 10:39 AM CDT Height 167.6 cm (5' 6) 05/29/2023 10:39 AM CDT Body Mass Index 33.09 05/29/2023 10:39 AM CDT Plan of Treatment Health Maintenance Due Date Last Done Comments Breast Cancer Screening-Mammogram 1956 Colon Cancer Screening-Colonoscopy 1956 Depression Screening 1956 Fall Risk Assessment 1956 Hepatitis C Screening 1956 Osteoporosis Screening-Bone Density Scan 1956 Hepatitis B Screening 1974 Pneumococcal vaccine 65+ (1 of 1 - PCV) 2006 Well Visit 65+ 2021 Covid-19 Vaccine (2024-2 6 season) 2024 12/18/2021, 06/17/2021, 06/17/2021, Additional history exists Influenza Vaccine (#1) 2024 3, 12/18/2021, 02/10/2021, Additional history exists DTaP/Tdap/Td Vaccine (2 - Td or Tdap) 08/21/2027 08/20/2017 Zoster Vaccine Completed 08/23/2020, 12/03, 12/22/2019 Insurance [employer] CHOICE MEDICARE PPO Care Teams Medical Insurance Coding Specialist Relationship Specialty Start Date End Date Marii Randle MD [address] [facility] [address] [place] [address] PCP - General Family Medicine 05/29/23
--- OUTSIDE RECORDS SUMMARY | 2024-12-24 10:07 | XMS_ITS | Clinical Summary ---
Author Organization [facility] Address [address] [place] [address] Care Team Providers Care Flume Maker Name Role Phone Unavailable Primary Care Provider Unavailabl e Source Comments [facility],non-owned Affiliates and Associated Physician Practices is amultiple site organization consisting of ambulatory clinics and hospital sitesin [place], [place], [place] and [place]. This disclosure is being madepursuant to the Care Everywhere program and may not contain all information available regarding this patient. Last updated 17.[facility] [employer] Social History Tobacco Use Types Packs/Day Years Used Date Smoking Tobacco: Never Assessed Comments Unknown Sex and Gender Information Value Date Recorded Sex Assigned at Not on file Legal Sex Female 8:59 AM CERNER ANALYST Gender Identity Not on file Sexual Orientation Not on file Plan of Treatment Health Maintenance Due Date Last Done Comments COLOGUARD (AGES 45-75) - COLON CA SCREENING 1956 CT COLONOGRAPHY - COLON CA SCREENING 1956 FIT - COLON CA SCREENING 1956 FLEX SIG - COLON CA SCREENING 1956 LIPID TESTING 1956 HEPATITIS C SCREENING 04/29/1974 DTAP/TDAP/TD VACCINES (1 - Tdap) 05/04/1975 PNEUMOCOCCAL VACCINE 50+ (1 of 1 - PCV) 2006 ZOSTER VACCINE (1 of 2) 2006 DEPRESSION SCREENING 03/04/2024 MEDICARE AWV CALENDAR YEAR 2024 COVID-19 VACCINE (3 - 2024- season) 2024 06/17/2021, 01/18/2021 INFLUENZA VACCINE (#1) 2024 , 12/24/2022, 02/10/2021, Additional history exists MAMMOGRAM 12/31/2025 01/01/2024, 01/01/2024 COLON MONITORING 07/13/2030 07/13/2020 COLONOSCOPY - COLON CA SCREENING 07/13/2030 07/13/2020 Colorectal Cancer Screening 07/13/2030 Respiratory Syncytial Virus (RSV) Vaccine Pt: or over 60 yrs (1 - 1-dose 75+ series) 05/04/2031 BONE DENSITY TESTING Completed 05/09/2022 HEPATITIS B VACCINE Aged Out No longe r eligible based on patient's age to complete this topic HIB VACCINE Aged Out No longer eligi ble based on patient's age to complete this topic HPV VACCINE Aged Out No longer eligi ble based on patient's age to complete this topic MENINGOCOCCAL (Group B) VACCINE SHARED DECISION-MAKING Aged Out No longer eligible based on patient's age to complete this topic MENINGOCOCCAL GROUPS A/C/Y/W VACCINE Aged Out No longer eligible based on patient's age to complete this topic Insurance [facility] MEDICARE ADV HMO & PPO
--- OUTSIDE RECORDS SUMMARY | 2024-12-24 10:07 | XMS_ITS | Encounter Summary ---
Author Organization [facility] Address [address] [place] [address] Care Team Providers Care President Practicing Urologist Name Role Phone Unavailable Primary Care Provider Unavailabl e Reason for Referral * Consultation (Routine) - Closed Specialty Diagnoses / Procedures Referred By Herberth amor Referred To Contact Orthopedics Diagnoses Primary osteoarthritis of right hip Marii Randle MD [facility] [address] Phone: tel: fax: [facility] [address] [address] Phone: tel: fax: Referral ID Status Reason Start Date Expiration Date V isits Requested Visits Authorized [id number] Closed Specialty Services Required 01/08/2024 01/07/2025 1 1 DOWN WORKER Encounter Details Date Type Department Care Team (Latest Contact Info) Description 01/08/2024 Transcribe Orders [facility] - Centralized Scheduling [address] [place] [id number] Marii Randle MD [facility] [address] [address] Primary osteoarthritis of right hip Social History Tobacco Use Types Packs/Day Years Used Date Smoking Tobacco: Never Assessed Comments Unknown Sex and Gender Information Value Date Recorded Sex Assigned at Not on file 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
[2024-12-24 11:09] LABS: CRP < 0.5 mg/dL (<1.0)
--- OUTSIDE RECORDS SUMMARY | 2024-12-24 14:02 | XMS_ITS | Encounter Summary ---
Author Organization [facility] Address [address] [place] [address] Care Team Providers Care Country Director Name Role Phone Unavailable Primary Care Provider Unavailabl e Reason for Referral * Consultation (Routine) - Closed Specialty Diagnoses / Procedures Referred By Herberth amor Referred To Contact Orthopedics Diagnoses Primary osteoarthritis of right hip Marii Randle MD [facility] [address] Phone: tel: fax: [facility] [address] [address] Phone: tel: fax: Referral ID Status Reason Start Date Expiration Date V isits Requested Visits Authorized [id number] Closed Specialty Services Required 01/08/2024 01/07/2025 1 1 RAL INTERNIST Encounter Details Date Type Department Care Team (Latest Contact Info) Description 01/08/2024 Transcribe Orders [facility] - Centralized Scheduling [address] [place] [id number] Marii Randle MD [facility] [address] [address] Primary osteoarthritis of right hip Social History Tobacco Use Types Packs/Day Years Used Date Smoking Tobacco: Never Assessed Comments Unknown Sex and Gender Information Value Date Recorded Sex Assigned at Not on file 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
--- OUTSIDE RECORDS SUMMARY | 2024-12-24 14:02 | XMS_ITS | Clinical Summary ---
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
--- OUTSIDE RECORDS SUMMARY | 2024-12-24 14:02 | XMS_ITS | Clinical Summary ---
Author Organization [facility] Address [address] [place] [address] Care Team Providers Care Change Control Analyst Name Role Phone Unavailable Primary Care Provider Unavailabl e Source Comments [facility],non-owned Affiliates and Associated Physician Practices is amultiple site organization consisting of ambulatory clinics and hospital sitesin [place], [place], [place] and [place]. This disclosure is being madepursuant to the Care Everywhere program and may not contain all information available regarding this patient. 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
== END 2024-12-24 13:10 | disposition home or self-care (01) ==
PROVIDERS: PCP Family Medicine; Visit Provider Orthopaedic Surgery
DX: M25.551 Pain in right hip (principal); G89.29 Other chronic pain; Z96.641 Presence of right artificial hip joint
CPT/HCPCS: 20611; 36415; 85652; 86140

== ENCOUNTER 2025-01-12 08:46 | Outpatient (CLI) | payer MEDICARE, SELFPAY ==
--- NOTE | ~2025-01-12 | NM_ITS ---
EXAMINATION: NM bone scan whole body DATE: 01/12/2025 12:56 INDICATION: Pain in right hip TECHNIQUE: 23.2 mCi technetium 99m MDP mCi Tc-99m HDP was administered intravenously. Delayed whole-body scintigrams were obtained. COMPARISON: Plain films of the right hip from July 23, 2024 FINDINGS: Mild diffusely increased radiotracer uptake is present in the proximal right femur about the right femur arthroplasty femoral or stem component. Minimal increased activity in the right hip. Scattered areas of benign degenerative changes present in the shoulders and left knee. Mild increased activity in the paranasal right effusion also noted. IMPRESSION: 1. Mildly increased, nonspecific radiotracer uptake about the femoral/stem component right total hip arthroplasty hardware. The degree of radiotracer uptake does not appear markedly different from what might be expected postoperatively. 2. Other findings as above. Reviewed, dictated and finalized at location A. R REPAIRER IMPRESSION: 1. Mildly increased, nonspecific radiotracer uptake about the femoral/stem comp onent right total hip arthroplasty hardware. The degree of radiotracer uptake d oes not appear markedly different from what might be expected postoperatively. 2. Other findings as above.
--- OUTSIDE RECORDS SUMMARY | 2025-01-12 09:02 | XMS_ITS | Clinical Summary ---
Author Organization [facility] Address [address] [place] [address] Care Team Providers Care Complaint Clerk Name Role Phone Unavailable Primary Care Provider Unavailabl e Source Comments [facility],non-owned Affiliates and Associated Physician Practices is amultiple site organization consisting of ambulatory clinics and hospital sitesin [place], [place]. This disclosure is being madepursuant to the Care Everywhere program and may not contain all information available regarding this patient. 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
--- OUTSIDE RECORDS SUMMARY | 2025-01-12 09:02 | XMS_ITS | Encounter Summary ---
Author Organization [facility] Address [address] [place] [address] Care Team Providers Care Refining Still Operator Name Role Phone Unavailable Primary Care Provider Unavailabl e Reason for Referral * Consultation (Routine) - Closed Specialty Diagnoses / Procedures Referred By Herberth amor Referred To Contact Orthopedics Diagnoses Primary osteoarthritis of right hip Marii Randle MD [facility] [address] Phone: tel: fax: [facility] [address] [place] [address] [address] Phone: tel: fax: Referral ID Status Reason Start Date Expiration Date V isits Requested Visits Authorized [id number] Closed Specialty Services Required 01/08/2024 01/07/2025 1 1 PHYSICS TEACHER Encounter Details Date Type Department Care Team (Latest Contact Info) Description 01/08/2024 Transcribe Orders [facility] - Centralized Scheduling [address] [place] [phone] Marii Randle MD [facility] [address] [address] Primary osteoarthritis of right hip Social History Tobacco Use Types Packs/Day Years Used Date Smoking Tobacco: Never Assessed Comments Unknown Sex and Gender Information Value Date Recorded Sex Assigned at Not on file 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
--- OUTSIDE RECORDS SUMMARY | 2025-01-12 09:03 | XMS_ITS | Clinical Summary ---
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
== END 2025-01-12 08:47 | disposition home or self-care (01) ==
PROVIDERS: PCP Family Medicine; Visit Provider Orthopaedic Surgery
DX: M25.551 Pain in right hip (principal); G89.29 Other chronic pain; Z96.641 Presence of right artificial hip joint
CPT/HCPCS: 78306; A9503